=== PATIENT | male | born 1950 | race Caucasian/White ===

== ENCOUNTER 2017-07-12 10:12 | Outpatient (CLI) | payer MEDICARE, BC ==
--- NOTE | 2017-07-12 12:23 | RAD ---
CHEST PA AND LATERAL: History: 67-year-old male with history of dyspnea. Comparison: 07-07-15 FINDINGS: Post op midline sternotomy with endostent in the proximal ascending aorta. Mild hyperinflation. No co nfluent pneumonia, overt edema, or pleural effusion. IMPRESSION: Stable hyperinflation. Post-operative changes. No acute intrathoracic disease. POS: [facility]
== END 2017-07-12 10:13 | disposition home or self-care (01) ==
LOC: RAD 10:12
PROVIDERS: ATTEND Internal Medicine Critical Care Medicine
DX: R06.00 Dyspnea, unspecified (principal); Z98.890 Other specified postprocedural states
CPT/HCPCS: 71046

== ENCOUNTER 2017-08-10 18:31 | Observation (INO) | payer BC, MEDICARE ==
--- NOTE | 2017-08-10 19:34 | RAD ---
CHEST ONE VIEW 08/10/17 HISTORY: Syncope. COMPARISON: Chest radiograph 07/12/17. FINDINGS: Cardiac valve is present. Mediastinal surgical clips are present. No focal air space consolidation, pneumothorax or effusion. Incomplete evaluation of the ACDF hardwar e. IMPRESSION: No acute intrathoracic abnormality. POS: [facility]
[2017-08-10 19:38] LABS: #Basophils 0.1 thou/uL (0.0-0.2); #Eosinphils 0.5 thou/uL (0.0-0.7); #Lymphocytes 2.5 thou/uL (1.20-3.40); %Basophils 0.6 % (0.0-1.0); %Eosinophils 4.7 % (0.0-10.0); %Lymphocytes 24.8 % (21.0-51.0); Hemoglobin 13.4 g/dL (14.0-18.0); Mean Corpuscular HGB CONC 33.9 g/dL (32.0-36.0); Mean Corpuscular Hemoglobin 32.3 pg (27.0-31.0); Mean Corpuscular Volume 95.3 fl (80.0-94.0); Mean Platelet Volume 7.1 fL (7.4-10.4); Platelet Count 270 thou/uL (130-400); RBC Distribution Width 11.7 % (11.5-14.5); Red Blood Cell (RBC) Count 4.14 mill/uL (4.70-6.10)
[2017-08-10 20:01] LABS: ALT (SGPT) 21 U/L (8-55); AST (SGOT) 24 U/L (5-34); Albumin 3.5 g/dL (3.4-4.8); Alkaline Phosphatase 103 U/L (40-150); Anion Gap 15 mmol/L (10-20); BUN (Urea Nitrogen) 15 mg/dL (8.4-25.7); Bilirubin, Total 0.8 mg/dL (0.2-1.2); Calc. Creatinine Clearance 0 mL/min (70-130); Calcium 9.2 mg/dL (7.8-10.44); Carbon Dioxide 28 mmol/L (23-31); Chloride 96 mmol/L (98-107); Estimated GFR-MDRD 88; Globulin 2.5 g/dL (2.4-3.5); Glucose 102 mg/dL (80-115); Sodium 135 mmol/L (136-145)
[2017-08-10 20:04] LABS: CKMB 1.9 ng/mL (0-6.6)
[2017-08-10] MEDS ORDERED: Morphine 4 MG/ML VIAL ONE (20:46)
[2017-08-10] MEDS ORDERED: methylPREDNISolone Sod Succ/PF 125 MG/2 ML VIAL ONE (20:46)
[2017-08-10] MEDS ORDERED: Furosemide 40 MG/4 ML VIAL ONE (20:46)
[2017-08-10] MEDS ORDERED: Ondansetron ODT 4 MG TAB ONE (20:46)
[2017-08-10] MEDS ORDERED: Aspirin 325 MG TAB ONE (20:46)
[2017-08-10] MEDS ORDERED: Nitroglycerin 2% Ointment 1 INCH/1 GM Packet ONE (20:46)
[2017-08-10] MEDS ORDERED: Ondansetron ODT 4 MG TAB SL PRN (22:26)
[2017-08-10] MEDS ORDERED: Ondansetron HCl/PF 4 MG/2 ML Vial IVP PRN ×2 (22:26→23:28)
[2017-08-10 22:36] VITALS: BMI 20.7
[2017-08-10] MEDS ORDERED: Nicotine 21 MG PATCH TD SCH (23:00)
[2017-08-10 23:19] LABS: Troponin I 0.032 ng/mL (< 0.028)
[2017-08-10] MEDS ORDERED: Acetaminophen 500 MG TAB PO PRN (23:28)
[2017-08-10] MEDS ORDERED: hydrALAZINE 20 MG/ML VIAL SLOW IVP PRN (23:28)
[2017-08-10] MEDS ORDERED: cloNIDine 0.1 MG TAB PO PRN (23:28)
[2017-08-10] MEDS ORDERED: Ondansetron ODT 4 MG TAB PO PRN (23:28)
[2017-08-10] MEDS ORDERED: clonazePAM 1 MG TAB PO PRN (23:28)
[2017-08-10] MEDS ORDERED: PROVENTIL INHALER 6.7 G (200 INHALATIONS) INH PRN (23:28)
[2017-08-11 01:25] LABS: Troponin I 0.027 ng/mL (< 0.028)
[2017-08-11 05:17] LABS: Anion Gap 14 mmol/L (10-20); BUN (Urea Nitrogen) 17 mg/dL (8.4-25.7); Calc. Creatinine Clearance 66 mL/min (70-130); Calcium 9.5 mg/dL (7.8-10.44); Carbon Dioxide 29 mmol/L (23-31); Chloride 96 mmol/L (98-107); Estimated GFR-MDRD 80; Glucose 188 mg/dL (80-115); Magnesium 1.6 mg/dL (1.6-2.6); Potassium 3.4 mmol/L (3.5-5.1); Sodium 136 mmol/L (136-145)
[2017-08-11 06:11] LABS: Eosinophils 2 % (0-10); Hemoglobin 13.4 g/dL (14.0-18.0); Lymphocytes 6 % (21-51); MDiff Complete? YES; Macrocytosis SLIGHT = 6-15 cells (100X) (0-5/hpf); Mean Corpuscular Hemoglobin 32.3 pg (27.0-31.0); Mean Corpuscular Volume 95.1 fl (80.0-94.0); Mean Platelet Volume 7.4 fL (7.4-10.4); Monocytes 1 % (0-10); Neutrophil 90 % (42-75); PLT Morphology Comment Appears Adequate; Platelet Count 278 thou/uL (130-400); RBC Distribution Width 11.8 % (11.5-14.5); Red Blood Cell (RBC) Count 4.16 mill/uL (4.70-6.10)
[2017-08-11] MEDS ORDERED: Mometasone/Formoterol 120 PUFF INHALER INH SCH (06:30)
[2017-08-11] MEDS ORDERED: Famotidine 20 MG TAB PO SCH (09:00)
[2017-08-11] MEDS ORDERED: Clopidogrel Bisulfate 75 MG TAB PO SCH (09:00)
[2017-08-11] MEDS ORDERED: Lisinopril 20 MG TAB PO SCH (09:00)
[2017-08-11] MEDS ORDERED: Aspirin 81 mg Enteric Coated Tablet PO SCH (09:00)
[2017-08-11] MEDS ORDERED: Carvedilol 6.25 MG TAB PO SCH (09:00)
--- NOTE | 2017-08-11 09:49 | HP ---
DATE OF ADMISSION: 08/10/2017 PRIMARY CARE PHYSICIAN: Dr. Roberto Cervantes. CHIEF COMPLAINT: General weakness and fall. HISTORY OF PRESENT ILLNESS: This is a 67-year-old male who presents to [facility] after apparently sustaining a fall at his home on the date of admission. Patient stat es he was leaving his home on the front porch when he lost his balance, striking a picnic table near his door. Patient had bruising and scraping of the left forearm area as well as bruising to the left side of his forehead. Patient denies any leeanne loss of consciousness, but states he has been unstea dy, lethargic, and sleeping more after a recent admission and discharge from [facility] after undergoing a cervical spine fusion. Patient states he has had increasing neck pain and difficulty with range of motion of the neck undergoing the procedure in the last 5-7 days. Patient s tates he was admitted for approximately 4-5 days and received IV fluids as well as had limited mobili ty during his hospital course. Patient received multiple medications, he states such as pain medicat ions through IV and oral routes. Patient apparently also developed postoperative atrial fibrillation and placed on amiodarone, discharging home with 200 mg b.i.d. Patient states he has had some unstea dy gait, feeling weak in his legs, using furniture and the miranda for mobilization. Patient states he normally is able to ambulate without the use of assistive device and denies receiving any home healt h services or home physical therapy. Patient does state he has noticed some swelling of his ankle re gion after discharge from the hospital, but denies any home oxygen use, chest pain, jaw, or left arm discomfort. Patient denies any specific unilateral weakness, difficulty with speech or vision. Khloe ent admits to being placed on home pain medication, which he states he intermittently takes for neck pain after his cervical spine fusion. In the emergency room, patient underwent chest imaging showing no acute infiltrate. Screening metabolic survey showed mild elevation to BNP of 387 and troponin I of 0.030. Patient received treatment in the emergency room to include Solu-Medrol 125 mg in addition to Lasix 80 mg, aspirin, transdermal nitroglycerin, morphine sulfate, Zofran, and 2 DuoNeb treatment s. Patient was transferred to the observation unit for evaluation. PAST MEDICAL HISTORY: 1. Tobacco abuse. 2. Chronic obstructive pulmonary disease. 3. Coronary artery disease. 4. Question of postoperative atrial fibrillation treated with amiodarone. 5. Hypertension. 6. Hyperlipidemia. 7. Gastroesophageal reflux. PAST SURGICAL HISTORY: 1. Status post coronary artery bypass grafting x3 vessels. 2. Status post hernia repair. 3. Status post spinal surgery. 4. Status post cervical spine fusion. 5. Status post lumbar spine surgery. 6. Status post cardiac valve replacement. CURRENT MEDICATIONS: 1. Albuterol sulfate 1 puff inhaled q.4 hours p.r.n. 2. Amiodarone 200 mg p.o. b.i.d. 3. Aspirin 81 mg 1 tab p.o. daily. 4. Coreg 6.25 mg p.o. b.i.d. 5. Klonopin 1 mg p.o. daily. 6. Plavix 75 mg 1 tab p.o. daily. 7. Nexium 40 mg p.o. q.a.m. 8. Hydrochlorothiazide 25 mg p.o. daily. 9. DuoNebs 3 mL nebulized q.i.d. p.r.n. 10. Lisinopril 40 mg p.o. daily. 11. Melatonin 3 mg p.o. at bedtime. 12. Dulera two puffs inhaled b.i.d. 13. Crestor 20 mg p.o. daily. ALLERGIES: PENICILLIN causing a rash. FAMILY HISTORY: Mother with coronary artery disease and a valve replacement. Father after comp lications of an accident. SOCIAL HISTORY: Patient smokes greater than 50+ years. Continues to smoke up to a pack of cigarette s daily. Occasional alcohol use. Formally employed with [employer] in [place]. . No illicit dr ug use. REVIEW OF SYSTEMS: The following complete review of systems was otherwise negative, except as stated per HPI: Constitutional: Weight loss or gain, ability to conduct usual activities. Skin: Rash, i tching. Eyes: Double vision, pain. ENT/Mouth: Nose bleeding, neck stiffness, pain, tenderness. C ardiovascular: Palpitations, dyspnea on exertion, orthopnea. Respiratory: Shortness of breath, whe ezing, cough, hemoptysis, fever, or night sweats. Gastrointestinal: Poor appetite, abdominal pain, heartburn, nausea, vomiting, constipation, or diarrhea. Genitourinary: Urgency, frequency, dysuria, nocturia. Musculoskeletal: Pain, swelling. Neurologic/Psychiatric: Anxiety, depression. Allergy /Immunologic: Skin rash, bleeding tendency. PHYSICAL EXAMINATION: VITAL SIGNS: On admission, blood pressure 188/89, pulse 56, respiratory rate 22, temperature 98.5 de grees Fahrenheit, O2 saturation 92% on room air. GENERAL APPEARANCE: This is a 67-year-old male, alert and oriented x3, pleasant, responsiv e, in no acute distress. HEENT: Pupils are equal, round, and reactive to light and accommodation. Extraocular muscles are in tact. No scleral icterus, no conjunctival injection. Nares patent. OP is clear. No oral lesions n oted. Ecchymosis and contusions noted over the left eyebrow and forehead and zygomatic arch. NECK: Supple, diminished range of motion in flexion, extension, and rotation. Mild tenderness to pa lpation in the cervical spine posteriorly. Mild edema noted. Postsurgical changes noted in the ante rior neck with post-surgical scarring noted. No palpable mass. No carotid bruits appreciated. LUNGS: Diminished breath sounds bilaterally. Occasional expiratory wheeze. CARDIOVASCULAR: S1, S2 with distant heart sounds. No murmur, rub, or gallop appreciated. ABDOMEN: Rounded, soft, nontender, nondistended. Bowel sounds are positive in all four quadrants. There is no hepatosplenomegaly, no abdominal bruits, no rebound or guarding appreciated. EXTREMITIES: Multiple areas of ecchymosis, bruising, and contusions of the upper extremities. Left forearm with Coban and wound dressing in place. Abrasions and excoriations on the dorsum of the left hand. Lower extremities with bilateral pitting edema to the upper ankle region. Pulses diminished bilaterally at the dorsalis pedis, posterior tibial, and popliteal arteries. NEUROLOGIC: Cranial nerves II-XII are grossly intact. Patient observed ambulating in the room. No gross focal deficits appreciated. Cranial nerves II-XII are grossly intact. PERTINENT LABORATORY DATA AND X-RAY FINDINGS: Complete metabolic profile within normal limits. Trop onin I ranged between 0.030 to 0.032. BNP 387 previously noted 126 on 02/18/2013. CBC showed a whit e blood cell count of 10, hemoglobin 13.4, hematocrit 39.4, MCV 95, platelet count 270 with normal di fferential. Portable chest x-ray dated 08/10/2017 showed no acute cardiopulmonary process. ACDF lisette shady in place. EKG dated 08/10/2017 by my interpretation shows sinus mechanism with heart rates in the 50s. Attenuated R waves in the precordial leads. Normal axis. No acute ST-T wave changes appre ciated. ASSESSMENT AND PLAN: 1. Generalized weakness. Patient was placed in observation status on the telemetry unit. Suspect m ultifactorial given patient's recent cervical spine fusion in conjunction with pain medication exposu re and limited mobility postoperatively. We will obtain PT evaluation for full functional assessment . General fall risk precautions. 2. Status post mechanical fall. See #1 above. General supportive measures. Suspect iatrogenic com ponent. 3. Elevated troponin I. Suspect demand ischemia, which is chronic. No evidence to suggest acute co ronary syndrome. Supportive measures. Continue aspirin and Plavix. 4. Chronic obstructive pulmonary disease. We will continue home regimen of DuoNebs and Dulera. Oxy gen p.r.n. No current exacerbation. 5. Lower extremity edema. Suspect dependent edema given patient's limited mobility postoperatively. We will continue home medication regimen and monitor clinically. Hold diuretic therapy. 6. Status post anterior cervical discectomy and fusion. Continue supportive management. Pain contr ol as clinically indicated. 7. Prophylaxis. Sequential compression devices while in bed. Pepcid 20 mg p.o. b.i.d. PT for func tional assessment. 8. Code status is FULL. Surrogate medical decision maker is patient's spouse.
[2017-08-11 12:16] VITALS: BP 123/58; TEMP 98.7
[2017-08-11] MEDS ORDERED: Amiodarone 200 MG TAB PO SCH (14:30)
[2017-08-11] MEDS ORDERED: Potassium Chloride 20 MEQ TAB PO SCH (14:45)
--- NOTE | 2017-08-11 16:09 | DIS ---
DATE OF DISCHARGE: 08/11/2017 DISCHARGE DISPOSITION: Home. FOLLOWUP: 1. Follow up with Cardiology, Dr. Tripp, next week. 2. Follow up with Dr. Cervantes after 1 week. 3. Base met with magnesium after 1 week is recommended. Primary care physician is advised to follow . ALLERGIES: The patient is allergic to PENICILLIN. The patient was seen and examined on the day of discharge. Denies any new complaints. No chest pain , shortness of breath or palpitations. DISCHARGE MEDICATIONS: 1. Albuterol inhaler as needed. 2. Amiodarone 200 mg twice a day. 3. Aspirin 81 mg daily. 4. Carvedilol 6.25 mg twice a day. 5. Clonazepam as needed. 6. Plavix 75 mg daily. 7. Nexium 40 mg daily. 8. Lasix as needed. 9. Hydrochlorothiazide 25 mg daily. 10. DuoNeb as needed. 11. Lisinopril 40 mg daily. 12. Melatonin 3 mg at bedtime. 13. Dulera 2 puffs twice a day. 14. MiraLax twice a day. 15. Senokot-S twice a day. 16. Potassium chloride with Lasix. 17. Crestor 20 mg daily. BRIEF HOSPITAL COURSE: The patient is a 67-year-old white male with coronary artery disease, paroxys mal atrial fibrillation on amiodarone, COPD, ongoing tobacco abuse and hypertension, presented to the hospital with generalized weakness and mechanical fall without any syncope. Please refer to the his tory and physical dated 08/10/2017 for further details. The patient was admitted to the hospital with the diagnosis of generalized weakness secondary to chromium plater rosi obstructive pulmonary disease exacerbation. He received one dose of Lasix along with steroids an d was placed on nebulizer treatment. His symptoms have significantly improved. His repeat troponin has been normal. He is requesting to be discharged. A chest x-ray was negative for infiltrate or ed vianey. He has appointment with Dr. Tripp after 3-4 days. 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 FINAL DIAGNOSES: 1. Generalized weakness, multifactorial. 2. Mild chronic obstructive pulmonary disease exacerbation, resolved. 3. Indeterminate troponins, probably secondary to demand ischemia/chronic obstructive pulmonary dise ase exacerbation. 4. Chronic obstructive pulmonary disease. The patient will continue his home regimen with nebulizer treatment and Dulera. 5. Constipation. The patient will be started on MiraLax with Senokot-S. A prescription for Fleet E nema will also be sent to the pharmacy. 6. Paroxysmal atrial fibrillation. 7. Ongoing tobacco abuse, the patient was counseled. 8. Coronary artery disease. 9. Hypertension. 10. Hyperlipidemia. 11. Gastroesophageal reflux disease. Plan of care was discussed with the patient in detail. He stated understanding.
[2017-08-11] MEDS ORDERED: Melatonin 3 MG TAB PO SCH (21:00)
== END 2017-08-11 15:41 | disposition home or self-care (01) ==
LOC: ERS 18:31 → 2SW 20:30
PROVIDERS: ADMIT Internal Medicine; ATTEND Internal Medicine
DX: R53.1 Weakness (principal); R60.0 Localized edema; R79.89 Other specified abnormal findings of blood chemistry; I25.10 Atherosclerotic heart disease of native coronary artery without angina pectoris; I48.0 Paroxysmal atrial fibrillation; K59.00 Constipation, unspecified; E78.5 Hyperlipidemia, unspecified; I10 Essential (primary) hypertension; J44.9 Chronic obstructive pulmonary disease, unspecified; K21.9 Gastro-esophageal reflux disease without esophagitis; F17.210 Nicotine dependence, cigarettes, uncomplicated; Z79.02 Long term (current) use of antithrombotics/antiplatelets; Z79.82 Long term (current) use of aspirin; Z79.899 Other long term (current) drug therapy; Z88.0 Allergy status to penicillin; Z98.890 Other specified postprocedural states
CPT/HCPCS: 36415; 71045; 80048; 80053; 82553; 83735; 83880; 84443; 84484; 85007; 85025; 85027; 93005; 96374; 96375; A4216; G0378; G8978-GP-CI; G8979-GP-CI; G8980-GP-CI; J1940; J2270; J2930; J7620; Q0162

== ENCOUNTER 2018-01-21 14:28 | Observation (INO) | payer BC, MEDICARE ==
[~2018-01-21 14:28] MED LIST: ISOVUE-370 76%-LOCM 1 ML ONE
[2018-01-21 15:02] LABS: #Eosinphils 0.1 thou/uL (0.0-0.7); #Lymphocytes 1.7 thou/uL (1.20-3.40); #Monocytes 0.7 thou/uL (0.11-0.59); #Neutrophils 10.6 thou/uL (1.40-6.50); %Basophils 0.3 % (0.0-1.0); %Eosinophils 0.9 % (0.0-10.0); %Lymphocytes 12.9 % (21.0-51.0); %Monocytes 5.5 % (0.0-10.0); %Neutrophils 80.4 % (42.0-75.0); Hemoglobin 15.9 g/dL (14.0-18.0); Mean Corpuscular HGB CONC 32.5 g/dL (32.0-36.0); Mean Corpuscular Hemoglobin 30.9 pg (27.0-31.0); Mean Corpuscular Volume 94.9 fL (78.0-98.0); Mean Platelet Volume 8.7 fL (7.4-10.4); Platelet Count 148 thou/uL (130-400); RBC Distribution Width 12.1 % (11.5-14.5); Red Blood Cell (RBC) Count 5.16 mill/uL (4.70-6.10); White Blood Cell (WBC) Count 13.2 thou/uL (4.8-10.8)
[2018-01-21] MEDS ORDERED: Ondansetron PF 4 MG/2 ML Vial ONE (15:22)
[2018-01-21] MEDS ORDERED: Pantoprazole 40 MG VIAL ONE (15:22)
[2018-01-21] MEDS ORDERED: Dicyclomine 20 MG TAB ONE (15:22)
--- NOTE | 2018-01-21 15:24 | RAD ---
PORTABLE CHEST: Date: 01/21/18 HISTORY: Dyspnea. COMPARISON: 09/27/17. FINDINGS: Chronic lung changes. Heart size upper normal. Postoperative changes again noted. No evidence of vasc ular congestion, edema, infiltrate, or significant effusion. IMPRESSION: No acute finding or interval change noted. POS: [facility]
[2018-01-21 15:38] LABS: ALT (SGPT) 9 U/L (8-55); AST (SGOT) 13 U/L (5-34); Albumin 3.8 g/dL (3.4-4.8); Alkaline Phosphatase 75 U/L (40-150); Anion Gap 12 mmol/L (10-20); BUN (Urea Nitrogen) 13 mg/dL (8.4-25.7); Calc. Creatinine Clearance 0 mL/min (70-130); Calcium 9.3 mg/dL (7.8-10.44); Carbon Dioxide 29 mmol/L (23-31); Chloride 102 mmol/L (98-107); Estimated GFR-MDRD 66; Globulin 3.1 g/dL (2.4-3.5); Protein, Total 6.9 g/dL (5.8-8.1); Sodium 139 mmol/L (136-145)
[2018-01-21 15:39] LABS: CKMB 1.6 ng/mL (0-6.6); Glucose 175 mg/dL (80-115); Troponin I Less than 0.010 ng/mL (< 0.028)
[2018-01-21 16:24] LABS: Bilirubin Negative (Negative); Blood, Urine Negative (Negative); Clarity CLEAR (Clear); Glucose, Urine (Dipstick) Negative (Negative); Leukocyte Negative (Negative); Nitrite Negative (Negative); Protein, Urine (Dipstick) 300 mg/dL (Neg-Trace); Urobilinogen 0.2 mg/dL (0.2-1.0); pH, Urine 5.5 (5.0-9.0)
[2018-01-21 16:25] LABS: Bacteria/HPF None Seen HPF (None Seen); Hyaline Casts/LPF 7-10 HYALINE CAST LPF (0-3 Hyaline); Pathc Cast-AUWi Flag 0.87 (0-2.49); RBC/HPF 0-3 HPF (0-3); Squamous Epithelial 0-3 HPF (0-3); WBC/HPF 0-3 HPF (0-3)
[2018-01-21 16:28] LABS: Renal Epithelial None Seen HPF (0-3); Transitional Epithelial NONE SEEN HPF (0-3)
--- NOTE | 2018-01-21 16:48 | CT ---
CT ABDOMEN AND PELVIS WITH IV CONTRAST: History: Abdominal pain, diarrhea. Comparison: 11-06-15 FINDINGS: Noncalcified pleural plaques at each lung base are stable. The liver, spleen, kidneys, adrenal glands and pancreas are unremarkable. Degenerative and post-operative changes of the lumbar spine. Urinary bladder is decompressed. Dystrophic calcification in the prostate gland. Prominent arterial calcifica tions throughout the abdomen with fusiform ectasia of the lower abdominal aorta and iliac vessels. Si gnificant stenosis of the renal arteries and superior mesenteric artery are apparent. Lack of oral contrast limits evaluation of the bowel. No evidence of obstruction. Circumferential wal l thickening of the entirety of the stomach is similar in appearance to the previous exam. There is a lso prominent circumferential edematous wall thickening of the colon extending from the cecum to the upper sigmoid colon. Subtle stranding in the adjacent fat. Small amount of free fluid in the dependen t portion of the pelvis. No free air. IMPRESSION: 1. Severe long segment inflammation of the colon, sparing the sigmoid colon. Considerations would inc lude infection, ischemia, and inflammatory bowel disease. Given the severe atherosclerosis, ischemia would be of high concern. 2. Prominent circumferential wall thickening of the stomach. It is similar to the previous study from 2016. Please consider endoscopic correlation. POS: [facility]
[2018-01-21] MEDS ORDERED: Acetaminophen 500 MG TAB ONE (19:38)
[2018-01-21] MEDS ORDERED: metroNIDAZOLE 500 MG/100 ML BAG ONE (20:11)
[2018-01-21 21:11] LABS: Lactic Acid 1.2 mmol/L (0.5-2.2)
[2018-01-21 23:01] VITALS: BMI 18.8
[2018-01-22] MEDS ORDERED: Melatonin 3 MG TAB PO SCH ×2 (00:15→21:00)
[2018-01-22] MEDS ORDERED: Lisinopril 20 MG TAB PO SCH ×2 (00:15→09:00)
[2018-01-22] MEDS ORDERED: clonazePAM 1 MG TAB PO SCH ×2 (00:15→21:00)
[2018-01-22] MEDS ORDERED: Carvedilol 3.125 MG TAB PO SCH ×2 (00:15→09:00)
[2018-01-22] MEDS ORDERED: Nicotine 21 MG PATCH TOP SCH (00:15)
[2018-01-22] MEDS ORDERED: Acetaminophen 325 MG TAB PO PRN (00:30)
[2018-01-22] MEDS ORDERED: PROVENTIL INHALER 6.7 G (200 INHALATIONS) INH PRN (05:37)
[2018-01-22] MEDS ORDERED: metroNIDAZOLE 500 MG in Premix Bag 1 BAG IVPB SCH (06:00)
[2018-01-22 06:29] LABS: ALT (SGPT) Less than 7 U/L (8-55); AST (SGOT) 14 U/L (5-34); Albumin 2.7 g/dL (3.4-4.8); Alkaline Phosphatase 51 U/L (40-150); Anion Gap 7 mmol/L (10-20); BUN (Urea Nitrogen) 12 mg/dL (8.4-25.7); Bilirubin, Total 0.7 mg/dL (0.2-1.2); Calc. Creatinine Clearance 60 mL/min (70-130); Calcium 8.1 mg/dL (7.8-10.44); Carbon Dioxide 29 mmol/L (23-31); Chloride 106 mmol/L (98-107); Estimated GFR-MDRD 80; Globulin 2.2 g/dL (2.4-3.5); Glucose 97 mg/dL (80-115); Potassium 3.7 mmol/L (3.5-5.1); Protein, Total 4.9 g/dL (5.8-8.1); Sodium 138 mmol/L (136-145)
[2018-01-22] MEDS ORDERED: Mometasone/Formoterol 120 PUFF INHALER INH SCH (06:30)
--- NOTE | 2018-01-22 06:41 | HP ---
CHIEF COMPLAINT: Abdominal pain. HISTORY OF PRESENT ILLNESS: This patient is a 67-year-old male with a history of significant periphe ral vascular disease who presented to the Emergency Department with the complaint of abdominal pain. The patient reports that he started experiencing some abdominal discomfort initially about 2 weeks a go. He took some Kaopectate and was doing pretty well yesterday; however, the patient's symptoms inc reased significantly. He had pain across his mid abdomen. He was out on a motorcycle and had to spl it out from his group, pull off the road find a place in the [place] to have a bowel movement. He said it was loose and quite large in quantity. He got back on his motorcycle and had about 30 minutes to finish the ride and indicated he could barely make it because he was cramping and had to have anothe r bowel movement at that time. He denied having any blood or mucus in the stools. States he did not eat much since mostly because he felt like it simply would not go down. He did not have nausea or v omiting, just simply felt like he could not swallow it because it would not go down like it was a moon d he did not like. He has had no bowel movement since the second one yesterday. He is feeling a lit tle bit better now and he only has mild discomfort. He states he felt a little warm earlier, but den ies specifically any fevers or chills. REVIEW OF SYSTEMS: Otherwise, is negative through a 10-system review other than the patient reports he did previously have some foot drop in his left foot, but that resolved after he got peripheral vas cular stenting. PAST MEDICAL HISTORY: Notable for COPD, coronary artery disease, hypertension, hyperlipidemia, gastr oesophageal reflux, question of a prior postoperative atrial fibrillation. The patient has longstand ing anxiety disorder treated with Klonopin. PAST SURGICAL HISTORY: Coronary artery bypass graft x3. Of note, the patient had a Staph infection of the sternal wound. He is status post hernia repair, spinal surgery, C-spine fusion, lumbar spine surgery and a cardiac valve replacement. The patient recently had surgery with Dr. Montero of the C -spine at [facility]. He also has recently had bilateral lower extremity arterial stents placed for peripheral vascular disease. FAMILY HISTORY: Mother had coronary artery disease and valve replacements. Father had complications from an accident. SOCIAL HISTORY: The patient continues to smoke typically more than a pack of cigarettes per day, he has smoked for over 50 years. Occasionally uses alcohol. He is . CODE STATUS: He is FULL CODE and his would be his surrogate decision maker. ALLERGIES: PENICILLIN. MEDICATIONS: Hydrochlorothiazide 25 mg p.o. daily, albuterol ProAir HFA p.r.n., aspirin 81 mg every day, Coreg 3.125 mg p.o. b.i.d., Nexium 40 mg every day, Plavix 75 mg 3 times per week, Lasix 20 mg b.i.d., lisinopril 20 mg every day, DuoNeb p.r.n., Melatonin 3 mg at bedtime, Dulera 2 puffs inhal ed b.i.d. p.r.n., Crestor 20 mg b.i.d., Klonopin 1 mg p.o. at bedtime. PHYSICAL EXAMINATION: VITAL SIGNS: Temperature is 98.2, pulse 59, respirations 14, O2 sat 91% to 96% on room air, BP is 11 4/67. GENERAL APPEARANCE: Age appropriate male. He is awake, alert, oriented, pleasant, cooperative, no d istress. HEENT: PERRL. No OP lesions. NECK: Supple and symmetric. CARDIOVASCULAR: Heart is regular rate and rhythm without murmurs. He does have significant bony defe ct down the midline sternal incision. LUNGS: Lungs are diminished, but clear to auscultation bilaterally. ABDOMEN: Soft, nontender, nondistended, positive bowel sounds. No masses, no organomegaly. SKIN: Warm and dry with no cyanosis, clubbing or edema. LABORATORY DATA: White count 13.2, hemoglobin 15.9, platelets 148, 84% neutrophils, 13% lymphocytes. Chemistries are normal except the glucose of 175. Lactic acid was 2.4 with a repeat of 1.2. Lipas e less than 4. Urinalysis shows some protein, otherwise negative. Chest x-ray; no acute findings, old postoperative changes noted. IMAGING: CT abdomen and pelvis shows severe long segment inflammation of the colon, sparing the sigm oid. Etiologies include infection, ischemia, inflammatory bowel disease given the severity of noted atherosclerosis, ischemia would be of high concern. Also, there is prominent circumferential wall th ickening of the stomach similar to a previous study in 2016. ASSESSMENT AND PLAN: 1. Abdominal pain with CT findings consistent with colitis. There is some concern about the possibi lity of ischemic colitis versus infectious colitis. The patient has a slight leukocytosis which I do not think substantially sways it one way or the other. However, we will go ahead and cover with ant ibiotics. The patient is feeling substantially better right now and states he feels well enough to g o home. We will need to reassess in the morning with repeat labs and see where he stands at that poi nt, may need to continue with IV antibiotics or may be able to switch over to p.o. May need to consi mary jane a consultation with Gastroenterology if the colitis is not significantly improved. 2. Thickened stomach wall on CT scan does not appear to be new, the patient may benefit at some poin t from endoscopy to evaluate that as well. 3. Hypertension. Continue with the Zestril and carvedilol. 4. Hyperlipidemia. Continue with the rosuvastatin. 5. History of tobacco abuse. We will give the patient a nicotine patch. 6. Longstanding history of anxiety. Continue with the Klonopin.
[2018-01-22 07:04] LABS: #Eosinphils 0.2 thou/uL (0.0-0.7); #Lymphocytes 2.2 thou/uL (1.20-3.40); #Monocytes 0.9 thou/uL (0.11-0.59); #Neutrophils 8.3 thou/uL (1.40-6.50); %Basophils 0.2 % (0.0-1.0); %Eosinophils 1.9 % (0.0-10.0); %Lymphocytes 18.9 % (21.0-51.0); %Monocytes 7.6 % (0.0-10.0); %Neutrophils 71.4 % (42.0-75.0); Hemoglobin 12.3 g/dL (14.0-18.0); Mean Corpuscular Hemoglobin 30.5 pg (27.0-31.0); Mean Corpuscular Volume 95.3 fL (78.0-98.0); Mean Platelet Volume 9.2 fL (7.4-10.4); Platelet Count 112 thou/uL (130-400); Red Blood Cell (RBC) Count 4.01 mill/uL (4.70-6.10); White Blood Cell (WBC) Count 11.6 thou/uL (4.8-10.8)
[2018-01-22] MEDS ORDERED: Rosuvastatin 20 MG TAB PO SCH (09:00)
[2018-01-22] MEDS ORDERED: Hydrochlorothiazide 25 MG TAB PO SCH (09:00)
[2018-01-22] MEDS ORDERED: Clopidogrel Bisulfate 75 MG TAB PO SCH (09:00)
[2018-01-22] MEDS ORDERED: Aspirin 81 mg Enteric Coated Tablet PO SCH (09:00)
[2018-01-22 11:51] VITALS: BP 124/70; TEMP 98.2
--- NOTE | 2018-01-22 21:44 | DIS ---
DATE OF ADMISSION: 01/21/2018 DATE OF DISCHARGE: 01/22/2018 PRIMARY CARE PHYSICIAN: Yevgeniy Cervantes D.O. DISCHARGE DIAGNOSIS: Colitis. DISCHARGE MEDICATIONS: In addition to the patient's preadmission home medications as dictated in history and physical note by Dr. Walden on 2017, Mr. Hawkins has been discharged on ciprofloxacin 500 mg 2 times a day for 1 week and metronidazole 500 mg 3 times a day for 1 week. HOSPITAL COURSE: Mr. Hawkins is a pleasant 67-year-old gentleman who was admitted to [facility] on 01/22/2018 for abdominal pain with CT findings consistent with colitis. He improved clinically following admission. He was tolerating diet. He was afebrile. I assessed him prior to discharge, and he had no complaints. Vital signs were stable. He is advised to follow up with his primary care provider for final blood culture and urine culture report as well as to seek Gastroenterology referral if he has ongoing symptoms. Many thanks for allowing me to participate in your patient's care. Please feel free to contact me with any questions or concerns. DISCHARGE DESTINATION: Home. [facility]
== END 2018-01-22 13:00 | disposition home or self-care (01) ==
LOC: ERS 14:28 → SURG A 21:12
PROVIDERS: ADMIT Internal Medicine; ATTEND Internal Medicine
DX: K52.9 Noninfective gastroenteritis and colitis, unspecified (principal); J44.9 Chronic obstructive pulmonary disease, unspecified; I25.10 Atherosclerotic heart disease of native coronary artery without angina pectoris; I10 Essential (primary) hypertension; E78.5 Hyperlipidemia, unspecified; K21.9 Gastro-esophageal reflux disease without esophagitis; F17.210 Nicotine dependence, cigarettes, uncomplicated; Z95.1 Presence of aortocoronary bypass graft; Z88.0 Allergy status to penicillin; Z79.899 Other long term (current) drug therapy
CPT/HCPCS: 36415; 71045; 74177; 80053; 81003; 81015; 82553; 83605; 83690; 84484; 85025; 87040; 87086; 94664; 96361; 96365; 96366; 96367; 96375; C9113; G0378; J0744; J2405

== ENCOUNTER 2018-04-09 16:11 | Emergency (ER) | payer BC, MEDICARE ==
[2018-04-09 16:48] LABS: #Eosinphils 0.1 thou/uL (0.0-0.7); #Lymphocytes 1.5 thou/uL (1.20-3.40); #Monocytes 0.8 thou/uL (0.11-0.59); #Neutrophils 6.3 thou/uL (1.40-6.50); %Basophils 0.3 % (0.0-1.0); %Lymphocytes 17.1 % (21.0-51.0); %Neutrophils 72.5 % (42.0-75.0); Hemoglobin 15.4 g/dL (14.0-18.0); Mean Corpuscular HGB CONC 33.3 g/dL (32.0-36.0); Mean Corpuscular Hemoglobin 30.8 pg (27.0-31.0); Mean Corpuscular Volume 92.5 fL (78.0-98.0); Platelet Count 132 thou/uL (130-400); RBC Distribution Width 12.9 % (11.5-14.5); Red Blood Cell (RBC) Count 5.02 mill/uL (4.70-6.10); White Blood Cell (WBC) Count 8.7 thou/uL (4.8-10.8)
--- NOTE | 2018-04-09 16:53 | RAD ---
CHEST 1 VIEW: Date: 04/09/18 HISTORY: Dyspnea. COMPARISON: 01/21/18. FINDINGS: Cardiac silhouette is magnified by projection. Pulmonary vasculature is unremarkable. Mediastinum is midline with postoperative changes and aortic calcification. Lungs remain hyperinflated. No confluent air space consolidation or evidence of pneumothorax. Nonaggressive chondroid lesion at the right pro ximal humeral shaft is evident. IMPRESSION: Pulmonary hyperinflation and other chronic-type findings are stable. No active cardiopulmonary abnorm alities are demonstrated. POS: [facility]
[2018-04-09 17:00] LABS: PTT 26.6 SEC (22.9-36.1); Prothrombin Time 13.5 SEC (12.0-14.7)
[2018-04-09 17:11] LABS: ALT (SGPT) 14 U/L (8-55); AST (SGOT) 18 U/L (5-34); Albumin 3.7 g/dL (3.4-4.8); Alkaline Phosphatase 90 U/L (40-150); Anion Gap 18 mmol/L (10-20); BUN (Urea Nitrogen) 16 mg/dL (8.4-25.7); Bilirubin, Total 1.1 mg/dL (0.2-1.2); CK (CPK) 97 U/L (30-200); Calc. Creatinine Clearance 0 mL/min (70-130); Calcium 9.3 mg/dL (7.8-10.44); Carbon Dioxide 23 mmol/L (23-31); Chloride 101 mmol/L (98-107); Estimated GFR-MDRD Greater than 90; Globulin 2.8 g/dL (2.4-3.5); Glucose 118 mg/dL (80-115); Potassium 3.6 mmol/L (3.5-5.1); Protein, Total 6.5 g/dL (5.8-8.1); Sodium 138 mmol/L (136-145)
[2018-04-09 17:29] LABS: CKMB 2.5 ng/mL (0-6.6)
--- NOTE | 2018-04-09 20:22 | NM ---
NUCLEAR MEDICINE VENTILATION PERFUSION SCAN: (V/Q SCAN) 04/09/2018 HISTORY: A 67-year-old male with dyspnea. TECHNIQUE: Xenon-133 gas dose: 12.1 millicuries. [id number] dose: 6.1 millicuries. The patient inhaled Xenon-133 gas, and dynamic ventilation scintigraphy was performed. [id number] was injected IV, and multiple perfusion scintigraphic views were obtained. FINDINGS: There are no moderate-sized or large perfusion defects. There are no significant ventilation/perfusi on mismatches. There is retention of the xenon gas in both lungs, representing air-trapping, due to COPD. IMPRESSION: 1. Low probability for pulmonary thromboembolism. 2. Emphysema. jn [] POS: [facility]
[2018-04-09 21:07] LABS: Troponin I Less than 0.010 ng/mL (< 0.028)
[2018-04-09 21:52] LABS: Actual Bicarbonate (HCO3a) 26.1 mEq/L (22-28); Analyzer IN Cardio ER; Base Excess (BEa) 2.7 mEq/L (-2.0 to +3.0); CO2 Tension 36.7 mmHg (35.0-45.0); Calcium, Ionized 1.15 mmol/L (1.12-1.30); Carboxyhemoglobin (COHb) 1.4 gm% (0.0-3.0); Hemoglobin (Hb) 16.5 g/dL (14.0-18.0); O2 Tension (PaO2) 81.4 mmHg (> 80.0); Potassium - ABG Lab 3.77 mmol/L (3.70-5.30); pH, Arterial 7.47 (7.35-7.45)
[2018-04-09 21:55] LABS: ALV-art Gradient 22.455 (0-20); Puncture Site LBA
== END 2018-04-09 22:18 | disposition home or self-care (01) ==
LOC: ERS 16:11
DX: J44.1 Chronic obstructive pulmonary disease with (acute) exacerbation (principal); I10 Essential (primary) hypertension; F17.210 Nicotine dependence, cigarettes, uncomplicated
CPT/HCPCS: 36415; 71045; 78582; 80053; 82550; 82553; 82805; 83880; 84484; 85025; 85379; 85610; 85730; 93005; 94640; 94760; A9540; A9558; J7620

== ENCOUNTER 2018-05-04 11:48 | Inpatient (IN) | payer BC, MEDICARE ==
[2018-05-04 12:20] LABS: #Monocytes 0.8 thou/uL (0.11-0.59); #Neutrophils 14.1 thou/uL (1.40-6.50); %Basophils 0.2 % (0.0-1.0); %Eosinophils 0.2 % (0.0-10.0); %Monocytes 4.8 % (0.0-10.0); %Neutrophils 88.8 % (42.0-75.0); Hemoglobin 16.5 g/dL (14.0-18.0); Mean Corpuscular HGB CONC 31.5 g/dL (32.0-36.0); Mean Corpuscular Hemoglobin 30.7 pg (27.0-31.0); Mean Corpuscular Volume 97.5 fL (78.0-98.0); Mean Platelet Volume 10.2 fL (7.4-10.4); Platelet Count 100 thou/uL (130-400); RBC Distribution Width 13.6 % (11.5-14.5); Red Blood Cell (RBC) Count 5.38 mill/uL (4.70-6.10); White Blood Cell (WBC) Count 15.9 thou/uL (4.8-10.8)
[2018-05-04] MEDS ORDERED: Diltiazem 125 MG/25 ML ONE (12:20)
--- NOTE | 2018-05-04 12:26 | RAD ---
CHEST ONE VIEW: HISTORY: Atrial fibrillation. Chest pain. COMPARISON: 04/09/2018 FINDINGS: Heart size is within normal limits. Surgical clips are seen in the mediastinum region. Chronic lung changes are present. No signs of failure or focal infiltrates. IMPRESSION: Chronic lung change. POS: [facility]
[2018-05-04 12:37] LABS: ALT (SGPT) 33 U/L (8-55); AST (SGOT) 26 U/L (5-34); Albumin 3.8 g/dL (3.4-4.8); Alkaline Phosphatase 128 U/L (40-150); Anion Gap 13 mmol/L (10-20); BUN (Urea Nitrogen) 23 mg/dL (8.4-25.7); Bilirubin, Total 1.1 mg/dL (0.2-1.2); Calc. Creatinine Clearance 0 mL/min (70-130); Calcium 9.4 mg/dL (7.8-10.44); Carbon Dioxide 29 mmol/L (23-31); Chloride 101 mmol/L (98-107); Estimated GFR-MDRD 72; Globulin 2.9 g/dL (2.4-3.5); Glucose 205 mg/dL (80-115); Potassium 4.5 mmol/L (3.5-5.1); Protein, Total 6.7 g/dL (5.8-8.1); Sodium 138 mmol/L (136-145)
[2018-05-04 12:42] LABS: Platelet Morphology Comment Appears Decreased; RBC Morphology Normal
[2018-05-04 13:02] LABS: CKMB 3.7 ng/mL (0-6.6)
[2018-05-04] MEDS ORDERED: Metoprolol Tartrate 5 MG/5 ML VIAL ONE ×2 (13:02→13:34)
[2018-05-04] MEDS ORDERED: Propofol 500 MG/50 ML VIAL ONE (14:19)
[2018-05-04] MEDS ORDERED: Guaifenesin DM 100-10/5 ML UDCUP PO PRN (15:46)
[2018-05-04] MEDS ORDERED: Senokot S 8.6-50 MG TAB PO PRN (15:46)
[2018-05-04] MEDS ORDERED: Furosemide 20 MG TAB PO PRN (15:46)
[2018-05-04] MEDS ORDERED: PROVENTIL INHALER 6.7 G (200 INHALATIONS) INH PRN (15:46)
[2018-05-04] MEDS ORDERED: Acetaminophen 325 MG TAB PO PRN (15:46)
[2018-05-04] MEDS ORDERED: Enoxaparin Sodium 60 MG/0.6 ML SYRINGE ONE (16:07)
[2018-05-04 16:20] LABS: Troponin I 0.337 ng/mL (< 0.028)
--- NOTE | 2018-05-04 16:33 | HP ---
REASON FOR ADMISSION: Atrial flutter, demand ischemia, mild CHF exacerbation. HISTORY OF PRESENTING ILLNESS: The patient had gone for routine followup to see Dr. Tripp. He was found to be in atrial flutter with rates going up to 150s. He was transferred to the emergency room here. The patient was given multiple medications here including Lopressor 5 mg IV push x2, Cardizem 20 mg IV push, then 5 mg an hour which was escalated to 10 mg an hour. None of the above seem to control his rate. The patient continued to be in flutter at 152 beats per minute. He was finally cardioverted with propofol sedation. The patient is currently in sinus rhythm. Has no complaints of chest pain or palpitation. The patient has cough due to smoking habit and has also seen Dr. Tatum last and was given prednisone to be continued for a long taper per patient. He has also had a stent placed to his right lower extremity three weeks back by Dr. Hanley. PAST MEDICAL AND SURGICAL HISTORY: CABG done in 1997 for three vessels, TAVR done four years back, COPD with ongoing smoking, dyslipidemia, hypertension, C-spine surgery. He has had GERD. Prior history of postop atrial fibrillation. Longstanding history of anxiety disorder, on Klonopin. History of sternal dehiscence with postop CABG with staph infection, hernia repair, lumbar spine surgery, peripheral vascular disease with prior stent to both lower extremities , one done to right lower extremity three weeks back by Dr. Hanley. CURRENT MEDICATION: The patient takes 1. Lisinopril 20 mg twice daily. 2. Lasix 20 mg on Monday, Monday, Monday. 3. Melatonin 3 mg p.o. at bedtime. 4. Nexium 40 mg p.o. daily. 5. DuoNeb q.4 hourly. 6. Crestor 20 mg p.o. daily. 7. Dulera inhaler two puffs twice daily. 8. Aspirin 81 mg p.o. daily. 9. Clonazepam 1 mg p.o. at bedtime. 10. Plavix 75 mg p.o. daily. 11. Coreg 3.125 mg p.o. twice daily. 12. Hydrochlorothiazide 12.5 mg p.o. daily. ALLERGIES: ALLERGIC TO PENICILLIN. PERSONAL HISTORY: Smokes one pack a day. Does not abuse alcohol or drugs. Lives with his . Ambulates by himself. FAMILY HISTORY: Mother of [place] and she has had a heart valve replacement. She at the age of 62 years. Father in his 40s from motor vehicle accident. CODE STATUS: Full. Power of director of publications is his . REVIEW OF SYSTEMS: CONSTITUTIONAL: Negative for weight loss or gain, ability to conduct usual activities. SKIN: Negative for rash, itching. EYES: Negative for double vision, pain. ENT/MOUTH: Negative for nose bleeding, neck stiffness, pain, tenderness. CARDIOVASCULAR: Negative for palpitations, dyspnea on exertion, orthopnea. RESPIRATORY: Negative for shortness of breath, wheezing, cough, hemoptysis, fever or night sweats. GASTROINTESTINAL: Negative for poor appetite, abdominal pain, heartburn, nausea , vomiting, constipation, or diarrhea. GENITOURINARY: Negative for urgency, frequency, dysuria, nocturia. MUSCULOSKELETAL: Negative for pain, swelling. NEUROLOGIC/PSYCHIATRIC: Negative for anxiety, depression. ALLERGY/IMMUNOLOGIC: Negative for skin rash, bleeding tendency. PHYSICAL EXAMINATION: GENERAL: The patient is a 68-year-old male, who is currently not in any acute distress. VITAL SIGNS: Blood pressure 156/120 on arrival, currently 124/76. Pulse 154 on arrival, currently 50 per minute. Respiratory rate 16 per minute, temperature 98 degrees Fahrenheit, saturating 100% on 2 L nasal cannula. NECK: Supple. No elevated JVD. HEENT: Eyes; extraocular muscles intact. Pupils reacting to light. Oral cavity, mucous membranes are dry. No exudates or congestion. CARDIOVASCULAR SYSTEM: S1 and S2 heard. Regular rhythm. RESPIRATORY SYSTEM: Air entry 1+ bilateral. Scattered rhonchi plus bilateral. There is sternal dehiscence seen with healed CABG scar. ABDOMEN: Soft. Bowel sounds heard. No tenderness, rigidity, or guarding. EXTREMITIES: Mild pedal edema in both lower extremities, worse on the right. Peripheral pulses are 1+ bilateral. No ischemic ulcerations or gangrene. CENTRAL NERVOUS SYSTEM: No gross focal deficits noted. The patient is alert, awake, and oriented well. PSYCHIATRIC SYSTEM: Patient's mood is euthymic. No hallucinations or delusions. LABORATORY DATA: EKG done on arrival shows atrial flutter at 152 beats per minute, this was at 11:53 a.m. A repeat EKG done at 2:32 p.m. shows sinus rhythm at 64 beats per minute. He has anterolateral T-wave inversions with poor R-wave progression as well. White count of 15, H and H 16 and 52, platelet count is 100. MCV is 97 with 88% neutrophils. Electrolytes stable. BUN 23, creatinine 1.0, glucose 205. Liver enzymes are within normal limits. Troponin I 0.40. Albumin is 3.8. BNP 550. Chest x-ray done shows chronic lung changes. CLINICAL IMPRESSION AND PLAN: The patient will be admitted to telemetry for atrial flutter, demand ischemia, mild congestive heart failure exacerbation secondary to flutter. The patient has multiple medical issues including recent chronic obstructive pulmonary disease flare up for which he is on steroid taper and he is also a current smoker at present. Requiring nebulization which might worsen his flutter. He has had direct cardioversion done in the ER with the patient switching back into sinus rhythm. He will be closely monitored on telemetry. Likely, the patient will need ablation on Monday due to his COPD and requiring DuoNeb with possible reappearance of flutter and clinical worsening. We will place him on Lovenox 1 mg/kg at 60 mg q.12 hourly and we will continue aspirin, Plavix due to his recent stent placed to the right lower extremity. He will be on Coreg, Lasix 20 mg twice daily p.o., lisinopril 40 mg daily, Crestor 20 mg daily and continue the prednisone at 5 mg daily. Echo with 2D Doppler for LV function and rule out thrombus will be obtained. Dr. Henriquez will be consulted likely on Monday for ablation. I have discussed his current plan with the patient and and Dr. Tripp as well. Job ID: [id number] [facility]
[2018-05-04 19:02] LABS: Troponin I 0.349 ng/mL (< 0.028)
--- NOTE | 2018-05-04 19:21 | CON ---
DATE OF CONSULTATION: 05/04/2018 HISTORY OF PRESENT ILLNESS: I am seeing Mr. 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 His problems are: 1. New presentation with atrial flutter with rapid ventricular rates. a. Status post cardioversion emergently in the ER. b. Prior history of atrial fibrillation with RVR after his bypass surgery in 1997, but this spontaneously resolved. 2. Coronary artery disease with prior bypass surgery in 1997 and also subsequent valve surgery about 3 years ago. 3. History of COPD and prior history of smoking. 4. History of peripheral vascular disease, status post stenting in the past. 5. Risk factors including hypertension and hyperlipidemia. 6. History of GERD. 7. History of anxiety, treated with Klonopin. ALLERGIES: PENICILLINS. MEDICATIONS: Currently include: 1. Diltiazem IV. 2. Metoprolol IV. 3. Propofol for sedation. 4. Nicoderm patch. 5. Enoxaparin. 6. Furosemide. SUBJECTIVE: Mr. Hwakins was visiting Dr. Tripp for annual visit. Although, he was feeling fairly dyspneic, it is not that unusual for him. He has chronic dyspnea attributed to his COPD. He was found to be in atrial flutter with rapid ventricular rate. He was sent to the ER, where he was eventually cardioverted. He is now feeling slightly better since his heart rates are normalized. No palpitations currently. Denies PND or orthopnea. No stroke-like symptoms. No neurological deficits. Rest of 12-point system otherwise unremarkable. PAST MEDICAL HISTORY: As above. SOCIAL HISTORY: He is and smoked for over 50 years. Rare use of alcohol and drug use. FAMILY HISTORY: Not contributory, but the mother had coronary artery disease and valve replacement. Father had complication from accidents. OBJECTIVE DATA: VITAL SIGNS: Blood pressure is initially 129/90, heart rate 148, respirations 15. The patient is afebrile. Oxygen saturation 99% on 2 L. GENERAL: Alert and oriented man, in no apparent distress. NECK: Supple. Jugular veins not distended. CHEST: Coarse without crackles. HEART: Sounds are regular to rate and rhythm. No murmur or gallop. ABDOMEN: Benign. Bowel sounds positive. EXTREMITIES: Lower extremities without edema, clubbing, or cyanosis. Pulses are adequate. NEUROLOGIC: The patient is nonfocal. MUSCULOSKELETAL: Without joint swelling or deformity. SKIN: Without rash. DATABASE: EKG is reviewed. Initial EKG reveals an atrial flutter, which is typical isthmus dependent in morphology. Ventricular rates 152 beats per minute, 2:1 flutter conduction is seen to the ventricles. Subsequent EKG after cardioversion reveals sinus rhythm with occasional junctional beating competing with basic rate. LABORATORY DATA: White cell count is 5.38, hemoglobin is 16.5, platelet count is 100., potassium 4.5, BUN is 23, Troponins are 0.4, second troponin is mildly decreased at 0.337. ASSESSMENT AND PLAN: Mr. Hawkins is a pleasant 68-year-old man with history of peripheral vascular disease/coronary artery disease with some valve problems noted in the past. He is presenting with atrial flutter with adequate rapid rates. He was emergently cardioverted in the ER due to rapid rates and elevated troponin. I was consulted Dr. Tripp for further management. We had discussed the mechanism of atrial fibrillation and flutter. He understands the differences in both. For now, atrial flutter was in predominant rhythm. We discussed the benefit from CTI ablation therapy.. We discussed the potential need for later PVAI ablation if atriual fibrillaiton is also seen. He is willing to proceed. We will schedule him for first available Monday. In the meantime, continue anticoagulation with Lovenox. We will obtain 2D ECHO. Job ID: [id number] [facility]
[2018-05-04] MEDS: Mometasone/Formoterol 120 PUFF INHALER INH SCH (20:04)
[2018-05-04] MEDS: Nicotine 21 MG PATCH TOP SCH (20:29)
[2018-05-04] MEDS: Carvedilol 3.125 MG TAB PO SCH (20:32)
[2018-05-04] MEDS: Famotidine 20 MG TAB PO SCH (20:32)
[2018-05-04] MEDS: Melatonin 3 MG TAB PO SCH (20:33)
[2018-05-04] MEDS: Furosemide 20 MG TAB PO SCH (20:33)
[2018-05-04] MEDS ORDERED: clonazePAM 1 MG TAB PO SCH (21:00)
[2018-05-04] MEDS ORDERED: clonazePAM 0.5 MG TAB PO SCH (21:15)
--- NOTE | 2018-05-04 22:29 | OP ---
PROCEDURE: Cardioversion. INDICATION: Atrial flutter. Unresponsive to medication associated with increased troponin levels. The patient is a 68-year-old gentleman with history of coronary artery disease, previous bypass surge ry, history of transcutaneous aortic valve replacement, peripheral vascular disease, continued smokin g. Presented to the office today with heart rate of 150 and feeling weak and fatigued. Patient is bro ught here to the Emergency Room. He was given significant doses of intravenous Diltiazem, intravenous Metoprolol but the heart rate really did not change from the 150. In view of the increased troponin levels indicating some myocardial injury occurring with this tachycardia with a troponin level of 0.4 06, urgent cardioversion was advised. The patient was told the risks including stroke and also slow heart rates. The patient was given greer tion and then given 50 joules direct current synchronized energy and converted to sinus bradycardia. Some junctional rhythm and then a brief episode of atrial fibrillation and then into sinus bradycardi a with PACs with rates in the 50s. Blood pressures were relatively low receiving saline. ASSESSMENT: 1. Urgent cardioversion done due to atrial flutter with rapid rate refractory to medications. It is thought that Amiodarone would be unlikely to control this flutter either and would take quite a l citlaly time to even decrease the rate. 2. Mild sinus bradycardia being observed probably related to underlying sick sinus syndrome. Steph betancourt has Diltiazem and Metoprolol in the system.
[2018-05-05 07:02] LABS: Anion Gap 8 mmol/L (10-20); BUN (Urea Nitrogen) 22 mg/dL (8.4-25.7); Calc. Creatinine Clearance 69 mL/min (70-130); Calcium 8.5 mg/dL (7.8-10.44); Carbon Dioxide 27 mmol/L (23-31); Chloride 108 mmol/L (98-107); Estimated GFR-MDRD 86; Glucose 94 mg/dL (80-115); Sodium 139 mmol/L (136-145)
[2018-05-05] MEDS: Mometasone/Formoterol 120 PUFF INHALER INH SCH ×2 (07:49→20:07)
[2018-05-05] MEDS: Aspirin 81 mg Enteric Coated Tablet PO SCH (08:30)
[2018-05-05] MEDS: Famotidine 20 MG TAB PO SCH ×2 (08:30→22:14)
[2018-05-05] MEDS: Carvedilol 3.125 MG TAB PO SCH ×2 (08:30→22:14)
[2018-05-05] MEDS: predniSONE 5 MG TAB PO SCH (08:30)
[2018-05-05] MEDS: Lisinopril 20 MG TAB PO SCH (08:30)
[2018-05-05] MEDS: Furosemide 20 MG TAB PO SCH ×2 (08:31→22:13)
[2018-05-05] MEDS: Enoxaparin Sodium 60 MG/0.6 ML SYRINGE SC SCH ×2 (08:31→22:14)
[2018-05-05] MEDS: Rosuvastatin 20 MG TAB PO SCH (08:44)
[2018-05-05 09:23] LABS: #Basophils 0.1 thou/uL (0.0-0.2); #Eosinphils 0.2 thou/uL (0.0-0.7); #Lymphocytes 2.8 thou/uL (1.20-3.40); #Monocytes 0.9 thou/uL (0.11-0.59); #Neutrophils 10.5 thou/uL (1.40-6.50); %Basophils 0.6 % (0.0-1.0); %Eosinophils 1.2 % (0.0-10.0); %Lymphocytes 19.6 % (21.0-51.0); %Neutrophils 72.6 % (42.0-75.0); Hemoglobin 14.8 g/dL (14.0-18.0); Mean Corpuscular HGB CONC 31.5 g/dL (32.0-36.0); Mean Corpuscular Hemoglobin 30.9 pg (27.0-31.0); Mean Corpuscular Volume 98.3 fL (78.0-98.0); Mean Platelet Volume 10.6 fL (7.4-10.4); Platelet Count 91 thou/uL (130-400); RBC Distribution Width 13.5 % (11.5-14.5); Red Blood Cell (RBC) Count 4.78 mill/uL (4.70-6.10); White Blood Cell (WBC) Count 14.5 thou/uL (4.8-10.8)
--- NOTE | 2018-05-05 12:20 | PDOC.PN ---
- Subjective Encounter Start Date: 05/05/18 Encounter Start Time: 09:45 Subjective: no sob or palp -: feels better - Objective Resuscitation Status - Order Detail: 05/04/18 15:40 Resuscitation Status Routine Resuscitation Status: FULL: Full Resuscitation Discussed with: POA: DANNI Reviewed: Yes Vital Signs & Weight: Vital Signs (12 hours) Temp Pulse Resp BP Pulse Ox 05/05/18 08:00 98.8 F 66 17 159/79 H 98 05/05/18 07:51 97 05/05/18 07:49 71 16 05/05/18 04:00 97.6 F 60 18 132/76 94 L Weight Weight 135 lb 3 oz I&O: 05/04/18 05/05/18 05/06/18 06:59 06:59 06:59 Intake Total 240 Output Total 600 Balance -360 Result Diagrams: 05/05/18 08:36 05/05/18 06:19 Phys Exam - Physical Examination HEENT: PERRLA, moist MMs Neck: no JVD, supple Respiratory: no wheezing, no rales Cardiovascular: RRR, no significant murmur Gastrointestinal: soft, non-tender, positive bowel sounds Musculoskeletal: no edema, pulses present Neurological: non-focal, moves all 4 limbs Psychiatric: normal affect, A&O x 3 Dx/Plan (1) Atrial flutter Code(s): I48.92 - UNSPECIFIED ATRIAL FLUTTER Status: Acute Comment: in sinus s/p cardioversion (2) COPD (chronic obstructive pulmonary disease) Status: Chronic Qualifiers: COPD type: chronic bronchitis (3) CAD (coronary artery disease) Code(s): I25.10 - ATHSCL HEART DISEASE OF [place] CORONARY ARTERY W/O ANG PCTRS Status: Chronic Qualifiers: Coronary Disease-Associated Artery/Lesion type: bypass graft [place] vs. transplanted heart: [place] heart Associated angina: without angina Qualified Code(s): I25.810 - Atherosclerosis of coronary artery bypass graft(s) without angina pectoris (4) HTN (hypertension) Code(s): I10 - ESSENTIAL (PRIMARY) HYPERTENSION Status: Chronic Qualifiers: Hypertension type: essential hypertension Qualified Code(s): I10 - Essential (primary) hypertension (5) Dyslipidemia Code(s): E78.5 - HYPERLIPIDEMIA, UNSPECIFIED Status: Chronic (6) Demand ischemia of myocardium Code(s): I24.8 - OTHER FORMS OF ACUTE ISCHEMIC HEART DISEASE Status: Acute Comment: sec to flutter (7) CHF (congestive heart failure) Code(s): I50.9 - HEART FAILURE, UNSPECIFIED Status: Suspected Qualifiers: Heart failure type: diastolic Heart failure chronicity: acute Qualified Code(s): I50.31 - Acute diastolic (congestive) heart failure Comment: likely sec to flutter with mild elevation in bnp - Plan await echo results -: is in sinus rhythm post cardioversion in er -: for ablation on monday -: continue lovenox 60mg q12h, asp, plavix alt days, crestor, coreg, lisinopri -: small dose of lasix till am * . elevated wbc sec to prednisone. Review of Systems - Medications/Allergies Allergies/Adverse Reactions: Allergies Allergy/AdvReac Type Severity Reaction Status Date / Time Penicillins Allergy Verified 05/04/18 20:38 Medications: Current Medications Acetaminophen (Tylenol) 650 mg PO Q4H PRN PRN Reason: Headache/Fever/Mild Pain (1-3) Albuterol Sulfate (Proventil Hfa) 1 puff INH Q4H PRN PRN Reason: SOB &/or Wheezing Albuterol/Ipratropium (Duoneb) 3 ml NEB QID PRN PRN Reason: SOB &/or Wheezing Aspirin (Ecotrin) 81 mg PO DAILY [facility] Last Admin: 05/05/18 08:30 Dose: 81 mg Carvedilol (Coreg) 3.125 mg PO BID [facility] Last Admin: 05/05/18 08:30 Dose: 3.125 mg Clonazepam (Klonopin) 1.5 mg PO [facility] Clopidogrel Bisulfate (Plavix) 75 mg PO [facility] Enoxaparin Sodium (Lovenox) 60 mg SC 0900,2100 [facility] Last Admin: 05/05/18 08:31 Dose: 60 mg Famotidine (Pepcid) 20 mg PO BID [facility] Last Admin: 05/05/18 08:30 Dose: 20 mg Furosemide (Lasix) 20 mg PO BID [facility] Last Admin: 05/05/18 08:31 Dose: 20 mg Guaifenesin/Dextromethorphan (Robitussin Dm) 15 ml PO Q4H PRN PRN Reason: Cough Lisinopril (Zestril) 40 mg PO DAILY [facility] Last Admin: 05/05/18 08:30 Dose: 40 mg Melatonin (Melatonin) 3 mg PO HS [facility] Last Admin: 05/04/18 20:33 Dose: 3 mg Mometasone Furoate/Formoterol Fumar (Dulera 200 Mcg/5 Mcg Inhaler) 2 puff INH BID-RT [facility] Last Admin: 05/05/18 07:49 Dose: 2 puff Nicotine (Nicoderm Patch) 21 mg TOP NOW [facility] Stop: 05/05/18 14:31 Last Admin: 05/04/18 20:29 Dose: Not Given Nicotine (Nicoderm Patch) 21 mg TD Q24HR [facility] Pantoprazole Sodium (Protonix) 40 mg PO QAM-WM [facility] Last Admin: 05/05/18 08:30 Dose: 40 mg Prednisone (Prednisone) 5 mg PO QAM-WM [facility] Last Admin: 05/05/18 08:30 Dose: 5 mg Rosuvastatin Calcium (Crestor) 20 mg PO DAILY [facility] Last Admin: 05/05/18 08:44 Dose: 20 mg Senna/Docusate Sodium (Senokot S) 2 tab PO BID PRN PRN Reason: Constipation
[2018-05-05] MEDS: Nicotine 21 MG PATCH TD SCH (14:59)
[2018-05-05] MEDS: Nicotine 21 MG PATCH TOP SCH (15:00)
[2018-05-05] MEDS: clonazePAM 1 MG TAB PO SCH (22:13)
[2018-05-05] MEDS: Melatonin 3 MG TAB PO SCH (22:13)
[2018-05-06] MEDS: Carvedilol 3.125 MG TAB PO SCH ×2 (07:54→22:01)
[2018-05-06] MEDS: Aspirin 81 mg Enteric Coated Tablet PO SCH (07:54)
[2018-05-06] MEDS: Furosemide 20 MG TAB PO SCH ×2 (07:55→22:02)
[2018-05-06] MEDS: Lisinopril 20 MG TAB PO SCH (07:55)
[2018-05-06] MEDS: Famotidine 20 MG TAB PO SCH ×2 (07:55→22:02)
[2018-05-06] MEDS: Enoxaparin Sodium 60 MG/0.6 ML SYRINGE SC SCH ×2 (07:56→22:01)
[2018-05-06] MEDS: predniSONE 5 MG TAB PO SCH (07:56)
[2018-05-06] MEDS: Rosuvastatin 20 MG TAB PO SCH (07:59)
[2018-05-06] MEDS: Mometasone/Formoterol 120 PUFF INHALER INH SCH ×2 (08:23→19:17)
--- NOTE | 2018-05-06 11:35 | PDOC.PN ---
- Subjective Encounter Start Date: 05/06/18 Encounter Start Time: 09:30 Subjective: no chest pain or sob or palp -: feels better - Objective Resuscitation Status - Order Detail: 05/04/18 15:40 Resuscitation Status Routine Resuscitation Status: FULL: Full Resuscitation Discussed with: POA: DANNI Reviewed: Yes Vital Signs & Weight: Vital Signs (12 hours) Temp Pulse Resp BP BP Pulse Ox 05/06/18 08:23 74 12 05/06/18 08:15 92 L 05/06/18 07:55 168/81 H 05/06/18 07:51 99.1 F 74 16 168/81 H 92 L 05/06/18 04:00 99.5 F 77 18 158/104 H 93 L 05/05/18 23:41 98.0 F 79 18 155/89 H 98 Weight Weight 131 lb 3.2 oz I&O: 05/05/18 05/06/18 05/07/18 06:59 06:59 06:59 Intake Total 240 1000 Output Total 600 877 Balance -360 123 Result Diagrams: 05/05/18 08:36 05/05/18 06:19 Phys Exam - Physical Examination HEENT: PERRLA, moist MMs Neck: no JVD, supple Respiratory: no wheezing, no rales Cardiovascular: RRR, no significant murmur Gastrointestinal: soft, non-tender, positive bowel sounds Musculoskeletal: no edema, pulses present Neurological: non-focal, moves all 4 limbs Psychiatric: normal affect, A&O x 3 Dx/Plan (1) Atrial flutter Code(s): I48.92 - UNSPECIFIED ATRIAL FLUTTER Status: Acute Comment: in sinus s/p cardioversion (2) COPD (chronic obstructive pulmonary disease) Status: Chronic Qualifiers: COPD type: chronic bronchitis (3) CAD (coronary artery disease) Code(s): I25.10 - ATHSCL HEART DISEASE OF [place] CORONARY ARTERY W/O ANG PCTRS Status: Chronic Qualifiers: Coronary Disease-Associated Artery/Lesion type: bypass graft [place] vs. transplanted heart: [place] heart Associated angina: without angina Qualified Code(s): I25.810 - Atherosclerosis of coronary artery bypass graft(s) without angina pectoris (4) HTN (hypertension) Code(s): I10 - ESSENTIAL (PRIMARY) HYPERTENSION Status: Chronic Qualifiers: Hypertension type: essential hypertension Qualified Code(s): I10 - Essential (primary) hypertension (5) Dyslipidemia Code(s): E78.5 - HYPERLIPIDEMIA, UNSPECIFIED Status: Chronic (6) Demand ischemia of myocardium Code(s): I24.8 - OTHER FORMS OF ACUTE ISCHEMIC HEART DISEASE Status: Acute Comment: sec to flutter (7) CHF (congestive heart failure) Code(s): I50.9 - HEART FAILURE, UNSPECIFIED Status: Suspected Qualifiers: Heart failure type: diastolic Heart failure chronicity: acute Qualified Code(s): I50.31 - Acute diastolic (congestive) heart failure Comment: likely sec to flutter with mild elevation in bnp - Plan for ablation in am for flutter -: is on coreg, lovenox, lisinopril, lasix -: continue asp, plavix alt days, crestor -: nebs, prednisone for copd -: to amb as tolerated * . Review of Systems - Medications/Allergies Allergies/Adverse Reactions: Allergies Allergy/AdvReac Type Severity Reaction Status Date / Time Penicillins Allergy Verified 05/04/18 20:38 Medications: Current Medications Acetaminophen (Tylenol) 650 mg PO Q4H PRN PRN Reason: Headache/Fever/Mild Pain (1-3) Last Admin: 05/06/18 06:13 Dose: 650 mg Albuterol Sulfate (Proventil Hfa) 1 puff INH Q4H PRN PRN Reason: SOB &/or Wheezing Albuterol/Ipratropium (Duoneb) 3 ml NEB QID PRN PRN Reason: SOB &/or Wheezing Aspirin (Ecotrin) 81 mg PO DAILY [facility] Last Admin: 05/06/18 07:54 Dose: 81 mg Carvedilol (Coreg) 3.125 mg PO BID [facility] Last Admin: 05/06/18 07:54 Dose: 3.125 mg Clonazepam (Klonopin) 1.5 mg PO HS [facility] Last Admin: 05/05/18 22:13 Dose: 1.5 mg Clopidogrel Bisulfate (Plavix) 75 mg PO [facility] Enoxaparin Sodium (Lovenox) 60 mg SC 0900,2100 [facility] Last Admin: 05/06/18 07:56 Dose: 60 mg Famotidine (Pepcid) 20 mg PO BID [facility] Last Admin: 05/06/18 07:55 Dose: 20 mg Furosemide (Lasix) 20 mg PO BID [facility] Last Admin: 05/06/18 07:55 Dose: Not Given Guaifenesin/Dextromethorphan (Robitussin Dm) 15 ml PO Q4H PRN PRN Reason: Cough Lisinopril (Zestril) 40 mg PO DAILY [facility] Last Admin: 05/06/18 07:55 Dose: 40 mg Melatonin (Melatonin) 3 mg PO HS [facility] Last Admin: 05/05/18 22:13 Dose: 3 mg Mometasone Furoate/Formoterol Fumar (Dulera 200 Mcg/5 Mcg Inhaler) 2 puff INH BID-RT [facility] Last Admin: 05/06/18 08:23 Dose: 2 puff Nicotine (Nicoderm Patch) 21 mg TD Q24HR [facility] Last Admin: 05/05/18 14:59 Dose: 21 mg Pantoprazole Sodium (Protonix) 40 mg PO QAM-WM [facility] Last Admin: 05/06/18 07:53 Dose: 40 mg Prednisone (Prednisone) 5 mg PO QAM-WM [facility] Last Admin: 05/06/18 07:56 Dose: 5 mg Rosuvastatin Calcium (Crestor) 20 mg PO DAILY [facility] Last Admin: 05/06/18 07:59 Dose: 20 mg Senna/Docusate Sodium (Senokot S) 2 tab PO BID PRN PRN Reason: Constipation
[2018-05-06] MEDS: Nicotine 21 MG PATCH TD SCH (13:08)
[2018-05-06] MEDS: Melatonin 3 MG TAB PO SCH (22:01)
[2018-05-06] MEDS: clonazePAM 1 MG TAB PO SCH (22:02)
[2018-05-07] MEDS: Lisinopril 20 MG TAB PO SCH (05:43)
[2018-05-07] MEDS: Rosuvastatin 20 MG TAB PO SCH (05:43)
[2018-05-07] MEDS: predniSONE 5 MG TAB PO SCH (05:43)
[2018-05-07] MEDS: Furosemide 20 MG TAB PO SCH ×2 (05:44→21:56)
[2018-05-07] MEDS: Famotidine 20 MG TAB PO SCH ×2 (05:44→21:39)
[2018-05-07] MEDS: Carvedilol 3.125 MG TAB PO SCH ×2 (05:44→21:39)
[2018-05-07] MEDS: Aspirin 81 mg Enteric Coated Tablet PO SCH (05:44)
[2018-05-07] MEDS: Enoxaparin Sodium 60 MG/0.6 ML SYRINGE SC SCH ×2 (05:45→21:40)
[2018-05-07] MEDS: Clopidogrel Bisulfate 75 MG TAB PO SCH (05:51)
[2018-05-07] MEDS: Mometasone/Formoterol 120 PUFF INHALER INH SCH ×2 (07:27→19:02)
[2018-05-07 09:34] LABS: Calc. Creatinine Clearance 73 mL/min (70-130); Estimated GFR-MDRD Greater than 90
[2018-05-07 09:36] LABS: Hemoglobin 13.7 g/dL (14.0-18.0); Platelet Count 114 thou/uL (130-400)
--- NOTE | 2018-05-07 11:02 | PDOC.PN ---
- Subjective Encounter Start Date: 05/07/18 Encounter Start Time: 08:00 Subjective: no chest pain or palp -: feels better now -: took extra inhaler this am for sob - Objective Resuscitation Status - Order Detail: 05/04/18 15:40 Resuscitation Status Routine Resuscitation Status: FULL: Full Resuscitation Discussed with: POA: Vital Signs & Weight: Vital Signs (12 hours) Temp Pulse Resp BP BP Pulse Ox 05/07/18 10:18 73 16 98 05/07/18 08:22 97.8 F 65 15 161/77 H 92 L 05/07/18 05:43 155/77 H 05/07/18 04:00 98.8 F 63 18 155/77 H 93 L 05/07/18 00:00 64 20 160/79 H 93 L Weight Weight 133 lb 4.8 oz I&O: 05/06/18 05/07/18 05/08/18 06:59 06:59 06:59 Intake Total 1000 900 Output Total 877 400 Balance 123 500 Result Diagrams: 05/07/18 09:05 05/07/18 09:05 Phys Exam - Physical Examination HEENT: PERRLA, moist MMs Neck: no JVD, supple Respiratory: no wheezing, no rales Cardiovascular: RRR, no significant murmur Gastrointestinal: soft, non-tender, positive bowel sounds Musculoskeletal: no edema, pulses present Neurological: non-focal, moves all 4 limbs Psychiatric: normal affect, A&O x 3 Dx/Plan (1) Atrial flutter Code(s): I48.92 - UNSPECIFIED ATRIAL FLUTTER Status: Acute Comment: in sinus s/p cardioversion (2) COPD (chronic obstructive pulmonary disease) Status: Chronic Qualifiers: COPD type: chronic bronchitis (3) CAD (coronary artery disease) Code(s): I25.10 - ATHSCL HEART DISEASE OF [place] CORONARY ARTERY W/O ANG PCTRS Status: Chronic Qualifiers: Coronary Disease-Associated Artery/Lesion type: bypass graft [place] vs. transplanted heart: [place] heart Associated angina: without angina Qualified Code(s): I25.810 - Atherosclerosis of coronary artery bypass graft(s) without angina pectoris (4) HTN (hypertension) Code(s): I10 - ESSENTIAL (PRIMARY) HYPERTENSION Status: Chronic Qualifiers: Hypertension type: essential hypertension Qualified Code(s): I10 - Essential (primary) hypertension (5) Dyslipidemia Code(s): E78.5 - HYPERLIPIDEMIA, UNSPECIFIED Status: Chronic (6) Demand ischemia of myocardium Code(s): I24.8 - OTHER FORMS OF ACUTE ISCHEMIC HEART DISEASE Status: Acute Comment: sec to flutter (7) CHF (congestive heart failure) Code(s): I50.9 - HEART FAILURE, UNSPECIFIED Status: Suspected Qualifiers: Heart failure type: diastolic Heart failure chronicity: acute Qualified Code(s): I50.31 - Acute diastolic (congestive) heart failure Comment: likely sec to flutter with mild elevation in bnp - Plan for ablation today -: hemostable -: on coreg 3.125mg bid, lisinopril, lasix, prednisone, plavix, asp -: lovenox held for procedure today, ?noac later -: continue crestor, nebs prn. DC plan per EP advice * . Review of Systems - Medications/Allergies Allergies/Adverse Reactions: Allergies Allergy/AdvReac Type Severity Reaction Status Date / Time Penicillins Allergy Verified 05/04/18 20:38 Medications: Current Medications Acetaminophen (Tylenol) 650 mg PO Q4H PRN PRN Reason: Headache/Fever/Mild Pain (1-3) Last Admin: 05/06/18 06:13 Dose: 650 mg Albuterol Sulfate (Proventil Hfa) 1 puff INH Q4H PRN PRN Reason: SOB &/or Wheezing Albuterol/Ipratropium (Duoneb) 3 ml NEB QID PRN PRN Reason: SOB &/or Wheezing Last Admin: 05/07/18 10:18 Dose: 3 ml Aspirin (Ecotrin) 81 mg PO DAILY [facility] Last Admin: 05/07/18 05:44 Dose: 81 mg Carvedilol (Coreg) 3.125 mg PO BID [facility] Last Admin: 05/07/18 05:44 Dose: 3.125 mg Clonazepam (Klonopin) 1.5 mg PO HS [facility] Last Admin: 05/06/18 22:02 Dose: Not Given Clopidogrel Bisulfate (Plavix) 75 mg PO MWF [facility] Last Admin: 05/07/18 05:51 Dose: 75 mg Enoxaparin Sodium (Lovenox) 60 mg SC 0900,2100 [facility] Last Admin: 05/07/18 05:45 Dose: Not Given Famotidine (Pepcid) 20 mg PO BID [facility] Last Admin: 05/07/18 05:44 Dose: Not Given Furosemide (Lasix) 20 mg PO BID [facility] Last Admin: 05/07/18 05:44 Dose: Not Given Guaifenesin/Dextromethorphan (Robitussin Dm) 15 ml PO Q4H PRN PRN Reason: Cough Lisinopril (Zestril) 40 mg PO DAILY [facility] Last Admin: 05/07/18 05:43 Dose: 40 mg Melatonin (Melatonin) 3 mg PO HS [facility] Last Admin: 05/06/18 22:01 Dose: 3 mg Mometasone Furoate/Formoterol Fumar (Dulera 200 Mcg/5 Mcg Inhaler) 2 puff INH BID-RT [facility] Last Admin: 05/07/18 07:27 Dose: Not Given Nicotine (Nicoderm Patch) 21 mg TD Q24HR [facility] Last Admin: 05/06/18 13:08 Dose: 21 mg Pantoprazole Sodium (Protonix) 40 mg PO QAM-[facility] Last Admin: 05/07/18 05:44 Dose: 40 mg Prednisone (Prednisone) 5 mg PO QAM-WM [facility] Last Admin: 05/07/18 05:43 Dose: 5 mg Rosuvastatin Calcium (Crestor) 20 mg PO DAILY [facility] Last Admin: 05/07/18 05:43 Dose: 20 mg Senna/Docusate Sodium (Senokot S) 2 tab PO BID PRN PRN Reason: Constipation
[2018-05-07] MEDS ORDERED: PROPOFOL 40 ML ONE (12:27)
[2018-05-07] MEDS ORDERED: Midazolam HCl 2 mg/2 ml Vial ONE (12:27)
[2018-05-07] MEDS ORDERED: Fentanyl 100 MCG/2 ML VIAL ONE (12:27)
[2018-05-07] MEDS ORDERED: Heparin 10,000 UNITS/1 ML VIAL ONE (12:31)
[2018-05-07] MEDS ORDERED: Isoproterenol 0.2 MG/1 ML AMP ONE (13:00)
[2018-05-07] MEDS ORDERED: PROPOFOL 20 ML ONE (13:36)
[2018-05-07] MEDS ORDERED: Phenylephrine HCL 10 MG/ML VIAL ONE (14:21)
[2018-05-07] MEDS ORDERED: PHENYLEPHRINE-NS 100 MCG/ML 10 ML SYRINGE ONE ×2 (14:22→16:41)
[2018-05-07] MEDS: Nicotine 21 MG PATCH TD SCH (15:51)
[2018-05-07] MEDS ORDERED: PROPOFOL 200 MG/20 ML VIAL ONE (16:41)
--- NOTE | 2018-05-07 17:10 | RAD ---
AP VIEW CHEST: 05/07/2018 HISTORY: Chest pain. Patient scheduled for pacemaker insertion. COMPARISON: 05/04/2018 FINDINGS: AP view chest demonstrates EKG leads over the chest. A surgical clip is seen in the mediastinum. Th ere is a transaortic valve replacement stent visualized on the radiograph. There is some blunting of the right costophrenic angle, compatible with a small right-sided pleural e ffusion or some pleural scar. Pulmonary vascular congestion is seen. No other acute abnormalities noted. IMPRESSION: Pulmonary vascular congestion. POS: [facility]
--- NOTE | 2018-05-07 17:43 | OP ---
DATE OF PROCEDURE: 05/07/2018 PROCEDURE PERFORMED: Electrophysiology study and radiofrequency ablation report. REFERRING PHYSICIAN: Dr. Tripp REASON FOR PROCEDURE: Mr. Hawkins is a 68-year-old man with prior history of coronary artery disease, smoking, and COPD, who presented with typical appearing atrial flutter requiring cardioversion due to chest pains. He is here for EP study and possible ablation procedure. DESCRIPTION OF PROCEDURE: The patient received propofol by Anesthesia specialist. Right femoral venous area was prepped, draped, and anesthetized using subcutaneous lidocaine. The right femoral vein was cannulated under ultrasound guidance, and two 8-[place] short sheaths were introduced. Through this, a ThermoCool SFST catheter was advanced to the right atrium and 3D map of the right atrium was obtained including His bundle and CS was delineated. Following that, a decapolar catheter was advanced to the right ventricle, His bundle, eventually to CS position. Pacing, mapping, and recording were performed at each location. RESULTS: The baseline rhythm is sinus rhythm with cycle length of 978 milliseconds. The MN 156 milliseconds, the duration is 180 milliseconds, QT 423 milliseconds. The HV was 57 milliseconds. The sinus node recovery time was 1173. Corrected sinus node recovery time was 200 milliseconds. The AV Wenckebach cycle length was 280 milliseconds. Retrograde Wenckebach cycle length was 470 milliseconds. With burst atrial pacing, we were able to induce ventricular tachycardia with VA dissociation with cycle length about 360 milliseconds. This rhythm was sustained but easily pace terminated by overdrive V pacing. We were able to induce sustained atypical atrial flutter and atrial fibrillation, which required cardioversion,. At this point due to the typical, CTI dependent appearance of the presenting atrial flutter, cavotricuspid isthmus ablation was performed. We were able to prolong the transisthmus time to 150 milliseconds. Transisthmus block was demonstrated by longest transisthmus time adjacent to the ablation line. Ventricular extrastimulus testing was performed. utilizing 600 and 400 millisecond drivetrains with up to 3 ventricular extrastimuli which was decremented to the refractory period. With this, we were able to induce long up to 8 second sustained rapid, polymorphic ventricular tachycardia with cycle length down to 200 milliseconds. On the other hand with burst ventricular pacing, we are also able to induce the previously seen RB/IA VT with cycle length about 350 milliseconds. This VT again was sustained but was easily pace determinable. Isuprel was administered, and the atrial burst and ventricular extrastimuli protocol was repeated. CONCLUSION: 1. Typical atrial flutter on presentation with successful cavotricuspid isthmus ablation. 2. Inducible atrial fibrillation and atypical atrial flutter also seen. 3. Inducible ventricular tachycardia both from atrium and ventricle with right bundle inferior axis morphology with transition V1, V2 is seen. 4. Nonsustained polymorphic VT was induced with ventricular extrastimuli protocol. PLAN: 1. Kosta benefit from (ICD hence inducible and pace termianable sustained VT. If frequent clinical recurrence despite, consider VT abalation. Job ID: [id number] [facility]
[2018-05-07] MEDS: Melatonin 3 MG TAB PO SCH (21:39)
[2018-05-07] MEDS: clonazePAM 1 MG TAB PO SCH (21:56)
[2018-05-08] MEDS ORDERED: Clindamycin/D5W 900 MG in Premix Bag 1 BAG IVPB SCH (05:15)
[2018-05-08 05:46] LABS: #Eosinphils 0.1 thou/uL (0.0-0.7); #Monocytes 0.8 thou/uL (0.11-0.59); #Neutrophils 6.6 thou/uL (1.40-6.50); %Basophils 0.4 % (0.0-1.0); %Eosinophils 1.5 % (0.0-10.0); %Lymphocytes 20.6 % (21.0-51.0); %Monocytes 8.1 % (0.0-10.0); %Neutrophils 69.4 % (42.0-75.0); Hemoglobin 13.8 g/dL (14.0-18.0); Mean Corpuscular HGB CONC 32.3 g/dL (32.0-36.0); Mean Platelet Volume 9.4 fL (7.4-10.4); Platelet Count 134 thou/uL (130-400); RBC Distribution Width 13.2 % (11.5-14.5); Red Blood Cell (RBC) Count 4.43 mill/uL (4.70-6.10); White Blood Cell (WBC) Count 9.5 thou/uL (4.8-10.8)
[2018-05-08] MEDS: Carvedilol 3.125 MG TAB PO SCH ×2 (05:46→20:31)
[2018-05-08 06:11] LABS: Anion Gap 11 mmol/L (10-20); BUN (Urea Nitrogen) 14 mg/dL (8.4-25.7); Calc. Creatinine Clearance 75 mL/min (70-130); Calcium 8.5 mg/dL (7.8-10.44); Carbon Dioxide 23 mmol/L (23-31); Chloride 106 mmol/L (98-107); Estimated GFR-MDRD Greater than 90; Glucose 99 mg/dL (80-115); Potassium 3.7 mmol/L (3.5-5.1); Sodium 136 mmol/L (136-145)
[2018-05-08] MEDS: Mometasone/Formoterol 120 PUFF INHALER INH SCH ×2 (07:29→20:21)
[2018-05-08] MEDS: Famotidine 20 MG TAB PO SCH ×2 (08:24→20:31)
[2018-05-08] MEDS: Aspirin 81 mg Enteric Coated Tablet PO SCH (08:24)
[2018-05-08] MEDS: predniSONE 5 MG TAB PO SCH (08:24)
[2018-05-08] MEDS: Rosuvastatin 20 MG TAB PO SCH (08:25)
[2018-05-08] MEDS: Furosemide 20 MG TAB PO SCH ×2 (08:25→20:30)
[2018-05-08] MEDS: Lisinopril 20 MG TAB PO SCH (08:25)
[2018-05-08] MEDS ORDERED: Iopamidol 370 76% 50 ML VIAL FS ONE (09:19)
[2018-05-08] MEDS ORDERED: PHENYLEPHRINE-NS 100 MCG/ML 10 ML SYRINGE ONE (10:41)
[2018-05-08] MEDS ORDERED: PROPOFOL 200 MG/20 ML VIAL ONE (10:41)
--- NOTE | 2018-05-08 10:52 | PRG ---
DATE OF SERVICE: 05/08/2018 SUBJECTIVE: Mr. Hawkins underwent successful atrial flutter ablation yesterday, was also found to be easily inducible for ventricular arrhythmias. As a result, it was decided to place a defibrillator which is being planned for today. OBJECTIVE: VITAL SIGNS: Blood pressure is 176/84, pulse 63, but I believe he is n.p.o. including his medicines. LUNGS: Clear. CARDIAC: Normal S1 over S2. ASSESSMENT: 1. Status post ablation of atrial flutter. 2. Easily-induced ventricular arrhythmias. PLAN: Plan is for defibrillator implantation today per Dr. Henriquez. We will need to take anticoagulation in the postoperative state. The patient does have atrial arrhythmias, will need long-term anticoagulation. Job ID: [id number]
--- NOTE | 2018-05-08 12:42 | PDOC.PN ---
- Subjective Encounter Start Date: 05/08/18 Encounter Start Time: 11:00 Subjective: no sob or palp -: feels better, is npo for defibrillator placement this afternoon - Objective Resuscitation Status - Order Detail: 05/04/18 15:40 Resuscitation Status Routine Resuscitation Status: FULL: Full Resuscitation Discussed with: POA: DANNI Reviewed: Yes Vital Signs & Weight: Vital Signs (12 hours) Temp Pulse Resp BP Pulse Ox 05/08/18 11:21 98.4 F 64 20 176/86 H 94 L 05/08/18 08:22 97.9 F 63 16 176/84 H 93 L 05/08/18 04:00 98.7 F 62 18 166/79 H 93 L Weight Weight 133 lb 4.8 oz I&O: 05/07/18 05/08/18 05/09/18 06:59 06:59 06:59 Intake Total 900 250 Output Total 400 450 Balance 500 -200 Result Diagrams: 05/08/18 05:31 05/08/18 05:31 Phys Exam - Physical Examination HEENT: PERRLA, sclera anicteric Neck: no JVD, supple Respiratory: no wheezing rhonchi+ Cardiovascular: RRR, no significant murmur Gastrointestinal: soft, non-tender, positive bowel sounds Musculoskeletal: no edema, pulses present Neurological: non-focal, moves all 4 limbs Psychiatric: normal affect, A&O x 3 Dx/Plan (1) Atrial flutter Code(s): I48.92 - UNSPECIFIED ATRIAL FLUTTER Status: Acute Comment: in sinus s/p cavotricuspid ablation and prior cardioversion (2) COPD (chronic obstructive pulmonary disease) Status: Chronic Qualifiers: COPD type: chronic bronchitis (3) CAD (coronary artery disease) Code(s): I25.10 - ATHSCL HEART DISEASE OF [place] CORONARY ARTERY W/O ANG PCTRS Status: Chronic Qualifiers: Coronary Disease-Associated Artery/Lesion type: bypass graft [place] vs. transplanted heart: [place] heart Associated angina: without angina Qualified Code(s): I25.810 - Atherosclerosis of coronary artery bypass graft(s) without angina pectoris (4) HTN (hypertension) Code(s): I10 - ESSENTIAL (PRIMARY) HYPERTENSION Status: Chronic Qualifiers: Hypertension type: essential hypertension Qualified Code(s): I10 - Essential (primary) hypertension (5) Dyslipidemia Code(s): E78.5 - HYPERLIPIDEMIA, UNSPECIFIED Status: Chronic (6) Demand ischemia of myocardium Code(s): I24.8 - OTHER FORMS OF ACUTE ISCHEMIC HEART DISEASE Status: Acute Comment: sec to flutter (7) CHF (congestive heart failure) Code(s): I50.9 - HEART FAILURE, UNSPECIFIED Status: Suspected Qualifiers: Heart failure type: diastolic Heart failure chronicity: acute Qualified Code(s): I50.31 - Acute diastolic (congestive) heart failure Comment: likely sec to flutter with mild elevation in bnp - Plan will be getting aicd for inducible v.arrhythmias during ablative procedure -: on asp, coreg, lasix, lisinopril, prednisone and crestor -: dc plan per cardio/ep advice -: nebs prn, gentle iv hydration until he is npo * . Review of Systems - Medications/Allergies Allergies/Adverse Reactions: Allergies Allergy/AdvReac Type Severity Reaction Status Date / Time Penicillins Allergy Verified 05/04/18 20:38 Medications: Current Medications Acetaminophen (Tylenol) 650 mg PO Q4H PRN PRN Reason: Headache/Fever/Mild Pain (1-3) Last Admin: 05/06/18 06:13 Dose: 650 mg Albuterol Sulfate (Proventil Hfa) 1 puff INH Q4H PRN PRN Reason: SOB &/or Wheezing Albuterol/Ipratropium (Duoneb) 3 ml NEB QID PRN PRN Reason: SOB &/or Wheezing Last Admin: 05/07/18 19:00 Dose: 3 ml Aspirin (Ecotrin) 81 mg PO DAILY [facility] Last Admin: 05/08/18 08:24 Dose: 81 mg Carvedilol (Coreg) 3.125 mg PO BID [facility] Last Admin: 05/08/18 05:46 Dose: 3.125 mg Clonazepam (Klonopin) 1.5 mg PO HS [facility] Last Admin: 05/07/18 21:56 Dose: Not Given Clopidogrel Bisulfate (Plavix) 75 mg PO MWF [facility] Last Admin: 05/07/18 05:51 Dose: 75 mg Famotidine (Pepcid) 20 mg PO BID [facility] Last Admin: 05/08/18 08:24 Dose: 20 mg Furosemide (Lasix) 20 mg PO BID [facility] Last Admin: 05/08/18 08:25 Dose: Not Given Guaifenesin/Dextromethorphan (Robitussin Dm) 15 ml PO Q4H PRN PRN Reason: Cough Clindamycin Phosphate/Dextrose (900 mg/ Device) 50 mls @ 100 mls/hr IVPB ONCALL -OR [facility] Stop: 05/08/18 19:00 Levofloxacin 500 mg/ Device 100 mls @ 100 mls/hr IVPB ONCALL-OR [facility] Stop: 05/08/18 19:00 Lisinopril (Zestril) 40 mg PO DAILY [facility] Last Admin: 05/08/18 08:25 Dose: 40 mg Melatonin (Melatonin) 3 mg PO HS [facility] Last Admin: 05/07/18 21:39 Dose: 3 mg Mometasone Furoate/Formoterol Fumar (Dulera 200 Mcg/5 Mcg Inhaler) 2 puff INH BID-RT [facility] Last Admin: 05/08/18 07:29 Dose: Not Given Nicotine (Nicoderm Patch) 21 mg TD Q24HR [facility] Last Admin: 05/07/18 15:51 Dose: 21 mg Pantoprazole Sodium (Protonix) 40 mg PO QAM-WM [facility] Last Admin: 05/08/18 08:24 Dose: 40 mg Prednisone (Prednisone) 5 mg PO QAM-WM [facility] Last Admin: 05/08/18 08:24 Dose: 5 mg Rosuvastatin Calcium (Crestor) 20 mg PO DAILY [facility] Last Admin: 05/08/18 08:25 Dose: 20 mg Senna/Docusate Sodium (Senokot S) 2 tab PO BID PRN PRN Reason: Constipation
[2018-05-08] MEDS: Dextrose 5 %-0.45 % NaCl 1,000 ML IV SCH (13:53)
[2018-05-08] MEDS: Nicotine 21 MG PATCH TD SCH (13:54)
[2018-05-08] MEDS ORDERED: Gentamicin 80 MG/2 ML VIAL ONE (16:34)
[2018-05-08] MEDS ORDERED: Clindamycin/D5W 900 mg/50 ml Premix Bag ONE (16:34)
[2018-05-08] MEDS ORDERED: Clindamycin/D5W 600 mg/50 ml Premix Bag ONE (16:34)
[2018-05-08] MEDS ORDERED: Levofloxacin 500 mg/D5W 100 ml Premix Bag ONE (16:35)
[2018-05-08] MEDS ORDERED: Fentanyl 100 MCG/2 ML VIAL ONE (17:21)
[2018-05-08] MEDS ORDERED: Propofol 1,000 MG/100 ML VIAL IV ONE (17:21)
[2018-05-08] MEDS ORDERED: Lidocaine 2% Jelly 5 ML TUBE ONE (18:25)
[2018-05-08] MEDS ORDERED: Phenylephrine HCL 10 MG/ML VIAL ONE (18:34)
[2018-05-08] MEDS: clonazePAM 1 MG TAB PO SCH (20:32)
[2018-05-08] MEDS: Melatonin 3 MG TAB PO SCH (20:32)
[2018-05-08] MEDS ORDERED: Ibuprofen 200 MG TAB PO SCH (22:30)
[2018-05-09] MEDS ORDERED: HYDROcodone/Acetaminophen 5/325 mg Tablet PO PRN (01:54)
[2018-05-09] MEDS: Mometasone/Formoterol 120 PUFF INHALER INH SCH (07:21)
[2018-05-09] MEDS ORDERED: Acetaminophen/Codeine 30-300mg Tablet PO PRN ×2 (08:03→08:05)
--- NOTE | 2018-05-09 08:24 | RAD ---
SINGLE VIEW CHEST: HISTORY: Status post cardiac device placement. COMPARISON: 05/07/2018 FINDINGS: A single view of the chest shows a normal-sized cardiomediastinal silhouette. The patient is status post CABG. There is a left subclavian pacemaker with its leads in the right atrium and ventricle. N o pneumothorax is seen. There is no evidence of pleural effusion. Opacity is seen in the right lung base, which may be related to an infiltrate or atelectasis. IMPRESSION: 1. Status post pacemaker placement without evidence of complications. 2. Right basilar atelectasis versus infiltrate. POS: [facility]
[2018-05-09] MEDS ORDERED: Clindamycin 150 MG CAP PO SCH (09:00)
[2018-05-09] MEDS: Lisinopril 20 MG TAB PO SCH (09:18)
[2018-05-09] MEDS: Rosuvastatin 20 MG TAB PO SCH (09:19)
[2018-05-09] MEDS: Famotidine 20 MG TAB PO SCH (09:19)
[2018-05-09] MEDS: Clopidogrel Bisulfate 75 MG TAB PO SCH (09:20)
[2018-05-09] MEDS: Aspirin 81 mg Enteric Coated Tablet PO SCH (09:20)
[2018-05-09] MEDS: predniSONE 5 MG TAB PO SCH (09:21)
[2018-05-09] MEDS: Carvedilol 3.125 MG TAB PO SCH (09:21)
[2018-05-09] MEDS: Furosemide 20 MG TAB PO SCH (09:25)
[2018-05-09] MEDS ORDERED: Carvedilol 3.125 MG TAB PO SCH ×2 (09:35→11:00)
--- NOTE | 2018-05-09 09:56 | PRG ---
DATE OF SERVICE: 05/09/2018 SUBJECTIVE: Mr. Hawkins looks very good today. No chest pain or pressure. Feels well. OBJECTIVE: VITAL SIGNS: Blood pressure 188/86, pulse 66 and regular. LUNGS: Clear. CARDIAC: Normal S1, normal S2. ABDOMEN: Soft and nontender. EXTREMITIES: No edema. ASSESSMENT: 1. Status post atrial flutter ablation. 2. Paroxysmal atrial fibrillation, seen in the dental laboratory technician. 3. Ventricular tachycardia. 4. Status post defibrillator implantation. PLAN: 1. We will go back on anticoagulation. We will start Eliquis tomorrow. 2. Stop Plavix. 3. We will increase carvedilol to 6.25 mg twice a day. 4. If there is no evidence of atrial fibrillation in the future, could consider going back to aspirin and Plavix. The atrial fibrillation was only seen incidentally in the dental laboratory technician, but since he had unknown duration of atrial flutter prior to cardioversion, we will go back on anticoagulation for at least a month. Job ID: [id number]
[2018-05-09] MEDS: Dextrose 5 %-0.45 % NaCl 1,000 ML IV SCH (10:00)
[2018-05-09 10:25] LABS: Hemoglobin 14.8 g/dL (14.0-18.0); Platelet Count 174 thou/uL (130-400)
[2018-05-09] MEDS ORDERED: Carvedilol 6.25 MG TAB PO SCH ×2 (10:30→21:00)
[2018-05-09 11:37] VITALS: BP 147/72; TEMP 98.3
--- NOTE | 2018-05-09 11:50 | PDOC.PN ---
- Subjective Encounter Start Date: 05/09/18 Encounter Start Time: 08:00 Subjective: no sob or palp -: feels good - Objective Resuscitation Status - Order Detail: 05/04/18 15:40 Resuscitation Status Routine Resuscitation Status: FULL: Full Resuscitation Discussed with: POA: DANNI Reviewed: Yes Vital Signs & Weight: Vital Signs (12 hours) Temp Pulse Resp BP BP Pulse Ox 05/09/18 11:36 98.3 F 60 20 147/72 H 96 05/09/18 09:18 188/86 H 05/09/18 07:48 98.5 F 66 18 176/96 H 95 05/09/18 04:00 98.2 F 64 16 121/68 94 L 05/09/18 00:05 60 123/61 Weight Weight 134 lb 14.4 oz I&O: 05/08/18 05/09/18 05/10/18 06:59 06:59 06:59 Intake Total 250 230 Output Total 450 425 Balance -200 -195 Result Diagrams: 05/09/18 09:55 05/09/18 09:55 Phys Exam - Physical Examination HEENT: PERRLA, moist MMs Neck: no JVD, supple Respiratory: no wheezing, no rales Cardiovascular: RRR, no significant murmur Gastrointestinal: soft, non-tender, positive bowel sounds Musculoskeletal: no edema, pulses present Neurological: non-focal, moves all 4 limbs Psychiatric: normal affect, A&O x 3 Dx/Plan (1) Atrial flutter Code(s): I48.92 - UNSPECIFIED ATRIAL FLUTTER Status: Acute Comment: in sinus s/p cavotricuspid ablation and prior cardioversion (2) COPD (chronic obstructive pulmonary disease) Status: Chronic Qualifiers: COPD type: chronic bronchitis (3) CAD (coronary artery disease) Code(s): I25.10 - ATHSCL HEART DISEASE OF [place] CORONARY ARTERY W/O ANG PCTRS Status: Chronic Qualifiers: Coronary Disease-Associated Artery/Lesion type: bypass graft [place] vs. transplanted heart: [place] heart Associated angina: without angina Qualified Code(s): I25.810 - Atherosclerosis of coronary artery bypass graft(s) without angina pectoris (4) HTN (hypertension) Code(s): I10 - ESSENTIAL (PRIMARY) HYPERTENSION Status: Chronic Qualifiers: Hypertension type: essential hypertension Qualified Code(s): I10 - Essential (primary) hypertension (5) Dyslipidemia Code(s): E78.5 - HYPERLIPIDEMIA, UNSPECIFIED Status: Chronic (6) Demand ischemia of myocardium Code(s): I24.8 - OTHER FORMS OF ACUTE ISCHEMIC HEART DISEASE Status: Acute Comment: sec to flutter (7) CHF (congestive heart failure) Code(s): I50.9 - HEART FAILURE, UNSPECIFIED Status: Suspected Qualifiers: Heart failure type: diastolic Heart failure chronicity: acute Qualified Code(s): I50.31 - Acute diastolic (congestive) heart failure Comment: likely sec to flutter with mild elevation in bnp - Plan had aicd placed for inducible v.arrhythmias yesterday -: to continue clinda x 7 days -: eliquis x 30 days -: d/w and , july [facility] * . Review of Systems - Medications/Allergies Allergies/Adverse Reactions: Allergies Allergy/AdvReac Type Severity Reaction Status Date / Time Penicillins Allergy Verified 05/04/18 20:38 Medications: Current Medications Acetaminophen (Tylenol) 650 mg PO Q4H PRN PRN Reason: Headache/Fever/Mild Pain (1-3) Last Admin: 05/06/18 06:13 Dose: 650 mg Acetaminophen/Codeine Phosphate (Tylenol #3) 1 tab PO Q4H PRN PRN Reason: Mild Pain (1-3) Acetaminophen/Codeine Phosphate (Tylenol #3) 2 tab PO Q4H PRN PRN Reason: Moderate Pain (4-6) Hydrocodone Bitart/Acetaminophen ([place] 5/325) 1 tab PO Q6H PRN PRN Reason: Pain 4-6 Last Admin: 05/09/18 02:36 Dose: 1 tab Albuterol Sulfate (Proventil Hfa) 1 puff INH Q4H PRN PRN Reason: SOB &/or Wheezing Albuterol/Ipratropium (Duoneb) 3 ml NEB QID PRN PRN Reason: SOB &/or Wheezing Last Admin: 05/07/18 19:00 Dose: 3 ml Aspirin (Ecotrin) 81 mg PO DAILY [facility] Last Admin: 05/09/18 09:20 Dose: 81 mg Carvedilol (Coreg) 6.25 mg PO BID [facility] Carvedilol (Coreg) 3.125 mg PO NOW [facility] Stop: 05/09/18 13:00 Last Admin: 05/09/18 11:38 Dose: 3.125 mg Clindamycin HCl (Cleocin) 300 mg PO TID [facility] Stop: 05/16/18 09:01 Last Admin: 05/09/18 09:17 Dose: 300 mg Clonazepam (Klonopin) 1.5 mg PO HS [facility] Last Admin: 05/08/18 20:32 Dose: Not Given Famotidine (Pepcid) 20 mg PO BID [facility] Last Admin: 05/09/18 09:19 Dose: 20 mg Furosemide (Lasix) 20 mg PO BID [facility] Last Admin: 05/09/18 09:25 Dose: Not Given Guaifenesin/Dextromethorphan (Robitussin Dm) 15 ml PO Q4H PRN PRN Reason: Cough Dextrose/Sodium Chloride (D5 1/2 Ns) 1,000 mls @ 50 mls/hr IV .Q20H [facility] Last Admin: 05/09/18 10:00 Dose: Not Given Lisinopril (Zestril) 40 mg PO DAILY [facility] Last Admin: 05/09/18 09:18 Dose: 40 mg Melatonin (Melatonin) 3 mg PO HS [facility] Last Admin: 05/08/18 20:32 Dose: 3 mg Mometasone Furoate/Formoterol Fumar (Dulera 200 Mcg/5 Mcg Inhaler) 2 puff INH BID-RT [facility] Last Admin: 05/09/18 07:21 Dose: Not Given Nicotine (Nicoderm Patch) 21 mg TD Q24HR [facility] Last Admin: 05/08/18 13:54 Dose: 21 mg Pantoprazole Sodium (Protonix) 40 mg PO QAM-WM [facility] Last Admin: 05/09/18 10:00 Dose: Not Given Prednisone (Prednisone) 5 mg PO QAM-WM [facility] Last Admin: 05/09/18 09:21 Dose: 5 mg Rosuvastatin Calcium (Crestor) 20 mg PO DAILY [facility] Last Admin: 05/09/18 09:19 Dose: 20 mg Senna/Docusate Sodium (Senokot S) 2 tab PO BID PRN PRN Reason: Constipation Sodium Chloride (Flush - Normal Saline) 10 ml IVF Q12HR [facility] Last Admin: 05/09/18 09:21 Dose: Not Given Sodium Chloride (Flush - Normal Saline) 10 ml IVF PRN PRN PRN Reason: Saline Flush
--- NOTE | 2018-05-09 12:50 | PDOC.CTH ---
Cardiology Progress Note - Subjective EP PROGRESS NOTE: 05/09/18 Seen as follow up for atrial arrhythmias and ventricular tachycardia. Had CTI flutter ablation on 05/07 and dual ICD implant for VT on 05/08. Feels well today. Eager to go home. No cardiac concerns or complaints. - Objective Vital Signs Temp Pulse Resp BP BP Pulse Ox 05/09/18 11:36 98.3 F 60 20 147/72 H 96 05/09/18 09:18 188/86 H 05/09/18 07:48 98.5 F 66 18 176/96 H 95 05/09/18 04:00 98.2 F 64 16 121/68 94 L Weight 134 lb 14.4 oz 05/08/18 05/09/18 05/10/18 06:59 06:59 06:59 Intake Total 250 230 Output Total 450 425 Balance -200 -195 - Physical Examination General/Neuro: alert & oriented x3, NAD Neck: carotid US brisk, no JVD present Lungs: CTA, unlabored respirations Heart: PMI normal, RRR Abdomen: NT/ND, soft - Telemetry Telemetry Rhythm: SR - Labs Result Diagrams: 05/09/18 09:55 05/09/18 09:55 Troponin/CKMB CK-MB (CK-2) 3.7 ng/mL (0-6.6) 05/04/18 12:00 Troponin I 0.349 ng/mL (< 0.028) H* 05/04/18 18:26 - Assessment/Plan 1. Typical atrial flutter s/p CTI ablation 05/07 without recurrence 2. Ventricular tachycardia with clear V-A dissociation, easily provoked with atrial and ventricular burst pacing during EP study on 05/07 3. Dual chamber ICD implanted 05/08/18 medtronic - VT detect at 140bpm 4. Inducible for A fib and atypical flutter during EPS - recommend anticoagulation with Eliquis but stopping either ASA or plavix. 2 week wound check at [facility]. Routine appt in 3 months. OK for DC. Agree with initiating coreg. Titrate up as tolerated.
--- NOTE | 2018-05-09 15:59 | DIS ---
DATE OF ADMISSION: 05/04/2018 DATE OF DISCHARGE: 05/09/2018 DISCHARGE DISPOSITION: To home. PRIMARY DISCHARGE DIAGNOSES: The patient is status post automatic implantable cardioverter-defibrillator for inducible ventricular arrhythmia; atrial flutter, status post cavotricuspid ablation and initial cardioversion in the ER. SECONDARY DISCHARGE DIAGNOSES: Chronic obstructive pulmonary disease; coronary artery disease; hypertension; dyslipidemia; demand ischemia secondary to above; mild congestive heart failure exacerbation, which got resolved likely due to atrial flutter on arrival. PROCEDURES DONE DURING HOSPITALIZATION: The patient had cardioversion done on arrival due to atrial flutter, which was unresponsive to medication and increasing troponin levels. He was given 50 joules direct current synchronized energy and the patient converted to sinus bradycardia. Echo with 2D Doppler showed EF of 50% to 55%, bioprosthetic aortic valve with moderate aortic stenosis. The patient had a cavotricuspid ablation done on 05/07/2018 for typical atrial flutter. He was also found to have had inducible ventricular tachycardia both from atrium and ventricle with right bundle inferior axis morphology. He also had nonsustained polymorphic VT, which was induced with ventricular extrastimuli protocol. The patient had placement of AICD on 05/08/[address] Anupam Henriquez. H and H of 14 and 47, platelet count 177. Troponin I indeterminate, peaking up to 0.4, CK-MB 3.7, BNP 550. BUN and creatinine were 14 and 0.7. DISCHARGE MEDICATIONS: 1. Albuterol inhaler q.6 hours p.r.n. 2. Aspirin 81 mg p.o. daily. 3. Klonopin 1.5 mg p.o. at bedtime. 4. Nexium 40 mg p.o. daily. 5. DuoNeb q.i.d. p.r.n. 6. Lisinopril 20 mg twice daily. 7. Melatonin 3 mg p.o. at bedtime. 8. Dulera inhaler two puffs twice daily. 9. Crestor 20 mg daily. 10. Eliquis 5 mg twice daily for a total duration of 30 days. 11. Coreg 6.25 mg twice daily. 12. Clindamycin 300 mg p.o. three times daily for 7 days post AICD placement. 13. Lasix 20 mg twice daily. 14. Motrin 400 mg p.o. three times daily p.r.n. for pain. ALLERGIES: ALLERGIC TO PENICILLIN. INPATIENT CONSULT: Dr. Tripp for Cardiology, Dr. Anupam Henriquez for Electrophysiology. DISCHARGE PLAN: The patient will follow up with the primary care physician in [address] Tripp and Dr. Anupam Henriquez as advised BRIEF COURSE DURING HOSPITALIZATION: The patient initially got admitted on the 8th after he had gone for routine followup to see Dr. Tripp. He was found to have had atrial flutter with rates going up to 150s. He was given multiple medications including Lopressor x2 IV, Cardizem 20 mg IV push, then 5 mg an hour with further escalation to 10 mg an hour, none of which controlled his atrial flutter, finally had to be cardioverted in the ER. The patient had bradycardia post cardioversion and was hospitalized. He has had EP consultation with Dr. Anupam Henriquez. He was taken for ablation and cavotricuspid isthmus ablation for typical atrial flutter. During the procedure, the patient was found to have had inducible ventricular tachycardia. In view of this, the patient had AICD placed as well. Post these procedures, the patient has remained in sinus rhythm. He is hemodynamically stable. He is ambulating and eating well prior to discharge. Please see a [id number] documentation for the day of discharge on [employer]. He needs to continue Eliquis for a total duration of 30 days if he remains in sinus rhythm. Job ID: [id number] MTDD
== END 2018-05-09 13:07 | disposition home or self-care (01) | DRG 226 ==
LOC: ERS 11:48 → 2NO 14:50
PROVIDERS: ADMIT Internal Medicine; ATTEND Internal Medicine
PROC: 5A2204Z Restoration of Cardiac Rhythm, Single (ICD-10-PCS; 2018-05-04)
PROC: 02583ZZ Destruction of Conduction Mechanism, Percutaneous Approach (ICD-10-PCS; principal; 2018-05-08)
PROC: 0JH608Z Insertion of Defibrillator Generator into Chest Subcutaneous Tissue and Fascia, Open Approach (ICD-10-PCS; 2018-05-08)
PROC: 02HK3KZ Insertion of Defibrillator Lead into Right Ventricle, Percutaneous Approach (ICD-10-PCS; 2018-05-08)
PROC: 02H63KZ Insertion of Defibrillator Lead into Right Atrium, Percutaneous Approach (ICD-10-PCS; 2018-05-08)
PROC: 02K83ZZ Map Conduction Mechanism, Percutaneous Approach (ICD-10-PCS; 2018-05-08)
PROC: 4A023FZ Measurement of Cardiac Rhythm, Percutaneous Approach (ICD-10-PCS; 2018-05-08)
PROC: 4A0234Z Measurement of Cardiac Electrical Activity, Percutaneous Approach (ICD-10-PCS; 2018-05-08)
DX: I49.5 Sick sinus syndrome (principal); I50.33 Acute on chronic diastolic (congestive) heart failure; I48.3 Typical atrial flutter; I24.8 Other forms of acute ischemic heart disease; I47.2 Ventricular tachycardia; I48.0 Paroxysmal atrial fibrillation; I25.10 Atherosclerotic heart disease of native coronary artery without angina pectoris; J44.9 Chronic obstructive pulmonary disease, unspecified; I11.0 Hypertensive heart disease with heart failure; K21.9 Gastro-esophageal reflux disease without esophagitis; I73.9 Peripheral vascular disease, unspecified; F17.210 Nicotine dependence, cigarettes, uncomplicated; Z95.1 Presence of aortocoronary bypass graft; Z95.3 Presence of xenogenic heart valve; Z82.49 Family history of ischemic heart disease and other diseases of the circulatory system; Z79.02 Long term (current) use of antithrombotics/antiplatelets; Z79.82 Long term (current) use of aspirin; Z88.0 Allergy status to penicillin
CPT/HCPCS: 33249; 36005; 36415; 71045; 75820; 76942; 80048; 80053; 82553; 82565; 83735; 83880; 84484; 85014; 85018; 85025; 85049; 92960; 93005; 93306; 93613; 93621; 93623; 93641; 93653; 94664; 96365; 96366; 96372; 96375; 96376; C1721; C1730; C1769; C1777; C1898; J1580; J1644; J1650; J1956; J2250; J2370; J2704; J3010; J3490; J7512; J7620; Q9967

== ENCOUNTER 2018-08-28 08:40 | Outpatient (CLI) | payer BC, MEDICARE ==
[2018-08-28 11:20] LABS: #Basophils 0.1 thou/uL (0.0-0.2); #Eosinphils 0.3 thou/uL (0.0-0.7); #Lymphocytes 1.6 thou/uL (1.20-3.40); #Monocytes 0.5 thou/uL (0.11-0.59); #Neutrophils 3.6 thou/uL (1.40-6.50); %Basophils 1.5 % (0.0-1.0); %Eosinophils 5.3 % (0.0-10.0); %Lymphocytes 26.5 % (21.0-51.0); %Monocytes 8.5 % (0.0-10.0); %Neutrophils 58.2 % (42.0-75.0); Hemoglobin 15.5 g/dL (14.0-18.0); Mean Corpuscular HGB CONC 35.1 g/dL (32.0-36.0); Mean Corpuscular Hemoglobin 32.1 pg (27.0-31.0); Mean Corpuscular Volume 91.4 fL (78.0-98.0); Mean Platelet Volume 8.1 fL (7.4-10.4); Platelet Count 159 thou/uL (130-400); RBC Distribution Width 12.4 % (11.5-14.5); Red Blood Cell (RBC) Count 4.82 mill/uL (4.70-6.10); White Blood Cell (WBC) Count 6.1 thou/uL (4.8-10.8)
[2018-08-28 11:22] LABS: ALT (SGPT) 21 U/L (8-55); AST (SGOT) 21 U/L (5-34); Albumin 4.2 g/dL (3.4-4.8); Alkaline Phosphatase 40 U/L (40-150); Anion Gap 10 mmol/L (10-20); BUN (Urea Nitrogen) 22 mg/dL (8.4-25.7); Bilirubin, Total 2.2 mg/dL (0.2-1.2); Calc. Creatinine Clearance 0 mL/min (70-130); Calcium 9.8 mg/dL (7.8-10.44); Carbon Dioxide 31 mmol/L (23-31); Cardiac Risk 2.7 (Less than 4.5); Chloride 102 mmol/L (98-107); Cholesterol 127 mg/dl (< 200 Desired); Estimated GFR-MDRD 73; Globulin 2.5 g/dL (2.4-3.5); Glucose 91 mg/dL (80-115); HDL Cholesterol 47 mg/dL (>60 Neg Risk); LDL Cholesterol, Calculated 63 mg/dL; Protein, Total 6.7 g/dL (5.8-8.1); Sodium 139 mmol/L (136-145); Triglycerides 83 mg/dL (Less than 150)
[2018-08-28 11:30] LABS: INR-International Normal Ratio 1.1; Prothrombin Time 13.8 SEC (12.0-14.7)
== END 2018-08-28 08:41 | disposition home or self-care (01) ==
LOC: LABBT 08:40
PROVIDERS: ATTEND Internal Medicine Cardiovascular Disease
DX: Z01.812 Encounter for preprocedural laboratory examination (principal); I73.9 Peripheral vascular disease, unspecified
CPT/HCPCS: 80053; 80061; 85025; 85610; 85730

== ENCOUNTER 2018-08-30 08:08 | Day surgery (SDC) | payer BC, MEDICARE ==
[2018-08-28 08:58] VITALS: BMI 20.5
[2018-08-30] MEDS ORDERED: Lidocaine 1% (PF) 30 ML VIAL ONE (09:36)
[2018-08-30] MEDS ORDERED: Fentanyl 100 MCG/2 ML VIAL ONE (09:45)
[2018-08-30] MEDS ORDERED: Midazolam HCl 2 mg/2 ml Vial ONE (09:45)
[2018-08-30] MEDS ORDERED: Heparin 10,000 UNITS/1 ML VIAL ONE (10:35)
[2018-08-30] MEDS ORDERED: Clopidogrel Bisulfate 300 MG TAB ONE (10:35)
--- NOTE | 2018-08-30 19:48 | CCL ---
DATE OF SERVICE: 08/30/18 PREPROCEDURE DIAGNOSIS: -------- claudication. POSTPROCEDURE DIAGNOSIS: --------- claudication. PROCEDURES PERFORMED: 1. Selective abdominal angiography with runoff. 2. Selective left common femoral angiography with runoff. 3. Selective right common femoral angiography with runoff. 4. Percutaneous transluminal angioplasty with Lutonix 4.0 x 150 drug eluding balloon to the left popliteal artery and left SFA. 5. Percutaneous transluminal angiography with a 4.0 x 40 mm Lutonix drug eluding balloon to the left SFA. 6. Percutaneous transluminal angioplasty with a 4.0 x 150 mm Lutonix drug eluding balloon to the left proximal SFA. ESTIMATED BLOOD LOSS: 50 mL. SURGICAL COMPLICATIONS: None. SAMPLES OBTAINED: None. PROCEDURAL FINDINGS: 1. Abdominal aorta is widely patent. No aneurysmal dilatation. No dissections. This splits into bilateral iliacs which are widely patent. Diffuse disease. Not flow limiting. No gradients on pullbac k. 2. On the left leg, the left common femoral artery bifurcates into the profunda which has severe disease and into superficial femoral artery. 3. Left SFA has a severe diffuse disease proximally, mid and distal. Becomes popliteal which has severe disease just above the knee. It becomes into the tibialis artery which is occluded proximally and the tibioperoneal trunk is widely patent giving very good two vessel runoff on the peroneal and the posterior tibial. 4. Right iliac system is widely patent with no gradients or pullback. 5. The right common femoral artery is patent and gives rise to an profunda and SFA. SFA has kale re diffuse disease proximally. It has a stent distally which is widely patent. It becomes popliteal. The stent gets to the popliteal as well and is widely patent. It has good two vessel runoff distally. Moderate sedation: Under adequate supervision, versed and Fentanyl were administered intravenously for moderate sedation . Pulse ox, heart rate and blood pressure were continuously monitored by an independent architectural administrative assistant pre sent. The physician spent a total of 60 minutes of [id number] attendance time during the sedation with the patient. SUMMARY: The patient is a pleasant 68-year-old white gentleman who comes to the catheterization lab for evalua tion of ----- claudication. He was prepped and draped in the usual sterile fashion. Consents were si gned and verified. Timeout was performed. Access was obtained with a 6 Maldivian sheath in the right fem oral artery successfully. We then advanced a --------- flow catheter into the abdominal aorta was se lectively engaged and selective angiography was done. We then with a stiff angled glide wire engaged the left common femoral artery where selective angiography was done. We started to intervene in the l eft SFA and left popliteal arteries, so we exchanged for a 6 Maldivian long destination sheath. Heparin was given. We advanced a stiff angled glide wire passed all the lesions and then we advanced a 4.0 x 150 mm Lutonix drug coated balloon and we ballooned the popliteal and distal SFA. There was a second 4.0 x 40 mm balloon used proximal to this and then a third 4.0 x 150 drug eluding balloon Lutonix us ed for the proximal SFA. There was just diffuse disease everywhere. Post angiography showed adequate flow with very good results. No evidence for any severe complications. Manual pressure will be held once ACTs are under 170. RECOMMENDATIONS: 1. Continue antiplatelet therapy with Plavix and aspirin. 2. Continue risk factor modification. 3. Smoking cessation counselling was performed. 4. Follow-up in the office in one month.
[2018-08-30] MEDS ORDERED: Iopamidol 370 76% 50 ML VIAL FS ONE (20:12)
[2018-08-30] MEDS ORDERED: Iopamidol 370 76% 100 ML VIAL ONE (20:12)
--- NOTE | 2018-08-30 20:14 | EKG ---
Test Reason : S/P ANGIOGRAM Blood Pressure : / mmHG Vent. Rate : 086 BPM Atrial Rate : 086 BPM P-R Int : 170 ms QRS Dur : 136 ms QT Int : 390 ms P-R-T Axes : 071 123 063 degrees QTc Int : 466 ms Atrial-paced rhythm with frequent , and consecutive sinus complexes and Premature atrial complexes Right bundle branch block Abnormal ECG When compared with ECG of 08-MAY-2018 11:39, (Unconfirmed) Electronic atrial pacemaker has replaced Sinus rhythm Right bundle branch block is now Present Confirmed by ZOYA FINLEY, DR. Hernandez ([id number]) on 08/30/2018 8:14:35 PM Referred By: MARÍA Confirmed By:DR. Mary KENNY MD
== END 2018-08-30 17:45 | disposition home or self-care (01) ==
LOC: CCL 08:08
PROVIDERS: ATTEND Internal Medicine Cardiovascular Disease
PROC: 027236Z Dilation of Coronary Artery, Three Arteries with Three Drug-eluting Intraluminal Devices, Percutaneous Approach (ICD-10-PCS; principal; 2018-08-30)
PROC: B50 Imaging, Veins, Plain Radiography (ICD-10-PCS; principal; 2018-08-30)
PROC: B4101ZZ Fluoroscopy of Abdominal Aorta using Low Osmolar Contrast (ICD-10-PCS; principal; 2018-08-30)
DX: I73.9 Peripheral vascular disease, unspecified (principal); I45.10 Unspecified right bundle-branch block; Z88.0 Allergy status to penicillin; Z91.048 Other nonmedicinal substance allergy status; Z79.01 Long term (current) use of anticoagulants; Z79.82 Long term (current) use of aspirin; Z79.899 Other long term (current) drug therapy
CPT/HCPCS: 37224; 75710; 85347; 93005; 93010; 99152; C1769; C1887; C2623; J1644; J2001; J2250; J3010; Q9967

== ENCOUNTER 2018-11-02 09:13 | Outpatient (CLI) | payer BC, MEDICARE ==
[2018-11-02 13:25] LABS: Hemoglobin 16.1 g/dL (14.0-18.0); Mean Corpuscular HGB CONC 33.9 g/dL (32.0-36.0); Mean Corpuscular Hemoglobin 33.9 pg (27.0-31.0); Mean Corpuscular Volume 99.9 fL (78.0-98.0); Mean Platelet Volume 9.4 fL (7.4-10.4); Platelet Count 121 thou/uL (130-400); RBC Distribution Width 13.8 % (11.5-14.5); Red Blood Cell (RBC) Count 4.74 mill/uL (4.70-6.10); White Blood Cell (WBC) Count 12.2 thou/uL (4.8-10.8)
[2018-11-02 13:34] LABS: INR-International Normal Ratio 1.2; PTT 26.6 SEC (22.9-36.1); Prothrombin Time 15.2 SEC (12.0-14.7)
[2018-11-02 13:46] LABS: Anion Gap 14 mmol/L (10-20); BUN (Urea Nitrogen) 17 mg/dL (8.4-25.7); Calc. Creatinine Clearance 0 mL/min (70-130); Calcium 9.3 mg/dL (7.8-10.44); Carbon Dioxide 27 mmol/L (23-31); Chloride 100 mmol/L (98-107); Estimated GFR-MDRD 72; Glucose 230 mg/dL (80-115); Potassium 4.8 mmol/L (3.5-5.1); Sodium 136 mmol/L (136-145)
--- NOTE | 2018-11-02 16:32 | EKG ---
Test Reason : Blood Pressure : / mmHG Vent. Rate : 080 BPM Atrial Rate : 080 BPM P-R Int : 158 ms QRS Dur : 102 ms QT Int : 384 ms P-R-T Axes : 077 091 034 degrees QTc Int : 442 ms Electronic atrial pacemaker Rightward axis Nonspecific ST abnormality Abnormal ECG When compared with ECG of 30-AUG-2018 12:20, Premature atrial complexes are no longer Present Right bundle branch block is no longer Present Confirmed by ZOYA FINLEY, SSon ([id number]) on 11/02/2018 4:32:17 PM Referred By: [facility] Confirmed By:DR. Mary KENNY MD
== END 2018-11-02 09:14 | disposition home or self-care (01) ==
LOC: LABBT 09:13
PROVIDERS: ATTEND Internal Medicine Cardiovascular Disease
DX: Z01.818 Encounter for other preprocedural examination (principal); I48.91 Unspecified atrial fibrillation
CPT/HCPCS: 80048; 85027; 85610; 85730; 93005; 93010

== ENCOUNTER 2018-11-05 06:00 | Observation (INO) | payer BC, MEDICARE ==
[2018-11-02 11:59] VITALS: BMI 20.9
[2018-11-05] MEDS ORDERED: Heparin 10,000 UNITS/1 ML VIAL ONE (06:44)
[2018-11-05] MEDS ORDERED: Fentanyl 100 MCG/2 ML VIAL ONE (07:17)
[2018-11-05] MEDS ORDERED: Lidocaine 1% (PF) 30 ML VIAL ONE (08:18)
[2018-11-05] MEDS ORDERED: Isoproterenol 0.2 MG/1 ML AMP ONE (08:35)
[2018-11-05] MEDS ORDERED: Heparin 25,000 units/D5W 500 ML ONE (08:41)
[2018-11-05] MEDS ORDERED: Ondansetron PF 4 MG/2 ML Vial ONE (09:00)
[2018-11-05] MEDS ORDERED: PHENYLEPHRINE-NS 100 MCG/ML 10 ML SYRINGE ONE (09:00)
[2018-11-05] MEDS ORDERED: Lidocaine 1% PF 5 ML VIAL ONE (09:00)
[2018-11-05] MEDS ORDERED: Hydrocortisone Sod Succ/PF 100 mg/2 ml Vial ONE (09:00)
[2018-11-05] MEDS ORDERED: Rocuronium Bromide 10 MG/ML (10ML VIAL) ONE (09:00)
[2018-11-05] MEDS ORDERED: ePHEDrine 50 MG/ML VIAL ONE (09:00)
[2018-11-05] MEDS ORDERED: PROPOFOL 200 MG/20 ML VIAL ONE (09:00)
[2018-11-05] MEDS ORDERED: Dexamethasone 20 MG/5 ML VIAL ONE (09:00)
[2018-11-05] MEDS ORDERED: Labetalol HCl 100 MG/20 ML VIAL ONE (09:00)
[2018-11-05] MEDS ORDERED: Glycopyrrolate 0.2 MG/ML 5 ML SYRINGE ONE (09:00)
[2018-11-05] MEDS ORDERED: Protamine Sulfate 50 MG/5 ML VIAL ONE ×2 (11:39→11:41)
[2018-11-05] MEDS ORDERED: hydrALAZINE 20 MG/ML VIAL ONE (12:00)
--- NOTE | 2018-11-05 12:49 | OP ---
DATE OF PROCEDURE: 11/05/2018 PROCEDURES PERFORMED: Electrophysiology study and radiofrequency ablation. REASON FOR PROCEDURE: Mr. Hawkins is a 68-year-old man with prior history of frequent PACs and atrial fibrillation, who has a history of aortic stenosis post TAVR procedure, ventricular tachycardia, and dual-chamber ICD in place. He has been on anticoagulation with Eliquis and Plavix. He is here for EP study and radiofrequency ablation for pulmonary venous isolation. DESCRIPTION OF PROCEDURE: The patient received propofol by Anesthesia specialist. After adequate level of sedation achieved, the left and right femoral veins was prepped, draped, and anesthetized with subcutaneous lidocaine. On the left side , an 11-Ugandan sheath was introduced. An 11-Ugandan sheath was used to advance the intracardiac echocardiogram probe into the right atrium to monitor the pericardial space and the transseptal procedure. Also on the right, an 8-Ugandan sheath was exchanged to a Preface long sheath, which was used to advance a duodeca catheter into the right atrium and CS positions. From the right, two 8-Ugandan short sheath was introduced initially through which a ThermoCool SFST catheter was advanced to the right atrium, CS, His bundle, and right ventricle positions. 3D map was obtained as well as pacing, mapping, and recording were performed in each location. During the case, pacing from the LVE was performed and also from his CS pacing with left atrium as well. Following that, the right-sided short sheath was exchanged to 2 SL1 long sheaths , which was used to perform a transseptal procedure under ultrasound and fluoroscopic guidance. After IV heparin bolus was administered. Heparin was also given in continuous infusion and ACT was monitored to keep ACT over 350 throughout the case. Through the SL1 sheath, a 20-pole Lasso catheter and a ThermoCool SFST catheter was advanced to the left atrium. 3D map of the left atrium was performed noting a left common pulmonary vein. Following that, pulmonary venous isolation of the left common to right-sided pulmonary veins were performed. Also, roof line and inferior line were used to isolate the posterior wall. Throughout the case, esophageal probe was used to measure the esophageal temperatures to avoid excessive heating. Isuprel was administered and the structure remained isolated. LV pacing ruled out accessory pathway. Proximal CS pacing was performed demonstrating over 150 milliseconds trans-isthmus time with longest trans- isthmus time adjacent to the prior ablatin line, suggestive of resisting trans-isthmus block. PACs were observed in the right atrium and the lateral right atrial SVC junction , the earliest activation was found. The radiofrequency ablation was performed in this area after high-voltage pacing was ruling out diaphragmatic capture. Baseline EP study was also performed revealing VA Wenckebach cycle length 460 and AV Wenckebach cycle length 300 milliseconds. AV ERP was 600/240 milliseconds. No dual AV esthela physiology was seen and concentric retrograde VA conduction was noted. The total number of ablation was 18 minutes at 40 dennison, a total of 26 ablation lesions were placed in the left and right atrium. The baseline cycle lengths were in sinus rhythm 937 milliseconds, OK 225, QRS 112, QT 525, AH 73, and HV 35 milliseconds. The long sheath was exchanged for short sheaths and Vascade closure performed in the venous access site. Protamine was administered at the end of the case to reverse the residual heparin effect. Adequate dual-chamber ICD function pre and post procedure is noted. CONCLUSION: 1. Successful pulmonary venous isolation and posterior wall ablation procedure. 2. No inducible atrial fibrillation or flutter in the end of the case. 3. Prior CTI ablation line appears to be still sufficiently blocking the cavotricuspid isthmus conduction. 4. Right atrial PACs also ablated and PLAN: Resume anticoagulation. Monitor for recurrent atrial arrhythmias. Job ID: [id number] [facility]
[2018-11-05] MEDS ORDERED: Acetaminophen/Codeine 30-300mg Tablet PO PRN ×2 (13:56)
[2018-11-05] MEDS ORDERED: Ketorolac Tromethamine 30 MG/ML VIAL IVP PRN (13:56)
[2018-11-05] MEDS ORDERED: PROVENTIL INHALER 6.7 G (200 INHALATIONS) INH PRN (14:00)
[2018-11-05] MEDS ORDERED: Furosemide 40 MG TAB PO PRN (14:10)
[2018-11-05] MEDS ORDERED: Potassium Chloride 20 MEQ TAB PO PRN (14:10)
[2018-11-05] MEDS: Sucralfate 1 GM TAB PO SCH ×2 (16:23→23:53)
[2018-11-05] MEDS ORDERED: Nicotine 21 MG PATCH TD SCH (17:00)
--- NOTE | 2018-11-05 19:22 | HP ---
CHIEF COMPLAINT: Elective presentation for EP study and radiofrequency ablation with Dr. Henriquez. HISTORY OF PRESENT ILLNESS: The patient is a 68-year-old male with past medical history significant for multiple atrial arrhythmias including frequent PACs; AFib along with atrial flutter; coronary artery disease, status post CABG three vessel in 1997; aortic stenosis, status post TAVR; ventricular tachycardia, status post ICD implant, who presented for elective EP study and ablation with Dr. Henriquez today. The patient underwent successful pulmonary vein isolation and posterior wall ablation along with right atrial ablation of PACs. The patient did tolerate the procedure well. He has remained in atrial paced rhythm since his arrival to the floor. When he got to the floor, the patient stated that he did have some lower abdominal discomfort, has had not been able to urinate, bladder scan did show 900 mL of urine. The patient underwent in-and-out catheterization, and he feels much improved. He has no chest pain or shortness of breath at this time. No nausea or vomiting. No further discomfort. He denies pain or swelling from either femoral access site. REVIEW OF SYSTEMS: A 12-point review of systems performed. The patient states that he has had occasional palpitations over the past several months. He denies any chest pain or shortness of breath as mentioned. No other positive review of systems. PAST MEDICAL/SURGICAL HISTORY: Coronary artery disease, status post three-vessel CABG in 1997; severe aortic stenosis, status post TAVR approximately 4 years ago; VT, status post dual chamber ICD; multiple atrial arrhythmias as outlined above; COPD with ongoing tobacco abuse; GERD; longstanding history of anxiety disorder; hernia repair; lumbar spine surgery in the past; peripheral vascular disease, status post [employer] of the left SFA earlier this year. SOCIAL HISTORY: The patient smokes a pack to a [id number] per day of cigarettes. He denies any alcohol use. He lives with his . He is able to ambulate by himself. FAMILY HISTORY: Noncontributory. ALLERGIES: ADHESIVE, PENICILLIN. HOME MEDICATIONS: 1. Albuterol sulfate rescue inhaler 2 puffs q.4 hours p.r.n. 2. Eliquis 5 mg one tablet p.o. b.i.d. 3. Carvedilol 25 mg tablet one tablet p.o. b.i.d. 4. Clonazepam 1.5 mg p.o. q.h.s. 5. Plavix 75 mg daily. 6. Lexapro 10 mg p.o. daily. 7. Esomeprazole 20 mg capsule, 40 mg p.o. daily. 8. Lasix 20 mg p.o. b.i.d. p.r.n. swelling. 9. Ibuprofen 400 mg p.o. t.i.d. p.r.n. 10. Ipratropium and albuterol sulfate nebulizer q.i.d. p.r.n. 11. Lisinopril 20 mg p.o. b.i.d. 12. Melatonin 3 mg p.o. q.h.s. 13. Dulera inhaler 2 puffs inhaled b.i.d. 14. Potassium supplement 99 mg tablet one tablet p.o. p.r.n. with Lasix. 15. Crestor 20 mg tablet one tablet daily. PHYSICAL EXAMINATION: VITAL SIGNS: Blood pressure 155/70, pulse 85, O2 saturations 94% on room air, temperature 98.5. GENERAL: The patient is a thin elderly male, resting comfortably in bed, in no acute distress. HEENT: Head is atraumatic and normocephalic. Mucous membranes are moist. NECK: Trachea is midline. No JVD. CV: S1 and S2. Regular rate and rhythm. No ectopic beats noted. LUNGS: Regular respiratory rate and pattern. Overall decreased vesicular breath sounds, although I can appreciate no rhonchi, wheezes, or crackles. ABDOMEN: Positive bowel sounds. Nontender. EXTREMITIES: Trace edema bilaterally. Both femoral access sites are soft and nontender. SKIN: Warm and dry. Multiple abrasions and ecchymosis noted on the upper extremities. NEUROLOGIC: Cranial nerves 2 through 12 are grossly intact. The patient is nonfocal. LABORATORY DATA: From November 02, 2018, white blood cell count 12.2, RBC 4.74, hemoglobin 16.1, hematocrit 47.4, platelets 121. Sodium 136, potassium 4.8, chloride 100, anion gap 14, BUN 17, creatinine 1.02, GFR 72, glucose was 230. ASSESSMENT: 1. Status post pulmonary vein isolation and posterior wall ablation along with right atrial premature atrial contraction ablation today with Dr. Henriquez. 2. Postoperative urinary retention, likely secondary to anesthesia. 3. History of multiple atrial arrhythmias including atrial fibrillation/atrial flutter/premature atrial contractions. 4. Automatic implantable cardioverter-defibrillator in situ. 5. Coronary artery disease, status post three-vessel coronary artery bypass graft. 6. Peripheral vascular disease, status post percutaneous transluminal angioplasty of the left superficial femoral artery. 7. Chronic obstructive pulmonary disease with ongoing tobacco abuse. 8. Anxiety disorder. 9. Aortic stenosis, status post transcatheter aortic valve replacement for approximately 4 years ago. PLAN: At this time, admit the patient for observation overnight. We will carefully monitor for any postoperative arrhythmias. We will continue to bladder scan the patient and monitor for urinary retention, he may need Barahona catheter placed if he continues to have issues. Per Dr. Henriquez, we will continue anticoagulation with Eliquis 5 mg p.o. b.i.d., and we will continue his Plavix as well. We will continue his home medications. Further recommendations based on hospital course and Dr. Henriquez's recommendations. Job ID: [id number]
[2018-11-05] MEDS: Mometasone/Formoterol 120 PUFF INHALER INH SCH (19:45)
[2018-11-05] MEDS ORDERED: Aspirin Chewable 81 MG TAB PO SCH (21:00)
[2018-11-05] MEDS ORDERED: clonazePAM 1 MG TAB PO SCH (21:00)
[2018-11-05] MEDS ORDERED: Melatonin 3 MG TAB PO SCH (21:00)
[2018-11-05] MEDS: Lisinopril 20 MG TAB PO SCH (21:42)
[2018-11-05] MEDS: Carvedilol 25 MG TAB PO SCH (21:42)
[2018-11-05] MEDS: Apixaban 5 MG TAB PO SCH (21:42)
[2018-11-06] MEDS: Sucralfate 1 GM TAB PO SCH (06:14)
[2018-11-06] MEDS: Mometasone/Formoterol 120 PUFF INHALER INH SCH (07:35)
[2018-11-06 08:16] VITALS: TEMP 98.7
[2018-11-06] MEDS: Carvedilol 25 MG TAB PO SCH (08:26)
[2018-11-06] MEDS: Lisinopril 20 MG TAB PO SCH (08:26)
[2018-11-06] MEDS: Apixaban 5 MG TAB PO SCH (08:27)
[2018-11-06] MEDS ORDERED: Rosuvastatin 20 MG TAB PO SCH (09:00)
[2018-11-06] MEDS ORDERED: Clopidogrel Bisulfate 75 MG TAB PO SCH (09:00)
[2018-11-06] MEDS ORDERED: Nicotine 21 MG PATCH TD SCH (09:00)
[2018-11-06] MEDS ORDERED: Aspirin 81 mg Enteric Coated Tablet PO SCH (09:00)
[2018-11-06] MEDS ORDERED: Escitalopram Oxalate 10 mg Tablet PO SCH (09:00)
[2018-11-06 09:26] LABS: #Basophils 0.1 thou/uL (0.0-0.2); #Eosinphils 0.1 thou/uL (0.0-0.7); #Lymphocytes 2.3 thou/uL (1.20-3.40); #Monocytes 0.8 thou/uL (0.11-0.59); #Neutrophils 12.2 thou/uL (1.40-6.50); %Basophils 0.4 % (0.0-1.0); %Eosinophils 0.7 % (0.0-10.0); %Lymphocytes 15.2 % (21.0-51.0); %Monocytes 5.1 % (0.0-10.0); %Neutrophils 78.6 % (42.0-75.0); Hemoglobin 14.1 g/dL (14.0-18.0); Mean Corpuscular HGB CONC 33.6 g/dL (32.0-36.0); Mean Corpuscular Hemoglobin 32.8 pg (27.0-31.0); Mean Corpuscular Volume 97.5 fL (78.0-98.0); Mean Platelet Volume 9.2 fL (7.4-10.4); Platelet Count 97 thou/uL (130-400); RBC Distribution Width 13.7 % (11.5-14.5); White Blood Cell (WBC) Count 15.5 thou/uL (4.8-10.8)
[2018-11-06 09:40] LABS: ALT (SGPT) 23 U/L (8-55); AST (SGOT) 32 U/L (5-34); Albumin 3.1 g/dL (3.4-4.8); Alkaline Phosphatase 58 U/L (40-150); Anion Gap 12 mmol/L (10-20); BUN (Urea Nitrogen) 16 mg/dL (8.4-25.7); Bilirubin, Total 0.9 mg/dL (0.2-1.2); Calc. Creatinine Clearance 62 mL/min (70-130); Calcium 8.8 mg/dL (7.8-10.44); Carbon Dioxide 26 mmol/L (23-31); Chloride 98 mmol/L (98-107); Estimated GFR-MDRD 76; Glucose 213 mg/dL (80-115); Potassium 3.5 mmol/L (3.5-5.1); Protein, Total 5.1 g/dL (5.8-8.1); Sodium 132 mmol/L (136-145)
[2018-11-06 10:17] VITALS: BP 149/76
--- NOTE | 2018-11-06 16:51 | PRG ---
DATE OF SERVICE: 11/06/2018 SUBJECTIVE: Mr. Hawkins seems to be doing well one day after his pulmonary venous isolation procedure. OBJECTIVE: VITAL SIGNS: Blood pressure is most recently 149/76, heart rate 82, respirations 16, temperature 98.7 degrees Fahrenheit. GENERAL: Alert and oriented man, in no apparent distress. NECK: Supple. Jugular veins not distended. CHEST: Coarse without crackles. HEART: Sounds are regular to rate and rhythm. No murmur or gallop. ABDOMEN: Benign. Bowel sounds positive. EXTREMITIES: Lower extremities without edema, clubbing, or cyanosis. The groin catheter insertion sites are healing adequately. DIAGNOSTIC STUDIES: Telemetry reviewed, revealing sinus rhythm, rare PACs. No atrial fibrillation. ASSESSMENT AND PLAN: Mr. Hawkins is a 68-year-old man with history of paroxysmal atrial arrhythmias, frequent premature atrial contractions, asymptomatic, who underwent a pulmonary venous isolation procedure yesterday, doing well one day post implant. He will resume his anticoagulation, and his groin sites are without reaction. He will be discharged home as per Hospitalist Service with Protonix and Carafate as well as p.r.n. Lasix. Routine followup in about 6 weeks requested. Job ID: [id number]
--- NOTE | 2018-11-06 22:57 | EKG ---
Test Reason : POST ABLATION Blood Pressure : / mmHG Vent. Rate : 085 BPM Atrial Rate : 071 BPM P-R Int : 132 ms QRS Dur : 098 ms QT Int : 394 ms P-R-T Axes : 059 081 -37 degrees QTc Int : 468 ms Electronic atrial pacemaker Prolonged QT Abnormal ECG When compared with ECG of 02-NOV-2018 12:28, Nonspecific T wave abnormality, worse in Inferior leads T wave inversion now evident in Anterior leads Confirmed by Shawna SAAB ([id number]) on 11/06/2018 10:56:59 PM Referred By: [facility] Confirmed By:Shawna SAAB
--- NOTE | 2018-11-06 22:59 | EKG ---
Test Reason : Blood Pressure : / mmHG Vent. Rate : 083 BPM Atrial Rate : 083 BPM P-R Int : 136 ms QRS Dur : 108 ms QT Int : 392 ms P-R-T Axes : 085 092 066 degrees QTc Int : 460 ms Electronic atrial pacemaker Rightward axis Borderline ECG When compared with ECG of 05-NOV-2018 13:45, (Unconfirmed) Nonspecific T wave abnormality no longer evident in Inferior leads T wave inversion no longer evident in Anterior leads Confirmed by Shawna SAAB ([id number]) on 11/06/2018 10:58:42 PM Referred By: REGINALDO Confirmed By:Shawna SAAB
== END 2018-11-06 11:48 | disposition home or self-care (01) ==
LOC: CCL 06:00 → 2SW 12:59
PROVIDERS: ADMIT Internal Medicine Cardiovascular Disease; ATTEND Internal Medicine Cardiovascular Disease
PROC: 4A023FZ Measurement of Cardiac Rhythm, Percutaneous Approach (ICD-10-PCS; principal; 2018-11-06)
PROC: 4A0234Z Measurement of Cardiac Electrical Activity, Percutaneous Approach (ICD-10-PCS; 2018-11-06)
PROC: 02583ZZ Destruction of Conduction Mechanism, Percutaneous Approach (ICD-10-PCS; 2018-11-06)
DX: I49.1 Atrial premature depolarization (principal); I48.91 Unspecified atrial fibrillation; I47.2 Ventricular tachycardia; I25.10 Atherosclerotic heart disease of native coronary artery without angina pectoris; J44.9 Chronic obstructive pulmonary disease, unspecified; F17.210 Nicotine dependence, cigarettes, uncomplicated; K21.9 Gastro-esophageal reflux disease without esophagitis; F41.9 Anxiety disorder, unspecified; R33.8 Other retention of urine; I73.9 Peripheral vascular disease, unspecified; Z98.890 Other specified postprocedural states; Z95.810 Presence of automatic (implantable) cardiac defibrillator; Z95.1 Presence of aortocoronary bypass graft; Z95.2 Presence of prosthetic heart valve; Z79.01 Long term (current) use of anticoagulants; Z79.02 Long term (current) use of antithrombotics/antiplatelets; Z79.899 Other long term (current) drug therapy; Z88.0 Allergy status to penicillin; Z79.82 Long term (current) use of aspirin; Z91.048 Other nonmedicinal substance allergy status
CPT/HCPCS: 36415; 76942; 80053; 85025; 85347; 93005; 93010; 93613; 93622; 93623; 93655; 93656; 93662; 96374; C1731; C1732; C1759; C1769; G0378; J0360; J1100; J1644; J1720; J1885; J2001; J2405; J2704; J2720; J3010; J3490

== ENCOUNTER 2018-12-20 09:31 | Emergency (ER) | payer BC, MEDICARE ==
[2018-12-20 10:25] LABS: Bacteria/HPF None Seen HPF (None Seen); Bilirubin Negative (Negative); Blood, Urine 1+ (Negative); Clarity Clear (Clear); Glucose, Urine (Dipstick) Normal (Negative); Leukocyte Negative Leu/uL (Negative); Nitrite Negative (Negative); Protein, Urine (Dipstick) Negative (Neg-Trace); Squamous Epithelial 0-3 HPF (0-3); Urobilinogen Normal mg/dL (Less than 2); WBC/HPF 0-3 HPF (0-3)
--- NOTE | 2018-12-20 11:36 | CT ---
EXAM: CT chest, abdomen, and pelvis without contrast: HISTORY: Cough and hematuria. COMPARISON: 08/14/2013. FINDINGS: CT THORAX: Lungs: There is a new oval-shaped pulmonary nodule seen in the left upper lobe measuring 11 mm x 6 mm . A tiny 4 mm pulmonary nodule is seen in the anterolateral aspect of the right upper lobe. There is adjacent mild pleural linear densities. Pleura: There are scattered nodular pleural-based plaques seen bilaterally much greater at each lung base. The nodular pleural-based plaques were also seen on the prior exam. No pleural effusion is present Lymph nodes: Lack of intravenous contrast limits evaluation of the mediastinum and hilar structures, but no definite enlarged lymph node is present. Mediastinum: Left subclavian AICD device is noted in place. Postsurgical changes related to aortic va lve replacement are noted. Prominent vascular calcifications in the coronary arteries are present. Postsurgical changes related to prior CABG are seen. Chest wall: No abnormalities CT ABDOMEN AND PELVIS: Liver: Grossly normal nonenhanced CT appearance. Gallbladder: Within normal limits. \ Pancreas: Grossly normal nonenhanced CT appearance. Spleen:Grossly normal nonenhanced CT appearance Adrenal glands: Grossly normal nonenhanced CT appearance. Kidneys: Single nonobstructing 2 mm calculi in the inferior pole of each kidney. There is no hydronep hrosis present. Urinary Bladder: Incompletely distended but otherwise grossly normal nonenhanced CT appearance. Reproductive organs: Within normal limits for patient's age. Vessels: Dense vascular calcifications are seen in the abdominal aorta and involving the iliac arteri es. There is focal borderline aneurysmal dilatation involving the infrarenal abdominal aorta with greatest measurement of 3 cm. The right common iliac artery is also ectatic measuring 1.[address] Dense vascular calcifications are seen in the iliac arteries bilaterally. Bowel: Normal in caliber. Adenopathy:No lymphadenopathy within the abdomen or pelvis. Peritoneum: No free fluid or fluid collection is seen. No free intraperitoneal gas is identified. Abdominal wall: No abnormalities seen. Osseous structures: Multilevel degenerative changes are seen in the thoracic and lumbar spine. Postsu rgical changes related to posterior fusion at the L4-5 level are present. There is grade 1 anterolisthesis of L3 on L4 with prominent facet degenerative changes at this level. IMPRESSION: 1. New pulmonary nodule left upper lobe with greatest dimension of 11 mm. Follow-up CT thorax in 6 mo [address] PET CT scan examination is recommended. 2. Stable pleural-based nodular densities, greatest at each lung base. 3. Nonobstructing inferior pole bilateral renal calculi. There is no hydronephrosis, and no definite ureteral calculus is seen. 4. Prominent vascular calcifications. 5. Degenerative and postsurgical changes lumbar spine with grade 1 anterolisthesis of L3 on L4.
== END 2018-12-20 12:24 | disposition home or self-care (01) ==
LOC: ERS 09:31
DX: I71.4 Abdominal aortic aneurysm, without rupture (principal); R31.9 Hematuria, unspecified; I10 Essential (primary) hypertension; J44.9 Chronic obstructive pulmonary disease, unspecified; E78.00 Pure hypercholesterolemia, unspecified; F32.9 Major depressive disorder, single episode, unspecified; F17.210 Nicotine dependence, cigarettes, uncomplicated; Z79.899 Other long term (current) drug therapy; Z79.82 Long term (current) use of aspirin; Z79.51 Long term (current) use of inhaled steroids
CPT/HCPCS: 71250; 74177; 81003; 81015

== ENCOUNTER 2019-01-25 13:13 | Outpatient (CLI) | payer BC, MEDICARE ==
--- NOTE | 2019-01-25 15:25 | CT ---
CT OF THE ABDOMEN AND PELVIS WITH AND WITHOUT IV CONTRAST INDICATION: Hematuria TECHNIQUE: Noncontrast CT of the abdomen and pelvis was performed. Postcontrast images were obtained in the nephrographic phase and delayed phase. Axial and coronal reformatted images were constructed from the raw data. COMPARISON: CT of the chest, abdomen and pelvis dated December 20, [address] abdomen pelvis dated January 21, 2018 FINDINGS: ABDOMEN: Lung bases: Pleural based nodularity involving both lung bases is stable to the comparison exams. Liver: No focal lesion. Gallbladder: Normal appearing. Pancreas: Normal. Adrenal glands: Normal. Spleen: Normal. Kidneys and ureters: There are small bilateral renal cysts. There is a stable 3 mm calculus involving the inferior pole of the left kidney. There is a stable small 1 to 2 mm stone involving the inferior pole of the left kidney. Vasculature: There are severe vascular calcifications seen involving the visualized vasculature. Ther e is ectasia of the infrarenal abdominal aorta measuring up to 2.5 cm. 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 Free fluid in abdomen:No free fluid is evident. PELVIS: Small and large bowel: There is a moderate amount of retained stool within the colon. Small bowel is of normal caliber. Appendix:Not definitely seen Bladder: There is irregular wall thickening involving the left posterior lateral aspect of the bladde r, near the left aspect of the trigone on image 114 of series 3 measuring 5.4 x 1.6 images of the greatest axial and coronal dimensions. Rectal and perirectal soft tissues:Normal. Reproductive structures: Prostate enlargement Free fluid in pelvis: No free fluid is evident. Lymphadenopathy pelvis: No lymphadenopathy is evident. Osseous structures: There is postsurgical change of spinal fusion at L4-5. There is levoscoliosis of the lumbar spine. There is scattered degenerative and osteoarthritic changes. Soft tissues:Normal. IMPRESSION: 1. Irregular urothelial lesion seen along the left posterior lateral aspect of the bladder suspicious for malignancy. 2. Bilateral nephrolithiasis and renal cysts. 3. Persistent pleural-based nodularity involving the lung bases. 4. 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
== END 2019-01-25 13:14 | disposition home or self-care (01) ==
LOC: BICCT 13:13
PROVIDERS: ATTEND Urology
DX: R31.0 Gross hematuria (principal); N32.9 Bladder disorder, unspecified; N20.0 Calculus of kidney; N28.1 Cyst of kidney, acquired; R91.8 Other nonspecific abnormal finding of lung field; I77.811 Abdominal aortic ectasia
CPT/HCPCS: 74178; 82565; Q9966

== ENCOUNTER 2019-02-13 11:06 | Inpatient (IN) | payer BC, MEDICARE ==
[2019-02-13] MEDS ORDERED: Magnesium 2 GM/50 ML BAG (IN WATER) ONE (11:38)
[2019-02-13] MEDS ORDERED: Iopamidol-370 76% 500 ML 1 ML ONE (11:40)
[2019-02-13 12:11] LABS: #Eosinphils 0.1 thou/uL (0.0-0.7); #Lymphocytes 1.5 thou/uL (1.20-3.40); #Monocytes 0.7 thou/uL (0.11-0.59); #Neutrophils 10.5 thou/uL (1.40-6.50); %Eosinophils 0.5 % (0.0-10.0); %Lymphocytes 11.9 % (21.0-51.0); %Monocytes 5.2 % (0.0-10.0); %Neutrophils 82.4 % (42.0-75.0); Hemoglobin 13.7 g/dL (14.0-18.0); Mean Corpuscular HGB CONC 32.4 g/dL (32.0-36.0); Mean Corpuscular Volume 95.6 fL (78.0-98.0); Mean Platelet Volume 8.5 fL (7.4-10.4); Platelet Count 214 thou/uL (130-400); Red Blood Cell (RBC) Count 4.43 mill/uL (4.70-6.10); White Blood Cell (WBC) Count 12.7 thou/uL (4.8-10.8)
[2019-02-13 12:28] LABS: Lactic Acid 1.3 mmol/L (0.5-2.2)
[2019-02-13 12:32] LABS: ALT (SGPT) 33 U/L (8-55); AST (SGOT) 20 U/L (5-34); Alkaline Phosphatase 73 U/L (40-110); Anion Gap 11 mmol/L (10-20); BUN (Urea Nitrogen) 14 mg/dL (8.4-25.7); Bilirubin, Total 0.6 mg/dL (0.2-1.2); Calc. Creatinine Clearance 0 mL/min (70-130); Calcium 8.8 mg/dL (7.8-10.44); Carbon Dioxide 30 mmol/L (23-31); Chloride 97 mmol/L (98-107); Estimated GFR-MDRD 89; Globulin 2.6 g/dL (2.4-3.5); Glucose 194 mg/dL (80-115); Potassium 4.3 mmol/L (3.5-5.1); Protein, Total 5.6 g/dL (5.8-8.1); Sodium 134 mmol/L (136-145)
--- NOTE | 2019-02-13 12:46 | RAD ---
Exam: Chest one view HISTORY:Shortness of breath. Comparison: 05/09/2018 FINDINGS: Cardiac silhouette: Normal Aorta: Atherosclerosis of the aortic knob Pulmonary vessels: Slightly prominent Costophrenic angles: Clear LUNGS: Hyperinflation. Chronic changes. Superimposed infiltrate or edema cannot be excluded. Pacing device: Stable left-sided transvenous defibrillator. Pneumothorax: None Osseous abnormalities: None IMPRESSION: 1. Hyperinflation. Chronic changes. Superimposed edema or infiltrate cannot be excluded. 2. Continued surveillance is recommended
--- NOTE | 2019-02-13 13:42 | RAD ---
RIGHT WRIST THREE VIEWS: HISTORY: Fall. Right wrist pain. FINDINGS: There are degenerative changes in the first carpometacarpal joint. No acute fracture or dislocation i s seen. If symptoms do not improve a follow-up exam should be obtained in 7-10 days. POS: OFF
--- NOTE | 2019-02-13 13:42 | RAD ---
LEFT WRIST THREE VIEWS: HISTORY: Fall. Left wrist pain. FINDINGS: There are degenerative changes, most prominent in the first carpometacarpal joint. No acute fracture or dislocation is seen. If symptoms do not improve a follow-up exam should be obtained in 7-10 days. POS: OFF
[2019-02-13] MEDS ORDERED: Furosemide 20 MG/2 ML VIAL ONE (13:56)
[2019-02-13] MEDS ORDERED: Acetaminophen 650 MG Suppository PR PRN (14:30)
[2019-02-13 14:45] LABS: Actual Bicarbonate (HCO3a) 29.2 mEq/L (22-28); Analyzer IN Cardio ER; Base Excess (BEa) 3.6 mEq/L (-2.0 to +3.0); CO2 Tension 47.6 mmHg (35.0-45.0); Calcium, Ionized 1.22 mmol/L (1.12-1.30); Carboxyhemoglobin (COHb) 2.5 gm% (0.0-3.0); Hemoglobin (Hb) 14.1 g/dL (14.0-18.0); Potassium - ABG Lab 4.11 mmol/L (3.70-5.30); pH, Arterial 7.41 (7.35-7.45)
[2019-02-13 14:46] LABS: Puncture Site RBA
[2019-02-13] MEDS ORDERED: Nicotine 14 MG PATCH ONE (15:27)
[2019-02-13 16:00] LABS: Troponin I Less than 0.010 ng/mL (< 0.028)
[2019-02-13 16:27] VITALS: BMI 20.7
--- NOTE | 2019-02-13 16:54 | HP ---
TIME OF ASSESSMENT: 1300 hours. PRIMARY CARE PHYSICIAN: Reyes Benítez MD CHIEF COMPLAINT: Left-sided rib pain and shortness of breath. HISTORY OF PRESENT ILLNESS: Mr. Hawkins is a pleasant 68-year-old gentleman, who presented to the emergency department due to discomfort involving the left posterior rib cage following a recent fall. The patient states on Monday he was in his garage and misstepped causing him to fall forward. He fell with his left fist covering the left eye and right fist covering the left lower rib cage. He states he fell and broke his phone. Denies any loss of consciousness, but did have a small amount of left periorbital bruising. He also developed significant bruising and swelling in both hands with a tear in the skin over the right hand. He has had the wounds cleaned and dressed by the ED physician requesting that I do not take down his dressings. The patient states that it is not actively bleeding and states he bruises very easily. He is on Plavix and previously was on Eliquis, but was taken off after undergoing cardiac ablation for atrial fibrillation. The patient denies having any headaches, blurred vision or speech changes. He states his main issue has been pain with deep inspiration. He states he has had worsening in his shortness of breath for the last 2 weeks and therefore has been quite sedentary. He has also developed lower extremity swelling, which was evident on exam in the emergency department prompting treatment with Lasix 20 mg. The patient had labs done, which were notable for a BNP of 618.7. He was also given antibiotics due to leukocytosis with a white count of 12.7, though the lactic acid was normal at 1.3. He had a chest x-ray done, which showed hyperinflation with chronic changes, superimposed edema or infiltrate cannot be excluded. The patient had x-rays done of both wrists and they were normal. According to the ED nurse practitioner, he was initially visibly short of breath and therefore placed on BiPAP, but did not tolerate this. He received DuoNebs en route via EMS and was given magnesium sulfate on arrival to the emergency department and received additional DuoNebs. He was placed on CPAP. After receiving Lasix, his symptoms improved. He now has normal sats on room air. The patient's breathing is no longer labored. The patient states he is feeling significantly better. He denies having any recent fevers or chills. There is no cough or hemoptysis. Denies palpitations. Denies any chest pain. Reports feeling generally weak. His appetite has been on the lower side. Denies any abdominal pain or cramping. No urinary symptoms. No changes with his stools. All other review of systems apart from those mentioned above are negative. PAST MEDICAL HISTORY: 1. COPD. 2. Hypertension. 3. Hyperlipidemia. 4. Coronary artery disease. 5. Depression. 6. Peripheral vascular disease. PAST SURGICAL HISTORY: 1. CABG x5. 2. Hernia repair. 3. Cervical, thoracic and lumbar spine surgery. 4. History of valve replacement. 5. Stents placed in the right leg in March 2018. SOCIAL HISTORY: The patient denies any alcohol consumption. He reports smoking one pack per day. Denies any illicit drug use. ALLERGIES: 1. ADHESIVES. 2. PENICILLINS. CURRENT MEDICATIONS: 1. Lisinopril. 2. Carvedilol. 3. Crestor. 4. Aspirin. 5. Ranexa. 6. Melatonin. 7. Clonazepam. 8. Furosemide. 9. Dulera. 10. Albuterol. 11. Lexapro. PHYSICAL EXAMINATION: GENERAL: The patient appears well developed, well nourished, is in no acute distress. VITAL SIGNS: . HEENT: The patient with areas of ecchymosis involving the left periorbital region. There is no swelling or bone deformity. There are small punctate areas of bruising, which he associates with a fall after making contact with his left fist. He has dry blood in the left and an air history of the nasal nare. No tenderness with palpation to the facial bones. Oropharynx is clear. NECK: Supple. Full range of motion. No cervical spine tenderness. LUNGS: Clear to auscultation bilaterally with reduced breath sounds at the bilateral bases. Poor inspiratory effort as the patient states it does cause discomfort in the left posterior rib region, which is tender to palpation, but no subcutaneous emphysema present. No bone deformity noted or flail chest. CARDIAC: Regular rate and rhythm. ABDOMEN: Soft, nontender, and nondistended. Normoactive bowel sounds present. No guarding or rigidity. EXTREMITIES: Notable for +3 pitting edema bilaterally and pale color, cool to touch. The patient has normal sensation. Faint pedal pulses present. states the color is normal from his known peripheral vascular disease. NEUROLOGIC: Alert and oriented x3. No neuro deficits. LABORATORY DATA: White blood count 12.7, HGB 13.7, hematocrit 42.4, platelets 214, neutrophils 82.4%. Sodium 134, potassium 4.3, chloride 97, carbon dioxide 30, anion gap 11, BUN 14, creatinine 0.85, GFR 89, glucose 194, lactic acid 1.3, calcium 8.8, total bilirubin 0.6, AST 20, ALT 33, alkaline phosphatase 73. Troponin negative. BNP 618.7, total protein 5.6, albumin 3. ABG notable for a bicarb of 29.2, pH 7.41, pCO2 of 47.6, pO2 of 72, and base excess 3.6. IMAGING DATA: As mentioned above in HPI. IMPRESSION AND PLAN: Mr. Hawkins is a 68-year-old gentleman, who has been experiencing increasing shortness of breath and generalized weakness for the last two weeks, who had a fall last Monday, presenting with left posterior rib pain, worse with deep inspiration, noted to have lower extremity edema and shortness of breath. He has been referred for management of the followin. Congestive heart failure exacerbation. The patient has an elevated BNP of 618.7. His last echo was done on May 05, 2018 showing an ejection fraction of 50% to 55% with moderately enlarged right ventricle, mild mitral regurgitation, bioprosthetic valve in the aortic position with moderate aortic stenosis, and mild tricuspid regurgitation. His albumin was low at 3 and could be the reason for third spacing. He does have significant edema of the lower extremities. On exam, no crackles, however, inspiratory effort is poor due to the discomfort. The patient is not a great historian. Most of the information is obtained from his , prompting him to share how he has been feeling. Following discussion with Dr. Lott, we will go ahead and obtain a CT angiogram of the chest. His alteration specialist is Dr. Tripp. He has had significant improvement with 10 mg of Lasix given. We will monitor blood pressure and continue Lasix 20 mg IV b.i.d. We will place consult to Cardiology. 2. Generalized weakness. Unclear if the patient has been generally weak and sedentary with poor appetite that then has caused general deconditioning and progressive shortness of breath for the last couple of weeks preceding the events on Monday or if the progressive shortness of breath has kept him from mobilizing and therefore he has developed subsequent generalized weakness. We will await results of repeat echocardiogram. We have consulted Physical Therapy/Occupational Therapy and we will consult the dietitian as well. Consult placed to rehab screening given the patient's generally poor performance status. Normally, he is fully independent and mobilizes independently without any difficulty. 3. Coronary artery disease. We will resume home medications once verified. 4. Hypertension. We will monitor blood pressure. If elevated, we will resume home medications once medications have been verified. 5. Hyperlipidemia. Resume home medications once verified. 6. Gastroesophageal reflux disease. We will resume Protonix. 7. Code status: Full. Consult has been placed to Palliative Care for discussion of goals of car. The patient's case was discussed with Dr. Lott, who agrees with plan of care as described above. Job ID: [id number]
--- NOTE | 2019-02-13 17:56 | CT ---
EXAM: CT angiogram of the chest including 3-D rendering: HISTORY: Chest pain shortness of breath COMPARISON: None FINDINGS: There is adequate opacification of the pulmonary arteries. No evidence for aortic aneurysm or dissection. No convincing CT evidence for acute pulmonary embolism. Small left apical nodule appears stable. There are bilateral lower lobe posterior parenchymal changes with some nodularity in the right base and with small pleural effusions concerning for minimal pneumonia/pneumonitis with some possible associated subsegmental atelectasis. There is heterogeneous bony demineralization. No evidence for mediastinal mass or adenopathy. No evidence for pleural or pericardial effusion. The visualized upper abdomen is unremarkable. IMPRESSION: No convincing CT evidence for acute pulmonary embolism. Stable left upper lobe nodule. New nodular parenchymal change in the right base as well as patchy eugenio ateral lower lobe parenchymal changes worse in the right base with small pleural effusions, also slightly worse in the right base concerning for pneumonia or pneumonitis with some associated subsegm ental atelectasis. Follow-up CT evaluation in regards to the pulmonary nodules
[2019-02-13] MEDS: Acetaminophen 325 MG TAB PO PRN (18:27)
[2019-02-13 18:34] LABS: Troponin I 0.018 ng/mL (< 0.028)
[2019-02-13 20:15] LABS: Bilirubin Negative (Negative); Blood, Urine Negative (Negative); Clarity Clear (Clear); Glucose, Urine (Dipstick) Normal (Negative); Leukocyte Negative Leu/uL (Negative); Nitrite Negative (Negative); Protein, Urine (Dipstick) 10 mg/dL (Neg-Trace); Urobilinogen Normal mg/dL (Less than 2)
[2019-02-13] MEDS ORDERED: PROVENTIL INHALER 6.7 G (200 INHALATIONS) INH PRN (20:38)
[2019-02-13] MEDS ORDERED: Famotidine/PF 20 mg/2ml Vial SLOW IVP SCH (21:00)
[2019-02-13] MEDS ORDERED: clonazePAM 1 MG TAB PO SCH (21:00)
[2019-02-13] MEDS: Carvedilol 25 MG TAB PO SCH (21:29)
[2019-02-13] MEDS: Melatonin 3 MG TAB PO SCH (21:29)
[2019-02-13] MEDS: Rosuvastatin 20 MG TAB PO SCH (21:29)
[2019-02-13] MEDS: Lisinopril 20 MG TAB PO SCH (21:29)
[2019-02-13] MEDS: hydrALAZINE 20 MG/ML VIAL SLOW IVP PRN (23:17)
[2019-02-14 05:29] LABS: Anion Gap 10 mmol/L (10-20); BUN (Urea Nitrogen) 14 mg/dL (8.4-25.7); Calc. Creatinine Clearance 73 mL/min (70-130); Calcium 8.6 mg/dL (7.8-10.44); Carbon Dioxide 30 mmol/L (23-31); Chloride 96 mmol/L (98-107); Estimated GFR-MDRD Greater than 90; Glucose 264 mg/dL (80-115); Magnesium 1.9 mg/dL (1.6-2.6); Potassium 3.6 mmol/L (3.5-5.1); Sodium 132 mmol/L (136-145)
[2019-02-14 05:49] LABS: Band 6 % (5-11); Lymphocytes 4 % (21-51); MDiff Complete? YES; Mean Corpuscular HGB CONC 33.1 g/dL (32.0-36.0); Mean Corpuscular Hemoglobin 30.8 pg (27.0-31.0); Mean Corpuscular Volume 93.2 fL (78.0-98.0); Mean Platelet Volume 8.8 fL (7.4-10.4); Monocytes 4 % (0-10); Neutrophil 86 % (42-75); Platelet Count 207 thou/uL (130-400); Platelet Morphology Comment Appears Adequate; RBC Distribution Width 13.1 % (11.5-14.5); Red Blood Cell (RBC) Count 4.22 mill/uL (4.70-6.10); White Blood Cell (WBC) Count 20.9 thou/uL (4.8-10.8)
[2019-02-14] MEDS ORDERED: Furosemide 40 MG/4 ML VIAL SLOW IVP SCH (06:00)
[2019-02-14] MEDS: Furosemide 40 MG/4 ML VIAL SLOW IVP SCH ×2 (06:29→15:28)
[2019-02-14] MEDS: Mometasone/Formoterol 120 PUFF INHALER INH SCH ×2 (06:38→19:30)
[2019-02-14] MEDS ORDERED: Cefepime 1 GM in Sodium Chloride 0.9% 100 ML IVPB SCH (07:00)
[2019-02-14] MEDS: Doxycycline 100 MG CAP PO SCH ×2 (09:14→20:26)
[2019-02-14] MEDS: predniSONE 20 MG TAB PO SCH (09:15)
[2019-02-14] MEDS: Famotidine 20 MG TAB PO SCH ×2 (09:15→20:26)
[2019-02-14] MEDS: Carvedilol 25 MG TAB PO SCH ×2 (09:15→20:26)
[2019-02-14] MEDS: Lisinopril 20 MG TAB PO SCH ×2 (09:15→20:25)
[2019-02-14] MEDS: Aspirin 81 mg Enteric Coated Tablet PO SCH (09:15)
[2019-02-14] MEDS: Clopidogrel Bisulfate 75 MG TAB PO SCH (09:15)
[2019-02-14] MEDS: Escitalopram Oxalate 10 mg Tablet PO SCH (09:15)
[2019-02-14] MEDS: Nicotine 14 MG PATCH TD PRN (09:24)
--- NOTE | 2019-02-14 10:22 | CON ---
DATE OF CONSULTATION: HISTORY OF PRESENT ILLNESS: Sahil Hawkins is a 68-year-old gentleman, who sees Dr. Tatum in our office, presented to the ER, increased shortness of breath, fall, pain on the left side. He has a diagnosis of previous known coronary artery disease, cardiac arrhythmias, and SVT. history of smoking. On a good day, can barely walk 100 feet without getting markedly short of breath. This morning, he is awake, responsive. Denies any coughing or wheezing. PAST MEDICAL HISTORY: Coronary artery disease, peripheral vascular disease, COPD, and hypertension. PREVIOUS SURGERIES: Previous bypass, recent ablation, hernia repair, some kind of peripheral vascular stent placed in, lumbar surgery done. SOCIAL HISTORY: Still smoking. HOME MEDICATIONS: Include: 1. Prednisone. 2. Klonopin 1.5 at nighttime. 3. Crestor 20. 4. Potassium. 5. Dulera. 6. Lisinopril 20. 7. Neb treatments. 8. Lasix 20/40. 9. Nexium 40. 10. Lexapro 10. 11. Plavix. 12. Coreg. 13. Aspirin. 14. Albuterol inhaler. ALLERGIES: PENICILLIN. REVIEW OF SYSTEMS: Otherwise, unremarkable. PHYSICAL EXAMINATION: VITAL SIGNS: Saturations 96% room air, respirations 18, temperature 98, and blood pressure 162/82. CHEST: Decreased breath sounds. No wheezing. CARDIAC: Normal S1, S2. No gallops. ABDOMEN: No masses. LABORATORY DATA: Lytes are normal. Glucose 264, sodium 132. White count 20,000. Chest x-ray did not show any acute infiltrates. CT of chest was ordered, which showed no fractured ribs. There appears to be a very small pleural effusion in the right side. No PE. Right upper lung nodule was stable. IMPRESSION: 1. Chronic obstructive pulmonary disease exacerbation. 2. Fall with left-sided chest wall pain. 3. Coronary artery disease, supraventricular tachycardia. 4. Ongoing tobacco abuse. 5. Hypertension. PLAN: I agree with present treatment, nebs, steroids, empiric antibiotics. Early ambulation. We will notify Dr. Tatum. Consultation note, 70 minutes, 50% direct patient care. Job ID: [id number]
[2019-02-14] MEDS ORDERED: HYDROcodone/Acetaminophen 5/325 mg Tablet PO PRN (13:10)
[2019-02-14] MEDS: Acetaminophen 325 MG TAB PO PRN (13:33)
[2019-02-14] MEDS ORDERED: Diabetic Tussin 200 MG/10 ML UDCUP PO PRN (15:31)
[2019-02-14] MEDS: Lidocaine 5% Patch TD SCH (16:03)
--- NOTE | 2019-02-14 17:33 | CON ---
DATE OF CONSULTATION: 02/14/2019 REASON FOR CONSULTATION: Possible heart failure. PRIMARY FORK TRUCK DRIVER: Sebas Tripp MD HISTORY OF PRESENT ILLNESS: Mr. Hawkins is a very pleasant 68-year-old white gentleman, who comes to the hospital after a fall. He had a fall and landed on his left rib cage and is having a lot of pain on his left side. He also has been noticing the shortness of breath for the last few days beforehand. He has been coughing up yellow sputum more than normal. He was admitted and evaluated. His BNP was in the 600 range. He was given one dose of Lasix and a breathing treatment, and was admitted for further evaluation and care. Currently, he denies any worsening shortness of breath. His shortness of breath is where it has been. PAST MEDICAL HISTORY: 1. COPD. 2. Hypertension. 3. Hyperlipidemia. 4. CAD. 5. Depression. 6. Peripheral vascular disease. PAST SURGICAL HISTORY: 1. CABG x5. 2. Hernia repair. 3. Cervical, thoracic, and lumbar spine surgery. 4. History of aortic valve replacement during his CABG. 5. Bilateral leg interventions, multiple times. SOCIAL HISTORY: Continues to smoke a pack a day. No drug use. No alcohol use. OUTPATIENT MEDICATIONS: 1. Potassium chloride. 2. DuoNeb. 3. Lasix 40 mg as needed. 4. Dulera. 5. Ibuprofen. 6. Albuterol. 7. Prednisone. 8. Plavix 75 mg a day. 9. Lexapro. 10. Melatonin. 11. Nexium. 12. Aspirin 81 a day. 13. Clonazepam. 14. mg at bedtime. 15. Carvedilol 25 mg b.i.d. 16. Lisinopril 20 mg b.i.d. ALLERGIES: ADHESIVES AND PENICILLIN. REVIEW OF SYSTEMS: A 12-point review of systems was done and was all negative unless stated in the history of present illness. PHYSICAL EXAMINATION: VITAL SIGNS: Temperature 98.1, pulse 72, respiratory rate 22, saturation 97% on room air, and blood pressure 168/79. GENERAL: Awake, alert, and oriented x3, in pain from his ribs, especially when he coughs. HEENT: Normocephalic, atraumatic. NECK: Supple. LUNGS: Reduced breath sounds. CARDIOVASCULAR: S1 and S2. No S3 or S4. There is a grade 2/6 systolic murmur at the right upper sternal border. ABDOMEN: Soft. Positive bowel sounds. EXTREMITIES: No edema. SKIN: Warm and dry. LABORATORY DATA: Laboratory work was reviewed. CBC; white count of 20,000, hemoglobin 13, hematocrit 39, and platelet count 207. ABG was reviewed. Chemistries were reviewed. Troponin was undetectable. BNP in the 600 range[address]A was un[address]able. CT of the chest was reviewed. He had no evidence of pulmonary edema. He has some what appears to be atelectases at the inferior bases bilaterally. No evidence of pulmonary embolism. ASSESSMENT AND PLAN: 1. Chronic obstructive pulmonary disease with acute exacerbation. 2. History of coronary artery disease, status post coronary artery bypass grafting and aortic valve replacement. 3. Diastolic heart failure. 4. Chest pain related to a fall and bruised ribs. PLAN: 1. We will do an echocardiogram to make sure that the valve still looks good. He has had normal LV function in the past. 2. Mostly COPD and whatever level of diastolic heart failure he had are already resolved with the one dose of Lasix he had in the ER. 3. We would continue current regimen for now with pulmonary toilet. Thank you for letting us participate in the care of your patient. We will follow. Job ID: [id number]
[2019-02-14] MEDS: Cefepime 1 GM in Sodium Chloride 0.9% 100 ML IVPB SCH (20:22)
[2019-02-14] MEDS: Rosuvastatin 20 MG TAB PO SCH (20:26)
[2019-02-14] MEDS: Melatonin 3 MG TAB PO SCH (20:26)
[2019-02-14] MEDS: guaiFENesin ER 600 MG TAB PO SCH (20:26)
[2019-02-14] MEDS: CLONAZEPAM PO SCH (20:27)
[2019-02-14] MEDS ORDERED: CLONAZEPAM PO SCH ×2 (21:00)
[2019-02-14] MEDS ORDERED: clonazePAM 1 MG TAB PO SCH (21:00)
[2019-02-15] MEDS: hydrALAZINE 20 MG/ML VIAL SLOW IVP PRN (04:25)
[2019-02-15] MEDS: Lidocaine Patch Removal 1 EACH TOP SCH (04:42)
[2019-02-15] MEDS ORDERED: cloNIDine 0.1 MG TAB PO PRN (06:37)
--- NOTE | 2019-02-15 06:37 | PDOC.HOSPP ---
- Subjective Encounter Date: 02/14/19 Encounter Time: 12:30 Subjective: Patient seen and examined for Gen weakness/fall/CP. Left sided pleurtic pain. SOB improving. No other complaints. No overnight events - Objective Vital Signs & Weight: Vital Signs (12 hours) Temp Pulse Resp BP BP BP Pulse Ox 02/15/19 05:03 76 142/76 H 94 L 02/15/19 04:43 98.3 F 76 16 94 L 02/15/19 04:25 76 219/105 H 02/14/19 23:29 78 18 158/80 H 95 02/14/19 20:26 100 02/14/19 20:25 184/89 H 02/14/19 20:18 97.8 F 75 16 184/89 H 100 02/14/19 19:30 18 94 L 02/14/19 19:26 97 Weight Admit Weight 136 lb 3.2 oz Weight 134 lb 3.2 oz I&O: 02/13/19 02/14/19 02/15/19 06:59 06:59 06:59 Intake Total 240 240 Output Total 400 875 Balance -160 -635 Result Diagrams: 02/14/19 04:52 02/14/19 04:52 Radiology Reviewed by me: Yes (CTA - reviewed) EKG Reviewed by me: Yes (Tele SR) Hospitalist ROS - Review of Systems Respiratory: reports: cough, dry Cardiovascular: reports: chest pain. denies: palpitations, orthopnea, paroxysmal noc. dyspnea, edema, light headedness, other Gastrointestinal: denies: nausea, vomiting, abdominal pain, diarrhea, constipation, melena, hematochezia, other - Medication Medications: Active Medications Generic Name Dose Route Start Last Admin Trade Name Freq PRN Reason Stop Dose Admin Acetaminophen 650 mg 02/13/19 14:30 02/14/19 13:33 Tylenol PO 650 mg Q4H PRN Administration Headache/Fever/Mild Pain (1-3) Albuterol Sulfate 2 puff 02/13/19 20:38 02/13/19 22:10 Proventil Hfa INH 2 puff Q4HR PRN Administration SOB &/or Wheezing Albuterol/Ipratropium 3 ml 02/13/19 19:00 02/14/19 23:47 Duoneb NEB Not Given Y1ME-MW HILARIO Aspirin 81 mg 02/14/19 09:00 02/14/19 09:15 Ecotrin PO 81 mg DAILY HILARIO Administration Carvedilol 25 mg 02/13/19 21:00 02/14/19 20:26 Coreg PO 25 mg BID HILRAIO Administration Clopidogrel Bisulfate 75 mg 02/14/19 09:00 02/14/19 09:15 Plavix PO 75 mg DAILY HILARIO Administration Doxycycline Hyclate 100 mg 02/14/19 09:00 02/14/19 20:26 Vibramycin PO 100 mg BID HILARIO Administration Escitalopram Oxalate 10 mg 02/14/19 09:00 02/14/19 09:15 Lexapro PO 10 mg DAILY HILARIO Administration Famotidine 20 mg 02/14/19 09:00 02/14/19 20:26 Pepcid PO 20 mg BID HILARIO Administration Guaifenesin 600 mg 02/14/19 21:00 02/14/19 20:26 Mucinex PO 600 mg Q12HR HILARIO Administration Hydralazine HCl 10 mg 02/13/19 16:56 02/15/19 04:25 Apresoline SLOW IVP 10 mg Q4H PRN Administration SBP Greater Than 180 Cefepime HCl 1 gm/ Sodium 100 mls @ 200 mls/hr 02/14/19 21:00 02/14/19 20:22 Chloride IVPB 100 mls Q12HR HILARIO Administration Lidocaine 1 patch 02/14/19 16:00 02/14/19 16:03 Lidoderm 5% Patch TD 1 patch 1600 HILARIO Administration Lisinopril 20 mg 02/13/19 21:00 02/14/19 20:25 Zestril PO 20 mg BID HILARIO Administration Melatonin 3 mg 02/13/19 21:00 02/14/19 20:26 Melatonin PO 3 mg HS HILARIO Administration Miscellaneous Medication 1 each 02/15/19 04:00 02/15/19 04:42 Lidocaine Patch Removal TOP 1 each 0400 HILARIO Administration Mometasone Furoate/Formoterol Fumar 2 puff 02/14/19 06:30 02/14/19 19:30 Dulera 200 Mcg/5 Mcg Inhaler INH 2 puff BID-RT HILARIO Administration Nicotine 14 mg 02/14/19 07:35 02/14/19 09:24 Nicoderm Patch TD 14 mg Q24HR PRN Administration Smoking craving Pantoprazole Sodium 40 mg 02/14/19 09:00 02/14/19 09:14 Protonix PO 40 mg DAILY HILARIO Administration Clonazepam Patient's 0 each 02/14/19 21:00 02/14/19 20:27 Home Medication PO 1 each HS HILARIO Administration Prednisone 20 mg 02/14/19 09:00 02/14/19 09:15 Prednisone PO 20 mg DAILY HILARIO Administration Rosuvastatin Calcium 20 mg 02/13/19 21:00 02/14/19 20:26 Crestor PO 20 mg HS HILARIO Administration Sodium Chloride 10 ml 02/14/19 09:00 02/14/19 20:34 Flush - Normal Saline IVF 10 ml Q12HR HILARIO Administration - Exam General Appearance: ill appearing Heart: RRR, no gallops, no rubs, normal peripheral pulses Respiratory: no wheezes, no rales, normal chest expansion, rhonchi Respiratory - other findings: reproducible tend over the left rib cage Gastrointestinal: soft, non-tender, non-distended, normal bowel sounds Extremities: no cyanosis, no clubbing, 1+ LE edema Neurological: no new deficit Psychiatric: normal affect, A&O x 3 Hosp A/P - Plan DVT proph w/SCDs Gen weakness causing fall Acute hypoxic resp failure Acute on chronic diastolic HF COPD Exacerbation CAD CP - Pleuritic CAD HTN HLD Hyponatremia PLAN: Reduce Lasix to 40 mg IV daily Cont Nebs Cont Cefepime/Doxy Add Mucinex/Lidoderm patch AM labs Cont ASA/Plavix Cont other meds Pt declined [facility]
[2019-02-15] MEDS: Mometasone/Formoterol 120 PUFF INHALER INH SCH ×2 (07:25→18:31)
[2019-02-15] MEDS: Cefepime 1 GM in Sodium Chloride 0.9% 100 ML IVPB SCH ×2 (07:27→21:13)
[2019-02-15] MEDS: Nicotine 14 MG PATCH TD PRN (07:27)
[2019-02-15 07:41] LABS: ALT (SGPT) 38 U/L (8-55); AST (SGOT) 33 U/L (5-34); Albumin 2.7 g/dL (3.4-4.8); Alkaline Phosphatase 83 U/L (40-110); Anion Gap 10 mmol/L (10-20); BUN (Urea Nitrogen) 19 mg/dL (8.4-25.7); Bilirubin, Total 0.5 mg/dL (0.2-1.2); Calc. Creatinine Clearance 73 mL/min (70-130); Calcium 8.5 mg/dL (7.8-10.44); Carbon Dioxide 30 mmol/L (23-31); Chloride 98 mmol/L (98-107); Estimated GFR-MDRD Greater than 90; Glucose 199 mg/dL (80-115); Magnesium 1.8 mg/dL (1.6-2.6); Potassium 3.3 mmol/L (3.5-5.1); Protein, Total 5.7 g/dL (5.8-8.1); Sodium 135 mmol/L (136-145)
[2019-02-15] MEDS ORDERED: Potassium Chloride 20 MEQ TAB PO SCH ×3 (08:15→17:00)
[2019-02-15 08:22] LABS: Band 3 % (5-11); Lymphocytes 8 % (21-51); MDiff Complete? YES; Mean Corpuscular Hemoglobin 30.9 pg (27.0-31.0); Mean Corpuscular Volume 93.7 fL (78.0-98.0); Mean Platelet Volume 8.4 fL (7.4-10.4); Monocytes 2 % (0-10); Neutrophil 87 % (42-75); Platelet Count 213 thou/uL (130-400); Platelet Morphology Comment Appears Adequate; RBC Distribution Width 13.2 % (11.5-14.5); Red Blood Cell (RBC) Count 4.21 mill/uL (4.70-6.10); Schistocytes SLIGHT = 2-5 cells (100X) (0-1/hpf); White Blood Cell (WBC) Count 19.7 thou/uL (4.8-10.8)
[2019-02-15] MEDS: Carvedilol 25 MG TAB PO SCH ×2 (08:37→21:03)
[2019-02-15] MEDS: Aspirin 81 mg Enteric Coated Tablet PO SCH (08:37)
[2019-02-15] MEDS: Doxycycline 100 MG CAP PO SCH ×2 (08:38→21:02)
[2019-02-15] MEDS: predniSONE 20 MG TAB PO SCH (08:38)
[2019-02-15] MEDS: guaiFENesin ER 600 MG TAB PO SCH ×2 (08:38→21:02)
[2019-02-15] MEDS: Lisinopril 20 MG TAB PO SCH ×2 (08:38→21:02)
[2019-02-15] MEDS: Escitalopram Oxalate 10 mg Tablet PO SCH (08:38)
[2019-02-15] MEDS: Famotidine 20 MG TAB PO SCH ×2 (08:38→21:02)
[2019-02-15] MEDS: Clopidogrel Bisulfate 75 MG TAB PO SCH (08:38)
[2019-02-15] MEDS ORDERED: Furosemide 40 MG/4 ML VIAL SLOW IVP SCH (09:00)
[2019-02-15] MEDS ORDERED: Furosemide 40 MG TAB PO SCH (10:45)
[2019-02-15] MEDS: Lidocaine 5% Patch TD SCH (16:34)
--- NOTE | 2019-02-15 16:52 | PRG ---
DATE OF SERVICE: 02/15/2019 SUBJECTIVE: Mr. Hawkins feels much better. Breathing is dramatically better than yesterday. OBJECTIVE: VITAL SIGNS: His blood pressure 160/74, pulse 70. LUNGS: Clear. CARDIAC: Normal S1, normal S2. ABDOMEN: Soft and nontender. DIAGNOSTIC DATA: Echocardiogram showed normal left ventricular function. ASSESSMENT: Episode of diastolic heart failure, improved with apparently a single dose of IV Lasix. PLAN: He is back on oral Lasix. Okay to me to go home at any time. Job ID: [id number]
--- NOTE | 2019-02-15 19:56 | PDOC.HOSPP ---
- Subjective Encounter Date: 02/15/19 Encounter Time: 10:30 Subjective: Patient seen and examined for Acute Resp failure. SOB improving. No new complaints. No overnight events - Objective Vital Signs & Weight: Vital Signs (12 hours) Temp Pulse Resp BP BP Pulse Ox 02/15/19 18:35 79 16 94 L 02/15/19 18:31 79 16 94 L 02/15/19 15:40 98.5 F 77 18 160/74 H 92 L 02/15/19 12:59 75 16 02/15/19 12:00 97.2 F L 77 20 138/78 94 L 02/15/19 08:00 92 L 02/15/19 07:59 97.8 F 55 L 20 128/70 92 L Weight Admit Weight 136 lb 3.2 oz Weight 134 lb 3.2 oz I&O: 02/14/19 02/15/19 02/16/19 06:59 06:59 06:59 Intake Total 240 240 Output Total 400 875 Balance -160 -105 Result Diagrams: 02/15/19 07:14 02/15/19 07:14 EKG Reviewed by me: Yes (Tele paced) Hospitalist ROS - Review of Systems Constitutional: denies: fever, chills, sweats, weakness, malaise, other Gastrointestinal: denies: nausea, vomiting, abdominal pain, diarrhea, constipation, melena, hematochezia, other - Medication Medications: Active Medications Generic Name Dose Route Start Last Admin Trade Name Freq PRN Reason Stop Dose Admin Acetaminophen 650 mg 02/13/19 14:30 02/14/19 13:33 Tylenol PO 650 mg Q4H PRN Administration Headache/Fever/Mild Pain (1-3) Albuterol Sulfate 2 puff 02/13/19 20:38 02/13/19 22:10 Proventil Hfa INH 2 puff Q4HR PRN Administration SOB &/or Wheezing Albuterol/Ipratropium 3 ml 02/13/19 19:00 02/15/19 18:35 Duoneb NEB 3 ml [id number] HILARIO Administration Aspirin 81 mg 02/14/19 09:00 02/15/19 08:37 Ecotrin PO 81 mg DAILY HILARIO Administration Carvedilol 25 mg 02/13/19 21:00 02/15/19 08:37 Coreg PO 25 mg BID HILARIO Administration Clopidogrel Bisulfate 75 mg 02/14/19 09:00 02/15/19 08:38 Plavix PO 75 mg DAILY HILARIO Administration Doxycycline Hyclate 100 mg 02/14/19 09:00 02/15/19 08:38 Vibramycin PO 100 mg BID HILARIO Administration Escitalopram Oxalate 10 mg 02/14/19 09:00 02/15/19 08:38 Lexapro PO 10 mg DAILY HILARIO Administration Famotidine 20 mg 02/14/19 09:00 02/15/19 08:38 Pepcid PO 20 mg BID HILARIO Administration Guaifenesin 600 mg 02/14/19 21:00 02/15/19 08:38 Mucinex PO 600 mg Q12HR HILARIO Administration Hydralazine HCl 10 mg 02/13/19 16:56 02/15/19 04:25 Apresoline SLOW IVP 10 mg Q4H PRN Administration SBP Greater Than 180 Cefepime HCl 1 gm/ Sodium 100 mls @ 200 mls/hr 02/14/19 21:00 02/15/19 07:27 Chloride IVPB 100 mls Q12HR HILARIO Administration Lidocaine 1 patch 02/14/19 16:00 02/15/19 16:34 Lidoderm 5% Patch TD 1 patch 1600 HILARIO Administration Lisinopril 20 mg 02/13/19 21:00 02/15/19 08:38 Zestril PO 20 mg BID HILARIO Administration Melatonin 3 mg 02/13/19 21:00 02/14/19 20:26 Melatonin PO 3 mg HS HILARIO Administration Miscellaneous Medication 1 each 02/15/19 04:00 02/15/19 04:42 Lidocaine Patch Removal TOP 1 each 0400 HILARIO Administration Mometasone Furoate/Formoterol Fumar 2 puff 02/14/19 06:30 02/15/19 18:31 Dulera 200 Mcg/5 Mcg Inhaler INH 2 puff BID-RT HILARIO Administration Nicotine 14 mg 02/14/19 07:35 02/15/19 07:27 Nicoderm Patch TD 14 mg Q24HR PRN Administration Smoking craving Pantoprazole Sodium 40 mg 02/14/19 09:00 02/15/19 08:38 Protonix PO 40 mg DAILY HILARIO Administration Clonazepam Patient's 0 each 02/14/19 21:00 02/14/19 20:27 Home Medication PO 1 each HS HILARIO Administration Prednisone 20 mg 02/14/19 09:00 02/15/19 08:38 Prednisone PO 20 mg DAILY HILARIO Administration Rosuvastatin Calcium 20 mg 02/13/19 21:00 02/14/19 20:26 Crestor PO 20 mg HS HILARIO Administration Sodium Chloride 10 ml 02/14/19 09:00 02/15/19 08:39 Flush - Normal Saline IVF 10 ml Q12HR HILARIO Administration - Exam General Appearance: NAD Heart: RRR, no rubs Respiratory: no wheezes, no rales, rhonchi Gastrointestinal: soft, non-tender, normal bowel sounds Extremities: no cyanosis, no edema Hosp A/P - Plan DVT proph w/SCDs Gen weakness causing fall Acute hypoxic resp failure Acute on chronic diastolic HF COPD Exacerbation CAD CP - Pleuritic CAD HTN HLD Hyponatremia/hypokalemia Moderate PEM PLAN: Change Lasix to PO Replace Potassium Cont Nebs with IV Cefepime/PO Doxy Cont ASA/Plavix/Mucinex/Lidoderm patch Cont other meds Pt declined HHC or Rehab EF - normal on Echo DC planning in 24-48 hr if stable
[2019-02-15] MEDS: Rosuvastatin 20 MG TAB PO SCH (21:03)
[2019-02-15] MEDS: Melatonin 3 MG TAB PO SCH (21:03)
--- NOTE | 2019-02-15 21:28 | PRG ---
DATE OF SERVICE: SUBJECTIVE: Mr. Hawkins says he is feeling better. He has bruises on his face. Both arms are bandaged from abrasions created by falls. He is still smoking heavily at home. OBJECTIVE: VITAL SIGNS: He is afebrile, heart rate 77, respiratory rate 20, oximetry is 94% on room air, blood pressure 138/78. LUNGS: Clear. he was wheezing, but he has never been in the office when he had been actively smoking. HEART: Regular rhythm. S1 and S2 are normal. ABDOMEN: Soft. IMPRESSION: 1. Pneumonia. 2. Chronic obstructive pulmonary disease exacerbation. PLAN: Continue current care. He desperately wants to go home, but this is all created by, in my opinion, his desire to smoke. I would be happy to look in on him again in the morning. Job ID: [id number]
[2019-02-15] MEDS: CLONAZEPAM PO SCH (21:46)
[2019-02-16] MEDS: Lidocaine Patch Removal 1 EACH TOP SCH (04:16)
[2019-02-16 06:29] LABS: #Eosinphils 0.1 thou/uL (0.0-0.7); #Lymphocytes 1.7 thou/uL (1.20-3.40); #Monocytes 0.9 thou/uL (0.11-0.59); #Neutrophils 11.5 thou/uL (1.40-6.50); %Basophils 0.1 % (0.0-1.0); %Eosinophils 0.7 % (0.0-10.0); %Lymphocytes 11.8 % (21.0-51.0); %Monocytes 6.6 % (0.0-10.0); %Neutrophils 80.8 % (42.0-75.0); Hemoglobin 12.5 g/dL (14.0-18.0); Mean Corpuscular HGB CONC 33.2 g/dL (32.0-36.0); Mean Corpuscular Hemoglobin 30.9 pg (27.0-31.0); Mean Corpuscular Volume 92.9 fL (78.0-98.0); Mean Platelet Volume 8.4 fL (7.4-10.4); Platelet Count 209 thou/uL (130-400); RBC Distribution Width 13.2 % (11.5-14.5); Red Blood Cell (RBC) Count 4.06 mill/uL (4.70-6.10); White Blood Cell (WBC) Count 14.2 thou/uL (4.8-10.8)
[2019-02-16 06:54] LABS: Anion Gap 8 mmol/L (10-20); BUN (Urea Nitrogen) 23 mg/dL (8.4-25.7); Calc. Creatinine Clearance 71 mL/min (70-130); Calcium 8.5 mg/dL (7.8-10.44); Carbon Dioxide 32 mmol/L (23-31); Chloride 101 mmol/L (98-107); Estimated GFR-MDRD Greater than 90; Glucose 217 mg/dL (80-115); Potassium 3.7 mmol/L (3.5-5.1); Sodium 137 mmol/L (136-145)
[2019-02-16] MEDS: Mometasone/Formoterol 120 PUFF INHALER INH SCH (07:47)
[2019-02-16] MEDS ORDERED: Furosemide 40 MG TAB PO SCH ×2 (09:00→09:30)
--- NOTE | 2019-02-16 09:36 | PDOC.CPN ---
- Subjective Date: 02/16/19 Time: 09:54 Interval history: The pt seen and examined. No overnight events. No cardiac complaints. He wants nicotine patch - Objective Allergies/Adverse Reactions: Allergies Allergy/AdvReac Type Severity Reaction Status Date / Time adhesive Allergy Verified 02/13/19 17:29 Penicillins Allergy Verified 02/13/19 17:29 Visit Medications: Current Medications Acetaminophen (Tylenol) 650 mg PO Q4H PRN PRN Reason: Headache/Fever/Mild Pain (1-3) Last Admin: 02/14/19 13:33 Dose: 650 mg Acetaminophen (Tylenol) 650 mg [place] Q4H PRN PRN Reason: Headache/Fever/Mild Pain (1-3) Hydrocodone Bitart/Acetaminophen ([place] 5/325) 1 tab PO Q6H PRN PRN Reason: Moderate Pain (4-6) Albuterol Sulfate (Proventil Hfa) 2 puff INH Q4HR PRN PRN Reason: SOB &/or Wheezing Last Admin: 02/13/19 22:10 Dose: 2 puff Albuterol/Ipratropium (Duoneb) 3 ml NEB [id number] [facility] Last Admin: 02/16/19 07:46 Dose: 3 ml Albuterol/Ipratropium (Duoneb) 3 ml NEB [id number] PRN PRN Reason: SOB &/or Wheezing Aspirin (Ecotrin) 81 mg PO DAILY [facility] Last Admin: 02/15/19 08:37 Dose: 81 mg Carvedilol (Coreg) 25 mg PO BID [facility] Last Admin: 02/15/19 21:03 Dose: 25 mg Clonidine (Catapres) 0.1 mg PO Q4H PRN PRN Reason: SBP Greater Than 180 Clopidogrel Bisulfate (Plavix) 75 mg PO DAILY [facility] Last Admin: 02/15/19 08:38 Dose: 75 mg Doxycycline Hyclate (Vibramycin) 100 mg PO BID [facility] Last Admin: 02/15/19 21:02 Dose: 100 mg Escitalopram Oxalate (Lexapro) 10 mg PO DAILY [facility] Last Admin: 02/15/19 08:38 Dose: 10 mg Famotidine (Pepcid) 20 mg PO BID [facility] Last Admin: 02/15/19 21:02 Dose: 20 mg Furosemide (Lasix) 40 mg PO DAILY-[facility] Guaifenesin (Mucinex) 600 mg PO Q12HR [facility] Last Admin: 02/15/19 21:02 Dose: 600 mg Guaifenesin (Robitussin Sf) 200 mg PO Q4H PRN PRN Reason: Cough Hydralazine HCl (Apresoline) 10 mg SLOW IVP Q4H PRN PRN Reason: SBP Greater Than 180 Last Admin: 02/15/19 04:25 Dose: 10 mg Cefepime HCl 1 gm/ Sodium (Chloride) 100 mls @ 200 mls/hr IVPB Q12HR [facility] Last Admin: 02/15/19 21:13 Dose: 100 mls Lidocaine (Lidoderm 5% Patch) 1 patch TD 1600 [facility] Last Admin: 02/15/19 16:34 Dose: 1 patch Lisinopril (Zestril) 20 mg PO BID [facility] Last Admin: 02/15/19 21:02 Dose: 20 mg Melatonin (Melatonin) 3 mg PO HS [facility] Last Admin: 02/15/19 21:03 Dose: 3 mg Miscellaneous Medication (Lidocaine Patch Removal) 1 each TOP 0400 [facility] Last Admin: 02/16/19 04:16 Dose: 1 each Mometasone Furoate/Formoterol Fumar (Dulera 200 Mcg/5 Mcg Inhaler) 2 puff INH BID-RT [facility] Last Admin: 02/16/19 07:47 Dose: 2 puff Nicotine (Nicoderm Patch) 14 mg TD Q24HR PRN PRN Reason: Smoking craving Last Admin: 02/15/19 07:27 Dose: 14 mg Pantoprazole Sodium (Protonix) 40 mg PO DAILY [facility] Last Admin: 02/15/19 08:38 Dose: 40 mg Clonazepam Patient's (Home Medication) 0 each PO HS [facility] Last Admin: 02/15/19 21:46 Dose: 1 each Prednisone (Prednisone) 20 mg PO DAILY [facility] Last Admin: 02/15/19 08:38 Dose: 20 mg Rosuvastatin Calcium (Crestor) 20 mg PO HS [facility] Last Admin: 02/15/19 21:03 Dose: 20 mg Sodium Chloride (Flush - Normal Saline) 10 ml IVF Q12HR [facility] Last Admin: 02/15/19 21:14 Dose: 10 ml Sodium Chloride (Flush - Normal Saline) 10 ml IVF PRN PRN PRN Reason: Saline Flush Vital Signs & Weight: Vital Signs Temp Pulse Resp BP BP Pulse Ox 02/16/19 09:00 98.2 F 73 18 156/82 H 94 L 02/16/19 07:46 80 16 02/16/19 04:00 59 L 18 136/92 H 95 Admit Weight 136 lb 3.2 oz Weight 134 lb 3.2 oz - Physical Exam General: alert & oriented x3 Neck: supple neck Cardiac: regular rate and rhythm, S1/S2 Lungs: clear to auscultation, decreased breath sounds Neuro: cranial nerve 2-12 intact Skin: other (dressing to Bilat hands and multiple bruses) - Labs Result Diagrams: 02/16/19 06:02 02/16/19 06:02 Troponin/CKMB Troponin I 0.018 ng/mL (< 0.028) 02/13/19 18:00 - Telemetry Sinus rhythms and dysrhythmias: sinus rhythm - Assessment/Plan Assessment/Plan: 1. Acute on chronic diastolic HF - stable with RA; cont. Lasix 40mg qd until the pt f/u with Dr Tripp's office or PCP; on BBlocker, KEYANA, and Lasix 2. CAD - on bblocker, ASA, plavix. 3. HTN 4. HLD 5. Gen weakness causing fall 6. Tobacco abuse - on Nicotine patch MAR reviewed * From Cardiac standpoint, the pt is stable to d/c home. Cont Lasix 40mg qd until the pt f/u with his PCP or/and Dr Tripp's office * The pt will f/u with Dr Tripp's office within 1-2 wks.
[2019-02-16] MEDS: Doxycycline 100 MG CAP PO SCH (09:43)
[2019-02-16] MEDS: Escitalopram Oxalate 10 mg Tablet PO SCH (09:43)
[2019-02-16] MEDS: Clopidogrel Bisulfate 75 MG TAB PO SCH (09:43)
[2019-02-16] MEDS: Carvedilol 25 MG TAB PO SCH (09:43)
[2019-02-16] MEDS: Aspirin 81 mg Enteric Coated Tablet PO SCH (09:43)
[2019-02-16] MEDS: Famotidine 20 MG TAB PO SCH (09:43)
[2019-02-16] MEDS: predniSONE 20 MG TAB PO SCH (09:43)
[2019-02-16] MEDS: guaiFENesin ER 600 MG TAB PO SCH (09:43)
[2019-02-16] MEDS: Lisinopril 20 MG TAB PO SCH (09:44)
[2019-02-16] MEDS: Nicotine 14 MG PATCH TD PRN (09:44)
[2019-02-16] MEDS: Cefepime 1 GM in Sodium Chloride 0.9% 100 ML IVPB SCH (09:44)
[2019-02-16 11:30] VITALS: TEMP 97.2
[2019-02-16 13:37] VITALS: BP 178/97
--- NOTE | 2019-02-16 23:53 | DIS ---
DATE OF ADMISSION: 02/14/2019 DATE OF DISCHARGE: 02/16/2019 DISCHARGE DISPOSITION: Home. FOLLOWUP: 1. Follow up with primary care physician, Dr. Roberto Cervantes, in 1 week. 2. Follow up with Dr. Tatum and Dr. Tripp in 2 to 3 weeks. ALLERGIES: THE PATIENT IS ALLERGIC TO PENICILLIN AND ADHESIVES. DISCHARGE MEDICATIONS: 1. Mucinex twice daily for the next 10 days. 2. Nicotine patch as needed. 3. Omnicef 300 mg twice daily for the next 5 days. 4. Doxycycline 100 mg b.i.d. for the next 5 days. 5. Lasix 40 mg daily. 6. Lidoderm patch daily for the next 7 days. 7. Prednisone taper. INPATIENT VETERINARY TECHNOLOGIST: 1. Cardiology, Dr. Tripp. 2. Pulmonary, Dr. Tatum. BRIEF HOSPITAL COURSE: The patient is a 68-year-old male with COPD, presented to the emergency room with shortness of breath along with left-sided rib cage pain. His workup was consistent with COPD/congestive heart failure exacerbation. He was placed on noninvasive positive-pressure ventilation in the emergency room. His symptoms improved with IV diuretics along with nebulizer treatment, steroids, and antibiotics. He was also evaluated by Pulmonary, Dr. Tatum, and Cardiology, Dr. Tripp. His symptoms have significantly improved. He is saturating 95% on room air. He appears stable for discharge. Tobacco cessation was extensively emphasized. FINAL DIAGNOSES: 1. Generalized weakness causing fall. There were no acute fractures noted. 2. Acute hypoxic respiratory failure secondary to acute on chronic diastolic heart failure exacerbation, as well as chronic obstructive pulmonary disease exacerbation. 3. Coronary artery disease. 4. Pleuritic chest pain secondary to fall. 5. Coronary artery disease. 6. Hypertension. 7. Hyperlipidemia. 8. Moderate protein energy malnutrition. 9. Hypokalemia. 10. Hyponatremia. 11. Peripheral vascular disease. 12. Depression, mild, stable. 13. Penicillin allergy. 14. Gastroesophageal reflux disease. 15. Chronic anemia. PLAN: Plan was discussed with the patient and the family in detail, they stated understanding. Job ID: [id number]
== END 2019-02-16 15:05 | disposition home or self-care (01) | DRG 291 ==
LOC: ERS 11:06 → 2SW 16:08 → OBSVTOIN 02-14 06:06
PROVIDERS: ADMIT Internal Medicine; ATTEND Internal Medicine
PROC: 5A09357 Assistance with Respiratory Ventilation, Less than 24 Consecutive Hours, Continuous Positive Airway Pressure (ICD-10-PCS; principal; 2019-02-14)
DX: I11.0 Hypertensive heart disease with heart failure (principal); J96.01 Acute respiratory failure with hypoxia; J18.9 Pneumonia, unspecified organism; J44.1 Chronic obstructive pulmonary disease with (acute) exacerbation; E44.0 Moderate protein-calorie malnutrition; E87.1 Hypo-osmolality and hyponatremia; I50.33 Acute on chronic diastolic (congestive) heart failure; I25.10 Atherosclerotic heart disease of native coronary artery without angina pectoris; E78.5 Hyperlipidemia, unspecified; E87.6 Hypokalemia; I73.9 Peripheral vascular disease, unspecified; F32.9 Major depressive disorder, single episode, unspecified; K21.9 Gastro-esophageal reflux disease without esophagitis; D64.9 Anemia, unspecified; F17.200 Nicotine dependence, unspecified, uncomplicated; S20.212A Contusion of left front wall of thorax, initial encounter; S20.211A Contusion of right front wall of thorax, initial encounter; W18.30XA Fall on same level, unspecified, initial encounter; Z88.0 Allergy status to penicillin; Z68.20 Body mass index [BMI] 20.0-20.9, adult; Z91.048 Other nonmedicinal substance allergy status; Z95.1 Presence of aortocoronary bypass graft; Z95.2 Presence of prosthetic heart valve; Z95.828 Presence of other vascular implants and grafts; Z79.899 Other long term (current) drug therapy
CPT/HCPCS: 36415; 71045; 71275; 80048; 80053; 81003; 82805; 83605; 83735; 83880; 84145; 84484; 85025; 87040; 93005; 93306; 93798; 94640; 94660; J0360; J0692; J1940; J1956; J3475; J3490; J7512; J7620; Q9967; S0028

== ENCOUNTER 2019-04-10 07:50 | Outpatient (CLI) | payer BC, MEDICARE ==
[2019-04-10 13:34] LABS: Mean Corpuscular HGB CONC 32.2 g/dL (32.0-36.0); Mean Corpuscular Hemoglobin 30.7 pg (27.0-31.0); Mean Corpuscular Volume 95.3 fL (78.0-98.0); Mean Platelet Volume 9.9 fL (7.4-10.4); Platelet Count 133 thou/uL (130-400); RBC Distribution Width 14.5 % (11.5-14.5); White Blood Cell (WBC) Count 10.5 thou/uL (4.8-10.8)
[2019-04-10 13:42] LABS: PTT 26.6 SEC (22.9-36.1); Prothrombin Time 13.1 SEC (12.0-14.7)
[2019-04-10 13:55] LABS: Anion Gap 12 mmol/L (10-20); BUN (Urea Nitrogen) 11 mg/dL (8.4-25.7); Calc. Creatinine Clearance 0 mL/min (70-130); Calcium 9.5 mg/dL (7.8-10.44); Carbon Dioxide 30 mmol/L (23-31); Chloride 100 mmol/L (98-107); Estimated GFR-MDRD Greater than 90; Glucose 144 mg/dL (80-115); Potassium 4.4 mmol/L (3.5-5.1); Sodium 138 mmol/L (136-145)
[2019-04-10 14:09] LABS: Bacteria/HPF None Seen HPF (None Seen); Bilirubin Negative (Negative); Blood, Urine Negative (Negative); Clarity Clear (Clear); Glucose, Urine (Dipstick) Normal (Negative); Leukocyte 25 Leu/uL (Negative); Mucous/LPF Rare LPF (<2+); Nitrite Negative (Negative); Protein, Urine (Dipstick) 100 mg/dL (Neg-Trace); Squamous Epithelial 0-3 HPF (0-3)
== END 2019-04-10 07:51 | disposition home or self-care (01) ==
LOC: LABBT 07:50
PROVIDERS: ATTEND Urology
DX: Z01.818 Encounter for other preprocedural examination (principal); C67.0 Malignant neoplasm of trigone of bladder; I73.9 Peripheral vascular disease, unspecified; I25.10 Atherosclerotic heart disease of native coronary artery without angina pectoris; N20.0 Calculus of kidney; N40.1 Benign prostatic hyperplasia with lower urinary tract symptoms; N13.8 Other obstructive and reflux uropathy; I71.4 Abdominal aortic aneurysm, without rupture
CPT/HCPCS: 80048; 81001; 85027; 85610; 85730; 87086; 93005; 93010

== ENCOUNTER 2019-04-19 07:29 | Day surgery (SDC) | payer BC, MEDICARE ==
[2019-04-10 12:16] VITALS: BMI 19.0
[2019-04-19] MEDS ORDERED: Levofloxacin 500 mg/D5W 100 ml Premix Bag ONE (09:00)
[2019-04-19] MEDS ORDERED: mitoMYcin 40 MG in Sterile Water 20 ML IV SCH (09:00)
[2019-04-19] MEDS ORDERED: Albuterol Sulfate 2.5 mg/3 ml Neb NEB SCH (09:15)
[2019-04-19] MEDS ORDERED: PHENYLEPHRINE-NS 100 MCG/ML 10 ML SYRINGE ONE (09:42)
[2019-04-19] MEDS ORDERED: Rocuronium Bromide 10 MG/ML (10ML VIAL) ONE (09:42)
[2019-04-19] MEDS ORDERED: Dexamethasone 20 MG/5 ML VIAL ONE (09:42)
[2019-04-19] MEDS ORDERED: Ondansetron PF 4 MG/2 ML Vial ONE (09:42)
[2019-04-19] MEDS ORDERED: diphenhydrAMINE 50 MG/ML VIAL ONE (09:42)
[2019-04-19] MEDS ORDERED: PROPOFOL 200 MG/20 ML VIAL ONE (09:42)
[2019-04-19] MEDS ORDERED: Fentanyl 100 MCG/2 ML VIAL ONE (09:52)
[2019-04-19] MEDS ORDERED: SUGAMMADEX SODIUM 200 MG/2 ML VIAL ONE (09:54)
[2019-04-19] MEDS ORDERED: B & O ONE (11:41)
--- NOTE | 2019-04-19 18:20 | OP ---
DATE OF PROCEDURE: 04/19/2019 SERVICE: Urology. PREOPERATIVE DIAGNOSIS: Bladder cancer. POSTOPERATIVE DIAGNOSIS: Bladder cancer. PROCEDURE PERFORMED: Transurethral resection of bladder tumor, tumor between 2 to 5 cm. INDICATION FOR PROCEDURE: Mr. Hawkins is a 68-year-old white male with a history of gross hematuria. He presented to t[place], and we performed a cystoscopy with CT scan, which demonstrated a bladder tumor, which was confined to the bladder with no evidence of metastatic disease. We discussed treatment including TURBT with postoperative mitomycin-C with all risks and benefits, and he has agreed to proceed. DESCRIPTION OF PROCEDURE: After identification of armband and verification of consent, the patient was brought back to the operating room, where he underwent general anesthesia with endotracheal intubation. He was then placed in dorsal lithotomy position and prepped and draped in usual sterile fashion. After appropriate time-out, a 26-Lithuanian resectoscope sheath with visual obturator was passed through the urethra into the bladder. There was a stricture present at the mid urethra within the pendulous urethra, which was somewhat difficult to push past. This did cause some mild splitting of the urethra in order to get the cystoscope passed it. The scope was then passed atraumatically otherwise into the bladder. The bladder shows heavy trabeculation with multiple cellules that previously been described on outpatient cystoscopy. The 2 tumors were previously noted, that were still present with the calcified larger tumor on the left and a smaller fine papillary flat tumor on the right. There were no other tumors noted on full cystoscopy. Both ureters were in orthotopic location relatively close to the ureteral orifices. The visual obturator was switched out for the bladder looped bipolar resectoscope and resection was initially carried out on the left bladder tumor with bladder partially decompressed to avoid an obturator reflex. Dissection was carried down into the detrusor muscle. This was then fully cauterized until there was no evidence of tumor and no bleeding. The right tumor was then also shaved out with approximately 1 swipe to remove the majority of the tumor. The circumference and the base of the resection site were then cauterized. There was no bleeding. All the chips were evacuated via the resectoscope and sent off for routine pathologic evaluation. Upon completion, both resection sites looked good. They were dry with no bleeding. Both ureters were in orthotopic location, unharmed. The resectoscope was then withdrawn and a 20-Lithuanian Barahona catheter was placed with a mild amount of difficulty near the urethral stricture into the bladder. A 10 mL of sterile water was placed into the balloon. After the bladder was drained, 40 mg of mitomycin-C and 20 mL of water were instilled into the bladder and then the catheter plugged. The patient was then taken out of positioning, awakened, and taken to PACU for recovery in stable condition. COMPLICATIONS: None. ESTIMATED BLOOD LOSS: Minimal. RETAINED TUBES AND DRAINS: A 20-Lithuanian Barahona catheter with 10 mL of sterile water in the balloon. SPECIMENS: Bladder tumor for routine pathologic evaluation. DISPOSITION: The patient will go home with his catheter secondary to the dilation. We will plan for removal of the catheter in approximately 4 days and followup care thereafter. Job ID: [id number]
== END 2019-04-19 13:45 | disposition home or self-care (01) ==
LOC: SDC 07:29
PROVIDERS: ATTEND Urology
PROC: 0TBB8ZX Excision of Bladder, Via Natural or Artificial Opening Endoscopic, Diagnostic (ICD-10-PCS; principal; 2019-04-19)
DX: C67.0 Malignant neoplasm of trigone of bladder (principal); N32.89 Other specified disorders of bladder; N35.919 Unspecified urethral stricture, male, unspecified site; J44.9 Chronic obstructive pulmonary disease, unspecified; I25.10 Atherosclerotic heart disease of native coronary artery without angina pectoris; I48.91 Unspecified atrial fibrillation; Z79.899 Other long term (current) drug therapy; Z88.0 Allergy status to penicillin; Z91.048 Other nonmedicinal substance allergy status; Z95.1 Presence of aortocoronary bypass graft; Z95.810 Presence of automatic (implantable) cardiac defibrillator
CPT/HCPCS: 88307; J1100; J1200; J1956; J2405; J2704; J3010; J9280

== ENCOUNTER 2019-04-22 13:51 | Emergency (ER) | payer BC, MEDICARE ==
[~2019-04-22 13:51] MED LIST changes: -ISOVUE-370 76%-LOCM 1 ML ONE; +Iopamidol-370 76% 500 ML 1 ML ONE
[2019-04-22] MEDS ORDERED: Morphine 4 MG/ML VIAL ONE (15:12)
[2019-04-22 15:33] LABS: Bilirubin Negative (Negative); Blood, Urine 2+ (Negative); Clarity Clear (Clear); Glucose, Urine (Dipstick) Normal (Negative); Leukocyte 250 Leu/uL (Negative); Mucous/LPF Rare LPF (<2+); Nitrite Negative (Negative); Protein, Urine (Dipstick) 70 mg/dL (Neg-Trace); RBC/HPF Greater than 50 HPF (0-3); Squamous Epithelial None Seen HPF (0-3); Urobilinogen Normal mg/dL (Less than 2)
[2019-04-22 15:39] LABS: #Eosinphils 0.1 thou/uL (0.0-0.7); #Monocytes 0.8 thou/uL (0.11-0.59); #Neutrophils 7.1 thou/uL (1.40-6.50); %Basophils 0.4 % (0.0-1.0); %Eosinophils 1.4 % (0.0-10.0); %Lymphocytes 19.6 % (21.0-51.0); %Monocytes 8.3 % (0.0-10.0); %Neutrophils 70.3 % (42.0-75.0); Hemoglobin 13.9 g/dL (14.0-18.0); Mean Corpuscular HGB CONC 31.7 g/dL (32.0-36.0); Mean Corpuscular Hemoglobin 30.5 pg (27.0-31.0); Mean Corpuscular Volume 96.1 fL (78.0-98.0); Mean Platelet Volume 9.8 fL (7.4-10.4); Platelet Count 114 thou/uL (130-400); RBC Distribution Width 14.1 % (11.5-14.5); Red Blood Cell (RBC) Count 4.55 mill/uL (4.70-6.10)
--- NOTE | 2019-04-22 15:39 | RAD ---
EXAM: Single view of the chest HISTORY: Bladder cancer surgery COMPARISON: 02/13/2019 FINDINGS: Single view of the chest shows a normal sized cardiomediastinal silhouette. The pacemaker is unchanged in position. Increased interstitial markings are present. There is biapical pleural thickening. There is no evidence of consolidation, mass, or pleural effusion. The bones are unremark able. IMPRESSION: No evidence of acute cardiopulmonary disease
[2019-04-22 15:44] LABS: Bacteria/HPF None Seen HPF (None Seen)
[2019-04-22] MEDS ORDERED: Fentanyl 100 MCG/2 ML VIAL ONE (15:56)
[2019-04-22 15:59] LABS: ALT (SGPT) 10 U/L (8-55); AST (SGOT) 14 U/L (5-34); Albumin 3.4 g/dL (3.4-4.8); Alkaline Phosphatase 79 U/L (40-110); Anion Gap 12 mmol/L (10-20); BUN (Urea Nitrogen) 20 mg/dL (8.4-25.7); Bilirubin, Total 0.6 mg/dL (0.2-1.2); Calc. Creatinine Clearance 0 mL/min (70-130); Calcium 9.2 mg/dL (7.8-10.44); Carbon Dioxide 28 mmol/L (23-31); Chloride 103 mmol/L (98-107); Estimated GFR-MDRD 89; Globulin 2.8 g/dL (2.4-3.5); Glucose 157 mg/dL (80-115); Protein, Total 6.2 g/dL (5.8-8.1); Sodium 139 mmol/L (136-145)
[2019-04-22] MEDS ORDERED: methylPREDNISolone Sod Succ/PF 125 MG/2 ML VIAL ONE (16:02)
--- NOTE | 2019-04-22 16:36 | CT ---
CT Abdomen Pelvis W Con: 04/22/2019 3:17 PM CLINICAL INFORMATION: Bladder cancer COMPARISON: 01/21/2018 TECHNIQUE: Multiple contiguous axial images were obtained and a CT of the abdomen and pelvis with IV contrast. C oronal and sagittal reformats were performed. FINDINGS: Lower Chest: Atelectasis is seen in both lung bases adjacent to tiny pleural effusions. Abdomen: Liver: within normal limits. Bile Ducts: Normal caliber. Gallbladder: No calcified gallstones. Normal caliber wall. Pancreas: within normal limits. Spleen: within normal limits. Adrenals: within normal limits. Kidneys: Small bilateral subcentimeter hypodensities likely represent cysts. There are nonobstructing calcifications in both kidneys measuring up to 3 mm in size. Pelvis: Reproductive Organs: No pelvic masses. Ureters: within normal limits. Bladder: Contains a Barahona catheter. Peritoneum: No ascites or free air, no fluid collection. Bowel: Normal caliber. Mesentery and Retroperitoneum: No enlarged mesenteric or retroperitoneal lymph nodes. Vessels: Atherosclerotic calcifications. Abdominal Wall: within normal limits. Bones: Degenerative and postsurgical changes in the spine. IMPRESSION: 1. No evidence of acute intraabdominal or pelvic abnormality. 2. Bilateral renal cysts
[2019-04-22] MEDS ORDERED: Acetaminophen 325 MG TAB PO PRN (18:52)
[2019-04-22] MEDS ORDERED: HYDROcodone/Acetaminophen 7.5/325 mg Tablet PO PRN (18:52)
[2019-04-22] MEDS ORDERED: Ondansetron PF 4 MG/2 ML Vial IVP PRN (18:52)
[2019-04-22] MEDS ORDERED: HYDROcodone/Acetaminophen 5/325 mg Tablet PO PRN (18:52)
[2019-04-22] MEDS ORDERED: Labetalol HCl 100 MG/20 ML VIAL ONE (20:31)
--- NOTE | 2019-04-22 20:49 | PDOC.HHP ---
Hospitalist HPI - History of Present Illness Abd pain History of Present Illness: 68 YO M with a recent diagnosis of bladder cancer who had a cystoscopy and biopsy with mass resection a few days prior to presentation. Pt had been pain s/ p procedure but began experiencing a little pain 2 days after. He took Tramadol and because he didn't like how it made him feel, he decided not to take it again. He however began having new pain and came to the ER. In the ER, he was noted to be wheezing a bit and had a BNP of >1000. Pt admitted not taking his oral Lasix at home the past few days. He was given some Lasix and nebs and the initial plan was to admit the pt. However on re- evaluation, his pain was gone. He was no longer wheezing and requested to go home. He said he already had Lasix at home he'll take and will call his working foreman tmr. Pt will therefore be d/c home now. Hospitalist ROS - Review of Systems Constitutional: denies: fever, chills, sweats, weakness, malaise, other Eyes: denies: pain, vision change, conjunctivae inflammation, eyelid inflammation, redness, other ENT: denies: ear pain, ear discharge, nose pain, nose discharge, nose congestion , mouth pain, mouth swelling, throat pain, throat swelling, other Respiratory: denies: cough, dry, shortness of breath, hemoptysis, SOB with excertion, pleuritic pain, sputum, wheezing, other Cardiovascular: denies: chest pain, palpitations, orthopnea, paroxysmal noc. dyspnea, edema, light headedness, other Gastrointestinal: denies: nausea, vomiting, abdominal pain, diarrhea, constipation, melena, hematochezia, other Genitourinary: denies: dysuria, frequency, incontinence, hematuria, retention, other Musculoskeletal: denies: neck pain, shoulder pain, arm pain, back pain, hand pain, leg pain, foot pain, other Skin: denies: rash, lesions, denis, bruising, other Neurological: denies: weakness, numbness, incoordination, change in speech, confusion, seizures, other Hospitalist History - Past Medical History Cardiac: reports: AFIB, HTN Pulmonary: reports: COPD Heme/Onc: reports: Cancer (Bladder) - Past Surgical History Past Surgical History: reports: Cystoscopy - Family History Family History: reports: hypertension - Social History Smoking Status: Former smoker Alcohol: reports: None Drugs: reports: none Living Situation: With Family Activity level: independent ambulation - Exam General Appearance: NAD, awake alert, ill appearing Eye: PERRL, anicteric sclera ENT: normocephalic atraumatic, moist mucosa Neck: supple, symmetric, no JVD, no thyromegaly, no lymphadenopathy Heart: RRR, no murmur, no gallops, no rubs Heart - other findings: PM on ant upper left chest wall Respiratory: CTAB, no wheezes, no rales, no ronchi Gastrointestinal: soft, non-tender, non-distended, normal bowel sounds Extremities: no cyanosis, no clubbing, no edema Skin: no lesions, no rashes Neurological: cranial nerve grossly intact, no focal deficits Musculoskeletal: normal strength, no muscle wasting Psychiatric: normal affect, normal behavior, A&O x 3 Hospitalist Results - Labs Result Diagrams: 04/22/19 15:29 04/22/19 15:29 Lab results: WBC 10.0 thou/uL (4.8-10.8) 04/22/19 15:29 Hgb 13.9 g/dL (14.0-18.0) L 04/22/19 15:29 Hct 43.8 % (42.0-52.0) 04/22/19 15:29 MCV 96.1 fL (78.0-98.0) 04/22/19 15:29 Plt Count 114 thou/uL (130-400) L 04/22/19 15:29 Neutrophils % 70.3 % (42.0-75.0) 04/22/19 15:29 Sodium 139 mmol/L (136-145) 04/22/19 15:29 Potassium 4.0 mmol/L (3.5-5.1) 04/22/19 15:29 Chloride 103 mmol/L (98-107) 04/22/19 15:29 Carbon Dioxide 28 mmol/L (23-31) 04/22/19 15:29 BUN 20 mg/dL (8.4-25.7) 04/22/19 15:29 Creatinine 0.85 mg/dL (0.7-1.3) 04/22/19 15:29 Glucose 157 mg/dL (80-115) H 04/22/19 15:29 Calcium 9.2 mg/dL (7.8-10.44) 04/22/19 15:29 Total Bilirubin 0.6 mg/dL (0.2-1.2) 04/22/19 15:29 AST 14 U/L (5-34) 04/22/19 15: ALT 10 U/L (8-55) 04/22/19 15: Alkaline Phosphatase 79 U/L (40-110) 04/22/19 15: Troponin I 0.010 ng/mL (< 0.028) 04/22/19 15:29 B-Natriuretic Peptide 1093.8 pg/mL (0-100) H 04/22/19 15:29 Serum Total Protein 6.2 g/dL (5.8-8.1) 04/22/19 15: Albumin 3.4 g/dL (3.4-4.8) 04/22/19 15: Urine Ketones Negative mg/dL (Negative) 04/22/19 15:02 Urine Blood 2+ (Negative) A 04/22/19 15:02 Urine Nitrite Negative (Negative) 04/22/19 15:02 Ur Leukocyte Esterase 250 Ashwin/uL (Negative) A 04/22/19 15:02 Urine RBC Greater than 50 HPF (0-3) A 04/22/19 15:02 Urine WBC 11-20 HPF (0-3) A 04/22/19 15:02 Ur Squamous Epith Cells None Seen HPF (0-3) 04/22/19 15:02 Urine Bacteria None Seen HPF (None Seen) 04/22/19 15:02 Hospitalist H&P A/P - Problem (1) COPD (chronic obstructive pulmonary disease) Status: Chronic Qualifiers: COPD type: chronic bronchitis (2) HTN (hypertension) Code(s): I10 - ESSENTIAL (PRIMARY) HYPERTENSION Status: Chronic Qualifiers: Hypertension type: essential hypertension Qualified Code(s): I10 - Essential (primary) hypertension (3) Abdominal pain Code(s): R10.9 - UNSPECIFIED ABDOMINAL PAIN Status: Acute (4) Bladder cancer Status: Acute - Plan Plan: Abd pain and wheezing have resolved. Pt feels well. and is requesting to be d/c home. Will d/c home now.
[2019-04-22] MEDS ORDERED: Famotidine 20 MG TAB PO SCH (21:00)
[2019-04-23] MEDS ORDERED: Furosemide 40 MG/4 ML VIAL SLOW IVP SCH (06:00)
[2019-04-23] MEDS ORDERED: Aspirin Chewable 81 MG TAB PO SCH (09:00)
== END 2019-04-22 22:23 | disposition home or self-care (01) ==
LOC: ERS 13:51
DX: I11.0 Hypertensive heart disease with heart failure (principal); I50.9 Heart failure, unspecified; R10.30 Lower abdominal pain, unspecified; J44.9 Chronic obstructive pulmonary disease, unspecified; F41.9 Anxiety disorder, unspecified; Z79.899 Other long term (current) drug therapy; Z79.82 Long term (current) use of aspirin; Z95.5 Presence of coronary angioplasty implant and graft; Z79.01 Long term (current) use of anticoagulants; Z79.51 Long term (current) use of inhaled steroids
CPT/HCPCS: 36415; 71045; 74177; 80053; 81003; 81015; 83880; 84484; 85025; 93005; 94640; 96374; 96375; J2270; J2930; J3010; J7620; Q9967

== ENCOUNTER 2019-05-22 09:21 | Outpatient (CLI) | payer BC, MEDICARE ==
[2019-05-22 12:35] LABS: Hemoglobin 13.2 g/dL (14.0-18.0); Mean Corpuscular HGB CONC 32.2 g/dL (32.0-36.0); Mean Corpuscular Hemoglobin 31.4 pg (27.0-31.0); Mean Corpuscular Volume 97.5 fL (78.0-98.0); Mean Platelet Volume 9.6 fL (7.4-10.4); Platelet Count 168 thou/uL (130-400); RBC Distribution Width 13.1 % (11.5-14.5); Red Blood Cell (RBC) Count 4.22 mill/uL (4.70-6.10); White Blood Cell (WBC) Count 8.8 thou/uL (4.8-10.8)
--- NOTE | 2019-05-22 12:40 | EKG ---
Test Reason : Blood Pressure : / mmHG Vent. Rate : 082 BPM Atrial Rate : 082 BPM P-R Int : 160 ms QRS Dur : 142 ms QT Int : 420 ms P-R-T Axes : 063 243 066 degrees QTc Int : 490 ms Electronic atrial pacemaker RBBB PAC's Abnormal ECG When compared with ECG of 22-APR-2019 15:21, Premature ventricular complexes are no longer Present Right bundle branch block is now Present Confirmed by DR. Nakul DAVENPORT ([id number]) on 05/22/2019 12:39:37 PM Referred By: CORTEZ Confirmed By:DR. Nakul DAVENPORT
[2019-05-22 12:42] LABS: INR-International Normal Ratio 1.1; Prothrombin Time 13.7 SEC (12.0-14.7)
[2019-05-22 12:43] LABS: Bacteria/HPF None Seen HPF (None Seen); Bilirubin Negative (Negative); Blood, Urine 1+ (Negative); Clarity Turbid (Clear); Glucose, Urine (Dipstick) Normal (Negative); Leukocyte 250 Leu/uL (Negative); Nitrite Negative (Negative); Protein, Urine (Dipstick) 100 mg/dL (Neg-Trace); Squamous Epithelial 0-3 HPF (0-3); Urobilinogen 3 mg/dL (Less than 2); WBC/HPF Greater than 50 HPF (0-3)
[2019-05-22 12:56] LABS: PTT 27.6 SEC (22.9-36.1)
[2019-05-22 12:58] LABS: Anion Gap 11 mmol/L (10-20); BUN (Urea Nitrogen) 12 mg/dL (8.4-25.7); Calc. Creatinine Clearance 0 mL/min (70-130); Carbon Dioxide 32 mmol/L (23-31); Chloride 103 mmol/L (98-107); Estimated GFR-MDRD 71; Glucose 161 mg/dL (80-115); Potassium 3.9 mmol/L (3.5-5.1); Sodium 142 mmol/L (136-145)
[2019-05-22 13:12] LABS: Mucous/LPF 1+ LPF (<2+)
== END 2019-05-22 09:22 | disposition home or self-care (01) ==
LOC: LABBT 09:21
PROVIDERS: ATTEND Urology
DX: Z01.818 Encounter for other preprocedural examination (principal); C67.0 Malignant neoplasm of trigone of bladder; N40.1 Benign prostatic hyperplasia with lower urinary tract symptoms; I71.4 Abdominal aortic aneurysm, without rupture; I25.10 Atherosclerotic heart disease of native coronary artery without angina pectoris; I73.9 Peripheral vascular disease, unspecified; N20.0 Calculus of kidney
CPT/HCPCS: 80048; 81001; 85027; 85610; 85730; 87086; 93005; 93010

== ENCOUNTER 2019-05-30 06:05 | Day surgery (SDC) | payer BC, MEDICARE ==
[2019-05-22 11:12] VITALS: BMI 18.8
[2019-05-30] MEDS ORDERED: Levofloxacin 500 mg/D5W 100 ml Premix Bag ONE (07:07)
[2019-05-30] MEDS ORDERED: SUGAMMADEX SODIUM 200 MG/2 ML VIAL ONE (08:26)
[2019-05-30] MEDS ORDERED: Fentanyl 100 MCG/2 ML VIAL ONE (08:26)
[2019-05-30] MEDS ORDERED: SUGAMMADEX SODIUM 500 MG/5 ML VIAL ONE (08:27)
--- NOTE | 2019-05-30 10:45 | OP ---
DATE OF PROCEDURE: 05/30/2019 SERVICE: Urology. PREOPERATIVE DIAGNOSIS: Bladder cancer. POSTOPERATIVE DIAGNOSIS: Bladder cancer. PROCEDURE PERFORMED: Transurethral resection of bladder tumor base, repeat resection. INDICATIONS FOR PROCEDURE: Mr. Hawkins is a 69-year-old white male, who initially presented to me with gross hematuria. He was found to have a tumor on his left bladder wall. He underwent TURBT previously with postoperative mitomycin-C. Postop, his tumor came back as high-grade T1 with only scant muscle present within the specimen. I had recommended that we proceed forward with repeat TURBT to get deeper tissues, more muscle fibers to ensure that he did not have any residual cancer. Risks and benefits were discussed including risk of perforation of the bladder, with all risks and benefits discussed ahead of time and he has agreed to proceed forward. DESCRIPTION OF PROCEDURE: After identification of armband and verification of consent, the patient was brought back to the operating room. He underwent general anesthesia with endotracheal intubation and full paralysis. He was placed in dorsal lithotomy position and prepped and draped in usual sterile fashion. 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 There was significant resistance. Therefore, I opted to go to the single flow 24-Nigerian resectoscope sheath. This was switched out and the scope was able to be passed much more easily. The prostate was mildly obstructive with some mild regrowth of tissues. Inside the bladder, there were no new tumors on full cystoscopy. There was again heavy trabeculations with multiple cellules. Both sites of previous resection appeared to be healing well. There was a lot of necrotic debris on the left lateral bladder wall tumor site. This was scraped off using the resectoscope loop and evacuated via the scope. Resection was then started on the left bladder wall at the inferior margin of the resection taking care not to injure the ureteral orifice. Resection was carried out deeply into the detrusor muscle until adequate detrusor muscle fibers were identified. Resection was then carried in an anterior fashion until the entire previous bladder tumor base was fully resected and there was a heavy exposure of detrusor muscle fibers. At no point was any perforation or perivesical fat identified. Meticulous hemostasis was performed of the bladder tumor bed as the resection was carried out because we were on single flow. The bladder was emptied periodically to avoid overdistention or tears in the bladder wall and at these times the specimens were handed off for routine pathologic evaluation. The previous resection site on the posterior right bladder wall, which had a fine papillary tumor appeared to be healing well. A few areas were cauterized, but there did not appear to be any evidence of tumor recurrence. There was one area that looked a little bit suspicious in the posterior bladder wall, which was most likely inflammation, but out of concern given the patient's high-grade multifocal nature of his cancer, I went ahead and cauterized this so that it was destroyed. Upon completion, all areas were adequately hemostatic. There was no evidence of bleeding. There was no evidence of bladder perforation. All the chips had been evacuated and sent off for routine pathologic evaluation. The resectoscope loop was then removed. The patient was then taken out of positioning, awakened, taken to PACU for recovery in stable condition. COMPLICATIONS: None. ESTIMATED BLOOD LOSS: Minimal. RETAINED TUBES AND DRAINS: None. SPECIMENS: Bladder tumor base. DISPOSITION: The patient will be discharged home and follow up with me in approximately 2 weeks for postop check at which time we will go over his pathology and decide what further course of action is necessary. Job ID: [id number]
[2019-05-30] MEDS ORDERED: Rocuronium Bromide 10 MG/ML (10ML VIAL) ONE (10:56)
[2019-05-30] MEDS ORDERED: PHENYLEPHRINE-NS 100 MCG/ML 10 ML SYRINGE ONE (10:56)
[2019-05-30] MEDS ORDERED: Lidocaine 1% PF 5 ML VIAL ONE (10:56)
[2019-05-30] MEDS ORDERED: PROPOFOL 200 MG/20 ML VIAL ONE (10:56)
[2019-05-30] MEDS ORDERED: Glycopyrrolate 0.2 MG/ML 5 ML SYRINGE ONE (10:56)
== END 2019-05-30 15:58 | disposition home or self-care (01) ==
LOC: SDC 06:05
PROVIDERS: ATTEND Urology
PROC: 0TBB8ZZ Excision of Bladder, Via Natural or Artificial Opening Endoscopic (ICD-10-PCS; principal; 2019-05-30)
PROC: 0T5B8ZZ Destruction of Bladder, Via Natural or Artificial Opening Endoscopic (ICD-10-PCS; principal; 2019-05-30)
DX: C67.9 Malignant neoplasm of bladder, unspecified (principal); I10 Essential (primary) hypertension; E78.5 Hyperlipidemia, unspecified; J44.9 Chronic obstructive pulmonary disease, unspecified; I48.91 Unspecified atrial fibrillation; Z79.899 Other long term (current) drug therapy; Z79.84 Long term (current) use of oral hypoglycemic drugs; Z88.0 Allergy status to penicillin; Z91.018 Allergy to other foods; Z95.1 Presence of aortocoronary bypass graft
CPT/HCPCS: 51798; 88307; J1956; J2001; J2704; J3010; J7620

== ENCOUNTER 2019-06-18 11:46 | Emergency (ER) | payer BC, MEDICARE ==
--- NOTE | 2019-06-18 12:11 | CT ---
Exam: Head CT without contrast HISTORY: Status post fall. Hit head. COMPARISON: none FINDINGS: Hemorrhage: No intraparenchymal hemorrhage or extra-axial hematoma. Brain parenchyma: Cortical toure-white matter differentiation is preserved. No mass effect or midline shift. Basilar cisterns are patent. Ventricular white matter hypodensities due to chronic small vessel ischemic change. Remote cavitary l acunar infarct involving the right centrum semiovale Ventricular system: Ventricles and sulci are patent and symmetric. Calvarium: Intact. Sinuses and mastoid air cells: Adequate aeration. IMPRESSION: No acute intracranial process.
[2019-06-18] MEDS ORDERED: Bacitracin 1 PK ONE (12:44)
== END 2019-06-18 12:56 | disposition home or self-care (01) ==
LOC: ERS 11:46
DX: S51.811A Laceration without foreign body of right forearm, initial encounter (principal); S61.411A Laceration without foreign body of right hand, initial encounter; S00.03XA Contusion of scalp, initial encounter; W18.30XA Fall on same level, unspecified, initial encounter
CPT/HCPCS: 70450

== ENCOUNTER 2019-09-03 10:43 | Outpatient (CLI) | payer BC, MEDICARE ==
--- NOTE | 2019-09-03 17:34 | CT ---
CT OF THE THORAX WITHOUT IV CONTRAST: 09/03/19 INDICATION: Follow-up pulmonary nodules. COMPARISON: Prior CTA of the thorax dated 02/13/19. FINDINGS: There are scattered areas of interstitial fibrotic change with peripheral bronchiectasis. There are a reas of worsening reticulonodularity seen in a tree-in-bud pattern involving the subpleural regions o f predominantly the lower lobes. There are some patchy areas of reticulonodularity seen involving the anterior segment of the left upper lobe appearing. Left apical pulmonary nodule is stable measuring 12.4 x 4.6 mm. Small subpleural tree-in-bud type nodularity seen involving the anterior segment of th e right upper lobe. Small ground glass nodular opacity seen within the lateral segment of the right m iddle lobe on image 106 of series 3 measuring 6 mm. No pleural effusion is evident. There is aortic v alvular replacement. There is post CABG change. There is a mildly prominent precarinal lymph node radha suring 1.2 cm which is stable to the prior exam. The visualized upper abdomen demonstrates no definit e acute abnormality. There is mild degenerative scoliosis of the thoracic spine. IMPRESSION: 1. Worsening reticulonodularity seen predominantly in a basilar distribution with some involveme nt of the anterior segments of both upper lobes as well as the lateral segment of the right middle lo be. There are areas of peripheral interstitial fibrosis with bronchiectasis. Findings are suspicious for respiratory bronchiolitis. Treatment and short term follow-up in 6 to 8 weeks is recommended. 2. Other chronic findings as above. POS: BRAD
== END 2019-09-03 10:44 | disposition home or self-care (01) ==
LOC: BICCT 10:43
PROVIDERS: ATTEND Internal Medicine Critical Care Medicine
DX: R91.1 Solitary pulmonary nodule (principal); J84.10 Pulmonary fibrosis, unspecified; J47.9 Bronchiectasis, uncomplicated; R91.8 Other nonspecific abnormal finding of lung field; Z95.2 Presence of prosthetic heart valve; Z95.1 Presence of aortocoronary bypass graft; M41.84 Other forms of scoliosis, thoracic region
CPT/HCPCS: 71250

== ENCOUNTER 2019-10-07 09:44 | Outpatient (CLI) | payer BC, MEDICARE ==
--- NOTE | 2019-10-07 10:59 | MMO ---
Bilateral MAMMO Bilat Diag DDI+PAMELLA. CLINICAL HISTORY: Patient is 69 years old and is seen for diagnostic exam. The patient has no family history of breast cancer. The patient has a history of bladder cancer. VIEWS: The views performed were: bilateral craniocaudal with tomosynthesis; bilateral mediolateral oblique with tomosynthesis; and bilateral mediolateral with tomosynthesis. FILMS COMPARED: The present examination has been compared to a prior imaging study performed at [facility] on 10/07/2019. This study has been interpreted with the assistance of computer-aided detection. MAMMOGRAM FINDINGS: Bilateral retroaerolar densiites are consistent with gynecomastia on mammo and US. There are no suspicious masses, suspicious calcifications, or new areas of architectural distortion. IMPRESSION: THERE IS NO MAMMOGRAPHIC EVIDENCE OF MALIGNANCY. ANY DECISION TO BIOPSY SHOULD BE BASED ON CLINICAL ASSESSMENT. THE RESULTS OF THIS EXAM WERE SENT TO THE PATIENT. ACR BI-RADS Category 2 - Benign finding MAMMOGRAPHY NOTE: 1. A negative mammogram report should not delay a biopsy if a dominant of clinically suspicious mass is present. 2. Approximately 10% to 15% of breast cancers are not detected by mammography. 3. Adenosis and dense breasts may obscure an underlying neoplasm. Reported by: RONALD KO MD Electonically Signed: [id number]
--- NOTE | 2019-10-07 12:26 | ULT ---
LIMITED RIGHT BREAST ULTRASOUND: Date: 10/07/2019 HISTORY: Patient on spironolactone. Right breast mass. FINDINGS: Correlation made with mammogram from same date. Sonographic evaluation of the retroareolar aspects of the breast bilaterally demonstrate fibroglandul ar tissue which appears similar on either side. IMPRESSION: Bilateral gynecomastia. POS: MARILEE
== END 2019-10-07 09:45 | disposition home or self-care (01) ==
LOC: BICMAMMO 09:44
PROVIDERS: ATTEND Family Medicine
DX: N62 Hypertrophy of breast (principal)
CPT/HCPCS: 77066; G0279

== ENCOUNTER 2019-10-16 09:56 | Emergency (ER) | payer BC, MEDICARE ==
[2019-10-16] MEDS ORDERED: HYDROcodone/Acetaminophen 10/325 mg Tablet ONE (10:52)
--- NOTE | 2019-10-16 11:27 | RAD ---
EXAM: Left rib series with chest x-ray HISTORY: Rib pain COMPARISON: None FINDINGS: Single view of the chest shows a normal sized cardiomediastinal silhouette. A pacemaker se en with its leads in the right atrium and ventricle. The patient is status post aortic valve repair. There is no evidence of consolidation, mass, or pleural effusion. Multiple views of the left ribs shows no evidence of displaced rib fracture. No underlying pleural th ickening or pneumothorax are seen. IMPRESSION: 1. No evidence of displaced rib fracture. 2. No evidence of acute cardiopulmonary disease.
== END 2019-10-16 12:56 | disposition home or self-care (01) ==
LOC: ERS 09:56
DX: S61.511A Laceration without foreign body of right wrist, initial encounter (principal); S51.812A Laceration without foreign body of left forearm, initial encounter; S20.212A Contusion of left front wall of thorax, initial encounter; J44.9 Chronic obstructive pulmonary disease, unspecified; I50.9 Heart failure, unspecified; F41.9 Anxiety disorder, unspecified; F17.210 Nicotine dependence, cigarettes, uncomplicated; W01.0XXA Fall on same level from slipping, tripping and stumbling without subsequent striking against object, initial encounter

== ENCOUNTER 2019-10-18 09:28 | Inpatient (IN) | payer BC, MEDICARE, OTHER ==
[2019-10-18] MEDS ORDERED: Ondansetron PF 4 MG/2 ML Vial ONE (09:52)
[2019-10-18] MEDS ORDERED: Morphine 4 MG/ML VIAL ONE (09:52)
[2019-10-18 10:01] LABS: #Monocytes 0.8 thou/uL (0.11-0.59); #Neutrophils 9.2 thou/uL (1.40-6.50); %Basophils 0.4 % (0.0-1.0); %Eosinophils 0.4 % (0.0-10.0); %Monocytes 7.2 % (0.0-10.0); %Neutrophils 82.9 % (42.0-75.0); Hemoglobin 12.5 g/dL (14.0-18.0); Mean Corpuscular HGB CONC 32.5 g/dL (32.0-36.0); Mean Corpuscular Hemoglobin 31.2 pg (27.0-31.0); Mean Corpuscular Volume 96.3 fL (78.0-98.0); Mean Platelet Volume 9.5 fL (7.4-10.4); Platelet Count 157 thou/uL (130-400); RBC Distribution Width 13.9 % (11.5-14.5); Red Blood Cell (RBC) Count 4.01 mill/uL (4.70-6.10); White Blood Cell (WBC) Count 11.1 thou/uL (4.8-10.8)
[2019-10-18] MEDS ORDERED: Fentanyl 100 MCG/2 ML VIAL ONE ×2 (10:14→12:13)
[2019-10-18 10:22] LABS: ALT (SGPT) 11 U/L (8-55); AST (SGOT) 20 U/L (5-34); Albumin 3.5 g/dL (3.4-4.8); Alkaline Phosphatase 89 U/L (40-110); Anion Gap 12 mmol/L (10-20); BUN (Urea Nitrogen) 22 mg/dL (8.4-25.7); CK (CPK) 91 U/L (30-200); Calc. Creatinine Clearance 0 mL/min (70-130); Calcium 8.7 mg/dL (7.8-10.44); Carbon Dioxide 27 mmol/L (23-31); Chloride 103 mmol/L (98-107); Estimated GFR-MDRD 72; Globulin 3.6 g/dL (2.4-3.5); Glucose 120 mg/dL (80-115); Protein, Total 7.1 g/dL (5.8-8.1); Sodium 138 mmol/L (136-145)
--- NOTE | 2019-10-18 10:49 | RAD ---
PORTABLE CHEST 1 VIEW: Date: 10/18/2019 Time: 1009 hours HISTORY: Shortness of breath. COPD. CHF. FINDINGS: Comparison made with exam of 06/09/2019 and 10/16/2019. The heart size is normal. Changes of aortic valve repair are again seen. Left-sided pacemaker device remains in place. No focal areas of consolidation, pneumothoraces, or pleural effusions are seen. IMPRESSION: No acute process. POS: AH
--- NOTE | 2019-10-18 11:14 | CT ---
EXAM: CT of the chest without contrast HISTORY: Shortness of breath and fall with left rib pain COMPARISON: 09/03/2019 TECHNIQUE: Multiple contiguous axial images were obtained in a CT the chest without contrast. Coronal and sagittal reformats were performed. FINDINGS: HEART: Normal in size without focal cardiac abnormality. As a pacemaker with its leads in the right a trium and ventricle. The patient is status post aortic valve repair and sternotomy. MEDIASTINUM: No hilar or mediastinal lymphadenopathy. Evaluation of the mediastinum is limited withou t IV contrast. LUNGS: No focal infiltrates, nodules, or masses. PLEURAL SPACE: Small left pleural effusion with adjacent atelectasis versus infiltrate. There are are as of pleural thickening in the inferior aspect of both thorax. These appear to have increased compared to the prior examination with the largest area of pleural thickening measuring 1.8 cm in siz e on the right. CHEST WALL SOFT TISSUES: Unremarkable OSSEOUS STRUCTURES: Degenerative changes in the spine. No rib fractures are appreciated. VISUALIZED SUBDIAPHRAGMATIC STRUCTURES: Unremarkable IMPRESSION: 1. Nonspecific areas of pleural thickening along both diaphragms. 2. Small left pleural effusion with adjacent atelectasis versus infiltrate
[2019-10-18 11:36] LABS: Bacteria/HPF None Seen HPF (None Seen); Bilirubin Negative (Negative); Blood, Urine Negative (Negative); Clarity Clear (Clear); Glucose, Urine (Dipstick) Normal (Negative); Ketone, Urine Negative (Negative); Leukocyte Negative Leu/uL (Negative); Nitrite Negative (Negative); Protein, Urine (Dipstick) 50 mg/dL (Neg-Trace); RBC/HPF 0-3 HPF (0-3); Specific Gravity, Urine 1.024 (1.002-1.036); Squamous Epithelial 0-3 HPF (0-3); Urobilinogen Normal mg/dL (Less than 2); pH, Urine 5.5 (5.0-9.0)
[2019-10-18] MEDS ORDERED: Senokot S 8.6-50 MG TAB PO PRN (13:45)
[2019-10-18] MEDS ORDERED: Melatonin 3 MG TAB PO PRN (13:51)
[2019-10-18 13:56] LABS: Troponin I Less than 0.010 ng/mL (< 0.028)
--- NOTE | 2019-10-18 15:21 | HP ---
PRIMARY CARE PROVIDER: Dr. Dave. CHIEF COMPLAINT: Chest pain. HISTORY OF PRESENT ILLNESS: This is a 69-year-old male with history of extensive coronary artery disease, peripheral vascular disease, COPD, systolic and diastolic heart failure with hospitalization here in May of 2019, bladder cancer, who presents to the emergency room complaining of worsening chest pain. The patient reports the onset was 2 days ago when he tripped at a store, landing on his left arm and his left side of his ribs. He complained of immediate pain and was brought to the emergency room, evaluated and then discharged to home with Tylenol No. 3. The history is mostly obtained from the patient's by phone, who reports that yesterday he was doing okay. He had been taking pain medication and tolerating it well. He had not taken his usual furosemide because of difficulty with getting up and down. Today, the patient complained of worsening pain, on the left side and "lungs hurting." He reports it is the same pain as from the fall, only more intense. It is localized to the left side of his chest as well as his arm. He reports chills today, denies any fevers or coughing. He does note that there has been swelling of his feet and ankles as well as left arm and abdomen that occurred since the fall. No precipitating factors or relieving factors for the change in symtpoms today. The patient has been managed for heart failure by Dr. Tripp in the outpatient setting without a recent exacerbation. He reports that the COPD has been controlled on his usual medication of Dulera. In the emergency room, the patient found to be hypoxic with an oxygen level of 88% on room air, as well as hypotensive on presentation. Hospitalist called for admission. He received fentanyl 50 mcg x2, started on normal saline and received approximately 300 mL. ALLERGIES: PENICILLIN AND ADHESIVE TAPE. CURRENT MEDICATIONS: The patient's has a list, but not with her presently. I reviewed the last discharge summary on June 10 and they are; 1. Furosemide 20 mg daily. 2. Entresto 24/ one tablet twice daily. 3. Dulera 200/5 two puffs twice daily. 4. DuoNeb as needed. 5. Albuterol two puffs every 4 hours as needed. 6. Melatonin 3 mg at bedtime. 7. Crestor 20 mg at bedtime. 8. Nexium 40 mg daily. 9. Carvedilol 25 mg b.i.d. 10. Furosemide 20 to 40 mg as needed. 11. Clonazepam 2 mg tablets, 1-1/2 tablets at bedtime. 12. Aspirin 81 mg daily. 13. Tamsulosin 0.4 mg daily. 14. Plavix 75 mg daily. 15. Lexapro 10 mg daily. 16. Clonidine, no dose, it simply states one tablet for systolic pressure greater than 180. PAST MEDICAL HISTORY: Remarkable for; 1. Systolic and diastolic heart failure with last hospitalization here in May of 2019. 2. Coronary artery disease with history of CABG. 3. Peripheral vascular disease with history of stents in his leg and aorta. 4. Depression. 5. Hypertension. 6. COPD. 7. Dyslipidemia. 8. BPH. PAST SURGICAL HISTORY: 1. Hernia repair. 2. Shoulder surgery. 3. Cervical and lumbar spinal surgeries. 4. Aortic stent. 5. CABG. 6. History of ablation. 7. "Ballooning in his legs.". SOCIAL HISTORY: The patient is , his is his surrogate decision maker. He is a full code. He currently smokes a pack of cigarettes per day. No significant alcohol use. FAMILY HISTORY: Negative for premature coronary artery disease. REVIEW OF SYSTEMS: Positive for chills, swelling of his feet, ankles, left arm , and abdomen, as well as a wound on his left arm post fall. All remaining review of systems are reviewed and negative. PHYSICAL EXAMINATION: VITAL SIGNS: Blood pressure 120/64, pulse 100, respirations 28, sat 100% on room air, and temperature 98.7. GENERAL: The patient easily falls asleep (note, he has received fentanyl already). Cachectic male, not in apparent distress, easily awakens to voice and answers questions appropriately. HEENT: Pupils are equal and round. Oral mucosa is pink and moist. NECK: Supple, nontender. LYMPHATICS: No palpable cervical or supraclavicular lymphadenopathy. LUNGS: Some decreased breath sounds at the left lung base. No audible wheezing , rhonchi, or rales. CHEST WALL: Tenderness to palpation of the left lower ribs along the axillary and anterior area without palpable defect. HEART: Normal S1 and S2. No significant murmur. ABDOMEN: Soft. Present bowel sounds. Nontender. Nondistended. EXTREMITIES: No appreciable edema. SKIN: He has a large open skin tear on his left upper extremity. NEUROLOGIC: No focal deficits. PSYCH: Difficult to assess. The patient appears tired. DIAGNOSTIC STUDIES: On telemetry monitoring, the patient with an episode of wide-complex tachycardia that lasted a few seconds. EKG, right bundle-branch block, extreme axis deviation, no ST changes, PVCs with a QT corrected of 440. Labs reviewed. CBC; 11.1, 12.5, 38.6, 157 with 82.9% neutrophils, 9% lymphocytes. Renal panel; 138, 4.0, 103, 27, 22, 1.02, 120. Lactic acid 2. Troponin x2 negative. Liver function tests; T-bilirubin 1, AST 20, ALT 11, alkaline phosphatase 89, total protein 7.1, albumin 3.5. BNP 299; on review of the past in May, it was 724. Urinalysis shows present protein, 4 to 6 white blood cells, 4 to [address], personally reviewed, pleural thickening along both diaphragms, small left pleural effusion with adjacent atelectasis versus infiltrate. Chest x-ray also personally reviewed, shows no acute process. IMPRESSION: 1. Acute respiratory failure with hypoxia. 2. Wide-complex tachycardia in a patient with known systolic and diastolic heart failure and AICD in place. 3. Chest pain, status post fall with possible pneumonia in the context of abnormal CT scan, elevated white blood cell count and associated chills today. 4. Possible decompensated systolic and diastolic heart failure on the basis of chest CT appearance and reported swelling at home. 5. Chronic obstructive pulmonary disease, no signs of exacerbation. 6. Peripheral vascular disease. 7. History of bladder cancer, unknown status. 8. BPH. 9. Hypertension, appears controlled. 10. Borderline prolonged QT. 11. Left arm abrasions, status post fall. PLAN: 1. Observation status in the hospital. 2. Gentle diuresis with IV Lasix and monitor oxygen levels as well as symptoms. 3. Initiation of antibiotics, we will use doxycycline given the borderline prolonged QT interval as well as the wide complex tachycardia, avoiding any medications that could prolong the QT interval. Monitor on telemetry. 4. Cardiology consultation with Dr. Tripp. 5. Check magnesium, monitor potassium levels and replace as needed. 6. Incentive spirometry as the patient is likely splinting due to pain along the chest wall. 7. Continue pain medication. 8. Continuing his cardiac medications with hold parameters to avoid hypotension. 9. Wound care to the left arm. 10. Continuing monitoring on telemetry, hold any antiarrhythmics for now, pending Dr. Tripp's assessment. 11. Continuing his usual medications for COPD and monitoring for change in breathing as well as oxygen requirements. 12. We will continue the clonazepam and order p.r.n. with hold parameters to avoid any excessive sedation that may be associated with medications used to treat the pain. 13. Anticipated length of stay at this time is one midnight; however, subject to reassessment tomorrow. 14. DVT prophylaxis with pneumatic compression devices. 15. GI prophylaxis, not indicated. The patient is on a PPI at home. We will continue that. 16. Code status is full. Surrogate decision maker is the patient's . Reviewed the plan of care with the patient, who demonstrates understanding. No questions or further needs at the end of evaluation. The patient is at high risk given age comorbidities and current presentation. Addendum - RN reconcilled medication and reports the patient is no longer on carvedilol, and is on a higher dose of entresto. Will d/c the carvedilol and order a lower dose of entresto due to his current bp - with hold parameters. Job ID: [id number] [facility]
[2019-10-18] MEDS ORDERED: Carvedilol 25 MG TAB PO SCH (17:00)
[2019-10-18 17:07] LABS: Troponin I 0.015 ng/mL (< 0.028)
[2019-10-18] MEDS: HYDROcodone/Acetaminophen 5/325 mg Tablet PO PRN ×2 (18:35→23:56)
[2019-10-18] MEDS: Furosemide 20 MG/2 ML VIAL SLOW IVP SCH (18:35)
[2019-10-18] MEDS: Mometasone 200 MCG/Formoterol 5 MCG 120 PUFF INHALER INH SCH ×2 (18:36→19:46)
[2019-10-18] MEDS: clonazePAM 1 MG TAB PO PRN (20:47)
[2019-10-18] MEDS: Nicotine 21 MG PATCH TOP SCH (20:47)
[2019-10-18] MEDS: Rosuvastatin 20 MG TAB PO SCH (20:47)
--- NOTE | 2019-10-19 00:36 | CON ---
DATE OF CONSULTATION: 10/18/2019 REASON FOR CONSULTATION: Shortness of breath and hypoxemia. HISTORY OF PRESENT ILLNESS: Mr. Hawkins is a 69-year-old gentleman with history of coronary artery disease, previous bypass surgery, history of transcutaneous aortic valve replacement, history of peripheral vascular disease, history of COPD, and continued smoking, was admitted to the hospital with hypoxemia and pain in the area that he fell and hurt his chest. PAST MEDICAL HISTORY: 1. The patient's past history, he has had progressively more fwbndheig-hy-vivhchv congestive heart failure symptoms this year. He has had heart failure symptoms off and on, but the last year was becoming more refractory. 2. He also began lower blood pressure, take him off carvedilol. Most recent ejection fraction 35% to 40%. He has congestive heart failure systolic diastolic mixed. Also history of transcutaneous aortic valve replacement. 3. History of bilateral carotid arterial disease, history of peripheral vascular disease, history of pacemaker defibrillator implantation, and history of hypercholesterolemia. MEDICATIONS: At home; 1. Torsemide. 2. Clonidine. 3. Entresto, the last dose was 97/103. 4. Aspirin. 5. Plavix. 6. Rosuvastatin. 7. Had to be taken off beta blockers. 8. Inhaled bronchodilators. PHYSICAL EXAMINATION: GENERAL: Overall examination, he is a very frail-appearing gentleman, looks much older than his chronologic age of 69. VITAL SIGNS: Blood pressure 137/66 and pulse is 90. LUNGS: Clear. CARDIAC: No murmur, rub, or gallop. ABDOMEN: Soft and nontender. EXTREMITIES: Warm and dry. No clubbing or cyanosis. There is 1+ edema. PERTINENT LABORATORY: BNP is 299. Chest x-ray look clear. Chest CT, some pleural thickening. ASSESSMENT: 1. Chest pain, musculoskeletal after a fall. 2. Chronic obstructive pulmonary disease. 3. History of congestive heart failure systolic diastolic mixed. PLAN: 1. Agree with COVID screen would be appropriate, the patient has declined this. 2. May need to consider CT pulmonary angiogram if he remains hypoxemic. 3. Avoid beta blockers if he could not tolerate them. 4. Continue . 5. Continue diuretics. We will follow with you. Job ID: [id number]
[2019-10-19] MEDS: Furosemide 20 MG/2 ML VIAL SLOW IVP SCH (05:07)
[2019-10-19] MEDS: HYDROcodone/Acetaminophen 5/325 mg Tablet PO PRN ×3 (05:07→20:12)
[2019-10-19] MEDS: Mometasone 200 MCG/Formoterol 5 MCG 120 PUFF INHALER INH SCH ×2 (05:08→18:30)
[2019-10-19 05:33] LABS: #Lymphocytes 1.3 thou/uL (1.20-3.40); #Monocytes 0.8 thou/uL (0.11-0.59); #Neutrophils 8.8 thou/uL (1.40-6.50); %Basophils 0.3 % (0.0-1.0); %Eosinophils 0.3 % (0.0-10.0); %Lymphocytes 11.5 % (21.0-51.0); %Monocytes 7.6 % (0.0-10.0); %Neutrophils 80.4 % (42.0-75.0); Hemoglobin 10.8 g/dL (14.0-18.0); Mean Corpuscular HGB CONC 31.3 g/dL (32.0-36.0); Mean Corpuscular Hemoglobin 30.5 pg (27.0-31.0); Mean Corpuscular Volume 97.7 fL (78.0-98.0); Mean Platelet Volume 9.5 fL (7.4-10.4); Platelet Count 134 thou/uL (130-400); RBC Distribution Width 13.8 % (11.5-14.5); Red Blood Cell (RBC) Count 3.54 mill/uL (4.70-6.10)
[2019-10-19 06:01] LABS: Anion Gap 9 mmol/L (10-20); BUN (Urea Nitrogen) 27 mg/dL (8.4-25.7); Calc. Creatinine Clearance 59 mL/min (70-130); Calcium 8.5 mg/dL (7.8-10.44); Carbon Dioxide 27 mmol/L (23-31); Chloride 106 mmol/L (98-107); Estimated GFR-MDRD 77; Glucose 99 mg/dL (80-115); Potassium 4.1 mmol/L (3.5-5.1); Sodium 138 mmol/L (136-145)
--- NOTE | 2019-10-19 07:38 | PDOC.HOSPP ---
- Subjective Encounter Date: 10/19/19 (f/u acute resp failure) Encounter Time: 07:36 Subjective: Pt reports he is still in pain - thinks it is a little better, and breathing is a little better. He denies any new sx, n/v/abd pain - Objective Vital Signs & Weight: Vital Signs (12 hours) Temp Pulse Resp BP BP Pulse Ox 10/19/19 05:05 98.4 F 79 20 120/57 L 94 L 10/19/19 00:20 98.4 F 68 20 106/55 L 100 10/18/19 20:05 98.7 F 82 20 133/59 L 100 Weight Weight 131 lb 6.4 oz I&O: 10/18/19 10/19/19 10/20/19 06:59 06:59 06:59 Intake Total 560 Output Total 325 Balance 235 Result Diagrams: 10/19/19 05:05 10/19/19 05:05 EKG Reviewed by me: Yes (tele - sinus with int a pacing 80's) Hospitalist ROS - Medication Medications: Active Medications Generic Name Dose Route Start Last Admin Trade Name Freq PRN Reason Stop Dose Admin Hydrocodone Bitart/Acetaminophen 1 tab 10/18/19 13:45 10/18/19 18:35 [place] 5/325 PO 1 tab Q6H PRN Administration Mild-Moderate Pain (1-5) Hydrocodone Bitart/Acetaminophen 2 tab 10/18/19 13:45 10/19/19 05:07 [place] 5/325 PO 2 tab Q6H PRN Administration Moderate to Severe Pain (6-10) Clonazepam 2 mg 10/18/19 13:56 10/18/19 20:47 Klonopin PO 2 mg HS PRN Administration Insomnia Furosemide 20 mg 10/18/19 14:00 10/19/19 05:07 Lasix SLOW IVP 20 mg 0600,1400 HILARIO Administration Doxycycline Hyclate 100 mg/ 100 mls @ 0 mls/hr 10/18/19 18:00 10/19/19 05:06 Sodium Chloride IVPB 100 mls 0600,1800 HILARIO Administration Mometasone Furoate/Formoterol Fumar 2 puff 10/18/19 18:30 10/19/19 05:08 Dulera 200 Mcg/5 Mcg Inhaler INH 2 puff BID-RT HILARIO Administration Nicotine 21 mg 10/18/19 20:00 10/18/19 20:47 Nicoderm Patch TOP 21 mg Q24HR HILARIO Administration Rosuvastatin Calcium 20 mg 10/18/19 21:00 10/18/19 20:47 Crestor PO 20 mg HS HILARIO Administration Sacubitril/Valsartan 1 tab 10/18/19 21:00 10/18/19 20:47 Entresto 24 Mg-26 Mg Tablet PO 1 tab BID HILARIO Administration - Exam General Appearance: NAD General - other findings: cachectic male Respiratory: no wheezes, no rales, no ronchi Respiratory - other findings: decreased breath sounds left base, Gastrointestinal: soft, non-tender, non-distended, normal bowel sounds Extremities: no cyanosis, no clubbing, no edema Hosp A/P (1) Acute respiratory failure Code(s): J96.00 - ACUTE RESPIRATORY FAILURE, UNSP W HYPOXIA OR HYPERCAPNIA Status: Acute - Plan Acute resp failure with hypoxia - possible pneumonia, possible acute on chronic HFrEF, possible pulmonary contusion s/p fall 3 days ago - continue abx and change to oral - continue gentle diuresis - will change to once daily as pt is not overtly volume overloaded - appreciate Cardiology consult - COVID test pending - continue entresto at lower dose with hold parameters to avoid hypotension - continue incentive spirometer - ophthalmic asst consult as pt is underweight/cachectic appearing Continue home meds as ordered pt/ot dvt prophy - scd's gi prophy - not indicated code status full change to inpatient status as pt requires further evaluation and tx in the hospital - oxygen supplementation as needed, IV diuresis, and medication adjustment.
[2019-10-19] MEDS: Aspirin 81 mg Enteric Coated Tablet PO SCH (08:36)
[2019-10-19] MEDS: Clopidogrel Bisulfate 75 MG TAB PO SCH (08:36)
[2019-10-19] MEDS: Escitalopram Oxalate 10 mg Tablet PO SCH (08:36)
[2019-10-19] MEDS: Tamsulosin HCl 0.4 MG CAP PO SCH (08:36)
--- NOTE | 2019-10-19 09:31 | PRG ---
DATE OF SERVICE: SUBJECTIVE: Mr. Hawkins states he still has a lot of pain from where he fell. Breathing about the same. OBJECTIVE: VITAL SIGNS: Blood pressure 105/59, pulse 83. Physical examination deferred. Today, he is being checked for COVID. ASSESSMENT: 1. Congestive heart failure, systolic and diastolic combined, chronic. 2. Pain due to a fall, mechanical injury. 3. Chronic obstructive pulmonary disease. 4. Continued smoking. PLAN: 1. We are going to check his OptiVol to see where he stands with a heart failure standpoint. 2. COVID nasal swab is pending. Job ID: [id number]
[2019-10-19 12:46] LABS: SARS-CoV-2 MS2 Positive; SARS-CoV-2 N Gene Negative; SARS-CoV-2 S Gene Negative; SARS-CoV-2 by NAA Not Detected (NotDetected); SARS-CoV-2 orf1ab Negative
[2019-10-19] MEDS: Doxycycline 100 MG CAP PO SCH (20:13)
[2019-10-19] MEDS: clonazePAM 1 MG TAB PO PRN (20:13)
[2019-10-19] MEDS: Rosuvastatin 20 MG TAB PO SCH (20:13)
[2019-10-19] MEDS: Nicotine 21 MG PATCH TOP SCH (20:16)
[2019-10-20 04:49] LABS: #Eosinphils 0.1 thou/uL (0.0-0.7); #Lymphocytes 1.4 thou/uL (1.20-3.40); #Neutrophils 8.4 thou/uL (1.40-6.50); %Basophils 0.2 % (0.0-1.0); %Eosinophils 1.1 % (0.0-10.0); %Lymphocytes 12.8 % (21.0-51.0); %Neutrophils 76.9 % (42.0-75.0); Hemoglobin 10.6 g/dL (14.0-18.0); Mean Corpuscular HGB CONC 33.3 g/dL (32.0-36.0); Mean Corpuscular Hemoglobin 32.2 pg (27.0-31.0); Mean Corpuscular Volume 96.4 fL (78.0-98.0); Mean Platelet Volume 9.6 fL (7.4-10.4); Platelet Count 145 thou/uL (130-400); RBC Distribution Width 13.7 % (11.5-14.5); White Blood Cell (WBC) Count 10.9 thou/uL (4.8-10.8)
[2019-10-20 05:11] LABS: Anion Gap 10 mmol/L (10-20); BUN (Urea Nitrogen) 30 mg/dL (8.4-25.7); Calc. Creatinine Clearance 62 mL/min (70-130); Calcium 8.7 mg/dL (7.8-10.44); Carbon Dioxide 26 mmol/L (23-31); Chloride 105 mmol/L (98-107); Estimated GFR-MDRD 85; Glucose 111 mg/dL (80-115); Potassium 3.8 mmol/L (3.5-5.1); Sodium 137 mmol/L (136-145)
[2019-10-20] MEDS: Mometasone 200 MCG/Formoterol 5 MCG 120 PUFF INHALER INH SCH ×2 (07:23→18:59)
[2019-10-20] MEDS: Aspirin 81 mg Enteric Coated Tablet PO SCH (07:57)
[2019-10-20] MEDS: Clopidogrel Bisulfate 75 MG TAB PO SCH (07:57)
[2019-10-20] MEDS: Doxycycline 100 MG CAP PO SCH ×2 (07:57→21:06)
[2019-10-20] MEDS: Escitalopram Oxalate 10 mg Tablet PO SCH (07:57)
[2019-10-20] MEDS: Tamsulosin HCl 0.4 MG CAP PO SCH (07:57)
[2019-10-20] MEDS: HYDROcodone/Acetaminophen 5/325 mg Tablet PO PRN ×2 (07:58→18:34)
[2019-10-20] MEDS ORDERED: Furosemide 20 MG/2 ML VIAL SLOW IVP SCH (09:00)
--- NOTE | 2019-10-20 09:35 | PDOC.HOSPP ---
- Subjective Encounter Date: 10/20/19 (f/u acute resp failure) Encounter Time: 09:34 Subjective: Pt today able to work with PT - Physical therapist reports initial bp 88 systolic and asx, after ambulating bp 110's systolic. Pt c/o worsening pain. Reports no BM. Denies any n/v/abd pain. - Objective Vital Signs & Weight: Vital Signs (12 hours) Temp Pulse Resp BP Pulse Ox 10/20/19 07:47 97.4 F L 86 16 131/62 95 10/20/19 04:40 98.7 F 77 16 110/53 L 92 L 10/20/19 04:00 98.7 F 77 16 110/63 92 L 10/20/19 01:16 94 L 10/19/19 23:57 99 Weight Admit Weight 131 lb Weight 125 lb 14.4 oz I&O: 10/19/19 10/20/19 10/21/19 06:59 06:59 06:59 Intake Total 560 720 Output Total 325 Balance 235 720 Result Diagrams: 10/20/19 04:06 10/20/19 04:06 EKG Reviewed by me: Yes (tele - sinus and paced with rate 100's, 10 sec VT at 5: 28) Hospitalist ROS - Medication Medications: Active Medications Generic Name Dose Route Start Last Admin Trade Name Freq PRN Reason Stop Dose Admin Hydrocodone Bitart/Acetaminophen 1 tab 10/18/19 13:45 10/18/19 18:35 [place] 5/325 PO 1 tab Q6H PRN Administration Mild-Moderate Pain (1-5) Hydrocodone Bitart/Acetaminophen 2 tab 10/18/19 13:45 10/20/19 07:58 [place] 5/325 PO 2 tab Q6H PRN Administration Moderate to Severe Pain (6-10) Aspirin 81 mg 10/19/19 09:00 10/20/19 07:57 Ecotrin PO 81 mg DAILY HILARIO Administration Clonazepam 2 mg 10/18/19 13:56 10/19/19 20:13 Klonopin PO 2 mg HS PRN Administration Insomnia Clopidogrel Bisulfate 75 mg 10/19/19 09:00 10/20/19 07:57 Plavix PO 75 mg DAILY HILARIO Administration Doxycycline Hyclate 100 mg 10/19/19 21:00 10/20/19 07:57 Vibramycin PO 100 mg BID HILARIO Administration Escitalopram Oxalate 10 mg 10/19/19 09:00 10/20/19 07:57 Lexapro PO 10 mg DAILY HILARIO Administration Mometasone Furoate/Formoterol Fumar 2 puff 10/18/19 18:30 10/20/19 07:23 Dulera 200 Mcg/5 Mcg Inhaler INH 2 puff BID-RT HILARIO Administration Nicotine 21 mg 10/18/19 20:00 10/19/19 20:16 Nicoderm Patch TOP 21 mg Q24HR HILARIO Administration Pantoprazole Sodium 40 mg 10/19/19 09:00 10/20/19 07:57 Protonix PO 40 mg DAILY HILARIO Administration Rosuvastatin Calcium 20 mg 10/18/19 21:00 10/19/19 20:13 Crestor PO 20 mg HS HILARIO Administration Sacubitril/Valsartan 1 tab 10/18/19 21:00 10/20/19 07:58 Entresto 24 Mg-26 Mg Tablet PO 1 tab BID HILARIO Administration Tamsulosin HCl 0.4 mg 10/19/19 09:00 10/20/19 07:57 Flomax PO 0.4 mg DAILY HILARIO Administration - Exam General Appearance: NAD Heart: RRR, no murmur Heart - other findings: distant heart sounds Respiratory: no wheezes, no ronchi Respiratory - other findings: tachypneic post-ambulation with physical therapy Gastrointestinal: soft, non-tender, non-distended, normal bowel sounds Extremities: no cyanosis, no clubbing, no edema Psychiatric: normal affect Hosp A/P (1) CHF (congestive heart failure) Code(s): I50.9 - HEART FAILURE, UNSPECIFIED Status: Suspected Qualifiers: Heart failure type: combined systolic and diastolic Heart failure chronicity: acute Qualified Code(s): I50.41 - Acute combined systolic ( congestive) and diastolic (congestive) heart failure (2) Acute respiratory failure Code(s): J96.00 - ACUTE RESPIRATORY FAILURE, UNSP W HYPOXIA OR HYPERCAPNIA Status: Acute Qualifiers: Respiratory failure complication: hypoxia Qualified Code(s): J96.01 - Acute respiratory failure with hypoxia (3) CAD (coronary artery disease) Code(s): I25.10 - ATHSCL HEART DISEASE OF [place] CORONARY ARTERY W/O ANG PCTRS Status: Chronic Qualifiers: Coronary Disease-Associated Artery/Lesion type: bypass graft [place] vs. transplanted heart: [place] heart Associated angina: without angina Qualified Code(s): I25.810 - Atherosclerosis of coronary artery bypass graft(s) without angina pectoris (4) COPD (chronic obstructive pulmonary disease) Status: Chronic Qualifiers: COPD type: chronic bronchitis (5) Dyslipidemia Code(s): E78.5 - HYPERLIPIDEMIA, UNSPECIFIED Status: Chronic (6) HTN (hypertension) Code(s): I10 - ESSENTIAL (PRIMARY) HYPERTENSION Status: Chronic Qualifiers: Hypertension type: essential hypertension Qualified Code(s): I10 - Essential (primary) hypertension (7) Tobacco abuse Code(s): Z72.0 - TOBACCO USE Status: Chronic - Plan Acute resp failure with hypoxia - possible pneumonia, possible acute on chronic HFrEF, possible pulmonary contusion s/p fall 4 days ago - - appreciate Cardiology consult - day 2 of 5 doxycycline - pt has been diuresed with IV lasix - d/w Cardiology - continues to have a lot of pulmonary edema. Will increase lasix to 20 mg IV BID-diuretic to see if we can improve his breathing. - continue entresto at lower dose with hold parameters to avoid more significant hypotension - continue incentive spirometer - VT on monitor - has AICD Continue home meds as ordered pt/ot Incentive spirometer dvt prophy - scd's gi prophy - not indicated code status full Home - pt with weakness, pain that is not optimally controlled. Await Cardiology recommendations, anticipate he will benefit from another 1-2 days of working with PT here. Consider home health.
--- NOTE | 2019-10-20 12:29 | PDOC.CPN ---
- Subjective Date: 10/20/19 Time: 10:00 Interval history: Patient seen and examined by me. States he is feeling a little bit stronger today. Continues to describe rib pain from his fall, no fractures seen. COVID screen negative. He denies chest pain or tightness. On RA currently, describes some SOB with exertion. Noted with productive cough. Telemetry reviewed, no overnight events. - Review of Systems General: denies: fever/chills, weight/appetite/sleep changes, night sweats, fatigue Respiratory: reports: cough, congestion, shortness of breath (with exertion), exercise intolerance Cardiovascular: denies: chest pain, palpitation, edema, paroxysmal nocturnal dyspnea, orthopnea Gastrointestinal: denies: nausea, vomiting, diarrhea, constipation, abd pain, GI bleeding - Objective Allergies/Adverse Reactions: Allergies Allergy/AdvReac Type Severity Reaction Status Date / Time Penicillins Allergy Intermediate Rash Verified 10/18/19 16:59 adhesive Allergy Verified 10/18/19 16:59 Visit Medications: Current Medications Acetaminophen (Tylenol) 650 mg PO Q4H PRN PRN Reason: Headache/Fever/Mild Pain (1-3) Hydrocodone Bitart/Acetaminophen ([place] 5/325) 1 tab PO Q6H PRN PRN Reason: Mild-Moderate Pain (1-5) Last Admin: 10/18/19 18:35 Dose: 1 tab Hydrocodone Bitart/Acetaminophen ([place] 5/325) 2 tab PO Q6H PRN PRN Reason: Moderate to Severe Pain (6-10) Last Admin: 10/20/19 07:58 Dose: 2 tab Albuterol/Ipratropium (Duoneb) 3 ml NEB [id number] PRN PRN Reason: SOB &/or Wheezing Aspirin (Ecotrin) 81 mg PO DAILY [facility] Last Admin: 10/20/19 07:57 Dose: 81 mg Clonazepam (Klonopin) 2 mg PO HS PRN PRN Reason: Insomnia Last Admin: 10/19/19 20:13 Dose: 2 mg Clopidogrel Bisulfate (Plavix) 75 mg PO DAILY [facility] Last Admin: 10/20/19 07:57 Dose: 75 mg Doxycycline Hyclate (Vibramycin) 100 mg PO BID [facility] Last Admin: 10/20/19 07:57 Dose: 100 mg Escitalopram Oxalate (Lexapro) 10 mg PO DAILY [facility] Last Admin: 10/20/19 07:57 Dose: 10 mg Furosemide (Lasix) 20 mg SLOW IVP 0600,1400 [facility] Melatonin (Melatonin) 3 mg PO HS PRN PRN Reason: Insomnia Mometasone Furoate/Formoterol Fumar (Dulera 200 Mcg/5 Mcg Inhaler) 2 puff INH BID-RT [facility] Last Admin: 10/20/19 07:23 Dose: 2 puff Nicotine (Nicoderm Patch) 21 mg TOP Q24HR [facility] Last Admin: 10/19/19 20:16 Dose: 21 mg Pantoprazole Sodium (Protonix) 40 mg PO DAILY [facility] Last Admin: 10/20/19 07:57 Dose: 40 mg Rosuvastatin Calcium (Crestor) 20 mg PO HS [facility] Last Admin: 10/19/19 20:13 Dose: 20 mg Sacubitril/Valsartan (Entresto 24 Mg-26 Mg Tablet) 1 tab PO BID [facility] Last Admin: 10/20/19 07:58 Dose: 1 tab Senna/Docusate Sodium (Senokot S) 2 tab PO BIDPRN PRN PRN Reason: Constipation Tamsulosin HCl (Flomax) 0.4 mg PO DAILY [facility] Last Admin: 10/20/19 07:57 Dose: 0.4 mg Vital Signs & Weight: Vital Signs Temp Pulse Pulse Pulse Resp BP BP 10/20/19 08:59 87 113 H 88/54 L 117/52 L 10/20/19 07:47 97.4 F L 86 16 10/20/19 04:40 98.7 F 77 16 10/20/19 04:00 98.7 F 77 16 10/20/19 01:16 BP Pulse Ox 10/20/19 08:59 10/20/19 07:47 131/62 95 10/20/19 04:40 110/53 L 92 L 10/20/19 04:00 110/63 92 L 10/20/19 01:16 94 L Admit Weight 131 lb Weight 125 lb 14.4 oz - CHADS-VASc Congestive heart failure: 1 Hypertension: 1 Age 65-74: 1 Vascular disease: 1 Risk Score: 4 - Quality Measures Condition: Atrial Fibrillation/Flutter (hx or current) CV meds: Beta Julia: No, KEYANA/ARB: Yes, Statin: Yes, ASA: Yes, Plavix/Effient/ Brilinta: No, Anticoagulant: No - Medication Contraindications No Beta Julia reason: Medical contraindication - Physical Exam General: no apparent distress, cachectic HEENT: mucus membranes moist Neck: supple neck, no JVD/HJR Cardiac: regular rate and rhythm, no murmur, S1/S2 Lungs: normal breath sounds, normal exam, no wheeze, rales, rhonchi Neuro: grossly intact Abdomen: active bowel sounds, soft, non-tender Extremities: no cyanosis, no clubbing, no edema - Labs Result Diagrams: 10/20/19 04:06 10/20/19 04:06 Troponin/CKMB Troponin I 0.015 ng/mL (< 0.028) 10/18/19 16:20 - Telemetry Sinus rhythms and dysrhythmias: sinus rhythm - Assessment/Plan Assessment/Plan: Assessment: 1. Acute on chronic combined systolic & diastolic HF 2. COPD 3. Continued Tobacco Abuse 4. Nonsustained VT 5. AICD 6. Mechanical Fall 7. Paroxysmal AFib-low burden per ICD interrogation, no OAC indicated Plan: ICD interrogated, Optivol remains persistently elevated at 200, thoracic impedance well below baseline. Noted with nonsustained VT, not new. Continue diuresis with IV furosemide, will increase to BID, BP stable, creatinine stable. Will increase LRL on ICD to 80 BPM, hopefully, can increase his cardiac output, it has become more and more difficult to control his symptoms over the last 6 months, more refractory to medications. Would recommend placement for deconditioning prior to discharge home. I called Alaina Hawkins, patient's spouse, and updated her on his condition. Discussed and reviewed plan with Dr. Tripp, he agrees with POC.
[2019-10-20] MEDS: Acetaminophen 325 MG TAB PO PRN (14:40)
[2019-10-20] MEDS: Furosemide 20 MG/2 ML VIAL SLOW IVP SCH (14:41)
--- NOTE | 2019-10-20 17:18 | RAD ---
RIGHT KNEE FOUR VIEWS: History: Knee pain status post fall. FINDINGS: An SFA stent is noted. Surgical clips are seen along the medial aspect of the knee. Vascular calcific ations are noted. Mild arthritic changes of the knee are seen. No fractures. IMPRESSION: No evidence of fracture. No joint effusion. POS: LAUREN
[2019-10-20] MEDS: Rosuvastatin 20 MG TAB PO SCH (21:06)
[2019-10-20] MEDS: Nicotine 21 MG PATCH TOP SCH (21:06)
[2019-10-20] MEDS: clonazePAM 1 MG TAB PO PRN (21:10)
[2019-10-21 04:20] LABS: Anion Gap 11 mmol/L (10-20); BUN (Urea Nitrogen) 28 mg/dL (8.4-25.7); Calc. Creatinine Clearance 65 mL/min (70-130); Calcium 9.2 mg/dL (7.8-10.44); Carbon Dioxide 27 mmol/L (23-31); Chloride 105 mmol/L (98-107); Estimated GFR-MDRD 89; Glucose 106 mg/dL (80-115); Potassium 3.5 mmol/L (3.5-5.1); Sodium 139 mmol/L (136-145)
[2019-10-21] MEDS: Furosemide 20 MG/2 ML VIAL SLOW IVP SCH ×2 (05:18→13:32)
[2019-10-21] MEDS: HYDROcodone/Acetaminophen 5/325 mg Tablet PO PRN ×2 (05:23→10:41)
[2019-10-21] MEDS: Mometasone 200 MCG/Formoterol 5 MCG 120 PUFF INHALER INH SCH ×2 (07:29→18:25)
--- NOTE | 2019-10-21 08:21 | PRG ---
DATE OF SERVICE: 10/21/2019 SUBJECTIVE: Mr. Hawkins is breathing better. He still has musculoskeletal chest pain. OBJECTIVE: VITAL SIGNS: Blood pressure 154/88. Pulse, it is 90, it is sinus, atrial paced rhythm with frequent PACs. LUNGS: Clear. CARDIAC: Normal S1. Normal S2. Echocardiogram showed the ejection fraction is only mildly diminished in terms of left ventricular ejection fraction of 40% to 45%. ASSESSMENT: Congestive heart failure, systolic and diastolic mixed, mostly diastolic. Clinically, it has improved, but the OptiVol is still very high indicating still has pulmonary congestion. The I and O do not seem to be accurate. According to 131 pounds to 117. PLAN: Okay released home. Resume torsemide 20 mg twice a day. Resume Entresto reduced dose to 49/51 twice a day. Okay to me to be released. Job ID: [id number]
[2019-10-21] MEDS: Clopidogrel Bisulfate 75 MG TAB PO SCH (08:59)
[2019-10-21] MEDS: Doxycycline 100 MG CAP PO SCH ×2 (08:59→21:39)
[2019-10-21] MEDS: Aspirin 81 mg Enteric Coated Tablet PO SCH (08:59)
[2019-10-21] MEDS: Tamsulosin HCl 0.4 MG CAP PO SCH (09:00)
[2019-10-21] MEDS ORDERED: Torsemide 20 MG TAB PO SCH (09:00)
[2019-10-21] MEDS: Escitalopram Oxalate 10 mg Tablet PO SCH (09:00)
--- NOTE | 2019-10-21 12:00 | PDOC.HOSPP ---
- Subjective Encounter Date: 10/21/19 (f/u HF) Encounter Time: 11:58 Subjective: Mr. Hawkins was admitted a few days ago for acute resp failure with hypoxia. He has a hx of advanced systolic and diastolic heart failure. He had fallen and was seen in the ER for chest wall pain, and discharged home. He returned with worsening pain. Since admission he was covered with antibiotics in case of pneumonia. He also has been treated for heart failure, as his AICD demonstrates volume overload. Pt reports increased cough that started yesterday. States pain is controlled. Nursing staff noticing that he is very weak and requires assistance with eating. No overnight events. - Objective Vital Signs & Weight: Vital Signs (12 hours) Temp Pulse Resp BP Pulse Ox 10/21/19 11:39 99.7 F H 84 20 130/61 95 10/21/19 08:52 98.9 F 80 18 139/65 94 L 10/21/19 07:29 102 H 20 10/21/19 05:10 99.7 F H 89 20 154/88 H 93 L 10/21/19 00:38 95 Weight Admit Weight 131 lb Weight 117 lb 9.6 oz I&O: 10/20/19 10/21/19 10/22/19 06:59 06:59 06:59 Intake Total 720 360 Output Total 350 Balance 720 10 Result Diagrams: 10/20/19 04:06 10/21/19 03:51 EKG Reviewed by me: Yes (tele - paced and sinus with pac's, rate 90-100) Hospitalist ROS - Medication Medications: Active Medications Generic Name Dose Route Start Last Admin Trade Name [place]aliq PRN Reason Stop Dose Admin Acetaminophen 650 mg 10/18/19 13:45 10/20/19 14:40 Tylenol PO 650 mg Q4H PRN Administration Headache/Fever/Mild Pain (1-3) Hydrocodone Bitart/Acetaminophen 1 tab 10/18/19 13:45 10/21/19 10:41 [place] 5/325 PO 1 tab Q6H PRN Administration Mild-Moderate Pain (1-5) Hydrocodone Bitart/Acetaminophen 2 tab 10/18/19 13:45 10/20/19 07:58 [place] 5/325 PO 2 tab Q6H PRN Administration Moderate to Severe Pain (6-10) Aspirin 81 mg 10/19/19 09:00 10/21/19 08:59 Ecotrin PO 81 mg DAILY HILARIO Administration Clonazepam 2 mg 10/18/19 13:56 10/20/19 21:10 Klonopin PO 2 mg HS PRN Administration Insomnia Clopidogrel Bisulfate 75 mg 10/19/19 09:00 10/21/19 08:59 Plavix PO 75 mg DAILY HILARIO Administration Doxycycline Hyclate 100 mg 10/19/19 21:00 10/21/19 08:59 Vibramycin PO 100 mg BID HILARIO Administration Escitalopram Oxalate 10 mg 10/19/19 09:00 10/21/19 09:00 Lexapro PO 10 mg DAILY HILARIO Administration Furosemide 20 mg 10/20/19 14:00 10/21/19 05:18 Lasix SLOW IVP 20 mg 0600,1400 HILARIO Administration Mometasone Furoate/Formoterol Fumar 2 puff 10/18/19 18:30 10/21/19 07:29 Dulera 200 Mcg/5 Mcg Inhaler INH 2 puff BID-RT HILARIO Administration Nicotine 21 mg 10/18/19 20:00 10/20/19 21:06 Nicoderm Patch TOP 21 mg Q24HR HILARIO Administration Pantoprazole Sodium 40 mg 10/19/19 09:00 10/21/19 09:00 Protonix PO 40 mg DAILY HILARIO Administration Rosuvastatin Calcium 20 mg 10/18/19 21:00 10/20/19 21:06 Crestor PO 20 mg HS HILARIO Administration Senna/Docusate Sodium 2 tab 10/18/19 13:45 10/20/19 14:40 Senokot S PO 2 tab BIDPRN PRN Administration Constipation Tamsulosin HCl 0.4 mg 10/19/19 09:00 10/21/19 09:00 Flomax PO 0.4 mg DAILY HILARIO Administration - Exam General Appearance: NAD Heart: RRR, no murmur Respiratory - other findings: decreased breath sounds at left base, no audible wheezing/rhonchi/rales Gastrointestinal: soft, non-tender, non-distended, normal bowel sounds Psychiatric: normal affect Hosp A/P (1) CHF (congestive heart failure) Code(s): I50.9 - HEART FAILURE, UNSPECIFIED Status: Suspected Qualifiers: Heart failure type: combined systolic and diastolic Heart failure chronicity: acute Qualified Code(s): I50.41 - Acute combined systolic ( congestive) and diastolic (congestive) heart failure (2) Acute respiratory failure Code(s): J96.00 - ACUTE RESPIRATORY FAILURE, UNSP W HYPOXIA OR HYPERCAPNIA Status: Acute Qualifiers: Respiratory failure complication: hypoxia Qualified Code(s): J96.01 - Acute respiratory failure with hypoxia (3) CAD (coronary artery disease) Code(s): I25.10 - ATHSCL HEART DISEASE OF [place] CORONARY ARTERY W/O ANG PCTRS Status: Chronic Qualifiers: Coronary Disease-Associated Artery/Lesion type: bypass graft [place] vs. transplanted heart: [place] heart Associated angina: without angina Qualified Code(s): I25.810 - Atherosclerosis of coronary artery bypass graft(s) without angina pectoris (4) COPD (chronic obstructive pulmonary disease) Status: Chronic Qualifiers: COPD type: chronic bronchitis (5) Dyslipidemia Code(s): E78.5 - HYPERLIPIDEMIA, UNSPECIFIED Status: Chronic (6) HTN (hypertension) Code(s): I10 - ESSENTIAL (PRIMARY) HYPERTENSION Status: Chronic Qualifiers: Hypertension type: essential hypertension Qualified Code(s): I10 - Essential (primary) hypertension (7) Tobacco abuse Code(s): Z72.0 - TOBACCO USE Status: Chronic - Plan Acute resp failure with hypoxia - possible pneumonia, acute on chronic HFrEF, possible pulmonary contusion s/p fall 5 days ago Cardiology consulting - appreciate recommendations, pt has been diuresed with IV lasix. Change to torsemide at home dosing. Pt with end-stage heart failure. - day 3 of 5 doxycycline - continue entresto at lower dose with hold parameters - continue incentive spirometer - VT on monitor yesterday - has AICD Continue home meds as ordered pt/ot - pt with significant weakness requiring a lot of support. d/w patient - he desires to return home, d/w on speaker phone with him - she is concerned about him returning home and falling, and I am too. Will place CM consult to discuss with both transitional care such as SNF. Incentive spirometer dvt prophy - scd's gi prophy - not indicated code status full Pt has been medically stabilized, to continue with pt/ot, and ready for discharge planning. I recommend SNF due to significant weakness. No questions at end of evaluation of patient/discussion with patient's by phone, they demonstrate understanding and agree.
[2019-10-21] MEDS: Nicotine 21 MG PATCH TOP SCH (21:38)
[2019-10-21] MEDS: Rosuvastatin 20 MG TAB PO SCH (21:39)
[2019-10-21] MEDS: Acetaminophen 325 MG TAB PO PRN (21:39)
[2019-10-21] MEDS: clonazePAM 1 MG TAB PO PRN (21:39)
[2019-10-22 04:48] LABS: Anion Gap 13 mmol/L (10-20); BUN (Urea Nitrogen) 26 mg/dL (8.4-25.7); Calc. Creatinine Clearance 59 mL/min (70-130); Calcium 9.1 mg/dL (7.8-10.44); Carbon Dioxide 25 mmol/L (23-31); Chloride 106 mmol/L (98-107); Estimated GFR-MDRD 86; Glucose 121 mg/dL (80-115); Potassium 3.2 mmol/L (3.5-5.1); Sodium 141 mmol/L (136-145)
[2019-10-22] MEDS: Mometasone 200 MCG/Formoterol 5 MCG 120 PUFF INHALER INH SCH (06:58)
[2019-10-22] MEDS: Clopidogrel Bisulfate 75 MG TAB PO SCH (08:35)
[2019-10-22] MEDS: Tamsulosin HCl 0.4 MG CAP PO SCH (08:35)
[2019-10-22] MEDS: Torsemide 20 MG TAB PO SCH ×2 (08:35→13:08)
[2019-10-22] MEDS: Aspirin 81 mg Enteric Coated Tablet PO SCH (08:35)
[2019-10-22] MEDS: Doxycycline 100 MG CAP PO SCH (08:35)
[2019-10-22] MEDS: Escitalopram Oxalate 10 mg Tablet PO SCH (08:35)
--- NOTE | 2019-10-22 09:33 | PRG ---
DATE OF SERVICE: 10/22/2019 SUBJECTIVE: Mr. Hawkins just feels very weak. He is not having shortness of breath. He is not having chest pain. OBJECTIVE: VITAL SIGNS: Blood pressure 144/71, pulse 80. He has an occasional episode of what looks like supraventricular rhythm. ASSESSMENT: Congestive heart failure, systolic and diastolic combined, appears adequately compensated. PLAN: 1. We will add low-dose beta [place]. 2. Awaiting placement. Job ID: [id number]
[2019-10-22] MEDS ORDERED: Potassium Chloride 20 MEQ TAB PO SCH (12:45)
[2019-10-22 15:50] VITALS: BP 133/70; TEMP 97.5
--- NOTE | 2019-10-23 03:22 | DIS ---
DATE OF ADMISSION: 10/18/2019 DATE OF DISCHARGE: 10/22/2019 DISCHARGE DIAGNOSES: 1. Chest pain, status post fall. 2. [id number] combined systolic and diastolic congestive heart failure. 3. Acute respiratory failure with hypoxia. 4. Coronary artery disease. 5. Chronic obstructive pulmonary disease. 6. Dyslipidemia. 7. Hypertension. 8. Tobacco abuse. DISCHARGE MEDICATIONS: 1. Aspirin 81 mg orally daily. 2. Clonazepam 1.5 mg orally nightly. 3. Clopidogrel 75 mg orally daily. 4. Citalopram 10 mg orally daily. 5. Esomeprazole 40 mg orally daily. 6. DuoNeb 3 mL nebulized q.6 hours as needed for shortness of breath or wheezing. 7. Melatonin 3 mg orally nightly. 8. Mometasone/formoterol 2 puffs inhaled b.i.d. 9. Rosuvastatin 20 mg orally nightly. 10. Entresto 97 mg/103 mg 1 tablet orally twice daily. 11. Tamsulosin 0.4 mg orally daily. 12. Tylenol No. 3 one tablet orally q.6 hours as needed for pain. 13. Clonidine 0.1 mg orally as needed for systolic blood pressure greater than 180. 14. Torsemide 20 mg orally twice daily. HISTORY OF PRESENT ILLNESS AND HOSPITAL COURSE: The patient is a 69-year-old gentleman with history of coronary artery disease, congestive heart failure, and COPD in addition to bladder cancer, who was brought to the emergency department due to worsening chest pain. The patient reported a mechanical fall 2 days prior to admission, landing on his left arm and left chest. His pain was localized to that area. He was also found to be somewhat hypoxic in the ER. Images studies revealed some evidence of pulmonary edema. The patient was admitted to the hospital and Cardiology consult was obtained. He was managed with diuresis in addition to antibiotics, which were started empirically until pneumonia was ruled out. COVID-19 PCR test was done and results were unremarkable. The patient's respiratory status has improved; however, he was found to be profoundly weak and upon assessment by Physical Therapy, stent placement was recommended. This was discussed with the patient and his family. The patient was understanding of his current weak status, but still insisted on being discharged home. He did not object to outpatient physical therapy. This will be arranged prior to discharge. Job ID: [id number]
== END 2019-10-22 17:15 | disposition home or self-care (01) | DRG 291 ==
LOC: ERS 09:28 → OBSVTOIN 13:00 → 2SW 13:00 → 2NO 10-19 16:45
PROVIDERS: ADMIT Family Medicine; ATTEND Family Medicine
DX: I11.0 Hypertensive heart disease with heart failure (principal); J96.01 Acute respiratory failure with hypoxia; I47.2 Ventricular tachycardia; R07.89 Other chest pain; I50.43 Acute on chronic combined systolic (congestive) and diastolic (congestive) heart failure; I25.10 Atherosclerotic heart disease of native coronary artery without angina pectoris; J44.9 Chronic obstructive pulmonary disease, unspecified; F41.9 Anxiety disorder, unspecified; E78.00 Pure hypercholesterolemia, unspecified; Z20.828 Contact with and (suspected) exposure to other viral communicable diseases; I73.9 Peripheral vascular disease, unspecified; F17.210 Nicotine dependence, cigarettes, uncomplicated; F32.9 Major depressive disorder, single episode, unspecified; N40.0 Benign prostatic hyperplasia without lower urinary tract symptoms; I48.0 Paroxysmal atrial fibrillation; E78.5 Hyperlipidemia, unspecified; Z85.51 Personal history of malignant neoplasm of bladder; Z95.5 Presence of coronary angioplasty implant and graft; Z95.1 Presence of aortocoronary bypass graft; Z91.81 History of falling; Z88.0 Allergy status to penicillin; Z88.8 Allergy status to other drugs, medicaments and biological substances
CPT/HCPCS: 36415; 71045; 71250; 80048; 80053; 81003; 81015; 82550; 83605; 83735; 83880; 84484; 85025; 87040; 87635; 93005; 93306; 94760; 96361; 96365; 96366; 96374; 96375; 96376; 97139; G0378; J1940; J2270; J2405; J3010; J3490; U0003

== ENCOUNTER 2019-12-30 16:55 | Emergency (ER) | payer BC, MEDICARE ==
--- NOTE | 2019-12-30 17:33 | CT ---
BRAIN CT WITHOUT IV CONTRAST: History: Injury from a fall. FINDINGS: There is a prominent left frontal scalp hematoma. There is bilateral atrophy and chronic white matter ischemic change. There is no focal mass or midline shift. No intra or extraaxial hemorrhage. IMPRESSION: Left frontal scalp hematoma. No mass or hemorrhage. Atrophy and chronic white matter ischemic changes , stable. POS: RRE
--- NOTE | 2019-12-30 17:59 | CT ---
CERVICAL SPINE CT SCAN WITHOUT IV CONTRAST: History: Injury from trauma. FINDINGS: Anterior cervical fusion changes at C4, C5, and C6 as well as fusion changes at C5-6 and facet prosth esis bilaterally at C4-5 and C5-6. Multilevel lateral recess and foraminal stenotic changes. Prominent carotid artery vascular calcifica tions. [place] nodule in the left upper lobe measuring approximately 0.7 x 1.2 cm which is little randhawa ged from a prior CT scan of 10-18-2019. IMPRESSION: No evidence for acute fracture or dislocation. Extensive post operative change. Other findings as abo ve. POS: RRE
--- NOTE | 2019-12-30 18:03 | CT ---
FACIAL BONE CT SCAN WITHOUT IV CONTRAST: History: Injury from a trip and fall. Left frontal scalp hematoma. FINDINGS: There is some left sided nasoseptal deviation with some minimal sinus mucosal thickening. No evidence for air fluid level within the sinuses. No evidence for acute facial fracture or dislocation. The ma ndible appears intact. Zygomatic arches are intact. Visualized orbits appear unremarkable. Left front al scalp hematoma. IMPRESSION: Left frontal scalp hematoma. Mild sinus mucosal congestion. Left sided nasoseptal deviation anteriorly. No evidence for acute facial bone fracture. POS: RRE
[2019-12-30 18:20] LABS: #Basophils 0.1 thou/uL (0.0-0.2); #Eosinphils 0.3 thou/uL (0.0-0.7); #Lymphocytes 2.1 thou/uL (1.20-3.40); #Monocytes 0.5 thou/uL (0.11-0.59); #Neutrophils 4.1 thou/uL (1.40-6.50); %Basophils 0.8 % (0.0-1.0); %Eosinophils 3.6 % (0.0-10.0); %Lymphocytes 29.4 % (21.0-51.0); %Monocytes 7.6 % (0.0-10.0); %Neutrophils 58.6 % (42.0-75.0); Hemoglobin 11.5 g/dL (14.0-18.0); Mean Corpuscular HGB CONC 32.1 g/dL (32.0-36.0); Mean Corpuscular Hemoglobin 30.8 pg (27.0-31.0); Mean Corpuscular Volume 96.1 fL (78.0-98.0); Platelet Count 240 thou/uL (130-400); RBC Distribution Width 14.3 % (11.5-14.5); Red Blood Cell (RBC) Count 3.73 mill/uL (4.70-6.10); White Blood Cell (WBC) Count 7.1 thou/uL (4.8-10.8)
[2019-12-30 18:25] LABS: INR-International Normal Ratio 1.1; PTT 30.6 sec (22.9-36.1); Prothrombin Time 14.3 sec (12.0-14.7)
[2019-12-30 18:41] LABS: ALT (SGPT) 9 U/L (8-55); AST (SGOT) 19 U/L (5-34); Albumin 3.2 g/dL (3.4-4.8); Alkaline Phosphatase 133 U/L (40-110); Anion Gap 14 mmol/L (10-20); BUN (Urea Nitrogen) 17 mg/dL (8.4-25.7); Bilirubin, Total 0.4 mg/dL (0.2-1.2); Calc. Creatinine Clearance 0 mL/min (70-130); Calcium 8.5 mg/dL (7.8-10.44); Carbon Dioxide 23 mmol/L (23-31); Chloride 108 mmol/L (98-107); Estimated GFR-MDRD 76; Globulin 4.2 g/dL (2.4-3.5); Glucose 103 mg/dL (80-115); Potassium 4.5 mmol/L (3.5-5.1); Protein, Total 7.4 g/dL (5.8-8.1); Sodium 140 mmol/L (136-145)
[2019-12-30] MEDS ORDERED: Boostrix 0.5 ML VIAL ONE (20:16)
== END 2019-12-30 20:36 | disposition home or self-care (01) ==
LOC: ERS 16:55
DX: S00.93XA Contusion of unspecified part of head, initial encounter (principal); I50.9 Heart failure, unspecified; J44.9 Chronic obstructive pulmonary disease, unspecified; F17.210 Nicotine dependence, cigarettes, uncomplicated; Z79.82 Long term (current) use of aspirin; Z79.899 Other long term (current) drug therapy; W01.10XA Fall on same level from slipping, tripping and stumbling with subsequent striking against unspecified object, initial encounter
CPT/HCPCS: 36415; 70450; 70486; 72125; 80053; 85025; 85610; 85730; 90715

== ENCOUNTER 2020-02-03 10:38 | Outpatient (CLI) | payer BC, MEDICARE ==
--- NOTE | 2020-02-03 11:52 | CT ---
CT Abdomen Pelvis W WO con History: Hematuria. Bladder cancer. Comparison: CT examination 04/22/2019. CT abdomen pelvis with and without contrast January 25, 2019. Findings: Abnormal scarring both lung bases. Moderate left pleural effusion with abnormal parenchymal enhancement. There is also a triangular-shaped peripheral enhancing likely scar tissue left lung base at the area of prior infection seen on October 18, 2019. Infrarenal abdominal aortic ectasia is similar. No aneurysmal dilatation. On the delayed phase contrast sequence no definite filling defect seen within the urinary bladder as was seen on the 2019 exam. No nephroureterolithiasis or hydroureteronephrosis. Simple cysts interpolar right kidney. No filling defects within the renal calyces, pelvis, nor ureters. No dilated loops of large or small bowel. No hepatic mass. Simple cyst hepatic segment 5. Spleen is unremarkable. Main pancreatic duct size upper limits of normal, although unchanged. No intrahepatic or extra hepatic biliary dilatation. Posterior spinal fusion hardware L4/L5. No suspicious osteolytic or osteoblastic lesion. Impression: 1. No significant mass is appreciated remaining within the urinary bladder. 2. Irregular shaped opacities in the both lower lobes may be sequelae of scar from prior infection al though there is a left layering pleural effusion with abnormal parenchymal enhancement. CT chest with contrast recommended. Thoracentesis with cytology may be beneficial. 3. No evidence for pelvic adenopathy. 4. Prostatomegaly. 5. No evidence for obstructive uropathy.
== END 2020-02-03 10:39 | disposition home or self-care (01) ==
LOC: BICCT 10:38
PROVIDERS: ATTEND Urology
DX: C67.0 Malignant neoplasm of trigone of bladder (principal); J90 Pleural effusion, not elsewhere classified; R91.8 Other nonspecific abnormal finding of lung field; N40.0 Benign prostatic hyperplasia without lower urinary tract symptoms
CPT/HCPCS: 74178; 82565; Q9967

== ENCOUNTER 2020-02-26 08:19 | Outpatient (CLI) | payer BC, MEDICARE ==
--- NOTE | 2020-02-26 09:27 | CT ---
CT OF THE THORAX WITHOUT IV CONTRAST INDICATION: Follow-up pulmonary nodule. COMPARISON: Prior CT of the thorax without contrast dated October 18, [address] the chest, abdomen a nd pelvis dated December 20, 2018. FINDINGS: LUNGS: The spiculated pulmonary nodule within the left upper lobe measures 1.1 x 0.5 cm on image 28 o f series 3 where previously this pulmonary nodule measured approximately 1.1 to 1.2 cm in its greatest dimension on the prior exam. This lesion is stable to comparison CT the chest dated 9 but is new to a CT of the thorax dated 08/14/2013. The pleural-based nodularity affecting both hemithoraces are largely stable. No new suspicious pulmonary nodule is evident. Areas of scarring and subsegmental volume loss are stable within both lower lobes. There is improved aeration of the posterior right and left lower lobe which may reflect resolved pneumonia or edema. Pleural spaces: The tiny right and small left pleural effusion persists. Lymph nodes: No pathologically enlarged lymph nodes. Heart and great vessels: There is postsurgical change of an aortic valvular replacement. There is sev ere calcifications involving the thoracic aorta and coronary arteries. There is a dual-lead pacemaker overlying the left chest wall. Upper abdomen: Visualized aspects of the upper abdomen appear within normal limits. Osseous structures: There is scattered degenerative and osteoarthritic change present. No acute fract ure or subluxation demonstrated. IMPRESSION: 1. Stable left upper lobe pulmonary nodule. Continued CT follow-up is recommended. 2. Stable pleural-based nodularity involving both hemithoraces. Continued CT follow-up is recommended . 3. Stable small left and tiny right pleural effusions. 4. Resolved airspace disease involving both posterior lower lobe suspicious for either edema or pneum onia. 5. Stable chronic findings as above.
== END 2020-02-26 08:20 | disposition home or self-care (01) ==
LOC: BICCT 08:19
PROVIDERS: ATTEND Internal Medicine Critical Care Medicine
DX: R91.1 Solitary pulmonary nodule (principal); J44.9 Chronic obstructive pulmonary disease, unspecified; R91.8 Other nonspecific abnormal finding of lung field; J90 Pleural effusion, not elsewhere classified; Z95.2 Presence of prosthetic heart valve; I70.0 Atherosclerosis of aorta; I25.10 Atherosclerotic heart disease of native coronary artery without angina pectoris; Z95.0 Presence of cardiac pacemaker; M19.90 Unspecified osteoarthritis, unspecified site
CPT/HCPCS: 71250; 87086; 88112

== ENCOUNTER 2020-05-20 10:26 | Emergency (ER) | payer BC, MEDICARE ==
[2020-05-20 11:00] LABS: Bacteria/HPF None Seen HPF (None Seen); Bilirubin Negative (Negative); Blood, Urine Trace (Negative); Clarity Turbid (Clear); Glucose, Urine (Dipstick) Normal (Negative); Ketone, Urine Negative (Negative); Leukocyte 500 Leu/uL (Negative); Nitrite Negative (Negative); Protein, Urine (Dipstick) 100 mg/dL (Neg-Trace); RBC/HPF 0-3 HPF (0-3); Specific Gravity, Urine 1.021 (1.002-1.036); Squamous Epithelial None Seen HPF (0-3); Urobilinogen Normal mg/dL (Less than 2); WBC/HPF Greater than 50 HPF (0-3)
--- NOTE | 2020-05-20 11:16 | RAD ---
EXAM: Single view of the chest HISTORY: Fever COMPARISON: 10/18/2019 FINDINGS: Single view of the chest shows a normal sized cardiomediastinal silhouette. The patient is status post CABG and aortic valve repair. The pacemaker is unchanged in position. There is no evidence of consolidation, mass, or pleural effusion. No acute osseous abnormality. IMPRESSION: No evidence of acute cardiopulmonary disease
[2020-05-20 11:42] LABS: #Basophils 0.1 thou/uL (0.0-0.2); #Eosinphils 0.6 thou/uL (0.0-0.7); #Lymphocytes 2.2 thou/uL (1.20-3.40); #Monocytes 0.6 thou/uL (0.11-0.59); #Neutrophils 5.1 thou/uL (1.40-6.50); %Basophils 0.8 % (0.0-1.0); %Eosinophils 7.1 % (0.0-10.0); %Lymphocytes 25.6 % (21.0-51.0); %Monocytes 7.1 % (0.0-10.0); %Neutrophils 59.3 % (42.0-75.0); Hemoglobin 12.5 g/dL (14.0-18.0); Mean Corpuscular HGB CONC 32.8 g/dL (32.0-36.0); Mean Corpuscular Hemoglobin 30.9 pg (27.0-31.0); Mean Platelet Volume 8.5 fL (7.4-10.4); Platelet Count 173 thou/uL (130-400); RBC Distribution Width 14.4 % (11.5-14.5); Red Blood Cell (RBC) Count 4.03 mill/uL (4.70-6.10); White Blood Cell (WBC) Count 8.6 thou/uL (4.8-10.8)
[2020-05-20 12:06] LABS: ALT (SGPT) 12 U/L (8-55); AST (SGOT) 27 U/L (5-34); Albumin 3.5 g/dL (3.4-4.8); Alkaline Phosphatase 122 U/L (40-110); Anion Gap 13 mmol/L (10-20); BUN (Urea Nitrogen) 23 mg/dL (8.4-25.7); Bilirubin, Total 0.5 mg/dL (0.2-1.2); Calc. Creatinine Clearance 0 mL/min (70-130); Calcium 8.5 mg/dL (7.8-10.44); Carbon Dioxide 24 mmol/L (23-31); Chloride 105 mmol/L (98-107); Globulin 3.8 g/dL (2.4-3.5); Glucose 104 mg/dL (83-110); Potassium 4.3 mmol/L (3.5-5.1); Protein, Total 7.3 g/dL (5.8-8.1); Sodium 138 mmol/L (136-145)
[2020-05-20 20:41] LABS: SARS-CoV-2 PCR by NAA Not Detected (NotDetected)
== END 2020-05-20 14:15 | disposition home or self-care (01) ==
LOC: ERS 10:26
DX: R50.9 Fever, unspecified (principal); R53.81 Other malaise; R10.9 Unspecified abdominal pain; R30.0 Dysuria; R35.0 Frequency of micturition; Z20.822 Contact with and (suspected) exposure to COVID-19; I50.9 Heart failure, unspecified; J44.9 Chronic obstructive pulmonary disease, unspecified; F17.210 Nicotine dependence, cigarettes, uncomplicated; Z79.82 Long term (current) use of aspirin; Z79.899 Other long term (current) drug therapy
CPT/HCPCS: 71045; 80053; 81003; 81015; 83605; 85025; 87040; 87086; 87635; 93005; U0003; U0005

== ENCOUNTER 2020-06-19 13:22 | Outpatient (CLI) | payer BC, MEDICARE | END 2020-06-19 13:23 | disposition home or self-care (01) | LOC: MRI 13:22 | PROVIDERS: ATTEND Family Medicine | DX: M47.816 Spondylosis without myelopathy or radiculopathy, lumbar region (principal); M48.061 Spinal stenosis, lumbar region without neurogenic claudication; M48.07 Spinal stenosis, lumbosacral region; M51.36 Other intervertebral disc degeneration, lumbar region; Z98.890 Other specified postprocedural states | CPT/HCPCS: 72148 ==

== ENCOUNTER 2020-08-12 09:35 | Outpatient (CLI) | payer BC, MEDICARE | END 2020-08-12 09:36 | disposition home or self-care (01) | LOC: BICRAD 09:35 | PROVIDERS: ATTEND Internal Medicine Critical Care Medicine | DX: R06.00 Dyspnea, unspecified (principal); J44.9 Chronic obstructive pulmonary disease, unspecified; I70.0 Atherosclerosis of aorta; R91.8 Other nonspecific abnormal finding of lung field; Z98.1 Arthrodesis status | CPT/HCPCS: 71046 ==

== ENCOUNTER 2020-09-02 08:59 | Outpatient (CLI) | payer BC, MEDICARE | END 2020-09-02 09:00 | disposition home or self-care (01) | LOC: CT 08:59 | PROVIDERS: ATTEND Internal Medicine Critical Care Medicine | DX: J44.9 Chronic obstructive pulmonary disease, unspecified (principal); J90 Pleural effusion, not elsewhere classified; J98.4 Other disorders of lung; I70.0 Atherosclerosis of aorta; R91.1 Solitary pulmonary nodule | CPT/HCPCS: 71250 ==

== ENCOUNTER 2020-10-12 13:59 | Emergency (ER) | payer BC, MEDICARE | END 2020-10-12 17:58 | disposition home or self-care (01) | LOC: ERS 13:59 | DX: J44.9 Chronic obstructive pulmonary disease, unspecified (principal); I11.0 Hypertensive heart disease with heart failure; I50.9 Heart failure, unspecified; F17.210 Nicotine dependence, cigarettes, uncomplicated; Z79.899 Other long term (current) drug therapy; Z79.82 Long term (current) use of aspirin | CPT/HCPCS: 36415; 71045; 80053; 82805; 83880; 84484; 85025; 93005; 94640; J7512; J7620 ==

== ENCOUNTER 2020-11-06 23:22 | Emergency (ER) | payer BC, OTHER ==
[2020-11-07 00:07] LABS: #Basophils 0.1 thou/uL (0.0-0.2); #Eosinphils 0.1 thou/uL (0.0-0.7); #Lymphocytes 2.4 thou/uL (1.20-3.40); #Monocytes 0.8 thou/uL (0.11-0.59); #Neutrophils 9.6 thou/uL (1.40-6.50); %Basophils 0.5 % (0.0-1.0); %Eosinophils 0.8 % (0.0-10.0); %Lymphocytes 18.2 % (21.0-51.0); %Neutrophils 74.5 % (42.0-75.0); Hemoglobin 15.1 g/dL (14.0-18.0); Mean Corpuscular HGB CONC 34.9 g/dL (32.0-36.0); Mean Corpuscular Hemoglobin 34.9 pg (27.0-31.0); Mean Corpuscular Volume 99.9 fL (78.0-98.0); Mean Platelet Volume 8.9 fL (7.4-10.4); Platelet Count 139 thou/uL (130-400); RBC Distribution Width 14.1 % (11.5-14.5); Red Blood Cell (RBC) Count 4.33 mill/uL (4.70-6.10); White Blood Cell (WBC) Count 12.9 thou/uL (4.8-10.8)
[2020-11-07] MEDS ORDERED: Acetaminophen 500 MG TAB ONE (00:07)
[2020-11-07 00:14] LABS: Prothrombin Time 13.1 sec (12.0-14.7)
[2020-11-07 00:16] LABS: PTT 22.6 sec (22.9-36.1)
== END 2020-11-07 01:56 | disposition home or self-care (01) ==
LOC: ERS 23:22
DX: S00.83XA Contusion of other part of head, initial encounter (principal); S10.93XA Contusion of unspecified part of neck, initial encounter; F10.129 Alcohol abuse with intoxication, unspecified; W01.10XA Fall on same level from slipping, tripping and stumbling with subsequent striking against unspecified object, initial encounter; Z79.899 Other long term (current) drug therapy; Z79.82 Long term (current) use of aspirin; I50.9 Heart failure, unspecified; J44.9 Chronic obstructive pulmonary disease, unspecified; F17.210 Nicotine dependence, cigarettes, uncomplicated
CPT/HCPCS: 36415; 70450; 72125; 85025; 85610; 85730

== ENCOUNTER 2021-01-07 10:00 | Outpatient (CLI) | payer BC, MEDICARE | END 2021-01-07 10:01 | disposition home or self-care (01) | LOC: RAD 10:00 | PROVIDERS: ATTEND Internal Medicine Critical Care Medicine | DX: R06.00 Dyspnea, unspecified (principal) | CPT/HCPCS: 71046 ==

== ENCOUNTER 2021-01-11 13:14 | Outpatient (CLI) | payer BC, MEDICARE ==
[~2021-01-11 13:14] MED LIST changes: +Iopamidol 370 76% 100 ML VIAL ONE; -Iopamidol-370 76% 500 ML 1 ML ONE
== END 2021-01-11 13:15 | disposition home or self-care (01) ==
LOC: BICCT 13:14
PROVIDERS: ATTEND Urology
DX: C67.0 Malignant neoplasm of trigone of bladder (principal); N28.89 Other specified disorders of kidney and ureter; N40.0 Benign prostatic hyperplasia without lower urinary tract symptoms; Z98.1 Arthrodesis status
CPT/HCPCS: 74178; Q9967

== ENCOUNTER 2021-06-24 18:47 | Inpatient (IN) | payer BC, MEDICARE ==
[2021-06-24 19:13] LABS: #Lymphocytes 0.8 thou/uL (1.20-3.40); #Monocytes 0.5 thou/uL (0.11-0.59); #Neutrophils 7.9 thou/uL (1.40-6.50); %Basophils 0.2 % (0.0-1.0); %Eosinophils 0.1 % (0.0-10.0); %Lymphocytes 8.9 % (21.0-51.0); %Monocytes 5.4 % (0.0-10.0); %Neutrophils 85.4 % (42.0-75.0); Hemoglobin 14.4 g/dL (14.0-18.0); Mean Corpuscular HGB CONC 31.3 g/dL (32.0-36.0); Mean Corpuscular Hemoglobin 32.7 pg (27.0-31.0); Mean Platelet Volume 9.2 fL (7.4-10.4); Platelet Count 120 thou/uL (130-400); RBC Distribution Width 12.2 % (11.5-14.5); White Blood Cell (WBC) Count 9.3 thou/uL (4.8-10.8)
[2021-06-24 19:37] LABS: ALT (SGPT) 13 U/L (8-55); AST (SGOT) 12 U/L (5-34); Albumin 3.4 g/dL (3.4-4.8); Alkaline Phosphatase 63 U/L (40-110); Anion Gap 15 mmol/L (10-20); BUN (Urea Nitrogen) 26 mg/dL (8.4-25.7); Bilirubin, Total 0.6 mg/dL (0.2-1.2); Calc. Creatinine Clearance 0 mL/min (70-130); Calcium 8.8 mg/dL (7.8-10.44); Carbon Dioxide 33 mmol/L (23-31); Chloride 98 mmol/L (98-107); Globulin 2.5 g/dL (2.4-3.5); Glucose 301 mg/dL (83-110); Magnesium 1.7 mg/dL (1.6-2.6); Potassium 4.2 mmol/L (3.5-5.1); Protein, Total 5.9 g/dL (5.8-8.1); Sodium 142 mmol/L (136-145)
[2021-06-24 20:41] LABS: Bilirubin Negative (Negative); Blood, Urine Negative (Negative); Clarity Clear (Clear); Glucose, Urine (Dipstick) 500 mg/dL (Negative); Ketone, Urine Negative (Negative); Leukocyte Negative Leu/uL (Negative); Nitrite Negative (Negative); Protein, Urine (Dipstick) 20 mg/dL (Neg-Trace); Specific Gravity, Urine 1.011 (1.002-1.036); Urobilinogen Normal mg/dL (Less than 2)
[2021-06-24] MEDS ORDERED: Furosemide 40 MG/4 ML VIAL ONE (21:03)
[2021-06-24 22:22] LABS: SARS-CoV-2 NAA Rapid Test Not Detected (NotDetected)
[2021-06-24 23:22] LABS: Troponin I Less than 0.010 ng/mL (< 0.028)
[2021-06-25] MEDS ORDERED: methylPREDNISolone Sod Succ 40 MG VIAL IVP SCH ×2 (01:30→09:00)
[2021-06-25] MEDS ORDERED: Azithromycin 500 MG in Sodium Chloride 0.9% 250 ML 250 ML IVPB SCH (02:00)
[2021-06-25 02:32] LABS: Troponin I 0.014 ng/mL (< 0.028)
[2021-06-25] MEDS ORDERED: Acetaminophen 325 MG TAB PO PRN (06:37)
[2021-06-25] MEDS ORDERED: Dextrose 50% Abboject 50 ML SYRINGE SLOW IVP PRN (06:37)
[2021-06-25] MEDS ORDERED: Ondansetron ODT 4 MG TAB PO PRN (06:37)
[2021-06-25] MEDS ORDERED: HumaLOG 300 UNITS/3 ML VIAL SC PRN (06:37)
[2021-06-25] MEDS ORDERED: Acetaminophen 650 MG Suppository PR PRN (06:37)
[2021-06-25] MEDS ORDERED: Ondansetron PF 4 MG/2 ML Vial IVP PRN (06:37)
[2021-06-25] MEDS ORDERED: Dextrose 5% in Water 1,000 ML IV PRN (06:37)
[2021-06-25 07:31] LABS: Hemoglobin A1c 7.9 % (4.0-6.0)
[2021-06-25 07:37] LABS: #Lymphocytes 0.8 thou/uL (1.20-3.40); #Monocytes 0.5 thou/uL (0.11-0.59); #Neutrophils 8.3 thou/uL (1.40-6.50); %Eosinophils 0.3 % (0.0-10.0); %Lymphocytes 8.7 % (21.0-51.0); %Monocytes 5.1 % (0.0-10.0); %Neutrophils 85.9 % (42.0-75.0); Hemoglobin 14.2 g/dL (14.0-18.0); Mean Corpuscular HGB CONC 32.6 g/dL (32.0-36.0); Mean Corpuscular Hemoglobin 34.4 pg (27.0-31.0); Mean Platelet Volume 8.9 fL (7.4-10.4); Platelet Count 111 thou/uL (130-400); Red Blood Cell (RBC) Count 4.13 mill/uL (4.70-6.10); White Blood Cell (WBC) Count 9.6 thou/uL (4.8-10.8)
[2021-06-25 07:44] LABS: Anion Gap 12 mmol/L (10-20); BUN (Urea Nitrogen) 27 mg/dL (8.4-25.7); Calc. Creatinine Clearance 53 mL/min (70-130); Calcium 8.8 mg/dL (7.8-10.44); Carbon Dioxide 36 mmol/L (23-31); Chloride 96 mmol/L (98-107); Glucose 286 mg/dL (83-110); Potassium 3.5 mmol/L (3.5-5.1); Sodium 140 mmol/L (136-145)
[2021-06-25] MEDS: Enoxaparin Sodium 40 MG/0.4 ML SYRINGE SC SCH (09:31)
[2021-06-25] MEDS ORDERED: Electrolyte Replacement Protocol 1 EACH FS SCH (13:30)
[2021-06-25] MEDS ORDERED: Potassium Chloride 20 MEQ TAB PO SCH (13:30)
[2021-06-25] MEDS ORDERED: Clopidogrel Bisulfate 75 MG TAB PO SCH (13:30)
[2021-06-25] MEDS ORDERED: Polyethylene Glycol 3350 17 GM Packet PO PRN (13:35)
[2021-06-25] MEDS ORDERED: Furosemide 40 MG/4 ML VIAL SLOW IVP SCH (13:45)
[2021-06-25] MEDS: methylPREDNISolone Sod Succ 40 MG VIAL IVP SCH (17:06)
[2021-06-25] MEDS: HumaLOG 300 UNITS/3 ML VIAL SC PRN (17:06)
[2021-06-25] MEDS: Nicotine 21 MG PATCH TD SCH (18:17)
[2021-06-25] MEDS: Mometasone 200 MCG/Formoterol 5 MCG 120 PUFF INHALER INH SCH (19:01)
[2021-06-25] MEDS: Melatonin 3 MG TAB PO SCH (19:45)
[2021-06-25] MEDS: clonazePAM 1 MG TAB PO SCH (19:45)
[2021-06-25] MEDS: guaiFENesin ER 600 MG TAB PO SCH (19:45)
[2021-06-25] MEDS: Rosuvastatin 20 MG TAB PO SCH (19:46)
[2021-06-25] MEDS: Docusate 100 MG CAP PO SCH (19:46)
[2021-06-25] MEDS: Sotalol HCl 80 MG TAB PO SCH (19:46)
[2021-06-25] MEDS: Sacubitril 49 MG/Valsartan 51 MG TABLET PO SCH (19:46)
[2021-06-25] MEDS: Lantus 1000 UNITS/10 ML VIAL SC SCH (19:47)
[2021-06-25] MEDS ORDERED: Lantus 1000 UNITS/10 ML VIAL SC SCH (21:00)
[2021-06-25] MEDS ORDERED: Non-Formulary Item 1 EACH (Sacubitril/Valsartan [Entresto 97 Mg-103 Mg Tablet] 1 EACH Tab PO SCH (21:00)
[2021-06-26] MEDS: methylPREDNISolone Sod Succ 40 MG VIAL IVP SCH ×4 (00:13→16:18)
[2021-06-26 04:57] LABS: BUN (Urea Nitrogen) 35 mg/dL (8.4-25.7); Calc. Creatinine Clearance 57 mL/min (70-130); Calcium 8.7 mg/dL (7.8-10.44); Glucose 214 mg/dL (83-110)
[2021-06-26 05:06] LABS: Anion Gap 17 mmol/L (10-20); Carbon Dioxide 33 mmol/L (23-31); Chloride 96 mmol/L (98-107); Sodium 142 mmol/L (136-145)
[2021-06-26] MEDS: Mometasone 200 MCG/Formoterol 5 MCG 120 PUFF INHALER INH SCH ×2 (07:39→19:33)
[2021-06-26] MEDS: Sacubitril 49 MG/Valsartan 51 MG TABLET PO SCH ×2 (08:28→20:37)
[2021-06-26] MEDS: Aspirin 81 mg Enteric Coated Tablet PO SCH (08:28)
[2021-06-26] MEDS: Docusate 100 MG CAP PO SCH ×2 (08:28→20:37)
[2021-06-26] MEDS: Sotalol HCl 80 MG TAB PO SCH ×2 (08:29→20:37)
[2021-06-26] MEDS: Tamsulosin HCl 0.4 MG CAP PO SCH (08:29)
[2021-06-26] MEDS: guaiFENesin ER 600 MG TAB PO SCH ×2 (08:29→20:36)
[2021-06-26] MEDS: Enoxaparin Sodium 40 MG/0.4 ML SYRINGE SC SCH (08:31)
[2021-06-26] MEDS ORDERED: Non-Formulary Item 1 EACH (Esomeprazole Magnesium [Nexium] 20 MG Capsule.Dr) PO SCH (09:00)
[2021-06-26] MEDS ORDERED: Furosemide 40 MG/4 ML VIAL SLOW IVP SCH (09:00)
[2021-06-26 11:06] VITALS: BMI 20.5
[2021-06-26] MEDS: HumaLOG 300 UNITS/3 ML VIAL SC PRN ×3 (12:09→20:47)
[2021-06-26] MEDS: Nicotine 21 MG PATCH TD SCH (17:56)
[2021-06-26] MEDS: Melatonin 3 MG TAB PO SCH (20:37)
[2021-06-26] MEDS: Rosuvastatin 20 MG TAB PO SCH (20:37)
[2021-06-26] MEDS: clonazePAM 1 MG TAB PO SCH (20:38)
[2021-06-26] MEDS: Lantus 1000 UNITS/10 ML VIAL SC SCH (20:39)
[2021-06-27] MEDS: methylPREDNISolone Sod Succ 40 MG VIAL IVP SCH ×5 (01:02→23:50)
[2021-06-27 04:55] LABS: Anion Gap 13 mmol/L (10-20); BUN (Urea Nitrogen) 33 mg/dL (8.4-25.7); Calc. Creatinine Clearance 76 mL/min (70-130); Calcium 8.4 mg/dL (7.8-10.44); Carbon Dioxide 35 mmol/L (23-31); Chloride 93 mmol/L (98-107); Glucose 135 mg/dL (83-110); Potassium 3.4 mmol/L (3.5-5.1); Sodium 138 mmol/L (136-145)
[2021-06-27] MEDS ORDERED: Potassium Chloride 20 MEQ TAB PO SCH (07:00)
[2021-06-27] MEDS: Mometasone 200 MCG/Formoterol 5 MCG 120 PUFF INHALER INH SCH ×2 (07:20→19:09)
[2021-06-27] MEDS: Sacubitril 49 MG/Valsartan 51 MG TABLET PO SCH ×2 (08:39→20:55)
[2021-06-27] MEDS: Aspirin 81 mg Enteric Coated Tablet PO SCH (08:39)
[2021-06-27] MEDS: Torsemide 20 MG TAB PO SCH ×2 (08:39→15:30)
[2021-06-27] MEDS: Docusate 100 MG CAP PO SCH ×2 (08:39→20:55)
[2021-06-27] MEDS: Sotalol HCl 80 MG TAB PO SCH ×2 (08:40→20:56)
[2021-06-27] MEDS: Tamsulosin HCl 0.4 MG CAP PO SCH (08:40)
[2021-06-27] MEDS: guaiFENesin ER 600 MG TAB PO SCH ×2 (08:40→20:55)
[2021-06-27] MEDS: Enoxaparin Sodium 40 MG/0.4 ML SYRINGE SC SCH (08:41)
[2021-06-27] MEDS: HumaLOG 300 UNITS/3 ML VIAL SC PRN ×3 (11:24→20:55)
[2021-06-27] MEDS: Nicotine 21 MG PATCH TD SCH (17:47)
[2021-06-27] MEDS: Lantus 1000 UNITS/10 ML VIAL SC SCH (20:54)
[2021-06-27] MEDS: Melatonin 3 MG TAB PO SCH (20:55)
[2021-06-27] MEDS: Rosuvastatin 20 MG TAB PO SCH (20:55)
[2021-06-27] MEDS: clonazePAM 1 MG TAB PO SCH (20:56)
[2021-06-28 05:13] LABS: Anion Gap 17 mmol/L (10-20); BUN (Urea Nitrogen) 42 mg/dL (8.4-25.7); Calc. Creatinine Clearance 56 mL/min (70-130); Calcium 8.3 mg/dL (7.8-10.44); Carbon Dioxide 34 mmol/L (23-31); Chloride 94 mmol/L (98-107); Glucose 177 mg/dL (83-110); Magnesium 1.6 mg/dL (1.6-2.6); Potassium 3.4 mmol/L (3.5-5.1); Sodium 142 mmol/L (136-145)
[2021-06-28] MEDS: methylPREDNISolone Sod Succ 40 MG VIAL IVP SCH ×3 (05:43→21:23)
[2021-06-28] MEDS: HumaLOG 300 UNITS/3 ML VIAL SC PRN ×2 (05:51→17:11)
[2021-06-28] MEDS ORDERED: Magnesium 2 GM/50 ML(in water) 2 GM in Premix Bag 1 BAG IVPB SCH (07:00)
[2021-06-28] MEDS ORDERED: Potassium Chloride 20 MEQ TAB PO SCH (07:00)
[2021-06-28] MEDS: Mometasone 200 MCG/Formoterol 5 MCG 120 PUFF INHALER INH SCH ×2 (07:52→17:20)
[2021-06-28] MEDS: Sotalol HCl 80 MG TAB PO SCH ×2 (08:26→21:21)
[2021-06-28] MEDS: Sacubitril 49 MG/Valsartan 51 MG TABLET PO SCH ×2 (08:26→21:18)
[2021-06-28] MEDS: Torsemide 20 MG TAB PO SCH ×2 (08:26→15:18)
[2021-06-28] MEDS: Docusate 100 MG CAP PO SCH ×2 (08:27→21:18)
[2021-06-28] MEDS: Clopidogrel Bisulfate 75 MG TAB PO SCH (08:28)
[2021-06-28] MEDS: guaiFENesin ER 600 MG TAB PO SCH ×2 (08:28→21:18)
[2021-06-28] MEDS: Enoxaparin Sodium 40 MG/0.4 ML SYRINGE SC SCH (08:29)
[2021-06-28] MEDS: Tamsulosin HCl 0.4 MG CAP PO SCH (08:29)
[2021-06-28] MEDS: Aspirin 81 mg Enteric Coated Tablet PO SCH (08:51)
[2021-06-28] MEDS: Nicotine 21 MG PATCH TD SCH (17:12)
[2021-06-28] MEDS: clonazePAM 1 MG TAB PO SCH (21:17)
[2021-06-28] MEDS: Lantus 1000 UNITS/10 ML VIAL SC SCH (21:18)
[2021-06-28] MEDS: Melatonin 3 MG TAB PO SCH (21:18)
[2021-06-28] MEDS: Rosuvastatin 20 MG TAB PO SCH (21:18)
[2021-06-29 04:52] LABS: Magnesium 1.8 mg/dL (1.6-2.6)
[2021-06-29] MEDS: methylPREDNISolone Sod Succ 40 MG VIAL IVP SCH ×2 (05:59→13:24)
[2021-06-29] MEDS: Mometasone 200 MCG/Formoterol 5 MCG 120 PUFF INHALER INH SCH ×2 (07:25→19:16)
[2021-06-29] MEDS: guaiFENesin ER 600 MG TAB PO SCH ×2 (09:29→20:34)
[2021-06-29] MEDS: Tamsulosin HCl 0.4 MG CAP PO SCH (09:30)
[2021-06-29] MEDS: Sacubitril 49 MG/Valsartan 51 MG TABLET PO SCH ×2 (09:30→20:35)
[2021-06-29] MEDS: Enoxaparin Sodium 40 MG/0.4 ML SYRINGE SC SCH (09:30)
[2021-06-29] MEDS: Aspirin 81 mg Enteric Coated Tablet PO SCH (09:30)
[2021-06-29] MEDS: Sotalol HCl 80 MG TAB PO SCH ×2 (09:30→20:36)
[2021-06-29] MEDS: Docusate 100 MG CAP PO SCH ×2 (09:30→20:35)
[2021-06-29] MEDS: Torsemide 20 MG TAB PO SCH ×2 (09:31→13:25)
[2021-06-29] MEDS ORDERED: Magnesium 2 GM/50 ML(in water) 2 GM in Premix Bag 1 BAG IVPB SCH (09:45)
[2021-06-29] MEDS: HumaLOG 300 UNITS/3 ML VIAL SC PRN (13:25)
[2021-06-29] MEDS: Nicotine 21 MG PATCH TD SCH (19:12)
[2021-06-29] MEDS: clonazePAM 1 MG TAB PO SCH (20:35)
[2021-06-29] MEDS: Rosuvastatin 20 MG TAB PO SCH (20:35)
[2021-06-29] MEDS: Melatonin 3 MG TAB PO SCH (20:35)
[2021-06-29] MEDS: Lantus 1000 UNITS/10 ML VIAL SC SCH (20:37)
[2021-06-30] MEDS ORDERED: LACTINEX 1 TAB PO SCH (02:00)
[2021-06-30] MEDS: Mometasone 200 MCG/Formoterol 5 MCG 120 PUFF INHALER INH SCH (06:27)
[2021-06-30] MEDS ORDERED: predniSONE 20 MG TAB PO SCH (08:00)
[2021-06-30] MEDS: Torsemide 20 MG TAB PO SCH (09:55)
[2021-06-30] MEDS: Sacubitril 49 MG/Valsartan 51 MG TABLET PO SCH (09:55)
[2021-06-30] MEDS: Enoxaparin Sodium 40 MG/0.4 ML SYRINGE SC SCH (09:55)
[2021-06-30] MEDS: Tamsulosin HCl 0.4 MG CAP PO SCH (09:55)
[2021-06-30] MEDS: guaiFENesin ER 600 MG TAB PO SCH (09:55)
[2021-06-30] MEDS: Clopidogrel Bisulfate 75 MG TAB PO SCH (09:55)
[2021-06-30] MEDS: Aspirin 81 mg Enteric Coated Tablet PO SCH (09:56)
[2021-06-30] MEDS: Sotalol HCl 80 MG TAB PO SCH (09:56)
[2021-06-30] MEDS: Docusate 100 MG CAP PO SCH (09:56)
[2021-06-30 12:28] VITALS: BP 137/82; TEMP 97.8
== END 2021-06-30 14:00 | disposition home or self-care (01) | DRG 291 ==
LOC: ERS 18:47 → ERHOLD 22:34 → 2NO 06-25 04:32 → OBSVTOIN 06-25 13:35
PROVIDERS: ADMIT Student in an Organized Health Care Education/Training Program; ATTEND Internal Medicine
DX: I11.0 Hypertensive heart disease with heart failure (principal); J96.21 Acute and chronic respiratory failure with hypoxia; I50.43 Acute on chronic combined systolic (congestive) and diastolic (congestive) heart failure; J44.1 Chronic obstructive pulmonary disease with (acute) exacerbation; R64 Cachexia; N17.9 Acute kidney failure, unspecified; Z68.1 Body mass index [BMI] 19.9 or less, adult; I25.810 Atherosclerosis of coronary artery bypass graft(s) without angina pectoris; Z20.822 Contact with and (suspected) exposure to COVID-19; F41.9 Anxiety disorder, unspecified; F17.210 Nicotine dependence, cigarettes, uncomplicated; E78.5 Hyperlipidemia, unspecified; I49.9 Cardiac arrhythmia, unspecified; N40.0 Benign prostatic hyperplasia without lower urinary tract symptoms; I73.9 Peripheral vascular disease, unspecified; E11.51 Type 2 diabetes mellitus with diabetic peripheral angiopathy without gangrene; I25.5 Ischemic cardiomyopathy; K59.00 Constipation, unspecified; I25.2 Old myocardial infarction; Z88.0 Allergy status to penicillin; Z91.048 Other nonmedicinal substance allergy status; Z79.52 Long term (current) use of systemic steroids; Z79.51 Long term (current) use of inhaled steroids; Z85.51 Personal history of malignant neoplasm of bladder; Z95.1 Presence of aortocoronary bypass graft; Z98.890 Other specified postprocedural states; I42.8 Other cardiomyopathies; Z95.2 Presence of prosthetic heart valve; I25.10 Atherosclerotic heart disease of native coronary artery without angina pectoris; Z79.02 Long term (current) use of antithrombotics/antiplatelets; Z79.82 Long term (current) use of aspirin; Z79.899 Other long term (current) drug therapy
CPT/HCPCS: 36415; 36416; 71045; 80048; 80053; 81003; 81015; 83036; 83735; 83880; 84484; 85025; 87324; 87449; 93005; 93306; 94640; 94760; 96372; 96374; 96375; 96376; G0378; J1650; J1815; J1940; J2920; J3475; J7512; J7620; U0002

== ENCOUNTER 2021-09-06 23:07 | Emergency (ER) | payer MEDICARE, OTHER | END 2021-09-06 23:44 | disposition left against medical advice (07) | LOC: ERS 23:07 | DX: Z53.21 Procedure and treatment not carried out due to patient leaving prior to being seen by health care provider (principal) ==

== ENCOUNTER 2021-11-14 10:04 | Emergency (ER) | payer MEDICARE ==
[2021-11-14 10:41] LABS: #Eosinphils 0.1 thou/uL (0.0-0.7); #Lymphocytes 0.9 thou/uL (1.20-3.40); #Monocytes 0.7 thou/uL (0.11-0.59); #Neutrophils 12.4 thou/uL (1.40-6.50); %Basophils 0.3 % (0.0-1.0); %Eosinophils 0.4 % (0.0-10.0); %Lymphocytes 6.5 % (21.0-51.0); %Monocytes 5.2 % (0.0-10.0); %Neutrophils 87.7 % (42.0-75.0); Hemoglobin 13.9 g/dL (14.0-18.0); Mean Corpuscular HGB CONC 31.7 g/dL (32.0-36.0); Mean Corpuscular Volume 97.8 fL (78.0-98.0); Mean Platelet Volume 8.9 fL (7.4-10.4); Platelet Count 169 thou/uL (130-400); RBC Distribution Width 12.5 % (11.5-14.5); Red Blood Cell (RBC) Count 4.48 mill/uL (4.70-6.10); White Blood Cell (WBC) Count 14.2 thou/uL (4.8-10.8)
[2021-11-14 11:02] LABS: ALT (SGPT) 19 U/L (8-55); AST (SGOT) 17 U/L (5-34); Albumin 3.4 g/dL (3.4-4.8); Alkaline Phosphatase 124 U/L (40-110); Anion Gap 14 mmol/L (10-20); BUN (Urea Nitrogen) 26 mg/dL (8.4-25.7); Bilirubin, Total 0.4 mg/dL (0.2-1.2); Calc. Creatinine Clearance 0 mL/min (70-130); Calcium 9.1 mg/dL (7.8-10.44); Carbon Dioxide 33 mmol/L (23-31); Chloride 96 mmol/L (98-107); Estimated GFR 66; Globulin 3.2 g/dL (2.4-3.5); Glucose 301 mg/dL (83-110); Potassium 4.1 mmol/L (3.5-5.1); Protein, Total 6.6 g/dL (5.8-8.1); Sodium 139 mmol/L (136-145)
[2021-11-14] MEDS ORDERED: Aspirin Chewable 81 MG TAB ONE (11:40)
[2021-11-14] MEDS ORDERED: Bacitracin 1 PK ONE (11:41)
== END 2021-11-14 13:28 | disposition home or self-care (01) ==
LOC: ERS 10:04
DX: S20.219A Contusion of unspecified front wall of thorax, initial encounter (principal); I50.9 Heart failure, unspecified; J44.9 Chronic obstructive pulmonary disease, unspecified; I25.10 Atherosclerotic heart disease of native coronary artery without angina pectoris; I25.2 Old myocardial infarction; F17.210 Nicotine dependence, cigarettes, uncomplicated; Z79.899 Other long term (current) drug therapy; Z79.01 Long term (current) use of anticoagulants; Z79.82 Long term (current) use of aspirin; W19.XXXA Unspecified fall, initial encounter
CPT/HCPCS: 36415; 71045; 80053; 83605; 83880; 84484; 85025; 87040; 93005

== ENCOUNTER 2022-01-11 12:52 | Outpatient (CLI) | payer MEDICARE, OTHER | END 2022-01-11 12:53 | disposition home or self-care (01) | LOC: BICCT 12:52 | PROVIDERS: ATTEND Urology | DX: C67.0 Malignant neoplasm of trigone of bladder (principal); I71.40 Abdominal aortic aneurysm, without rupture, unspecified; J98.4 Other disorders of lung | CPT/HCPCS: 74178; 82565; Q9967 ==

== ENCOUNTER 2022-01-26 09:30 | Outpatient (CLI) | payer MEDICARE, OTHER | END 2022-01-26 09:31 | disposition home or self-care (01) | LOC: RAD 09:30 | PROVIDERS: ATTEND Internal Medicine Critical Care Medicine | DX: R06.00 Dyspnea, unspecified (principal) | CPT/HCPCS: 71046 ==

== ENCOUNTER 2022-02-07 11:25 | Inpatient (IN) | payer MEDICARE, OTHER ==
[2022-02-07] MEDS ORDERED: Aspirin Chewable 81 MG TAB ONE (12:33)
[2022-02-07 12:41] LABS: #Eosinphils 0.1 thou/uL (0.0-0.7); #Lymphocytes 0.8 thou/uL (1.20-3.40); #Monocytes 0.5 thou/uL (0.11-0.59); %Basophils 0.1 % (0.0-1.0); %Eosinophils 0.6 % (0.0-10.0); %Lymphocytes 6.1 % (21.0-51.0); %Monocytes 4.4 % (0.0-10.0); %Neutrophils 88.9 % (42.0-75.0); Hemoglobin 13.5 g/dL (14.0-18.0); Mean Corpuscular HGB CONC 30.5 g/dL (32.0-36.0); Mean Platelet Volume 9.8 fL (7.4-10.4); Platelet Count 85 10x3/uL (130-400); RBC Distribution Width 12.7 % (11.5-14.5); Red Blood Cell (RBC) Count 4.23 mill/uL (4.70-6.10); White Blood Cell (WBC) Count 12.4 10x3/uL (4.8-10.8)
[2022-02-07 12:55] LABS: ALT (SGPT) 24 U/L (8-55); AST (SGOT) 21 U/L (5-34); Albumin 3.3 g/dL (3.4-4.8); Alkaline Phosphatase 77 U/L (40-110); Anion Gap 13 mmol/L (10-20); BUN (Urea Nitrogen) 26 mg/dL (8.4-25.7); Bilirubin, Total 0.7 mg/dL (0.2-1.2); CK (CPK) 23 U/L (30-200); Calc. Creatinine Clearance 0 mL/min (70-130); Calcium 9.5 mg/dL (7.8-10.44); Carbon Dioxide 31 mmol/L (23-31); Chloride 99 mmol/L (98-107); Estimated GFR 69; Globulin 2.9 g/dL (2.4-3.5); Glucose 206 mg/dL (83-110); Lipase 5 U/L (8-78); Potassium 4.7 mmol/L (3.5-5.1); Protein, Total 6.2 g/dL (5.8-8.1); Sodium 138 mmol/L (136-145)
[2022-02-07 13:05] LABS: MDiff Complete? YES; Macrocytosis SLIGHT = 6-15 cells (100X) (0-5/hpf); Platelet Morphology Comment Appears Decreased; Polychromasia SLIGHT = 2-3 cells (100X) (0-2/hpf); Schistocytes SLIGHT = 2-5 cells (100X) (0-1/hpf)
[2022-02-07] MEDS ORDERED: Cefepime 2 GM VIAL ONE (13:39)
[2022-02-07] MEDS ORDERED: Nitroglycerin 2% Ointment 1 INCH/1 GM Packet ONE (13:39)
[2022-02-07] MEDS ORDERED: Nicotine 14 MG PATCH TOP SCH (13:45)
[2022-02-07] MEDS ORDERED: VANCOMYCIN 1.25 GM/250 ML BAG 1.25 GM in Premix Bag 1 BAG IVPB SCH (13:45)
[2022-02-07 13:49] LABS: SARS-CoV-2 NAA Rapid Test Not Detected (NotDetected)
[2022-02-07] MEDS ORDERED: Albuterol Sulfate 2.5 mg/3 ml Neb NEB PRN (14:23)
[2022-02-07] MEDS ORDERED: Polyethylene Glycol 3350 17 GM Packet PO PRN (14:33)
[2022-02-07 17:10] VITALS: BMI 19.6
[2022-02-07] MEDS ORDERED: FLU VACC QS2022-23(65YR UP)/PF 240 MCG/0.7 ML SYRINGE IM ONE (18:00)
[2022-02-07] MEDS: Mometasone/Formoterol 200/5 60 PUFF INH SCH (18:56)
[2022-02-07] MEDS ORDERED: Sotalol HCl 80 MG TAB PO SCH (21:00)
[2022-02-07] MEDS: Tamsulosin HCl 0.4 MG CAP PO SCH (21:15)
[2022-02-07] MEDS: Senokot S 8.6-50 MG TAB PO SCH (21:15)
[2022-02-07] MEDS: Melatonin 3 MG TAB PO SCH (21:16)
[2022-02-07] MEDS: clonazePAM 1 MG TAB PO SCH (21:16)
[2022-02-07] MEDS: Rosuvastatin 10 MG TAB PO SCH (21:16)
[2022-02-07] MEDS: cefTRIAXone\\ROCEPHIN 1 GM in Sodium Chloride 0.9% 100 ML IVPB SCH (21:17)
[2022-02-08] MEDS: Nitroglycerin 2% Ointment 1 INCH/1 GM Packet TOP SCH ×4 (01:06→20:56)
[2022-02-08 05:36] LABS: #Eosinphils 0.1 thou/uL (0.0-0.7); #Lymphocytes 1.3 thou/uL (1.20-3.40); #Monocytes 0.8 thou/uL (0.11-0.59); #Neutrophils 6.6 thou/uL (1.40-6.50); %Basophils 0.4 % (0.0-1.0); %Eosinophils 0.8 % (0.0-10.0); %Lymphocytes 15.1 % (21.0-51.0); %Monocytes 9.1 % (0.0-10.0); %Neutrophils 74.6 % (42.0-75.0); Hemoglobin 12.2 g/dL (14.0-18.0); Mean Corpuscular HGB CONC 31.3 g/dL (32.0-36.0); Mean Corpuscular Hemoglobin 32.3 pg (27.0-31.0); Mean Platelet Volume 9.3 fL (7.4-10.4); Platelet Count 90 10x3/uL (130-400); RBC Distribution Width 12.5 % (11.5-14.5); Red Blood Cell (RBC) Count 3.77 mill/uL (4.70-6.10); White Blood Cell (WBC) Count 8.9 10x3/uL (4.8-10.8)
[2022-02-08 06:14] LABS: Anion Gap 10 mmol/L (10-20); BUN (Urea Nitrogen) 32 mg/dL (8.4-25.7); Calc. Creatinine Clearance 59 mL/min (70-130); Carbon Dioxide 32 mmol/L (23-31); Chloride 101 mmol/L (98-107); Estimated GFR 86; Glucose 223 mg/dL (83-110); Potassium 4.3 mmol/L (3.5-5.1); Sodium 139 mmol/L (136-145)
[2022-02-08] MEDS: Mometasone/Formoterol 200/5 60 PUFF INH SCH ×2 (07:33→18:26)
[2022-02-08] MEDS ORDERED: predniSONE 20 MG TAB PO SCH ×2 (08:00→11:45)
[2022-02-08] MEDS ORDERED: Iopamidol 370 76% 100 ML VIAL ONE (08:52)
[2022-02-08] MEDS: Torsemide 20 MG TAB PO SCH (09:00)
[2022-02-08] MEDS: Senokot S 8.6-50 MG TAB PO SCH ×2 (09:00→20:56)
[2022-02-08] MEDS: Aspirin Chewable 81 MG TAB PO SCH (09:00)
[2022-02-08] MEDS ORDERED: Escitalopram Oxalate 20 mg Tablet PO SCH (09:00)
[2022-02-08] MEDS: Escitalopram Oxalate 10 mg Tablet PO SCH (09:06)
[2022-02-08] MEDS ORDERED: Dextrose 5% in Water 1,000 ML IV PRN (11:36)
[2022-02-08] MEDS ORDERED: Dextrose 50% Abboject 50 ML SYRINGE SLOW IVP PRN (11:36)
[2022-02-08] MEDS: Vancomycin 1 GM in Premix Bag 1 BAG IVPB SCH (13:16)
[2022-02-08] MEDS: Nicotine 14 MG PATCH TD SCH (13:16)
[2022-02-08] MEDS: HumaLOG 300 UNITS/3 ML VIAL SC PRN ×3 (13:17→21:09)
[2022-02-08] MEDS: cefTRIAXone\\ROCEPHIN 1 GM in Sodium Chloride 0.9% 100 ML IVPB SCH (20:53)
[2022-02-08] MEDS: Melatonin 3 MG TAB PO SCH (20:54)
[2022-02-08] MEDS: clonazePAM 1 MG TAB PO SCH (20:54)
[2022-02-08] MEDS: Rosuvastatin 10 MG TAB PO SCH (20:55)
[2022-02-08] MEDS: Tamsulosin HCl 0.4 MG CAP PO SCH (20:56)
[2022-02-09 05:52] LABS: #Eosinphils 0.1 thou/uL (0.0-0.7); #Lymphocytes 1.2 thou/uL (1.20-3.40); #Monocytes 0.6 thou/uL (0.11-0.59); #Neutrophils 8.5 thou/uL (1.40-6.50); %Eosinophils 0.5 % (0.0-10.0); %Monocytes 5.4 % (0.0-10.0); %Neutrophils 82.1 % (42.0-75.0); Hemoglobin 12.3 g/dL (14.0-18.0); Mean Corpuscular HGB CONC 31.3 g/dL (32.0-36.0); Mean Corpuscular Hemoglobin 32.2 pg (27.0-31.0); Mean Platelet Volume 8.9 fL (7.4-10.4); Platelet Count 103 10x3/uL (130-400); RBC Distribution Width 12.5 % (11.5-14.5); Red Blood Cell (RBC) Count 3.82 mill/uL (4.70-6.10); White Blood Cell (WBC) Count 10.3 10x3/uL (4.8-10.8)
[2022-02-09 06:02] LABS: Anion Gap 8 mmol/L (10-20); BUN (Urea Nitrogen) 35 mg/dL (8.4-25.7); Calc. Creatinine Clearance 47 mL/min (70-130); Calcium 9.2 mg/dL (7.8-10.44); Carbon Dioxide 36 mmol/L (23-31); Chloride 99 mmol/L (98-107); Estimated GFR 66; Glucose 273 mg/dL (83-110); Sodium 139 mmol/L (136-145)
[2022-02-09 06:18] LABS: Hemoglobin A1c 7.3 % (4.0-6.0)
[2022-02-09] MEDS: Nitroglycerin 2% Ointment 1 INCH/1 GM Packet TOP SCH ×3 (06:45→22:33)
[2022-02-09] MEDS: Mometasone/Formoterol 200/5 60 PUFF INH SCH ×2 (07:19→19:27)
[2022-02-09] MEDS: Escitalopram Oxalate 10 mg Tablet PO SCH (09:47)
[2022-02-09] MEDS: Aspirin Chewable 81 MG TAB PO SCH (09:47)
[2022-02-09] MEDS: predniSONE 20 MG TAB PO SCH (09:47)
[2022-02-09] MEDS: Senokot S 8.6-50 MG TAB PO SCH ×2 (09:49→19:53)
[2022-02-09] MEDS: Torsemide 20 MG TAB PO SCH (09:49)
[2022-02-09] MEDS ORDERED: Vancomycin 1 GM/200 ML (FROZEN) BAG ONE (14:11)
[2022-02-09] MEDS ORDERED: Bupivacaine HCl 0.5%/Epinephrine 1:200,000/PF 30 ml Vial ONE (16:22)
[2022-02-09] MEDS ORDERED: fentaNYL PF 100 MCG/2 ML SYRINGE ONE (16:31)
[2022-02-09] MEDS ORDERED: PROPOFOL 200 MG/20 ML VIAL ONE (16:36)
[2022-02-09] MEDS: Vancomycin 1 GM in Premix Bag 1 BAG IVPB SCH (17:35)
[2022-02-09] MEDS: Nicotine 14 MG PATCH TD SCH (19:24)
[2022-02-09] MEDS: Melatonin 3 MG TAB PO SCH (19:54)
[2022-02-09] MEDS: Rosuvastatin 10 MG TAB PO SCH (19:54)
[2022-02-09] MEDS: Tamsulosin HCl 0.4 MG CAP PO SCH (19:55)
[2022-02-09] MEDS: clonazePAM 1 MG TAB PO SCH (19:55)
[2022-02-09] MEDS: cefTRIAXone\\ROCEPHIN 1 GM in Sodium Chloride 0.9% 100 ML IVPB SCH (19:55)
[2022-02-10] MEDS: Nitroglycerin 2% Ointment 1 INCH/1 GM Packet TOP SCH ×3 (05:39→22:04)
[2022-02-10] MEDS: Mometasone/Formoterol 200/5 60 PUFF INH SCH ×2 (07:51→18:48)
[2022-02-10] MEDS: Aspirin Chewable 81 MG TAB PO SCH (10:19)
[2022-02-10] MEDS: predniSONE 20 MG TAB PO SCH (10:19)
[2022-02-10] MEDS: Escitalopram Oxalate 10 mg Tablet PO SCH (10:20)
[2022-02-10] MEDS: Senokot S 8.6-50 MG TAB PO SCH ×2 (10:20→22:01)
[2022-02-10] MEDS: Torsemide 20 MG TAB PO SCH (10:20)
[2022-02-10] MEDS: traMADol HCl 50 MG TAB PO PRN (12:23)
[2022-02-10 14:36] LABS: Vancomycin, Trough 15.5 ug/mL
[2022-02-10] MEDS: Vancomycin 1 GM in Premix Bag 1 BAG IVPB SCH (16:15)
[2022-02-10] MEDS: HumaLOG 300 UNITS/3 ML VIAL SC PRN ×2 (17:49→22:01)
[2022-02-10] MEDS ORDERED: Gentamicin Sulfate 80 MG in Premix Bag 1 BAG IVPB SCH (18:00)
[2022-02-10] MEDS: Nicotine 14 MG PATCH TD SCH (19:03)
[2022-02-10] MEDS: cefTRIAXone\\ROCEPHIN 2 GM in Sodium Chloride 0.9% 100 ML IVPB SCH (21:59)
[2022-02-10] MEDS: clonazePAM 1 MG TAB PO SCH (21:59)
[2022-02-10] MEDS: Melatonin 3 MG TAB PO SCH (22:00)
[2022-02-10] MEDS: Tamsulosin HCl 0.4 MG CAP PO SCH (22:01)
[2022-02-10] MEDS: Rosuvastatin 10 MG TAB PO SCH (22:01)
[2022-02-11 05:08] LABS: Hemoglobin 12.4 g/dL (14.0-18.0); Mean Corpuscular Hemoglobin 32.6 pg (27.0-31.0); Platelet Count 112 10x3/uL (130-400); RBC Distribution Width 12.3 % (11.5-14.5); Red Blood Cell (RBC) Count 3.79 mill/uL (4.70-6.10); White Blood Cell (WBC) Count 14.5 10x3/uL (4.8-10.8)
[2022-02-11 05:22] LABS: Anion Gap 9 mmol/L (10-20); BUN (Urea Nitrogen) 35 mg/dL (8.4-25.7); Calc. Creatinine Clearance 71 mL/min (70-130); Calcium 8.6 mg/dL (7.8-10.44); Carbon Dioxide 37 mmol/L (23-31); Chloride 97 mmol/L (98-107); Estimated GFR 95; Glucose 219 mg/dL (83-110); Potassium 4.1 mmol/L (3.5-5.1); Sodium 139 mmol/L (136-145)
[2022-02-11] MEDS: Gentamicin Sulfate 80 MG in Premix Bag 1 BAG IVPB SCH ×2 (05:35→17:11)
[2022-02-11] MEDS: Nitroglycerin 2% Ointment 1 INCH/1 GM Packet TOP SCH ×3 (05:44→22:16)
[2022-02-11] MEDS: Mometasone/Formoterol 200/5 60 PUFF INH SCH ×2 (07:52→20:05)
[2022-02-11] MEDS ORDERED: PROPOFOL 200 MG/20 ML VIAL ONE (07:55)
[2022-02-11] MEDS ORDERED: predniSONE 20 MG TAB PO SCH (08:00)
[2022-02-11] MEDS ORDERED: GENTAMICIN SULFATE IVPB SCH (09:00)
[2022-02-11] MEDS: Torsemide 20 MG TAB PO SCH (09:01)
[2022-02-11] MEDS: Aspirin Chewable 81 MG TAB PO SCH (09:02)
[2022-02-11] MEDS: Senokot S 8.6-50 MG TAB PO SCH ×2 (09:02→20:06)
[2022-02-11] MEDS: predniSONE 20 MG TAB PO SCH (09:03)
[2022-02-11] MEDS: Sacubitril 49 MG/Valsartan 51 MG TABLET PO SCH ×2 (09:04→20:06)
[2022-02-11] MEDS: Escitalopram Oxalate 10 mg Tablet PO SCH (09:04)
[2022-02-11] MEDS: HumaLOG 300 UNITS/3 ML VIAL SC PRN ×2 (17:41→21:02)
[2022-02-11] MEDS: Nicotine 14 MG PATCH TD SCH (20:04)
[2022-02-11] MEDS: cefTRIAXone\\ROCEPHIN 2 GM in Sodium Chloride 0.9% 100 ML IVPB SCH (20:04)
[2022-02-11] MEDS: clonazePAM 1 MG TAB PO SCH (20:05)
[2022-02-11] MEDS: Melatonin 3 MG TAB PO SCH (20:05)
[2022-02-11] MEDS: Rosuvastatin 10 MG TAB PO SCH (20:06)
[2022-02-11] MEDS: Tamsulosin HCl 0.4 MG CAP PO SCH (20:07)
[2022-02-11] MEDS: Insulin Glargine 30 UNITS/0.3 ML VIAL SC SCH (21:02)
[2022-02-12] MEDS: Nitroglycerin 2% Ointment 1 INCH/1 GM Packet TOP SCH ×3 (06:03→20:38)
[2022-02-12] MEDS: Mometasone/Formoterol 200/5 60 PUFF INH SCH ×2 (07:29→19:49)
[2022-02-12] MEDS: Sacubitril 49 MG/Valsartan 51 MG TABLET PO SCH ×2 (09:28→20:38)
[2022-02-12] MEDS: Escitalopram Oxalate 10 mg Tablet PO SCH (09:29)
[2022-02-12] MEDS: Torsemide 20 MG TAB PO SCH (09:29)
[2022-02-12] MEDS: predniSONE 20 MG TAB PO SCH (09:30)
[2022-02-12] MEDS: Aspirin Chewable 81 MG TAB PO SCH (09:30)
[2022-02-12] MEDS: Senokot S 8.6-50 MG TAB PO SCH ×2 (09:31→20:38)
[2022-02-12] MEDS ORDERED: hydrOXYzine 25 MG TAB PO SCH (15:45)
[2022-02-12] MEDS: Gentamicin Sulfate 80 MG in Premix Bag 1 BAG IVPB SCH (17:41)
[2022-02-12] MEDS: Nicotine 14 MG PATCH TD SCH (20:35)
[2022-02-12] MEDS: Insulin Glargine 30 UNITS/0.3 ML VIAL SC SCH (20:36)
[2022-02-12] MEDS: clonazePAM 1 MG TAB PO SCH (20:36)
[2022-02-12] MEDS: cefTRIAXone\\ROCEPHIN 2 GM in Sodium Chloride 0.9% 100 ML IVPB SCH (20:36)
[2022-02-12] MEDS: Melatonin 3 MG TAB PO SCH (20:37)
[2022-02-12] MEDS: Rosuvastatin 10 MG TAB PO SCH (20:38)
[2022-02-12] MEDS: Tamsulosin HCl 0.4 MG CAP PO SCH (20:38)
[2022-02-12] MEDS: HumaLOG 300 UNITS/3 ML VIAL SC PRN (20:39)
[2022-02-13] MEDS: Nitroglycerin 2% Ointment 1 INCH/1 GM Packet TOP SCH ×3 (06:02→20:03)
[2022-02-13 06:03] LABS: Hemoglobin 12.5 g/dL (14.0-18.0); Mean Corpuscular HGB CONC 32.7 g/dL (32.0-36.0); Mean Corpuscular Hemoglobin 33.2 pg (27.0-31.0); Mean Platelet Volume 9.4 fL (7.4-10.4); Platelet Count 107 10x3/uL (130-400); RBC Distribution Width 12.2 % (11.5-14.5); Red Blood Cell (RBC) Count 3.76 mill/uL (4.70-6.10); White Blood Cell (WBC) Count 10.2 10x3/uL (4.8-10.8)
[2022-02-13 06:21] LABS: BUN (Urea Nitrogen) 24 mg/dL (8.4-25.7); Calc. Creatinine Clearance 71 mL/min (70-130); Calcium 8.5 mg/dL (7.8-10.44); Estimated GFR 95; Glucose 74 mg/dL (83-110)
[2022-02-13 06:30] LABS: Anion Gap 14 mmol/L (10-20); Carbon Dioxide 35 mmol/L (23-31); Chloride 96 mmol/L (98-107); Potassium 3.6 mmol/L (3.5-5.1); Sodium 141 mmol/L (136-145)
[2022-02-13] MEDS: Mometasone/Formoterol 200/5 60 PUFF INH SCH ×2 (07:49→18:28)
[2022-02-13] MEDS: Aspirin Chewable 81 MG TAB PO SCH (09:36)
[2022-02-13] MEDS: Escitalopram Oxalate 10 mg Tablet PO SCH (09:37)
[2022-02-13] MEDS: Sacubitril 49 MG/Valsartan 51 MG TABLET PO SCH ×2 (09:37→20:03)
[2022-02-13] MEDS: Torsemide 20 MG TAB PO SCH (09:37)
[2022-02-13] MEDS: predniSONE 20 MG TAB PO SCH (09:37)
[2022-02-13] MEDS: Senokot S 8.6-50 MG TAB PO SCH ×2 (09:37→20:02)
[2022-02-13] MEDS ORDERED: Benzonatate 100 MG CAP PO PRN (11:04)
[2022-02-13] MEDS: HumaLOG 300 UNITS/3 ML VIAL SC PRN ×2 (12:51→18:41)
[2022-02-13] MEDS: Carvedilol 3.125 MG TAB PO SCH (17:53)
[2022-02-13] MEDS: Acetaminophen 325 MG TAB PO PRN ×2 (17:54→22:32)
[2022-02-13] MEDS: Gentamicin Sulfate 80 MG in Premix Bag 1 BAG IVPB SCH (17:59)
[2022-02-13] MEDS: Nicotine 14 MG PATCH TD SCH (20:00)
[2022-02-13] MEDS: Tamsulosin HCl 0.4 MG CAP PO SCH (20:01)
[2022-02-13] MEDS: clonazePAM 1 MG TAB PO SCH (20:02)
[2022-02-13] MEDS: Rosuvastatin 10 MG TAB PO SCH (20:02)
[2022-02-13] MEDS: Melatonin 3 MG TAB PO SCH (20:02)
[2022-02-13] MEDS: cefTRIAXone\\ROCEPHIN 2 GM in Sodium Chloride 0.9% 100 ML IVPB SCH (20:02)
[2022-02-13] MEDS ORDERED: Insulin Glargine 30 UNITS/0.3 ML VIAL SC SCH (21:00)
[2022-02-13] MEDS ORDERED: Meropenem 1 GM in Sodium Chloride 0.9% 100 ML IVPB SCH (23:00)
[2022-02-13 23:08] LABS: #Eosinphils 0.1 thou/uL (0.0-0.7); #Monocytes 0.5 thou/uL (0.11-0.59); #Neutrophils 7.2 thou/uL (1.40-6.50); %Eosinophils 0.7 % (0.0-10.0); %Lymphocytes 11.1 % (21.0-51.0); %Monocytes 5.4 % (0.0-10.0); %Neutrophils 82.8 % (42.0-75.0); Hemoglobin 12.4 g/dL (14.0-18.0); Mean Corpuscular HGB CONC 33.3 g/dL (32.0-36.0); Mean Platelet Volume 8.9 fL (7.4-10.4); Platelet Count 113 10x3/uL (130-400); RBC Distribution Width 12.3 % (11.5-14.5); Red Blood Cell (RBC) Count 3.65 mill/uL (4.70-6.10); White Blood Cell (WBC) Count 8.7 10x3/uL (4.8-10.8)
[2022-02-13] MEDS ORDERED: Acetaminophen 325 MG TAB PO PRN (23:13)
[2022-02-13 23:23] LABS: ALT (SGPT) 20 U/L (8-55); AST (SGOT) 20 U/L (5-34); Albumin 2.6 g/dL (3.4-4.8); Alkaline Phosphatase 73 U/L (40-110); Anion Gap 13 mmol/L (10-20); BUN (Urea Nitrogen) 29 mg/dL (8.4-25.7); Bilirubin, Total 0.3 mg/dL (0.2-1.2); Calc. Creatinine Clearance 51 mL/min (70-130); Calcium 8.5 mg/dL (7.8-10.44); Carbon Dioxide 34 mmol/L (23-31); Chloride 95 mmol/L (98-107); Estimated GFR 72; Globulin 2.8 g/dL (2.4-3.5); Glucose 195 mg/dL (83-110); Protein, Total 5.4 g/dL (5.8-8.1); Sodium 138 mmol/L (136-145)
[2022-02-13] MEDS: Sodium Chloride 0.9% 1,000 ML IV SCH (23:30)
[2022-02-14] MEDS: Vancomycin 1 GM in Premix Bag 1 BAG IVPB SCH ×3 (00:55→23:38)
[2022-02-14] MEDS ORDERED: Norepinephrine 8 MG/0.9% NS 250 ML IVPB SCH (01:45)
[2022-02-14 04:21] LABS: Bilirubin Negative (Negative); Blood, Urine Trace (Negative); CAUTI Indications for Culture Fever or rigors; Clarity Clear (Clear); Glucose, Urine (Dipstick) Normal (Negative); Ketone, Urine Negative (Negative); Leukocyte 75 Leu/uL (Negative); Nitrite Negative (Negative); Protein, Urine (Dipstick) 30 mg/dL (Neg-Trace); RBC/HPF 0-3 HPF (0-3); Specific Gravity, Urine 1.015 (1.002-1.036); Squamous Epithelial 0-3 HPF (0-3); Urobilinogen Normal mg/dL (Less than 2)
[2022-02-14 04:22] LABS: Bacteria/HPF Rare-Few HPF (None Seen)
[2022-02-14 04:23] LABS: Urine Culture Reflex No No
[2022-02-14] MEDS: Sodium Chloride 0.9% 1,000 ML IV SCH ×3 (05:23→18:19)
[2022-02-14] MEDS: Nitroglycerin 2% Ointment 1 INCH/1 GM Packet TOP SCH ×4 (05:51→21:13)
[2022-02-14] MEDS: Meropenem 1 GM in Sodium Chloride 0.9% 100 ML IVPB SCH ×3 (07:34→23:37)
[2022-02-14] MEDS: Carvedilol 3.125 MG TAB PO SCH (07:34)
[2022-02-14] MEDS: predniSONE 20 MG TAB PO SCH (07:34)
[2022-02-14] MEDS: Mometasone/Formoterol 200/5 60 PUFF INH SCH ×2 (07:46→18:38)
[2022-02-14] MEDS ORDERED: Meropenem 1 GM in Sodium Chloride 0.9% 100 ML IVPB SCH (08:00)
[2022-02-14] MEDS: Aspirin Chewable 81 MG TAB PO SCH (08:38)
[2022-02-14] MEDS: Sacubitril 49 MG/Valsartan 51 MG TABLET PO SCH (08:38)
[2022-02-14] MEDS: Escitalopram Oxalate 10 mg Tablet PO SCH (08:38)
[2022-02-14] MEDS: Senokot S 8.6-50 MG TAB PO SCH ×2 (08:38→21:10)
[2022-02-14] MEDS: Torsemide 20 MG TAB PO SCH (08:53)
[2022-02-14] MEDS: HumaLOG 300 UNITS/3 ML VIAL SC PRN ×2 (16:00→21:25)
[2022-02-14] MEDS: Tamsulosin HCl 0.4 MG CAP PO SCH (21:09)
[2022-02-14] MEDS: Rosuvastatin 10 MG TAB PO SCH (21:10)
[2022-02-14] MEDS: Melatonin 3 MG TAB PO SCH (21:12)
[2022-02-14] MEDS: Nicotine 14 MG PATCH TD SCH (21:12)
[2022-02-14] MEDS: clonazePAM 1 MG TAB PO SCH (21:12)
[2022-02-14] MEDS: Insulin Glargine 30 UNITS/0.3 ML VIAL SC SCH (21:23)
[2022-02-14] MEDS: Benzonatate 100 MG CAP PO PRN (23:38)
[2022-02-15 04:36] LABS: Hemoglobin 11.5 g/dL (14.0-18.0); Mean Corpuscular HGB CONC 31.8 g/dL (32.0-36.0); Mean Corpuscular Hemoglobin 32.5 pg (27.0-31.0); Mean Platelet Volume 9.1 fL (7.4-10.4); Platelet Count 125 10x3/uL (130-400); RBC Distribution Width 12.4 % (11.5-14.5); Red Blood Cell (RBC) Count 3.53 mill/uL (4.70-6.10); White Blood Cell (WBC) Count 6.2 10x3/uL (4.8-10.8)
[2022-02-15 05:09] LABS: BUN (Urea Nitrogen) 28 mg/dL (8.4-25.7); Calc. Creatinine Clearance 64 mL/min (70-130); Calcium 8.3 mg/dL (7.8-10.44); Estimated GFR 92; Glucose 148 mg/dL (83-110)
[2022-02-15] MEDS: Nitroglycerin 2% Ointment 1 INCH/1 GM Packet TOP SCH ×3 (05:09→21:26)
[2022-02-15 05:46] LABS: Chloride 95 mmol/L (98-107); Potassium 3.2 mmol/L (3.5-5.1); Sodium 140 mmol/L (136-145)
[2022-02-15 05:49] LABS: Anion Gap 15 mmol/L (10-20); Carbon Dioxide 33 mmol/L (23-31)
[2022-02-15] MEDS ORDERED: Potassium Chloride 20 MEQ TAB PO SCH (06:45)
[2022-02-15] MEDS ORDERED: Electrolyte Replacement Protocol FS PRN (06:45)
[2022-02-15 06:53] LABS: Magnesium 1.6 mg/dL (1.6-2.6)
[2022-02-15] MEDS: Meropenem 1 GM in Sodium Chloride 0.9% 100 ML IVPB SCH ×3 (07:30→23:58)
[2022-02-15] MEDS: predniSONE 20 MG TAB PO SCH (07:30)
[2022-02-15] MEDS ORDERED: Magnesium 2 GM/50 ML(in water) 2 GM in Premix Bag 1 BAG IVPB SCH (07:45)
[2022-02-15] MEDS: Mometasone/Formoterol 200/5 60 PUFF INH SCH ×2 (08:36→18:27)
[2022-02-15] MEDS: Escitalopram Oxalate 10 mg Tablet PO SCH (09:01)
[2022-02-15] MEDS: Senokot S 8.6-50 MG TAB PO SCH ×2 (09:01→20:44)
[2022-02-15] MEDS: Aspirin Chewable 81 MG TAB PO SCH (09:01)
[2022-02-15] MEDS: Torsemide 20 MG TAB PO SCH (09:01)
[2022-02-15] MEDS: Potassium Chloride 20 MEQ in Premix Bag 1 BAG IVPB SCH ×2 (09:07→09:09)
[2022-02-15 11:34] LABS: Vancomycin, Trough 23.2 ug/mL
[2022-02-15 11:37] LABS: Potassium 4.3 mmol/L (3.5-5.1)
[2022-02-15] MEDS: Vancomycin HCl 750 MG in Sodium Chloride 0.9% 250 ML 250 ML IVPB SCH ×2 (11:58→23:58)
[2022-02-15] MEDS: HumaLOG 300 UNITS/3 ML VIAL SC PRN ×2 (16:16→20:46)
[2022-02-15] MEDS: Benzonatate 100 MG CAP PO PRN ×2 (18:05→23:58)
[2022-02-15] MEDS: Tamsulosin HCl 0.4 MG CAP PO SCH (20:43)
[2022-02-15] MEDS: Melatonin 3 MG TAB PO SCH (20:43)
[2022-02-15] MEDS: Nicotine 14 MG PATCH TD SCH (20:43)
[2022-02-15] MEDS: Rosuvastatin 10 MG TAB PO SCH (20:43)
[2022-02-15] MEDS: Insulin Glargine 30 UNITS/0.3 ML VIAL SC SCH (20:44)
[2022-02-15] MEDS: clonazePAM 1 MG TAB PO SCH (20:44)
[2022-02-16] MEDS: Mometasone/Formoterol 200/5 60 PUFF INH SCH ×2 (06:51→18:22)
[2022-02-16] MEDS: Meropenem 1 GM in Sodium Chloride 0.9% 100 ML IVPB SCH ×2 (09:29→17:52)
[2022-02-16] MEDS: predniSONE 20 MG TAB PO SCH (09:29)
[2022-02-16] MEDS: Torsemide 20 MG TAB PO SCH ×2 (09:30→09:32)
[2022-02-16] MEDS: Escitalopram Oxalate 10 mg Tablet PO SCH (09:30)
[2022-02-16] MEDS: Senokot S 8.6-50 MG TAB PO SCH ×2 (09:30→20:45)
[2022-02-16] MEDS: Aspirin Chewable 81 MG TAB PO SCH (09:30)
[2022-02-16] MEDS: Vancomycin HCl 750 MG in Sodium Chloride 0.9% 250 ML 250 ML IVPB SCH (14:38)
[2022-02-16] MEDS: traMADol HCl 50 MG TAB PO PRN (15:03)
[2022-02-16] MEDS: HumaLOG 300 UNITS/3 ML VIAL SC PRN (18:01)
[2022-02-16] MEDS: Nicotine 14 MG PATCH TD SCH (20:41)
[2022-02-16] MEDS: clonazePAM 1 MG TAB PO SCH (20:42)
[2022-02-16] MEDS: Rosuvastatin 10 MG TAB PO SCH (20:44)
[2022-02-16] MEDS: Melatonin 3 MG TAB PO SCH (20:45)
[2022-02-16] MEDS: Insulin Glargine 30 UNITS/0.3 ML VIAL SC SCH (20:46)
[2022-02-16] MEDS: Tamsulosin HCl 0.4 MG CAP PO SCH (20:46)
[2022-02-16 23:32] LABS: Vancomycin, Trough 25.2 ug/mL
[2022-02-17] MEDS: Meropenem 1 GM in Sodium Chloride 0.9% 100 ML IVPB SCH ×2 (00:53→09:08)
[2022-02-17] MEDS: Vancomycin HCl 750 MG in Sodium Chloride 0.9% 250 ML 250 ML IVPB SCH (01:43)
[2022-02-17 05:03] LABS: #Lymphocytes 0.9 thou/uL (1.20-3.40); #Monocytes 0.5 thou/uL (0.11-0.59); #Neutrophils 3.4 thou/uL (1.40-6.50); %Basophils 0.1 % (0.0-1.0); %Eosinophils 0.9 % (0.0-10.0); %Lymphocytes 18.5 % (21.0-51.0); %Monocytes 9.9 % (0.0-10.0); %Neutrophils 70.6 % (42.0-75.0); Mean Corpuscular HGB CONC 30.9 g/dL (32.0-36.0); Mean Corpuscular Hemoglobin 31.8 pg (27.0-31.0); Mean Platelet Volume 8.8 fL (7.4-10.4); Platelet Count 123 10x3/uL (130-400); RBC Distribution Width 12.2 % (11.5-14.5); Red Blood Cell (RBC) Count 3.45 mill/uL (4.70-6.10); White Blood Cell (WBC) Count 4.8 10x3/uL (4.8-10.8)
[2022-02-17 05:22] LABS: ALT (SGPT) 37 U/L (8-55); AST (SGOT) 41 U/L (5-34); Albumin 2.5 g/dL (3.4-4.8); Alkaline Phosphatase 121 U/L (40-110); BUN (Urea Nitrogen) 25 mg/dL (8.4-25.7); Bilirubin, Total 0.2 mg/dL (0.2-1.2); Calc. Creatinine Clearance 60 mL/min (70-130); Calcium 7.9 mg/dL (7.8-10.44); Estimated GFR 92; Globulin 2.6 g/dL (2.4-3.5); Glucose 121 mg/dL (83-110); Magnesium 1.9 mg/dL (1.6-2.6); Phosphorus 2.3 mg/dL (2.3-4.7); Protein, Total 5.1 g/dL (5.8-8.1)
[2022-02-17 05:31] LABS: Anion Gap 13 mmol/L (10-20); Carbon Dioxide 35 mmol/L (23-31); Chloride 99 mmol/L (98-107); Potassium 3.8 mmol/L (3.5-5.1); Sodium 143 mmol/L (136-145)
[2022-02-17] MEDS: Mometasone/Formoterol 200/5 60 PUFF INH SCH ×2 (07:30→18:47)
[2022-02-17] MEDS: predniSONE 20 MG TAB PO SCH (09:09)
[2022-02-17] MEDS: Senokot S 8.6-50 MG TAB PO SCH ×2 (09:10→21:02)
[2022-02-17] MEDS: Aspirin Chewable 81 MG TAB PO SCH (09:10)
[2022-02-17] MEDS: Torsemide 20 MG TAB PO SCH (09:10)
[2022-02-17] MEDS: Escitalopram Oxalate 10 mg Tablet PO SCH (09:10)
[2022-02-17] MEDS ORDERED: VANCOMYCIN 1.25 GM/250 ML BAG 1.25 GM in Premix Bag 1 BAG IVPB SCH (12:00)
[2022-02-17] MEDS: Nicotine 14 MG PATCH TD SCH (20:53)
[2022-02-17] MEDS: Gentamicin Sulfate 80 MG in Premix Bag 1 BAG IVPB SCH (20:53)
[2022-02-17] MEDS: cefTRIAXone\\ROCEPHIN 2 GM in Sodium Chloride 0.9% 100 ML IVPB SCH (20:54)
[2022-02-17] MEDS: clonazePAM 1 MG TAB PO SCH (21:00)
[2022-02-17] MEDS: Insulin Glargine 30 UNITS/0.3 ML VIAL SC SCH (21:01)
[2022-02-17] MEDS: Rosuvastatin 10 MG TAB PO SCH (21:01)
[2022-02-17] MEDS: Melatonin 3 MG TAB PO SCH (21:01)
[2022-02-17] MEDS: Tamsulosin HCl 0.4 MG CAP PO SCH (21:02)
[2022-02-18 06:18] LABS: ALT (SGPT) 60 U/L (8-55); AST (SGOT) 71 U/L (5-34); Albumin 2.8 g/dL (3.4-4.8); Alkaline Phosphatase 92 U/L (40-110); BUN (Urea Nitrogen) 22 mg/dL (8.4-25.7); Bilirubin, Total 0.3 mg/dL (0.2-1.2); Calc. Creatinine Clearance 66 mL/min (70-130); Calcium 8.3 mg/dL (7.8-10.44); Estimated GFR 94; Globulin 2.9 g/dL (2.4-3.5); Glucose 71 mg/dL (83-110); Magnesium 1.9 mg/dL (1.6-2.6); Protein, Total 5.7 g/dL (5.8-8.1)
[2022-02-18 06:25] LABS: #Lymphocytes 1.4 thou/uL (1.20-3.40); #Monocytes 0.4 thou/uL (0.11-0.59); %Basophils 0.2 % (0.0-1.0); %Eosinophils 0.6 % (0.0-10.0); %Monocytes 8.1 % (0.0-10.0); %Neutrophils 62.2 % (42.0-75.0); Mean Corpuscular HGB CONC 32.8 g/dL (32.0-36.0); Mean Corpuscular Hemoglobin 33.7 pg (27.0-31.0); Mean Platelet Volume 8.9 fL (7.4-10.4); Platelet Count 119 10x3/uL (130-400); RBC Distribution Width 12.1 % (11.5-14.5); Red Blood Cell (RBC) Count 3.86 mill/uL (4.70-6.10); White Blood Cell (WBC) Count 4.9 10x3/uL (4.8-10.8)
[2022-02-18 06:28] LABS: Anion Gap 14 mmol/L (10-20); Carbon Dioxide 35 mmol/L (23-31); Chloride 95 mmol/L (98-107); Potassium 3.4 mmol/L (3.5-5.1); Sodium 141 mmol/L (136-145)
[2022-02-18] MEDS: Mometasone/Formoterol 200/5 60 PUFF INH SCH ×2 (06:51→19:10)
[2022-02-18] MEDS ORDERED: Electrolyte Replacement Protocol 1 EACH FS SCH (07:27)
[2022-02-18] MEDS ORDERED: Magnesium 2 GM/50 ML(in water) 2 GM in Premix Bag 1 BAG IVPB SCH (08:00)
[2022-02-18] MEDS ORDERED: Potassium Chloride 20 MEQ TAB PO SCH (08:00)
[2022-02-18] MEDS: PHOS-NAK 1 PKT PACK PO SCH ×2 (09:51→14:32)
[2022-02-18] MEDS: predniSONE 20 MG TAB PO SCH (09:53)
[2022-02-18] MEDS: Escitalopram Oxalate 10 mg Tablet PO SCH (09:54)
[2022-02-18] MEDS: Aspirin Chewable 81 MG TAB PO SCH (09:54)
[2022-02-18] MEDS: Torsemide 20 MG TAB PO SCH (09:55)
[2022-02-18] MEDS: Senokot S 8.6-50 MG TAB PO SCH ×2 (09:55→20:30)
[2022-02-18] MEDS ORDERED: Sodium Chloride 0.9% 500 ML IV SCH (14:00)
[2022-02-18 18:15] LABS: Bacteria/HPF None Seen HPF (None Seen); Bilirubin Negative (Negative); Blood, Urine Negative (Negative); CAUTI Indications for Culture Dysuria,urgency,freq; Clarity Clear (Clear); Glucose, Urine (Dipstick) Normal (Negative); Ketone, Urine Negative (Negative); Leukocyte 75 Leu/uL (Negative); Nitrite Negative (Negative); Protein, Urine (Dipstick) 10 mg/dL (Neg-Trace); RBC/HPF 0-3 HPF (0-3); Specific Gravity, Urine 1.008 (1.002-1.036); Squamous Epithelial 0-3 HPF (0-3); Urobilinogen Normal mg/dL (Less than 2); WBC/HPF 0-3 HPF (0-3)
[2022-02-18 18:21] LABS: Urine Culture Reflex No No
[2022-02-18] MEDS: Nicotine 14 MG PATCH TD SCH (20:28)
[2022-02-18] MEDS: Gentamicin Sulfate 80 MG in Premix Bag 1 BAG IVPB SCH (20:28)
[2022-02-18] MEDS: Rosuvastatin 10 MG TAB PO SCH (20:29)
[2022-02-18] MEDS: clonazePAM 1 MG TAB PO SCH (20:30)
[2022-02-18] MEDS: Melatonin 3 MG TAB PO SCH (20:30)
[2022-02-18] MEDS: Tamsulosin HCl 0.4 MG CAP PO SCH (20:30)
[2022-02-18] MEDS: cefTRIAXone\\ROCEPHIN 2 GM in Sodium Chloride 0.9% 100 ML IVPB SCH (21:34)
[2022-02-18] MEDS: Insulin Glargine 30 UNITS/0.3 ML VIAL SC SCH (21:34)
[2022-02-19] MEDS: Mometasone/Formoterol 200/5 60 PUFF INH SCH ×2 (06:56→18:40)
[2022-02-19 07:44] LABS: #Lymphocytes 1.7 thou/uL (1.20-3.40); #Monocytes 0.3 thou/uL (0.11-0.59); #Neutrophils 2.5 thou/uL (1.40-6.50); %Basophils 0.2 % (0.0-1.0); %Eosinophils 0.6 % (0.0-10.0); %Lymphocytes 38.4 % (21.0-51.0); %Monocytes 6.2 % (0.0-10.0); %Neutrophils 54.6 % (42.0-75.0); Hemoglobin 11.3 g/dL (14.0-18.0); Mean Corpuscular HGB CONC 30.6 g/dL (32.0-36.0); Mean Corpuscular Hemoglobin 31.6 pg (27.0-31.0); Mean Platelet Volume 8.6 fL (7.4-10.4); Platelet Count 123 10x3/uL (130-400); RBC Distribution Width 12.1 % (11.5-14.5); Red Blood Cell (RBC) Count 3.57 mill/uL (4.70-6.10); White Blood Cell (WBC) Count 4.5 10x3/uL (4.8-10.8)
[2022-02-19 08:00] LABS: ALT (SGPT) 51 U/L (8-55); AST (SGOT) 50 U/L (5-34); Albumin 2.6 g/dL (3.4-4.8); Alkaline Phosphatase 77 U/L (40-110); BUN (Urea Nitrogen) 23 mg/dL (8.4-25.7); Bilirubin, Total 0.2 mg/dL (0.2-1.2); Calc. Creatinine Clearance 71 mL/min (70-130); Estimated GFR 97; Globulin 2.6 g/dL (2.4-3.5); Protein, Total 5.2 g/dL (5.8-8.1)
[2022-02-19 08:08] LABS: Chloride 98 mmol/L (98-107); Potassium 3.3 mmol/L (3.5-5.1); Sodium 144 mmol/L (136-145)
[2022-02-19 08:11] LABS: Anion Gap 13 mmol/L (10-20); Carbon Dioxide 36 mmol/L (23-31)
[2022-02-19 08:18] LABS: Glucose 43 mg/dL (83-110)
[2022-02-19] MEDS: Escitalopram Oxalate 10 mg Tablet PO SCH (09:33)
[2022-02-19] MEDS: Aspirin Chewable 81 MG TAB PO SCH (09:33)
[2022-02-19] MEDS: Senokot S 8.6-50 MG TAB PO SCH ×2 (09:33→20:51)
[2022-02-19] MEDS: predniSONE 20 MG TAB PO SCH (09:33)
[2022-02-19] MEDS: Torsemide 20 MG TAB PO SCH (09:34)
[2022-02-19] MEDS ORDERED: Potassium Chloride 20 MEQ TAB PO SCH (12:00)
[2022-02-19] MEDS: HumaLOG 300 UNITS/3 ML VIAL SC PRN (16:59)
[2022-02-19] MEDS: Nicotine 14 MG PATCH TD SCH (20:50)
[2022-02-19] MEDS: Gentamicin Sulfate 80 MG in Premix Bag 1 BAG IVPB SCH (20:50)
[2022-02-19] MEDS: Melatonin 3 MG TAB PO SCH (20:50)
[2022-02-19] MEDS: clonazePAM 1 MG TAB PO SCH (20:51)
[2022-02-19] MEDS: Rosuvastatin 10 MG TAB PO SCH (20:51)
[2022-02-19] MEDS: Tamsulosin HCl 0.4 MG CAP PO SCH (20:52)
[2022-02-19] MEDS: cefTRIAXone\\ROCEPHIN 2 GM in Sodium Chloride 0.9% 100 ML IVPB SCH (21:58)
[2022-02-20 05:08] LABS: #Lymphocytes 1.7 thou/uL (1.20-3.40); #Monocytes 0.4 thou/uL (0.11-0.59); #Neutrophils 2.9 thou/uL (1.40-6.50); %Basophils 0.2 % (0.0-1.0); %Eosinophils 0.5 % (0.0-10.0); %Monocytes 6.9 % (0.0-10.0); %Neutrophils 58.4 % (42.0-75.0); Mean Corpuscular HGB CONC 31.6 g/dL (32.0-36.0); Mean Corpuscular Hemoglobin 31.9 pg (27.0-31.0); Mean Platelet Volume 9.2 fL (7.4-10.4); Platelet Count 126 10x3/uL (130-400); RBC Distribution Width 12.1 % (11.5-14.5); Red Blood Cell (RBC) Count 3.45 mill/uL (4.70-6.10)
[2022-02-20 05:23] LABS: ALT (SGPT) 45 U/L (8-55); AST (SGOT) 36 U/L (5-34); Albumin 2.6 g/dL (3.4-4.8); Alkaline Phosphatase 85 U/L (40-110); BUN (Urea Nitrogen) 26 mg/dL (8.4-25.7); Bilirubin, Total 0.3 mg/dL (0.2-1.2); Calc. Creatinine Clearance 58 mL/min (70-130); Calcium 8.2 mg/dL (7.8-10.44); Estimated GFR 91; Globulin 2.8 g/dL (2.4-3.5); Glucose 143 mg/dL (83-110); Protein, Total 5.4 g/dL (5.8-8.1)
[2022-02-20 05:32] LABS: Anion Gap 14 mmol/L (10-20); Carbon Dioxide 33 mmol/L (23-31); Chloride 97 mmol/L (98-107); Sodium 140 mmol/L (136-145)
[2022-02-20] MEDS: Mometasone/Formoterol 200/5 60 PUFF INH SCH ×2 (07:09→18:55)
[2022-02-20] MEDS: predniSONE 20 MG TAB PO SCH (08:33)
[2022-02-20] MEDS: Torsemide 20 MG TAB PO SCH (08:34)
[2022-02-20] MEDS: Escitalopram Oxalate 10 mg Tablet PO SCH (08:34)
[2022-02-20] MEDS: Aspirin Chewable 81 MG TAB PO SCH (08:34)
[2022-02-20] MEDS: Senokot S 8.6-50 MG TAB PO SCH ×2 (08:34→21:55)
[2022-02-20] MEDS: HumaLOG 300 UNITS/3 ML VIAL SC PRN ×2 (12:57→17:59)
[2022-02-20] MEDS: Nicotine 14 MG PATCH TD SCH (20:08)
[2022-02-20] MEDS: Gentamicin Sulfate 80 MG in Premix Bag 1 BAG IVPB SCH (20:20)
[2022-02-20] MEDS: cefTRIAXone\\ROCEPHIN 2 GM in Sodium Chloride 0.9% 100 ML IVPB SCH (21:54)
[2022-02-20] MEDS: clonazePAM 1 MG TAB PO SCH (21:55)
[2022-02-20] MEDS: Rosuvastatin 10 MG TAB PO SCH (21:56)
[2022-02-20] MEDS: Tamsulosin HCl 0.4 MG CAP PO SCH (21:56)
[2022-02-20] MEDS: Melatonin 3 MG TAB PO SCH (21:56)
[2022-02-21 05:32] LABS: ALT (SGPT) 45 U/L (8-55); AST (SGOT) 37 U/L (5-34); Albumin 2.7 g/dL (3.4-4.8); Alkaline Phosphatase 99 U/L (40-110); Anion Gap 13 mmol/L (10-20); BUN (Urea Nitrogen) 29 mg/dL (8.4-25.7); Bilirubin, Total 0.3 mg/dL (0.2-1.2); Calc. Creatinine Clearance 57 mL/min (70-130); Calcium 8.4 mg/dL (7.8-10.44); Carbon Dioxide 31 mmol/L (23-31); Chloride 99 mmol/L (98-107); Estimated GFR 91; Globulin 3.1 g/dL (2.4-3.5); Glucose 131 mg/dL (83-110); Potassium 4.7 mmol/L (3.5-5.1); Protein, Total 5.8 g/dL (5.8-8.1); Sodium 138 mmol/L (136-145)
[2022-02-21] MEDS: Mometasone/Formoterol 200/5 60 PUFF INH SCH (07:16)
[2022-02-21 07:50] LABS: #Monocytes 0.4 thou/uL (0.11-0.59); %Basophils 0.4 % (0.0-1.0); %Eosinophils 0.6 % (0.0-10.0); %Monocytes 5.5 % (0.0-10.0); %Neutrophils 62.4 % (42.0-75.0); Hemoglobin 12.4 g/dL (14.0-18.0); Mean Corpuscular HGB CONC 31.7 g/dL (32.0-36.0); Mean Platelet Volume 9.1 fL (7.4-10.4); Platelet Count 151 10x3/uL (130-400); RBC Distribution Width 11.8 % (11.5-14.5); Red Blood Cell (RBC) Count 3.87 mill/uL (4.70-6.10); White Blood Cell (WBC) Count 6.4 10x3/uL (4.8-10.8)
[2022-02-21] MEDS: Aspirin Chewable 81 MG TAB PO SCH (10:36)
[2022-02-21] MEDS: predniSONE 20 MG TAB PO SCH (10:36)
[2022-02-21] MEDS: Senokot S 8.6-50 MG TAB PO SCH (10:37)
[2022-02-21] MEDS: Escitalopram Oxalate 10 mg Tablet PO SCH (10:37)
[2022-02-21] MEDS: Torsemide 20 MG TAB PO SCH (10:37)
[2022-02-21 12:47] VITALS: BP 124/62; TEMP 98.4
[2022-02-21] MEDS: HumaLOG 300 UNITS/3 ML VIAL SC PRN (12:54)
[2022-02-21] MEDS ORDERED: cefTRIAXone\\ROCEPHIN 2 GM in Sodium Chloride 0.9% 100 ML IVPB SCH (16:00)
[2022-02-21] MEDS ORDERED: Gentamicin Sulfate 80 MG in Premix Bag 1 BAG IVPB SCH (16:00)
[2022-02-21] MEDS ORDERED: Mometasone 200 MCG/Formoterol 5 MCG 120 PUFF INHALER INH SCH (18:30)
== END 2022-02-21 19:00 | disposition home or self-care (01) | DRG 856 ==
LOC: ERS 11:25 → 2SW 16:26 → OBSVTOIN 02-08 11:43 → CCU 02-14 01:25 → 2NO 02-16 05:05
PROVIDERS: ADMIT Internal Medicine; ATTEND Internal Medicine
PROC: 0PB00ZZ Excision of Sternum, Open Approach (ICD-10-PCS; principal; 2022-02-09)
PROC: 02HV33Z Insertion of Infusion Device into Superior Vena Cava, Percutaneous Approach (ICD-10-PCS; 2022-02-11)
PROC: B24BZZ4 Ultrasonography of Heart with Aorta, Transesophageal (ICD-10-PCS; 2022-02-11)
PROC: 3E033XZ Introduction of Vasopressor into Peripheral Vein, Percutaneous Approach (ICD-10-PCS; 2022-02-14)
DX: T81.49XA Infection following a procedure, other surgical site, initial encounter (principal); A40.8 Other streptococcal sepsis; I33.0 Acute and subacute infective endocarditis; I42.8 Other cardiomyopathies; J44.1 Chronic obstructive pulmonary disease with (acute) exacerbation; R64 Cachexia; I50.32 Chronic diastolic (congestive) heart failure; Z68.1 Body mass index [BMI] 19.9 or less, adult; E44.1 Mild protein-calorie malnutrition; I25.10 Atherosclerotic heart disease of native coronary artery without angina pectoris; I11.0 Hypertensive heart disease with heart failure; Z20.822 Contact with and (suspected) exposure to COVID-19; N40.0 Benign prostatic hyperplasia without lower urinary tract symptoms; K21.9 Gastro-esophageal reflux disease without esophagitis; K59.00 Constipation, unspecified; D69.6 Thrombocytopenia, unspecified; F17.210 Nicotine dependence, cigarettes, uncomplicated; I48.0 Paroxysmal atrial fibrillation; B95.4 Other streptococcus as the cause of diseases classified elsewhere; Y83.8 Other surgical procedures as the cause of abnormal reaction of the patient, or of later complication, without mention of misadventure at the time of the procedure; F41.9 Anxiety disorder, unspecified; F32.A Depression, unspecified; E78.5 Hyperlipidemia, unspecified; Z99.81 Dependence on supplemental oxygen; Z88.0 Allergy status to penicillin; Z91.048 Other nonmedicinal substance allergy status; Z79.51 Long term (current) use of inhaled steroids; Z79.52 Long term (current) use of systemic steroids; Z79.82 Long term (current) use of aspirin; Z79.899 Other long term (current) drug therapy; Z98.890 Other specified postprocedural states; Z90.49 Acquired absence of other specified parts of digestive tract; I95.9 Hypotension, unspecified; E11.649 Type 2 diabetes mellitus with hypoglycemia without coma
CPT/HCPCS: 36415; 36416; 36569; 70450; 71045; 71260; 80048; 80053; 80170; 80202; 81001; 82550; 83036; 83605; 83690; 83735; 83880; 84100; 84145; 84443; 84484; 85025; 85027; 86140; 87040; 87070; 87077; 87149; 87186; 87205; 87811; 93005; 93306; 93312; 94640; 94760; 96374; 96375; 96376; 97139; C1751; G0378; J0692; J0696; J1580; J1815; J2185; J2704; J3370; J3370-JW; J3475; J3490; J7030; J7050; J7512; J7611; J7620; Q9967

== ENCOUNTER 2022-03-03 10:15 | Inpatient (IN) | payer MEDICARE, OTHER ==
[2022-03-03 10:47] LABS: #Lymphocytes 1.2 thou/uL (1.20-3.40); #Monocytes 0.8 thou/uL (0.11-0.59); %Basophils 0.2 % (0.0-1.0); %Eosinophils 0.4 % (0.0-10.0); %Monocytes 6.8 % (0.0-10.0); %Neutrophils 82.6 % (42.0-75.0); Hemoglobin 12.7 g/dL (14.0-18.0); Mean Corpuscular HGB CONC 32.2 g/dL (32.0-36.0); Mean Corpuscular Hemoglobin 32.9 pg (27.0-31.0); Mean Platelet Volume 9.1 fL (7.4-10.4); Platelet Count 91 10x3/uL (130-400); Red Blood Cell (RBC) Count 3.86 mill/uL (4.70-6.10); White Blood Cell (WBC) Count 12.1 10x3/uL (4.8-10.8)
[2022-03-03 10:59] LABS: PTT 28.4 sec (22.9-36.1); Prothrombin Time 13.2 sec (12.0-14.7)
[2022-03-03 11:19] LABS: ALT (SGPT) 16 U/L (8-55); AST (SGOT) 18 U/L (5-34); Alkaline Phosphatase 79 U/L (40-110); Anion Gap 14 mmol/L (10-20); BUN (Urea Nitrogen) 15 mg/dL (8.4-25.7); Bilirubin, Total 0.4 mg/dL (0.2-1.2); Calc. Creatinine Clearance 0 mL/min (70-130); Calcium 8.6 mg/dL (7.8-10.44); Carbon Dioxide 28 mmol/L (23-31); Chloride 104 mmol/L (98-107); Estimated GFR 91; Glucose 179 mg/dL (83-110); Potassium 4.5 mmol/L (3.5-5.1); Sodium 141 mmol/L (136-145)
[2022-03-03] MEDS ORDERED: Vancomycin 1 GM/200 ML (FROZEN) BAG ONE (11:50)
[2022-03-03] MEDS ORDERED: Torsemide 20 MG TAB PO SCH (15:30)
[2022-03-03] MEDS ORDERED: Iopamidol-370 76% 500 ML 1 ML ONE (15:53)
[2022-03-03] MEDS ORDERED: Gentamicin 80 MG/100 ML BAG IVPB SCH (16:00)
[2022-03-03 16:21] LABS: Troponin I Less than 0.010 ng/mL (< 0.028)
[2022-03-03] MEDS: Nicotine 21 MG PATCH TD SCH (18:17)
[2022-03-03] MEDS: cefTRIAXone\\ROCEPHIN 2 GM VIAL IVPB SCH (18:17)
[2022-03-03 18:37] VITALS: BMI 20.8
[2022-03-03] MEDS: Mometasone/Formoterol 200/5 60 PUFF INH SCH (18:42)
[2022-03-03 18:57] LABS: Troponin I Less than 0.010 ng/mL (< 0.028)
[2022-03-03] MEDS ORDERED: Vancomycin 1.5 GRAM/300 ML BAG 1.5 GM in Premix Bag 1 BAG IVPB SCH (19:30)
[2022-03-03] MEDS: Senokot S 8.6-50 MG TAB PO SCH (20:03)
[2022-03-03] MEDS: Rosuvastatin 20 MG TAB PO SCH (20:04)
[2022-03-03] MEDS: Gentamicin Sulfate 80 MG in Premix Bag 1 BAG IVPB SCH (20:06)
[2022-03-03] MEDS ORDERED: Vancomycin 1.5 GRAM/300 ML BAG IVPB SCH (21:00)
[2022-03-04 05:03] LABS: #Eosinphils 0.1 thou/uL (0.0-0.7); #Lymphocytes 1.7 thou/uL (1.20-3.40); #Monocytes 0.9 thou/uL (0.11-0.59); #Neutrophils 6.6 thou/uL (1.40-6.50); %Basophils 0.1 % (0.0-1.0); %Eosinophils 1.4 % (0.0-10.0); %Lymphocytes 17.9 % (21.0-51.0); %Monocytes 9.4 % (0.0-10.0); %Neutrophils 71.3 % (42.0-75.0); Hemoglobin 10.9 g/dL (14.0-18.0); Mean Platelet Volume 9.1 fL (7.4-10.4); Platelet Count 105 10x3/uL (130-400); RBC Distribution Width 11.8 % (11.5-14.5); Red Blood Cell (RBC) Count 3.39 mill/uL (4.70-6.10); White Blood Cell (WBC) Count 9.2 10x3/uL (4.8-10.8)
[2022-03-04 05:14] LABS: Phosphorus 2.3 mg/dL (2.3-4.7)
[2022-03-04 05:17] LABS: ALT (SGPT) 14 U/L (8-55); AST (SGOT) 13 U/L (5-34); Albumin 2.5 g/dL (3.4-4.8); Alkaline Phosphatase 58 U/L (40-110); Anion Gap 7 mmol/L (10-20); BUN (Urea Nitrogen) 13 mg/dL (8.4-25.7); Bilirubin, Total 0.3 mg/dL (0.2-1.2); Calc. Creatinine Clearance 74 mL/min (70-130); Calcium 8.1 mg/dL (7.8-10.44); Carbon Dioxide 33 mmol/L (23-31); Chloride 103 mmol/L (98-107); Estimated GFR 94; Globulin 2.4 g/dL (2.4-3.5); Glucose 105 mg/dL (83-110); Magnesium 1.6 mg/dL (1.6-2.6); Potassium 4.4 mmol/L (3.5-5.1); Protein, Total 4.9 g/dL (5.8-8.1); Sodium 139 mmol/L (136-145)
[2022-03-04] MEDS: Mometasone/Formoterol 200/5 60 PUFF INH SCH ×2 (07:07→18:44)
[2022-03-04] MEDS: Aspirin 81 mg Enteric Coated Tablet PO SCH (09:59)
[2022-03-04] MEDS: predniSONE 20 MG TAB PO SCH (10:00)
[2022-03-04] MEDS: Escitalopram Oxalate 10 mg Tablet PO SCH (10:00)
[2022-03-04] MEDS: Senokot S 8.6-50 MG TAB PO SCH ×2 (10:00→21:15)
[2022-03-04] MEDS: Tamsulosin HCl 0.4 MG CAP PO SCH (10:01)
[2022-03-04] MEDS: Sotalol HCl 80 MG TAB PO SCH ×2 (10:01→21:14)
[2022-03-04] MEDS: Torsemide 20 MG TAB PO SCH (10:04)
[2022-03-04] MEDS: Enoxaparin Sodium 30 MG/0.3 ML SYRINGE SC SCH (10:05)
[2022-03-04] MEDS: cefTRIAXone\\ROCEPHIN 2 GM VIAL IVPB SCH (15:26)
[2022-03-04] MEDS: Nicotine 21 MG PATCH TD SCH (17:27)
[2022-03-04] MEDS ORDERED: VANCOMYCIN 1.25 GM/250 ML BAG 1.25 GM in Premix Bag 1 BAG IVPB SCH (21:00)
[2022-03-04] MEDS: Rosuvastatin 20 MG TAB PO SCH (21:14)
[2022-03-04] MEDS: Gentamicin Sulfate 80 MG in Premix Bag 1 BAG IVPB SCH (21:15)
[2022-03-04] MEDS ORDERED: Melatonin 3 MG TAB PO SCH (22:45)
[2022-03-04] MEDS ORDERED: clonazePAM 0.5 MG TAB PO SCH (22:45)
[2022-03-05 04:38] LABS: #Lymphocytes 1.6 thou/uL (1.20-3.40); #Monocytes 0.9 thou/uL (0.11-0.59); #Neutrophils 6.7 thou/uL (1.40-6.50); %Basophils 0.2 % (0.0-1.0); %Eosinophils 0.4 % (0.0-10.0); %Lymphocytes 17.6 % (21.0-51.0); %Monocytes 9.2 % (0.0-10.0); %Neutrophils 72.5 % (42.0-75.0); Hemoglobin 10.6 g/dL (14.0-18.0); Mean Corpuscular HGB CONC 32.3 g/dL (32.0-36.0); Mean Corpuscular Hemoglobin 32.5 pg (27.0-31.0); Platelet Count 113 10x3/uL (130-400); RBC Distribution Width 11.7 % (11.5-14.5); Red Blood Cell (RBC) Count 3.25 mill/uL (4.70-6.10); White Blood Cell (WBC) Count 9.2 10x3/uL (4.8-10.8)
[2022-03-05 04:59] LABS: ALT (SGPT) 10 U/L (8-55); AST (SGOT) 11 U/L (5-34); Albumin 2.4 g/dL (3.4-4.8); Alkaline Phosphatase 72 U/L (40-110); Anion Gap 9 mmol/L (10-20); BUN (Urea Nitrogen) 19 mg/dL (8.4-25.7); Bilirubin, Total 0.2 mg/dL (0.2-1.2); Calc. Creatinine Clearance 52 mL/min (70-130); Calcium 8.3 mg/dL (7.8-10.44); Carbon Dioxide 34 mmol/L (23-31); Chloride 98 mmol/L (98-107); Estimated GFR 68; Globulin 2.9 g/dL (2.4-3.5); Glucose 205 mg/dL (83-110); Protein, Total 5.3 g/dL (5.8-8.1); Sodium 137 mmol/L (136-145)
[2022-03-05] MEDS: Mometasone/Formoterol 200/5 60 PUFF INH SCH ×2 (07:40→19:01)
[2022-03-05] MEDS: predniSONE 20 MG TAB PO SCH (08:47)
[2022-03-05] MEDS: Enoxaparin Sodium 30 MG/0.3 ML SYRINGE SC SCH (08:47)
[2022-03-05] MEDS: Aspirin 81 mg Enteric Coated Tablet PO SCH (08:47)
[2022-03-05] MEDS: Torsemide 20 MG TAB PO SCH (08:48)
[2022-03-05] MEDS: Escitalopram Oxalate 10 mg Tablet PO SCH (08:48)
[2022-03-05] MEDS: Sotalol HCl 80 MG TAB PO SCH ×2 (08:48→20:24)
[2022-03-05] MEDS: Tamsulosin HCl 0.4 MG CAP PO SCH (08:48)
[2022-03-05] MEDS: Senokot S 8.6-50 MG TAB PO SCH ×2 (08:48→20:22)
[2022-03-05] MEDS: Nicotine 21 MG PATCH TD SCH (17:27)
[2022-03-05] MEDS: cefTRIAXone\\ROCEPHIN 2 GM VIAL IVPB SCH (17:27)
[2022-03-05 20:00] LABS: Vancomycin, Trough 21.5 ug/mL
[2022-03-05] MEDS: Gentamicin Sulfate 80 MG in Premix Bag 1 BAG IVPB SCH (20:18)
[2022-03-05] MEDS: Rosuvastatin 20 MG TAB PO SCH (20:23)
[2022-03-05] MEDS ORDERED: Vancomycin 1 GM in Premix Bag 1 BAG IVPB SCH (21:00)
[2022-03-05] MEDS ORDERED: Melatonin 3 MG TAB PO SCH (21:00)
[2022-03-05] MEDS ORDERED: clonazePAM 0.5 MG TAB PO SCH (21:00)
[2022-03-05] MEDS ORDERED: Benzonatate 100 MG CAP PO PRN (21:06)
[2022-03-06 04:49] LABS: #Eosinphils 0.1 thou/uL (0.0-0.7); #Monocytes 0.8 thou/uL (0.11-0.59); #Neutrophils 7.4 thou/uL (1.40-6.50); %Eosinophils 0.6 % (0.0-10.0); %Lymphocytes 19.2 % (21.0-51.0); %Monocytes 8.2 % (0.0-10.0); %Neutrophils 71.9 % (42.0-75.0); Hemoglobin 10.6 g/dL (14.0-18.0); Mean Corpuscular HGB CONC 32.3 g/dL (32.0-36.0); Mean Corpuscular Hemoglobin 32.2 pg (27.0-31.0); Mean Corpuscular Volume 99.7 fl (78.0-98.0); Mean Platelet Volume 8.8 fL (7.4-10.4); Platelet Count 125 10x3/uL (130-400); RBC Distribution Width 11.7 % (11.5-14.5); Red Blood Cell (RBC) Count 3.28 mill/uL (4.70-6.10); White Blood Cell (WBC) Count 10.2 10x3/uL (4.8-10.8)
[2022-03-06 05:02] LABS: Anion Gap 10 mmol/L (10-20); BUN (Urea Nitrogen) 24 mg/dL (8.4-25.7); Calc. Creatinine Clearance 50 mL/min (70-130); Calcium 8.3 mg/dL (7.8-10.44); Carbon Dioxide 33 mmol/L (23-31); Chloride 98 mmol/L (98-107); Estimated GFR 66; Glucose 165 mg/dL (83-110); Sodium 137 mmol/L (136-145)
[2022-03-06] MEDS: Escitalopram Oxalate 10 mg Tablet PO SCH (10:18)
[2022-03-06] MEDS: Enoxaparin Sodium 30 MG/0.3 ML SYRINGE SC SCH (10:18)
[2022-03-06] MEDS: Aspirin 81 mg Enteric Coated Tablet PO SCH (10:18)
[2022-03-06] MEDS: Senokot S 8.6-50 MG TAB PO SCH (10:19)
[2022-03-06] MEDS: predniSONE 20 MG TAB PO SCH (10:19)
[2022-03-06] MEDS: Tamsulosin HCl 0.4 MG CAP PO SCH (10:20)
[2022-03-06] MEDS: Sotalol HCl 80 MG TAB PO SCH (10:20)
[2022-03-06] MEDS: Torsemide 20 MG TAB PO SCH (10:21)
[2022-03-06] MEDS ORDERED: Mometasone 200 MCG/Formoterol 5 MCG 120 PUFF INHALER INH SCH ×2 (10:45→18:30)
[2022-03-06] MEDS: Mometasone/Formoterol 200/5 60 PUFF INH SCH (10:48)
[2022-03-06 14:09] VITALS: BP 149/80; TEMP 98
== END 2022-03-06 15:12 | disposition home health service (06) | DRG 862 ==
LOC: ERS 10:15 → SUATTDRO 10:15 → 2NO 15:22
PROVIDERS: ADMIT Family Medicine; ATTEND Family Medicine
DX: T81.49XA Infection following a procedure, other surgical site, initial encounter (principal); J18.9 Pneumonia, unspecified organism; L03.313 Cellulitis of chest wall; J44.0 Chronic obstructive pulmonary disease with (acute) lower respiratory infection; J44.1 Chronic obstructive pulmonary disease with (acute) exacerbation; Z66 Do not resuscitate; Z20.822 Contact with and (suspected) exposure to COVID-19; F41.9 Anxiety disorder, unspecified; F17.210 Nicotine dependence, cigarettes, uncomplicated; I11.0 Hypertensive heart disease with heart failure; Y83.8 Other surgical procedures as the cause of abnormal reaction of the patient, or of later complication, without mention of misadventure at the time of the procedure; I50.9 Heart failure, unspecified; I25.10 Atherosclerotic heart disease of native coronary artery without angina pectoris; Z88.0 Allergy status to penicillin; Z95.1 Presence of aortocoronary bypass graft; Z79.82 Long term (current) use of aspirin; Z79.899 Other long term (current) drug therapy; Z79.52 Long term (current) use of systemic steroids; Z95.0 Presence of cardiac pacemaker
CPT/HCPCS: 36415; 71045; 71260; 80048; 80053; 80170; 80202; 83605; 83735; 83880; 84100; 84145; 84484; 85025; 85610; 85730; 87040; 87070; 87205; 93005; 94640; 94664; 94760; 97139; J0696; J1580; J1650; J3370; J3370-JW; J7512; J7620; Q9967; U0003; U0005

== ENCOUNTER 2022-03-22 12:58 | Inpatient (IN) | payer MEDICARE, OTHER ==
[2022-03-22 13:56] LABS: #Lymphocytes 0.9 thou/uL (1.20-3.40); #Monocytes 0.2 thou/uL (0.11-0.59); #Neutrophils 9.6 thou/uL (1.40-6.50); %Basophils 0.4 % (0.0-1.0); %Eosinophils 0.4 % (0.0-10.0); %Monocytes 1.9 % (0.0-10.0); %Neutrophils 89.3 % (42.0-75.0); Hemoglobin 11.4 g/dL (14.0-18.0); Mean Corpuscular Hemoglobin 31.5 pg (27.0-31.0); Platelet Count 92 10x3/uL (130-400); RBC Distribution Width 12.4 % (11.5-14.5); Red Blood Cell (RBC) Count 3.62 mill/uL (4.70-6.10); White Blood Cell (WBC) Count 10.7 10x3/uL (4.8-10.8)
[2022-03-22 14:14] LABS: PTT 24.2 sec (22.9-36.1); Prothrombin Time 13.1 sec (12.0-14.7)
[2022-03-22 14:16] LABS: ALT (SGPT) 8 U/L (8-55); AST (SGOT) 16 U/L (5-34); Albumin 3.3 g/dL (3.4-4.8); Alkaline Phosphatase 70 U/L (40-110); BUN (Urea Nitrogen) 67 mg/dL (8.4-25.7); Bilirubin, Total 0.3 mg/dL (0.2-1.2); Calc. Creatinine Clearance 0 mL/min (70-130); Calcium 8.5 mg/dL (7.8-10.44); Estimated GFR 15; Globulin 3.2 g/dL (2.4-3.5); Glucose 208 mg/dL (83-110); Protein, Total 6.5 g/dL (5.8-8.1)
[2022-03-22 14:27] LABS: Chloride 93 mmol/L (98-107); Potassium 4.3 mmol/L (3.5-5.1); Sodium 145 mmol/L (136-145)
[2022-03-22 14:30] LABS: Anion Gap 22 mmol/L (10-20); Carbon Dioxide 34 mmol/L (23-31)
[2022-03-22] MEDS ORDERED: Heparin 25,000 units/D5W 500 ML ONE (15:08)
[2022-03-22] MEDS ORDERED: Heparin 10,000 UNITS/ 10 ML VIAL ONE (15:11)
[2022-03-22] MEDS ORDERED: Dextrose 50% Abboject 50 ML SYRINGE SLOW IVP PRN (18:13)
[2022-03-22] MEDS ORDERED: Dextrose 5% in Water 1,000 ML IV PRN (18:13)
[2022-03-22] MEDS ORDERED: Heparin 10,000 UNITS/ 10 ML VIAL SLOW IVP SCH (18:15)
[2022-03-22] MEDS ORDERED: Heparin 25,000 units/D5W 500 ML IVPB SCH (18:15)
[2022-03-22 18:28] LABS: Troponin I 0.013 ng/mL (< 0.028)
[2022-03-22 19:24] LABS: Hemoglobin 11.8 g/dL (14.0-18.0); Platelet Count 87 10x3/uL (130-400)
[2022-03-22] MEDS ORDERED: Ipratropium/Albuterol 3 ML NEB ONE (19:36)
[2022-03-22 19:37] LABS: PTT 154.1 sec (22.9-36.1)
[2022-03-22 19:51] LABS: Troponin I 0.012 ng/mL (< 0.028)
[2022-03-22] MEDS: Ipratropium/Albuterol 3 ML NEB NEB PRN (19:57)
[2022-03-22] MEDS ORDERED: Vancomycin 1 GM in Premix Bag 1 BAG IVPB SCH (20:00)
[2022-03-22] MEDS ORDERED: Vancomycin 1 GM/200 ML (FROZEN) BAG ONE (20:10)
[2022-03-22] MEDS: Nicotine 21 MG PATCH TD SCH (20:23)
[2022-03-22] MEDS ORDERED: clonazePAM 1 MG TAB PO SCH (21:00)
[2022-03-22] MEDS ORDERED: Carvedilol 6.25 MG TAB PO SCH (21:15)
[2022-03-22] MEDS ORDERED: clonazePAM 1 MG TAB ONE (21:33)
[2022-03-22] MEDS ORDERED: Cefepime 1 GM VIAL ONE (21:33)
[2022-03-22] MEDS: Cefepime 1 GM in Sodium Chloride 0.9% 100 ML IVPB SCH (21:53)
[2022-03-22] MEDS ORDERED: Vancomycin Dose by Levels Sliding Scale (Wt <71) FS SCH (22:15)
[2022-03-22] MEDS: methylPREDNISolone Sod Succ 40 MG VIAL IVP SCH (23:46)
[2022-03-23 04:22] LABS: #Lymphocytes 0.6 thou/uL (1.20-3.40); #Monocytes 0.1 thou/uL (0.11-0.59); #Neutrophils 6.3 thou/uL (1.40-6.50); %Basophils 0.1 % (0.0-1.0); %Eosinophils 0.4 % (0.0-10.0); %Lymphocytes 7.9 % (21.0-51.0); %Monocytes 1.5 % (0.0-10.0); %Neutrophils 90.1 % (42.0-75.0); Hemoglobin 10.5 g/dL (14.0-18.0); Mean Corpuscular HGB CONC 31.2 g/dL (32.0-36.0); Mean Corpuscular Hemoglobin 31.9 pg (27.0-31.0); Mean Platelet Volume 10.5 fL (7.4-10.4); Platelet Count 82 10x3/uL (130-400); RBC Distribution Width 12.3 % (11.5-14.5)
[2022-03-23 04:39] LABS: Anion Gap 16 mmol/L (10-20); BUN (Urea Nitrogen) 72 mg/dL (8.4-25.7); Calc. Creatinine Clearance 14 mL/min (70-130); Calcium 7.9 mg/dL (7.8-10.44); Carbon Dioxide 37 mmol/L (23-31); Chloride 93 mmol/L (98-107); Estimated GFR 16; Glucose 381 mg/dL (83-110); Potassium 4.3 mmol/L (3.5-5.1); Sodium 142 mmol/L (136-145)
[2022-03-23 04:57] LABS: PTT 121.8 sec (22.9-36.1)
[2022-03-23] MEDS: methylPREDNISolone Sod Succ 40 MG VIAL IVP SCH ×4 (05:08→23:10)
[2022-03-23] MEDS: HumaLOG 300 UNITS/3 ML VIAL SC PRN ×3 (06:30→18:54)
[2022-03-23] MEDS: Sodium Chloride 0.9% 1,000 ML IV SCH (15:02)
[2022-03-23 15:50] LABS: Actual Bicarbonate (HCO3a) 36.9 mEq/L (22-28); Base Excess (BEa) 8.7 mEq/L (-2.0 to +3.0); Calcium, Ionized (arterial) 1.08 mmol/L (1.12-1.30); Carboxyhemoglobin (COHb) 0.2 gm% (0.0-3.0); Hemoglobin (Hb) 11.4 g/dL (14.0-18.0); O2 Tension (PaO2), arterial 92.3 mmHg (> 70.0); Potassium - ABG Lab 4.39 mmol/L (3.70-5.30); pH, Arterial 7.33 (7.35-7.45)
[2022-03-23 15:53] LABS: CO2 Tension 72.3 mmHg (35.0-45.0)
[2022-03-23 15:54] LABS: ALV-art Gradient 16.965 mmHg (0-20); Puncture Site RBA
[2022-03-23] MEDS: Ipratropium/Albuterol 3 ML NEB NEB PRN ×2 (17:13→22:12)
[2022-03-23] MEDS: Nicotine 21 MG PATCH TD SCH (21:56)
[2022-03-23] MEDS: hydrALAZINE 20 MG/ML VIAL SLOW IVP PRN (21:56)
[2022-03-23] MEDS: Cefepime 1 GM in Sodium Chloride 0.9% 100 ML IVPB SCH (21:56)
[2022-03-23] MEDS ORDERED: Vancomycin HCl 750 MG in Sodium Chloride 0.9% 250 ML 250 ML IVPB SCH (22:00)
[2022-03-23] MEDS ORDERED: clonazePAM 1 MG TAB PO SCH (23:00)
[2022-03-24 04:48] LABS: #Lymphocytes 0.9 thou/uL (1.20-3.40); #Monocytes 0.4 thou/uL (0.11-0.59); %Basophils 0.1 % (0.0-1.0); %Eosinophils 0.1 % (0.0-10.0); %Lymphocytes 6.2 % (21.0-51.0); %Monocytes 2.3 % (0.0-10.0); %Neutrophils 91.3 % (42.0-75.0); Hemoglobin 10.9 g/dL (14.0-18.0); Mean Corpuscular HGB CONC 31.7 g/dL (32.0-36.0); Mean Corpuscular Hemoglobin 32.5 pg (27.0-31.0); Mean Platelet Volume 9.6 fL (7.4-10.4); Platelet Count 93 10x3/uL (130-400); RBC Distribution Width 12.4 % (11.5-14.5); Red Blood Cell (RBC) Count 3.36 mill/uL (4.70-6.10); White Blood Cell (WBC) Count 15.3 10x3/uL (4.8-10.8)
[2022-03-24 05:16] LABS: Anion Gap 16 mmol/L (10-20); BUN (Urea Nitrogen) 83 mg/dL (8.4-25.7); Calc. Creatinine Clearance 15 mL/min (70-130); Calcium 8.4 mg/dL (7.8-10.44); Carbon Dioxide 34 mmol/L (23-31); Chloride 98 mmol/L (98-107); Estimated GFR 17; Glucose 194 mg/dL (83-110); Potassium 4.2 mmol/L (3.5-5.1); Sodium 144 mmol/L (136-145)
[2022-03-24] MEDS: methylPREDNISolone Sod Succ 40 MG VIAL IVP SCH ×3 (05:40→18:01)
[2022-03-24] MEDS: HumaLOG 300 UNITS/3 ML VIAL SC PRN ×2 (05:40→22:24)
[2022-03-24] MEDS: Tamsulosin HCl 0.4 MG CAP PO SCH (10:29)
[2022-03-24] MEDS: Sodium Chloride 0.9% 1,000 ML IV SCH (10:31)
[2022-03-24] MEDS: Heparin 5,000 UNITS/ML VIAL SC SCH ×2 (11:20→22:20)
[2022-03-24] MEDS ORDERED: Furosemide 20 MG/2 ML VIAL SLOW IVP SCH (16:00)
[2022-03-24] MEDS: Ipratropium/Albuterol 3 ML NEB NEB PRN ×2 (17:00→21:19)
[2022-03-24] MEDS: Mometasone 200 MCG/Formoterol 5 MCG 120 PUFF INHALER INH SCH (18:53)
[2022-03-24 19:04] LABS: Magnesium 1.7 mg/dL (1.6-2.6); Phosphorus 6.2 mg/dL (2.3-4.7)
[2022-03-24] MEDS: Nicotine 21 MG PATCH TD SCH (20:46)
[2022-03-24] MEDS: clonazePAM 0.5 MG TAB PO PRN (20:46)
[2022-03-24] MEDS: Sotalol HCl 80 MG TAB PO SCH (20:47)
[2022-03-24] MEDS: Rosuvastatin 20 MG TAB PO SCH (20:47)
[2022-03-24] MEDS ORDERED: CEFEPIME HCL IN DEXTROSE 5 % 1 GM in Premix Bag 1 BAG IVPB SCH (21:00)
[2022-03-24 22:47] LABS: Vancomycin, Random 16.5 ug/mL (See Comment)
[2022-03-24] MEDS ORDERED: Vancomycin HCl 250 MG in Sodium Chloride 0.9% 100 ML IV SCH (23:59)
[2022-03-25] MEDS: methylPREDNISolone Sod Succ 40 MG VIAL IVP SCH ×5 (00:45→17:20)
[2022-03-25] MEDS: HumaLOG 300 UNITS/3 ML VIAL SC PRN ×4 (06:37→21:45)
[2022-03-25 08:12] LABS: #Lymphocytes 0.7 thou/uL (1.20-3.40); #Monocytes 0.2 thou/uL (0.11-0.59); #Neutrophils 10.8 thou/uL (1.40-6.50); %Basophils 0.1 % (0.0-1.0); %Eosinophils 0.1 % (0.0-10.0); %Lymphocytes 5.8 % (21.0-51.0); %Monocytes 1.6 % (0.0-10.0); %Neutrophils 92.4 % (42.0-75.0); Hemoglobin 11.3 g/dL (14.0-18.0); Mean Corpuscular HGB CONC 31.4 g/dL (32.0-36.0); Mean Platelet Volume 9.9 fL (7.4-10.4); Platelet Count 85 10x3/uL (130-400); RBC Distribution Width 12.4 % (11.5-14.5); Red Blood Cell (RBC) Count 3.55 mill/uL (4.70-6.10); White Blood Cell (WBC) Count 11.7 10x3/uL (4.8-10.8)
[2022-03-25 08:26] LABS: Phosphorus 6.2 mg/dL (2.3-4.7)
[2022-03-25 08:31] LABS: ALT (SGPT) 10 U/L (8-55); AST (SGOT) 13 U/L (5-34); Albumin 2.9 g/dL (3.4-4.8); Alkaline Phosphatase 52 U/L (40-110); Anion Gap 15 mmol/L (10-20); BUN (Urea Nitrogen) 86 mg/dL (8.4-25.7); Bilirubin, Total 0.3 mg/dL (0.2-1.2); Calc. Creatinine Clearance 16 mL/min (70-130); Calcium 8.6 mg/dL (7.8-10.44); Carbon Dioxide 32 mmol/L (23-31); Chloride 100 mmol/L (98-107); Estimated GFR 19; Glucose 201 mg/dL (83-110); Potassium 4.3 mmol/L (3.5-5.1); Protein, Total 5.9 g/dL (5.8-8.1); Sodium 143 mmol/L (136-145)
[2022-03-25] MEDS: Sotalol HCl 80 MG TAB PO SCH ×2 (10:02→21:39)
[2022-03-25] MEDS: Aspirin 81 mg Enteric Coated Tablet PO SCH (10:02)
[2022-03-25] MEDS: Heparin 5,000 UNITS/ML VIAL SC SCH ×2 (10:02→21:40)
[2022-03-25] MEDS: Tamsulosin HCl 0.4 MG CAP PO SCH (10:02)
[2022-03-25] MEDS: Mometasone 200 MCG/Formoterol 5 MCG 120 PUFF INHALER INH SCH ×2 (10:49→18:11)
[2022-03-25] MEDS: Ipratropium/Albuterol 3 ML NEB NEB PRN ×2 (10:49→15:35)
[2022-03-25] MEDS ORDERED: Furosemide 20 MG/2 ML VIAL SLOW IVP SCH (12:30)
[2022-03-25] MEDS: Rosuvastatin 20 MG TAB PO SCH (21:38)
[2022-03-25] MEDS: Cefuroxime 250 MG TAB PO SCH (21:38)
[2022-03-25] MEDS: Nicotine 21 MG PATCH TD SCH (21:42)
[2022-03-25] MEDS: clonazePAM 0.5 MG TAB PO PRN (21:44)
[2022-03-26] MEDS: methylPREDNISolone Sod Succ 40 MG VIAL IVP SCH ×4 (00:30→20:23)
[2022-03-26] MEDS: hydrALAZINE 20 MG/ML VIAL SLOW IVP PRN (00:36)
[2022-03-26] MEDS: Ipratropium/Albuterol 3 ML NEB NEB PRN ×2 (01:09→15:02)
[2022-03-26 02:03] LABS: #Lymphocytes 0.5 thou/uL (1.20-3.40); #Monocytes 0.4 thou/uL (0.11-0.59); #Neutrophils 11.8 thou/uL (1.40-6.50); %Eosinophils 0.1 % (0.0-10.0); %Lymphocytes 4.1 % (21.0-51.0); %Monocytes 3.1 % (0.0-10.0); %Neutrophils 92.7 % (42.0-75.0); Hemoglobin 11.6 g/dL (14.0-18.0); Mean Corpuscular HGB CONC 32.4 g/dL (32.0-36.0); Mean Corpuscular Hemoglobin 32.1 pg (27.0-31.0); Mean Corpuscular Volume 99.1 fl (78.0-98.0); Mean Platelet Volume 10.2 fL (7.4-10.4); Platelet Count 75 10x3/uL (130-400); RBC Distribution Width 12.2 % (11.5-14.5); White Blood Cell (WBC) Count 12.7 10x3/uL (4.8-10.8)
[2022-03-26 02:24] LABS: ALT (SGPT) 9 U/L (8-55); AST (SGOT) 13 U/L (5-34); Albumin 3.1 g/dL (3.4-4.8); Anion Gap 17 mmol/L (10-20); BUN (Urea Nitrogen) 89 mg/dL (8.4-25.7); Bilirubin, Total 0.4 mg/dL (0.2-1.2); Calcium 8.8 mg/dL (7.8-10.44); Carbon Dioxide 34 mmol/L (23-31); Chloride 99 mmol/L (98-107); Globulin 2.9 g/dL (2.4-3.5); Potassium 4.4 mmol/L (3.5-5.1); Sodium 146 mmol/L (136-145)
[2022-03-26 02:34] LABS: Calc. Creatinine Clearance 17 mL/min (70-130); Estimated GFR 20; Glucose 209 mg/dL (83-110)
[2022-03-26 04:24] LABS: Alkaline Phosphatase 61 U/L (40-110)
[2022-03-26 07:37] LABS: Bacteria/HPF None Seen HPF (None Seen); Bilirubin Negative (Negative); Blood, Urine Trace (Negative); Clarity Clear (Clear); Glucose, Urine (Dipstick) Greater than 1000 mg/dL (Negative); Ketone, Urine Negative (Negative); Leukocyte 25 Leu/uL (Negative); Nitrite Negative (Negative); Protein, Urine (Dipstick) 50 mg/dL (Neg-Trace); Specific Gravity, Urine 1.015 (1.002-1.036); Squamous Epithelial 0-3 HPF (0-3); Urobilinogen Normal mg/dL (Less than 2); WBC/HPF 0-3 HPF (0-3); Yeast-Budding 2+ HPF (None Seen)
[2022-03-26] MEDS: Mometasone 200 MCG/Formoterol 5 MCG 120 PUFF INHALER INH SCH ×2 (07:41→18:54)
[2022-03-26 08:44] LABS: Creatinine, Urine 38.96 mg/dL (63-166); Microalbumin Urine 14.4 mg/dL (0.5-50.0); Microalbumin/Creat Ratio 369.6 mg/g (Less than 30)
[2022-03-26] MEDS ORDERED: Furosemide 20 MG/2 ML VIAL SLOW IVP SCH (09:00)
[2022-03-26] MEDS ORDERED: FLU VACC QS2022-23(65YR UP)/PF 240 MCG/0.7 ML SYRINGE IM ONE (09:00)
[2022-03-26] MEDS: Sotalol HCl 80 MG TAB PO SCH ×2 (11:00→17:43)
[2022-03-26] MEDS: Cefuroxime 250 MG TAB PO SCH ×2 (11:01→17:43)
[2022-03-26] MEDS: Aspirin 81 mg Enteric Coated Tablet PO SCH (11:01)
[2022-03-26] MEDS: Heparin 5,000 UNITS/ML VIAL SC SCH ×2 (11:01→17:44)
[2022-03-26] MEDS: Tamsulosin HCl 0.4 MG CAP PO SCH (11:01)
[2022-03-26] MEDS: HumaLOG 300 UNITS/3 ML VIAL SC PRN ×2 (11:12→17:45)
[2022-03-26] MEDS ORDERED: Amlodipine 5 MG TAB PO SCH (11:45)
[2022-03-26] MEDS ORDERED: Polyethylene Glycol 3350 17 GM Packet PO SCH (15:45)
[2022-03-26] MEDS: Dextrose 5% in Water 1,000 ML IV SCH (17:42)
[2022-03-26] MEDS: Nicotine 21 MG PATCH TD SCH (17:44)
[2022-03-26] MEDS: Rosuvastatin 20 MG TAB PO SCH (17:44)
[2022-03-26] MEDS: Insulin Glargine 30 UNITS/0.3 ML VIAL SC SCH (20:23)
[2022-03-26] MEDS: clonazePAM 0.5 MG TAB PO PRN (20:24)
[2022-03-27] MEDS: HumaLOG 300 UNITS/3 ML VIAL SC PRN ×2 (06:38→21:32)
[2022-03-27] MEDS ORDERED: Amlodipine 5 MG TAB PO SCH (09:00)
[2022-03-27 09:28] LABS: #Lymphocytes 0.7 thou/uL (1.20-3.40); #Monocytes 0.6 thou/uL (0.11-0.59); #Neutrophils 11.2 thou/uL (1.40-6.50); %Eosinophils 0.1 % (0.0-10.0); %Lymphocytes 5.5 % (21.0-51.0); %Monocytes 4.5 % (0.0-10.0); %Neutrophils 89.9 % (42.0-75.0); Hemoglobin 11.6 g/dL (14.0-18.0); Mean Corpuscular HGB CONC 31.8 g/dL (32.0-36.0); Mean Corpuscular Hemoglobin 31.7 pg (27.0-31.0); Mean Corpuscular Volume 99.9 fl (78.0-98.0); Mean Platelet Volume 10.8 fL (7.4-10.4); Platelet Count 72 10x3/uL (130-400); RBC Distribution Width 12.2 % (11.5-14.5); Red Blood Cell (RBC) Count 3.65 mill/uL (4.70-6.10); White Blood Cell (WBC) Count 12.5 10x3/uL (4.8-10.8)
[2022-03-27 09:43] LABS: Anion Gap 16 mmol/L (10-20); BUN (Urea Nitrogen) 90 mg/dL (8.4-25.7); Calc. Creatinine Clearance 19 mL/min (70-130); Calcium 8.8 mg/dL (7.8-10.44); Carbon Dioxide 34 mmol/L (23-31); Chloride 99 mmol/L (98-107); Estimated GFR 23; Glucose 169 mg/dL (83-110); Potassium 4.3 mmol/L (3.5-5.1); Sodium 145 mmol/L (136-145)
[2022-03-27] MEDS: Heparin 5,000 UNITS/ML VIAL SC SCH ×2 (11:03→17:35)
[2022-03-27] MEDS: Sotalol HCl 80 MG TAB PO SCH (11:04)
[2022-03-27] MEDS: Tamsulosin HCl 0.4 MG CAP PO SCH (11:04)
[2022-03-27] MEDS: Polyethylene Glycol 3350 17 GM Packet PO SCH (11:05)
[2022-03-27] MEDS: Cefuroxime 250 MG TAB PO SCH ×2 (11:05→17:34)
[2022-03-27] MEDS: Aspirin 81 mg Enteric Coated Tablet PO SCH (11:05)
[2022-03-27] MEDS: Mometasone 200 MCG/Formoterol 5 MCG 120 PUFF INHALER INH SCH ×2 (11:06→19:28)
[2022-03-27] MEDS: Ipratropium/Albuterol 3 ML NEB NEB PRN ×2 (11:07→15:24)
[2022-03-27] MEDS: methylPREDNISolone Sod Succ 40 MG VIAL IVP SCH ×3 (11:18→20:34)
[2022-03-27] MEDS ORDERED: Labetalol HCl 100 MG TAB PO SCH (14:00)
[2022-03-27] MEDS ORDERED: Carvedilol 6.25 MG TAB PO SCH (17:00)
[2022-03-27] MEDS: Dextrose 5% in Water 1,000 ML IV SCH (17:32)
[2022-03-27] MEDS: hydrALAZINE 25 MG TAB PO SCH (17:34)
[2022-03-27] MEDS: Rosuvastatin 20 MG TAB PO SCH (17:34)
[2022-03-27] MEDS: Nicotine 21 MG PATCH TD SCH (17:35)
[2022-03-27] MEDS: Insulin Glargine 30 UNITS/0.3 ML VIAL SC SCH (17:41)
[2022-03-27] MEDS: clonazePAM 0.5 MG TAB PO PRN (20:34)
[2022-03-28] MEDS ORDERED: Ipratropium Bromide 2.5 ml Neb ONE (00:56)
[2022-03-28] MEDS: Ipratropium/Albuterol 3 ML NEB NEB PRN (01:00)
[2022-03-28] MEDS: HumaLOG 300 UNITS/3 ML VIAL SC PRN ×3 (06:26→17:28)
[2022-03-28] MEDS ORDERED: Escitalopram Oxalate 10 mg Tablet PO SCH (06:30)
[2022-03-28] MEDS: Mometasone 200 MCG/Formoterol 5 MCG 120 PUFF INHALER INH SCH ×2 (07:30→18:37)
[2022-03-28] MEDS: Amlodipine 10 MG TAB PO SCH (08:16)
[2022-03-28] MEDS: methylPREDNISolone Sod Succ 40 MG VIAL IVP SCH ×2 (08:16→13:14)
[2022-03-28] MEDS: Cefuroxime 250 MG TAB PO SCH ×2 (08:16→17:29)
[2022-03-28] MEDS: Aspirin 81 mg Enteric Coated Tablet PO SCH (08:16)
[2022-03-28] MEDS: hydrALAZINE 25 MG TAB PO SCH ×3 (08:17→19:59)
[2022-03-28] MEDS: clonazePAM 0.5 MG TAB PO PRN (08:17)
[2022-03-28] MEDS: Polyethylene Glycol 3350 17 GM Packet PO SCH (08:17)
[2022-03-28] MEDS: Tamsulosin HCl 0.4 MG CAP PO SCH (08:17)
[2022-03-28 09:36] LABS: #Lymphocytes 0.6 thou/uL (1.20-3.40); #Monocytes 0.6 thou/uL (0.11-0.59); %Basophils 0.1 % (0.0-1.0); %Eosinophils 0.1 % (0.0-10.0); %Lymphocytes 5.1 % (21.0-51.0); %Neutrophils 89.7 % (42.0-75.0); Hemoglobin 12.2 g/dL (14.0-18.0); Mean Corpuscular HGB CONC 32.2 g/dL (32.0-36.0); Mean Corpuscular Hemoglobin 32.1 pg (27.0-31.0); Mean Corpuscular Volume 99.5 fl (78.0-98.0); Mean Platelet Volume 11.1 fL (7.4-10.4); Platelet Count 73 10x3/uL (130-400); RBC Distribution Width 12.2 % (11.5-14.5); Red Blood Cell (RBC) Count 3.79 mill/uL (4.70-6.10); White Blood Cell (WBC) Count 12.2 10x3/uL (4.8-10.8)
[2022-03-28 09:57] LABS: Anion Gap 13 mmol/L (10-20); BUN (Urea Nitrogen) 85 mg/dL (8.4-25.7); Calc. Creatinine Clearance 21 mL/min (70-130); Calcium 8.8 mg/dL (7.8-10.44); Carbon Dioxide 36 mmol/L (23-31); Chloride 99 mmol/L (98-107); Estimated GFR 26; Glucose 195 mg/dL (83-110); Potassium 4.4 mmol/L (3.5-5.1); Sodium 144 mmol/L (136-145)
[2022-03-28] MEDS ORDERED: clonazePAM 0.5 MG TAB PO PRN (17:16)
[2022-03-28] MEDS: Nicotine 21 MG PATCH TD SCH (17:29)
[2022-03-28] MEDS: Rosuvastatin 20 MG TAB PO SCH (17:29)
[2022-03-28] MEDS ORDERED: Insulin Glargine 30 UNITS/0.3 ML VIAL SC SCH (19:00)
[2022-03-29] MEDS: Amlodipine 10 MG TAB PO SCH (07:45)
[2022-03-29] MEDS: Escitalopram Oxalate 10 mg Tablet PO SCH (07:45)
[2022-03-29] MEDS: Aspirin 81 mg Enteric Coated Tablet PO SCH (07:45)
[2022-03-29] MEDS: hydrALAZINE 25 MG TAB PO SCH ×3 (07:45→18:05)
[2022-03-29] MEDS: Tamsulosin HCl 0.4 MG CAP PO SCH (07:46)
[2022-03-29] MEDS: Polyethylene Glycol 3350 17 GM Packet PO SCH (07:46)
[2022-03-29] MEDS: Dextrose 5% in Water 1,000 ML IV SCH ×2 (07:46→15:41)
[2022-03-29] MEDS: Cefuroxime 250 MG TAB PO SCH ×2 (07:46→18:04)
[2022-03-29 08:44] LABS: #Lymphocytes 0.7 thou/uL (1.20-3.40); #Monocytes 0.6 thou/uL (0.11-0.59); #Neutrophils 14.3 thou/uL (1.40-6.50); %Basophils 0.2 % (0.0-1.0); %Eosinophils 0.1 % (0.0-10.0); %Lymphocytes 4.7 % (21.0-51.0); %Monocytes 4.1 % (0.0-10.0); Hemoglobin 11.5 g/dL (14.0-18.0); Mean Corpuscular HGB CONC 31.9 g/dL (32.0-36.0); Mean Corpuscular Hemoglobin 32.1 pg (27.0-31.0); Mean Platelet Volume 10.7 fL (7.4-10.4); Platelet Count 89 10x3/uL (130-400); RBC Distribution Width 12.3 % (11.5-14.5); Red Blood Cell (RBC) Count 3.59 mill/uL (4.70-6.10); White Blood Cell (WBC) Count 15.7 10x3/uL (4.8-10.8)
[2022-03-29] MEDS ORDERED: Furosemide 20 MG/2 ML VIAL SLOW IVP SCH (10:30)
[2022-03-29 11:39] LABS: Anion Gap 17 mmol/L (10-20); BUN (Urea Nitrogen) 80 mg/dL (8.4-25.7); Calc. Creatinine Clearance 22 mL/min (70-130); Calcium 8.8 mg/dL (7.8-10.44); Carbon Dioxide 26 mmol/L (23-31); Chloride 100 mmol/L (98-107); Estimated GFR 28; Glucose 72 mg/dL (83-110); Potassium 4.5 mmol/L (3.5-5.1); Sodium 138 mmol/L (136-145)
[2022-03-29] MEDS: Mometasone 200 MCG/Formoterol 5 MCG 120 PUFF INHALER INH SCH ×2 (11:48→18:55)
[2022-03-29] MEDS: Nicotine 21 MG PATCH TD SCH (18:05)
[2022-03-29] MEDS: HumaLOG 300 UNITS/3 ML VIAL SC PRN (18:05)
[2022-03-29] MEDS: Rosuvastatin 20 MG TAB PO SCH (18:05)
[2022-03-29] MEDS ORDERED: Insulin Glargine 30 UNITS/0.3 ML VIAL SC SCH (19:00)
[2022-03-30] MEDS ORDERED: Amlodipine 10 MG TAB PO SCH (09:00)
[2022-03-30] MEDS: Mometasone 200 MCG/Formoterol 5 MCG 120 PUFF INHALER INH SCH ×2 (09:12→18:44)
[2022-03-30] MEDS: Ipratropium/Albuterol 3 ML NEB NEB PRN ×2 (09:16→18:43)
[2022-03-30] MEDS: hydrALAZINE 25 MG TAB PO SCH ×3 (09:40→18:48)
[2022-03-30] MEDS: Amlodipine 5 MG TAB PO SCH (09:41)
[2022-03-30] MEDS: Aspirin 81 mg Enteric Coated Tablet PO SCH (09:41)
[2022-03-30] MEDS: Cefuroxime 250 MG TAB PO SCH ×2 (09:41→17:11)
[2022-03-30] MEDS: Furosemide 20 MG/2 ML VIAL SLOW IVP SCH (09:42)
[2022-03-30] MEDS: Escitalopram Oxalate 10 mg Tablet PO SCH (09:42)
[2022-03-30] MEDS: Polyethylene Glycol 3350 17 GM Packet PO SCH (09:43)
[2022-03-30] MEDS: Tamsulosin HCl 0.4 MG CAP PO SCH (09:43)
[2022-03-30 10:33] LABS: #Eosinphils 0.1 thou/uL (0.0-0.7); #Lymphocytes 0.9 thou/uL (1.20-3.40); #Monocytes 0.9 thou/uL (0.11-0.59); #Neutrophils 13.7 thou/uL (1.40-6.50); %Eosinophils 0.4 % (0.0-10.0); %Lymphocytes 5.8 % (21.0-51.0); %Monocytes 5.9 % (0.0-10.0); %Neutrophils 87.9 % (42.0-75.0); Hemoglobin 12.3 g/dL (14.0-18.0); Mean Corpuscular HGB CONC 31.9 g/dL (32.0-36.0); Mean Corpuscular Hemoglobin 31.5 pg (27.0-31.0); Mean Corpuscular Volume 98.8 fl (78.0-98.0); Mean Platelet Volume 10.7 fL (7.4-10.4); Platelet Count 94 10x3/uL (130-400); RBC Distribution Width 12.4 % (11.5-14.5); Red Blood Cell (RBC) Count 3.91 mill/uL (4.70-6.10); White Blood Cell (WBC) Count 15.6 10x3/uL (4.8-10.8)
[2022-03-30 10:51] LABS: Anion Gap 13 mmol/L (10-20); BUN (Urea Nitrogen) 78 mg/dL (8.4-25.7); Calc. Creatinine Clearance 23 mL/min (70-130); Carbon Dioxide 31 mmol/L (23-31); Chloride 103 mmol/L (98-107); Estimated GFR 29; Glucose 63 mg/dL (83-110); Potassium 4.1 mmol/L (3.5-5.1); Sodium 143 mmol/L (136-145)
[2022-03-30] MEDS: Rosuvastatin 20 MG TAB PO SCH (17:11)
[2022-03-30] MEDS: Nicotine 21 MG PATCH TD SCH (17:11)
[2022-03-30 18:28] LABS: Actual Bicarbonate (HCO3v) 27 mEq/L (22-28); Base Excess 5.9 mEq/L (-2.0 to +3.0); Calcium, Ionized (venous) 1.01 mmol/L (1.16-1.32); Chloride (VBG) 102 mmol/L (98-106); Hemoglobin (Hb) 11.7 g/dL (12.6-17.4); Potassium (VBG) 4.14 mmol/L (3.70-5.30); Sodium 138.7 mmol/L (133-146); pH (venous) 7.62 (7.32-7.43)
[2022-03-30] MEDS: guaiFENesin ER 600 MG TAB PO PRN (21:28)
[2022-03-30] MEDS: Heparin 5,000 UNITS/ML VIAL SC SCH (21:28)
[2022-03-30] MEDS: clonazePAM 0.5 MG TAB PO PRN (21:29)
[2022-03-30 22:48] LABS: Bacteria/HPF None Seen HPF (None Seen); Bilirubin Negative (Negative); Blood, Urine 1+ (Negative); CAUTI Indications for Culture Alt mental st,lethar; Clarity Clear (Clear); Glucose, Urine (Dipstick) >=1000 mg/dL (Negative); Ketone, Urine Negative (Negative); Leukocyte Negative Leu/uL (Negative); Nitrite Negative (Negative); Protein, Urine (Dipstick) 70 mg/dL (Neg-Trace); RBC/HPF 0-3 HPF (0-3); Specific Gravity, Urine 1.011 (1.002-1.036); Squamous Epithelial 0-3 HPF (0-3); Urobilinogen Normal mg/dL (Less than 2); WBC/HPF 0-3 HPF (0-3)
[2022-03-30 22:49] LABS: Urine Culture Reflex No No
[2022-03-31] MEDS: hydrALAZINE 25 MG TAB PO SCH ×3 (06:28→17:56)
[2022-03-31] MEDS: Mometasone 200 MCG/Formoterol 5 MCG 120 PUFF INHALER INH SCH ×2 (09:17→18:46)
[2022-03-31] MEDS: Ipratropium/Albuterol 3 ML NEB NEB PRN (09:19)
[2022-03-31] MEDS: Aspirin 81 mg Enteric Coated Tablet PO SCH (09:54)
[2022-03-31] MEDS: Escitalopram Oxalate 10 mg Tablet PO SCH (09:54)
[2022-03-31] MEDS: Cefuroxime 250 MG TAB PO SCH ×2 (09:54→17:57)
[2022-03-31] MEDS: Amlodipine 5 MG TAB PO SCH (09:55)
[2022-03-31 09:56] LABS: Hemoglobin 11.1 g/dL (14.0-18.0); Mean Corpuscular HGB CONC 32.5 g/dL (32.0-36.0); Mean Corpuscular Hemoglobin 32.1 pg (27.0-31.0); Mean Corpuscular Volume 98.6 fl (78.0-98.0); Mean Platelet Volume 10.4 fL (7.4-10.4); Platelet Count 99 10x3/uL (130-400); RBC Distribution Width 12.4 % (11.5-14.5); Red Blood Cell (RBC) Count 3.45 mill/uL (4.70-6.10)
[2022-03-31] MEDS: Polyethylene Glycol 3350 17 GM Packet PO SCH (09:56)
[2022-03-31] MEDS: Tamsulosin HCl 0.4 MG CAP PO SCH (09:56)
[2022-03-31] MEDS: Furosemide 20 MG/2 ML VIAL SLOW IVP SCH (09:57)
[2022-03-31] MEDS: Heparin 5,000 UNITS/ML VIAL SC SCH ×2 (09:58→20:54)
[2022-03-31 10:04] LABS: Anion Gap 18 mmol/L (10-20); BUN (Urea Nitrogen) 71 mg/dL (8.4-25.7); Calc. Creatinine Clearance 23 mL/min (70-130); Calcium 8.9 mg/dL (7.8-10.44); Carbon Dioxide 27 mmol/L (23-31); Chloride 102 mmol/L (98-107); Estimated GFR 29; Glucose 117 mg/dL (83-110); Potassium 4.3 mmol/L (3.5-5.1); Sodium 143 mmol/L (136-145)
[2022-03-31 11:15] LABS: Band 1 % (5-11); Lymphocytes 7 % (21-51); MDiff Complete? YES; Neutrophil 92 % (42-75); Platelet Morphology Comment Appears Decreased; RBC Morphology Normal
[2022-03-31 12:07] LABS: Anion Gap 17 mmol/L (10-20); BUN (Urea Nitrogen) 68 mg/dL (8.4-25.7); Calc. Creatinine Clearance 23 mL/min (70-130); Calcium 8.6 mg/dL (7.8-10.44); Carbon Dioxide 28 mmol/L (23-31); Chloride 100 mmol/L (98-107); Estimated GFR 29; Glucose 146 mg/dL (83-110); Potassium 3.9 mmol/L (3.5-5.1); Sodium 141 mmol/L (136-145)
[2022-03-31] MEDS: Nicotine 21 MG PATCH TD SCH (17:56)
[2022-03-31] MEDS: Rosuvastatin 20 MG TAB PO SCH (17:57)
[2022-03-31] MEDS: Ipratropium/Albuterol 3 ML NEB NEB SCH (18:45)
[2022-03-31] MEDS: HumaLOG 300 UNITS/3 ML VIAL SC PRN (20:55)
[2022-03-31] MEDS: clonazePAM 0.5 MG TAB PO PRN (22:07)
[2022-04-01] MEDS: hydrALAZINE 25 MG TAB PO SCH ×3 (06:01→19:13)
[2022-04-01] MEDS: HumaLOG 300 UNITS/3 ML VIAL SC PRN ×2 (06:03→16:44)
[2022-04-01] MEDS: Ipratropium/Albuterol 3 ML NEB NEB SCH ×2 (07:29→18:10)
[2022-04-01] MEDS: Mometasone 200 MCG/Formoterol 5 MCG 120 PUFF INHALER INH SCH ×2 (07:31→18:22)
[2022-04-01 09:18] LABS: Hemoglobin 10.8 g/dL (14.0-18.0); Mean Corpuscular Hemoglobin 32.4 pg (27.0-31.0); Mean Corpuscular Volume 98.2 fl (78.0-98.0); Mean Platelet Volume 9.9 fL (7.4-10.4); Platelet Count 117 10x3/uL (130-400); RBC Distribution Width 12.4 % (11.5-14.5); Red Blood Cell (RBC) Count 3.32 mill/uL (4.70-6.10); White Blood Cell (WBC) Count 14.6 10x3/uL (4.8-10.8)
[2022-04-01 09:22] LABS: Anion Gap 14 mmol/L (10-20); BUN (Urea Nitrogen) 66 mg/dL (8.4-25.7); Calc. Creatinine Clearance 22 mL/min (70-130); Calcium 8.6 mg/dL (7.8-10.44); Carbon Dioxide 30 mmol/L (23-31); Chloride 103 mmol/L (98-107); Estimated GFR 30; Glucose 127 mg/dL (83-110); Potassium 3.4 mmol/L (3.5-5.1); Sodium 144 mmol/L (136-145)
[2022-04-01] MEDS: Aspirin 81 mg Enteric Coated Tablet PO SCH (09:23)
[2022-04-01] MEDS: Polyethylene Glycol 3350 17 GM Packet PO SCH (09:23)
[2022-04-01] MEDS: Amlodipine 5 MG TAB PO SCH (09:23)
[2022-04-01] MEDS: Escitalopram Oxalate 10 mg Tablet PO SCH (09:23)
[2022-04-01] MEDS: Cefuroxime 250 MG TAB PO SCH ×2 (09:23→18:38)
[2022-04-01] MEDS: Tamsulosin HCl 0.4 MG CAP PO SCH (09:23)
[2022-04-01] MEDS: Furosemide 20 MG/2 ML VIAL SLOW IVP SCH (09:23)
[2022-04-01 09:55] LABS: Eosinophils 1 % (0-10); Lymphocytes 13 % (21-51); MDiff Complete? YES; Monocytes 1 % (0-10); Neutrophil 85 % (42-75); Platelet Morphology Comment Appears Decreased; Polychromasia SLIGHT = 2-3 cells (100X) (0-2/hpf)
[2022-04-01] MEDS: Heparin 5,000 UNITS/ML VIAL SC SCH ×2 (11:32→21:23)
[2022-04-01] MEDS ORDERED: Potassium Chloride 20 MEQ TAB PO SCH (17:00)
[2022-04-01] MEDS: Nicotine 21 MG PATCH TD SCH (18:38)
[2022-04-01] MEDS: Rosuvastatin 20 MG TAB PO SCH (18:38)
[2022-04-01] MEDS: Ipratropium/Albuterol 3 ML NEB NEB PRN (20:48)
[2022-04-01] MEDS: clonazePAM 0.5 MG TAB PO PRN (21:23)
[2022-04-02] MEDS: HumaLOG 300 UNITS/3 ML VIAL SC PRN ×2 (06:19→17:45)
[2022-04-02] MEDS: Ipratropium/Albuterol 3 ML NEB NEB SCH ×2 (08:06→19:25)
[2022-04-02] MEDS: Mometasone 200 MCG/Formoterol 5 MCG 120 PUFF INHALER INH SCH ×2 (08:07→19:26)
[2022-04-02] MEDS: Potassium Chloride 20 MEQ TAB PO SCH (08:43)
[2022-04-02] MEDS: Cefuroxime 250 MG TAB PO SCH ×2 (08:43→17:42)
[2022-04-02] MEDS: hydrALAZINE 25 MG TAB PO SCH ×3 (08:43→18:47)
[2022-04-02] MEDS: Escitalopram Oxalate 10 mg Tablet PO SCH (08:43)
[2022-04-02] MEDS: Amlodipine 5 MG TAB PO SCH (08:43)
[2022-04-02] MEDS: Tamsulosin HCl 0.4 MG CAP PO SCH (08:43)
[2022-04-02] MEDS: Furosemide 20 MG/2 ML VIAL SLOW IVP SCH (08:43)
[2022-04-02] MEDS: Aspirin 81 mg Enteric Coated Tablet PO SCH (08:43)
[2022-04-02] MEDS: Polyethylene Glycol 3350 17 GM Packet PO SCH (08:44)
[2022-04-02] MEDS: Heparin 5,000 UNITS/ML VIAL SC SCH ×2 (08:44→21:21)
[2022-04-02 10:27] LABS: #Eosinphils 0.2 thou/uL (0.0-0.7); #Lymphocytes 1.2 thou/uL (1.20-3.40); #Monocytes 0.8 thou/uL (0.11-0.59); #Neutrophils 10.9 thou/uL (1.40-6.50); %Basophils 0.1 % (0.0-1.0); %Eosinophils 1.8 % (0.0-10.0); %Lymphocytes 9.1 % (21.0-51.0); %Monocytes 5.9 % (0.0-10.0); %Neutrophils 83.2 % (42.0-75.0); Hemoglobin 10.6 g/dL (14.0-18.0); Mean Corpuscular Hemoglobin 33.1 pg (27.0-31.0); Mean Corpuscular Volume 97.5 fl (78.0-98.0); Platelet Count 101 10x3/uL (130-400); RBC Distribution Width 12.4 % (11.5-14.5); Red Blood Cell (RBC) Count 3.19 mill/uL (4.70-6.10); White Blood Cell (WBC) Count 13.1 10x3/uL (4.8-10.8)
[2022-04-02 10:43] LABS: Anion Gap 17 mmol/L (10-20); BUN (Urea Nitrogen) 56 mg/dL (8.4-25.7); Calc. Creatinine Clearance 22 mL/min (70-130); Calcium 8.4 mg/dL (7.8-10.44); Carbon Dioxide 25 mmol/L (23-31); Chloride 105 mmol/L (98-107); Estimated GFR 28; Glucose 131 mg/dL (83-110); Potassium 4.1 mmol/L (3.5-5.1); Sodium 143 mmol/L (136-145)
[2022-04-02] MEDS: Ipratropium/Albuterol 3 ML NEB NEB PRN (11:37)
[2022-04-02 14:38] LABS: Magnesium 1.3 mg/dL (1.6-2.6)
[2022-04-02] MEDS ORDERED: Magnesium 2 GM/50 ML(in water) 2 GM in Premix Bag 1 BAG IVPB SCH ×2 (15:45→17:00)
[2022-04-02] MEDS: Rosuvastatin 20 MG TAB PO SCH (17:42)
[2022-04-02] MEDS: Nicotine 21 MG PATCH TD SCH (17:42)
[2022-04-02] MEDS: clonazePAM 0.5 MG TAB PO SCH (21:20)
[2022-04-03 05:23] LABS: Magnesium 2.2 mg/dL (1.6-2.6)
[2022-04-03] MEDS ORDERED: cefTRIAXone\\ROCEPHIN 2 GM in Sodium Chloride 0.9% 100 ML IVPB SCH (07:00)
[2022-04-03] MEDS ORDERED: Bupivacaine HCl 0.5%/Epinephrine 1:200,000/PF 30 ml Vial ONE (07:22)
[2022-04-03] MEDS ORDERED: Dexamethasone 4 mg/ml Vial ONE (07:22)
[2022-04-03] MEDS ORDERED: Neomycin-Polymyxin 1 ML AMP ONE (07:26)
[2022-04-03] MEDS: Ipratropium/Albuterol 3 ML NEB NEB SCH ×2 (07:39→18:42)
[2022-04-03] MEDS: Mometasone 200 MCG/Formoterol 5 MCG 120 PUFF INHALER INH SCH ×2 (07:40→18:43)
[2022-04-03] MEDS ORDERED: Fentanyl 250 MCG/5 ML VIAL ONE (07:46)
[2022-04-03] MEDS ORDERED: Clindamycin/D5W 900 mg/50 ml Premix Bag ONE (07:52)
[2022-04-03] MEDS ORDERED: Levofloxacin 500 mg/D5W 100 ml Premix Bag ONE (07:52)
[2022-04-03] MEDS ORDERED: Ondansetron ORAL SOLN. 4 MG/5 ML UDCUP ONE (08:22)
[2022-04-03] MEDS ORDERED: PROPOFOL 200 MG/20 ML VIAL ONE (08:22)
[2022-04-03] MEDS ORDERED: Lidocaine 1% PF 5 ML VIAL ONE (08:22)
[2022-04-03] MEDS: Polyethylene Glycol 3350 17 GM Packet PO SCH (09:47)
[2022-04-03] MEDS: Escitalopram Oxalate 10 mg Tablet PO SCH (09:47)
[2022-04-03] MEDS: Amlodipine 5 MG TAB PO SCH (09:47)
[2022-04-03] MEDS: Potassium Chloride 20 MEQ TAB PO SCH (09:47)
[2022-04-03] MEDS: Aspirin 81 mg Enteric Coated Tablet PO SCH (09:47)
[2022-04-03] MEDS: Cefuroxime 250 MG TAB PO SCH ×2 (09:47→17:16)
[2022-04-03] MEDS: hydrALAZINE 25 MG TAB PO SCH ×3 (09:48→21:04)
[2022-04-03] MEDS: Heparin 5,000 UNITS/ML VIAL SC SCH ×2 (09:48→21:00)
[2022-04-03] MEDS: Tamsulosin HCl 0.4 MG CAP PO SCH (09:48)
[2022-04-03] MEDS: Furosemide 20 MG/2 ML VIAL SLOW IVP SCH (09:48)
[2022-04-03] MEDS: Acetaminophen 325 MG TAB PO PRN ×2 (10:26→21:01)
[2022-04-03] MEDS: HumaLOG 300 UNITS/3 ML VIAL SC PRN ×2 (11:50→17:16)
[2022-04-03 12:41] LABS: #Eosinphils 0.1 thou/uL (0.0-0.7); #Lymphocytes 0.9 thou/uL (1.20-3.40); #Monocytes 0.7 thou/uL (0.11-0.59); #Neutrophils 9.1 thou/uL (1.40-6.50); %Eosinophils 0.8 % (0.0-10.0); %Lymphocytes 8.4 % (21.0-51.0); %Monocytes 6.7 % (0.0-10.0); %Neutrophils 84.1 % (42.0-75.0); Hemoglobin 9.7 g/dL (14.0-18.0); Mean Corpuscular HGB CONC 32.6 g/dL (32.0-36.0); Mean Corpuscular Hemoglobin 32.2 pg (27.0-31.0); Mean Corpuscular Volume 98.7 fl (78.0-98.0); Mean Platelet Volume 10.2 fL (7.4-10.4); Platelet Count 117 10x3/uL (130-400); RBC Distribution Width 12.4 % (11.5-14.5); White Blood Cell (WBC) Count 10.8 10x3/uL (4.8-10.8)
[2022-04-03 13:01] LABS: Anion Gap 9 mmol/L (10-20); BUN (Urea Nitrogen) 54 mg/dL (8.4-25.7); Calc. Creatinine Clearance 24 mL/min (70-130); Calcium 8.2 mg/dL (7.8-10.44); Carbon Dioxide 31 mmol/L (23-31); Chloride 101 mmol/L (98-107); Estimated GFR 32; Glucose 221 mg/dL (83-110); Sodium 137 mmol/L (136-145)
[2022-04-03 14:28] VITALS: BMI 18.1
[2022-04-03] MEDS: Ipratropium/Albuterol 3 ML NEB NEB PRN (14:55)
[2022-04-03] MEDS: Nicotine 21 MG PATCH TD SCH (17:16)
[2022-04-03] MEDS: Rosuvastatin 20 MG TAB PO SCH (17:16)
[2022-04-03] MEDS: clonazePAM 0.5 MG TAB PO SCH (21:00)
[2022-04-04] MEDS: Acetaminophen 325 MG TAB PO PRN ×2 (06:01→12:03)
[2022-04-04] MEDS: hydrALAZINE 25 MG TAB PO SCH ×3 (06:20→17:47)
[2022-04-04] MEDS: Ipratropium/Albuterol 3 ML NEB NEB SCH ×2 (07:34→19:11)
[2022-04-04] MEDS: Mometasone 200 MCG/Formoterol 5 MCG 120 PUFF INHALER INH SCH ×2 (07:35→19:15)
[2022-04-04] MEDS: Cefuroxime 250 MG TAB PO SCH (09:02)
[2022-04-04] MEDS: Escitalopram Oxalate 10 mg Tablet PO SCH (09:02)
[2022-04-04] MEDS: Aspirin 81 mg Enteric Coated Tablet PO SCH (09:02)
[2022-04-04] MEDS: Amlodipine 5 MG TAB PO SCH (09:02)
[2022-04-04] MEDS: Polyethylene Glycol 3350 17 GM Packet PO SCH (09:02)
[2022-04-04] MEDS: Potassium Chloride 20 MEQ TAB PO SCH (09:02)
[2022-04-04] MEDS: Fluconazole 100 MG TAB PO SCH (09:03)
[2022-04-04] MEDS: Tamsulosin HCl 0.4 MG CAP PO SCH (09:03)
[2022-04-04] MEDS: Heparin 5,000 UNITS/ML VIAL SC SCH ×2 (09:04→20:03)
[2022-04-04] MEDS: Furosemide 20 MG/2 ML VIAL SLOW IVP SCH (09:04)
[2022-04-04 10:56] LABS: #Eosinphils 0.1 thou/uL (0.0-0.7); #Lymphocytes 0.7 thou/uL (1.20-3.40); #Monocytes 0.6 thou/uL (0.11-0.59); #Neutrophils 8.5 thou/uL (1.40-6.50); %Basophils 0.1 % (0.0-1.0); %Eosinophils 1.2 % (0.0-10.0); %Lymphocytes 6.9 % (21.0-51.0); %Monocytes 5.7 % (0.0-10.0); %Neutrophils 86.2 % (42.0-75.0); Hemoglobin 8.9 g/dL (14.0-18.0); Mean Corpuscular HGB CONC 32.2 g/dL (32.0-36.0); Mean Corpuscular Volume 99.4 fl (78.0-98.0); Mean Platelet Volume 8.9 fL (7.4-10.4); Platelet Count 116 10x3/uL (130-400); RBC Distribution Width 12.3 % (11.5-14.5); Red Blood Cell (RBC) Count 2.79 mill/uL (4.70-6.10); White Blood Cell (WBC) Count 9.8 10x3/uL (4.8-10.8)
[2022-04-04 10:57] LABS: Anion Gap 10 mmol/L (10-20); BUN (Urea Nitrogen) 49 mg/dL (8.4-25.7); Calc. Creatinine Clearance 22 mL/min (70-130); Carbon Dioxide 30 mmol/L (23-31); Chloride 103 mmol/L (98-107); Estimated GFR 30; Glucose 255 mg/dL (83-110); Sodium 139 mmol/L (136-145)
[2022-04-04] MEDS: Rosuvastatin 20 MG TAB PO SCH (17:48)
[2022-04-04] MEDS: Nicotine 21 MG PATCH TD SCH (17:48)
[2022-04-04] MEDS: clonazePAM 0.5 MG TAB PO SCH (20:03)
[2022-04-04] MEDS: HumaLOG 300 UNITS/3 ML VIAL SC PRN (20:50)
[2022-04-05] MEDS: Acetaminophen 325 MG TAB PO PRN (03:33)
[2022-04-05] MEDS ORDERED: HYDROcodone/Acetaminophen 5/325 mg Tablet PO PRN (05:47)
[2022-04-05] MEDS ORDERED: Furosemide 20 MG/2 ML VIAL SLOW IVP SCH (06:00)
[2022-04-05] MEDS: hydrALAZINE 25 MG TAB PO SCH ×2 (06:16→12:39)
[2022-04-05] MEDS: HumaLOG 300 UNITS/3 ML VIAL SC PRN (06:16)
[2022-04-05] MEDS: Mometasone 200 MCG/Formoterol 5 MCG 120 PUFF INHALER INH SCH (07:13)
[2022-04-05] MEDS: Ipratropium/Albuterol 3 ML NEB NEB SCH (07:13)
[2022-04-05] MEDS ORDERED: predniSONE 5 MG TAB PO SCH (08:00)
[2022-04-05 08:28] VITALS: TEMP 97.9
[2022-04-05] MEDS ORDERED: Furosemide 20 MG TAB PO SCH (09:00)
[2022-04-05] MEDS ORDERED: Amlodipine 5 MG TAB PO SCH (09:00)
[2022-04-05 09:02] LABS: #Eosinphils 0.2 thou/uL (0.0-0.7); #Lymphocytes 0.9 thou/uL (1.20-3.40); #Monocytes 0.6 thou/uL (0.11-0.59); #Neutrophils 9.3 thou/uL (1.40-6.50); %Basophils 0.1 % (0.0-1.0); %Eosinophils 1.8 % (0.0-10.0); %Lymphocytes 8.4 % (21.0-51.0); %Neutrophils 84.8 % (42.0-75.0); Mean Corpuscular HGB CONC 32.1 g/dL (32.0-36.0); Mean Corpuscular Volume 99.8 fl (78.0-98.0); Mean Platelet Volume 8.5 fL (7.4-10.4); Platelet Count 120 10x3/uL (130-400); RBC Distribution Width 12.7 % (11.5-14.5); Red Blood Cell (RBC) Count 2.81 mill/uL (4.70-6.10)
[2022-04-05] MEDS: guaiFENesin ER 600 MG TAB PO PRN (09:07)
[2022-04-05] MEDS: Tamsulosin HCl 0.4 MG CAP PO SCH (09:09)
[2022-04-05] MEDS: Aspirin 81 mg Enteric Coated Tablet PO SCH (09:10)
[2022-04-05] MEDS: Fluconazole 100 MG TAB PO SCH (09:10)
[2022-04-05] MEDS: Polyethylene Glycol 3350 17 GM Packet PO SCH (09:11)
[2022-04-05] MEDS: Escitalopram Oxalate 10 mg Tablet PO SCH (09:11)
[2022-04-05] MEDS: Potassium Chloride 20 MEQ TAB PO SCH (09:14)
[2022-04-05] MEDS: Heparin 5,000 UNITS/ML VIAL SC SCH (09:14)
[2022-04-05] MEDS ORDERED: Simethicone Chewable 80 MG TAB PO PRN (09:17)
[2022-04-05 09:22] LABS: Anion Gap 10 mmol/L (10-20); BUN (Urea Nitrogen) 44 mg/dL (8.4-25.7); Calc. Creatinine Clearance 24 mL/min (70-130); Calcium 8.5 mg/dL (7.8-10.44); Carbon Dioxide 29 mmol/L (23-31); Chloride 104 mmol/L (98-107); Estimated GFR 32; Glucose 70 mg/dL (83-110); Potassium 4.4 mmol/L (3.5-5.1); Sodium 139 mmol/L (136-145)
[2022-04-05] MEDS: Ipratropium/Albuterol 3 ML NEB NEB PRN (15:05)
[2022-04-05 17:23] VITALS: BP 121/65
[2022-04-06] MEDS ORDERED: predniSONE 5 MG TAB PO SCH (08:00)
== END 2022-04-05 17:35 | DRG 853 ==
LOC: ERS 12:58 → ERHOLD 13:50 → 2NO 22:52
PROVIDERS: ADMIT Family Medicine; ATTEND Internal Medicine
PROC: 3E03329 Introduction of Other Anti-infective into Peripheral Vein, Percutaneous Approach (ICD-10-PCS; 2022-03-22)
PROC: 0PB00ZZ Excision of Sternum, Open Approach (ICD-10-PCS; principal; 2022-04-03)
DX: A40.8 Other streptococcal sepsis (principal); G93.41 Metabolic encephalopathy; L89.153 Pressure ulcer of sacral region, stage 3; I50.41 Acute combined systolic (congestive) and diastolic (congestive) heart failure; I33.0 Acute and subacute infective endocarditis; J96.21 Acute and chronic respiratory failure with hypoxia; J96.22 Acute and chronic respiratory failure with hypercapnia; J44.1 Chronic obstructive pulmonary disease with (acute) exacerbation; J98.11 Atelectasis; N17.9 Acute kidney failure, unspecified; I47.20 Ventricular tachycardia, unspecified; I13.0 Hypertensive heart and chronic kidney disease with heart failure and stage 1 through stage 4 chronic kidney disease, or unspecified chronic kidney disease; N18.4 Chronic kidney disease, stage 4 (severe); E87.0 Hyperosmolality and hypernatremia; T81.41XA Infection following a procedure, superficial incisional surgical site, initial encounter; Z20.822 Contact with and (suspected) exposure to COVID-19; F41.9 Anxiety disorder, unspecified; F17.210 Nicotine dependence, cigarettes, uncomplicated; E11.65 Type 2 diabetes mellitus with hyperglycemia; E11.22 Type 2 diabetes mellitus with diabetic chronic kidney disease; B37.2 Candidiasis of skin and nail; Y83.8 Other surgical procedures as the cause of abnormal reaction of the patient, or of later complication, without mention of misadventure at the time of the procedure; K59.00 Constipation, unspecified; D63.1 Anemia in chronic kidney disease; E83.42 Hypomagnesemia; I48.0 Paroxysmal atrial fibrillation; Z95.810 Presence of automatic (implantable) cardiac defibrillator; Z95.1 Presence of aortocoronary bypass graft; Z90.49 Acquired absence of other specified parts of digestive tract
CPT/HCPCS: 36415; 36416; 36600; 70450; 71045; 71046; 76770; 78451; 80048; 80053; 80202; 81001; 82043; 82805; 83735; 83880; 84100; 84145; 85025; 85610; 85730; 87040; 87070; 87205; 93005; 93306; 93970; 94640; 96361; 96374; 96375; 97139; A9540; J0360; J0692; J1100; J1642; J1644; J1815; J1940; J1956; J2704; J2920; J3010; J3370; J3370-JW; J3475; J3490; J7050; J7070; J7512; J7620; Q0162

== ENCOUNTER 2022-04-22 08:44 | Inpatient (IN) | payer MEDICARE, OTHER ==
[2022-04-22] MEDS ORDERED: Ondansetron PF 4 MG/2 ML Vial IVP PRN (10:25)
[2022-04-22] MEDS ORDERED: Guaifenesin DM 100-10/5 ML UDCUP PO PRN (10:25)
[2022-04-22] MEDS ORDERED: Vancomycin HCl 1 GM in Sodium Chloride 0.9% 250 ML 300 ML IVPB SCH (10:25)
[2022-04-22] MEDS ORDERED: Sodium Chloride 0.9% 1,000 ML IV SCH (10:25)
[2022-04-22] MEDS ORDERED: Bisacodyl 5 MG TAB PO PRN (10:25)
[2022-04-22] MEDS ORDERED: Acetaminophen 325 MG TAB PO PRN (10:25)
[2022-04-22] MEDS ORDERED: NOREPINEPHRINE 8 MG/250 ML-D5W 250 ML IVPB SCH (10:25)
[2022-04-22 10:38] LABS: Troponin I 0.043 ng/mL (< 0.028)
[2022-04-22] MEDS ORDERED: Vancomycin 1 GM in Premix Bag 1 BAG IVPB SCH (11:45)
[2022-04-22] MEDS ORDERED: Vancomycin Dose by Levels Sliding Scale (Wt <71) FS SCH (11:45)
[2022-04-22] MEDS ORDERED: Lactated Ringer's 500 ML IV SCH (12:00)
[2022-04-22 12:05] LABS: Troponin I 0.047 ng/mL (< 0.028)
[2022-04-22] MEDS: Lactated Ringer's 1,000 ML IV SCH (12:05)
[2022-04-22] MEDS ORDERED: Magnesium Sulfate 20 GM/WATER 500 ML BAG IVPB SCH (12:15)
[2022-04-22] MEDS ORDERED: Magnesium Sulfate In Water 4 GM in Premix Bag 1 BAG IVPB SCH (12:30)
[2022-04-22] MEDS: Cefepime 1 GM in Sodium Chloride 0.9% 100 ML IVPB SCH (12:36)
[2022-04-22 12:38] LABS: Phosphorus 2.4 mg/dL (2.3-4.7)
[2022-04-22] MEDS: methylPREDNISolone Sod Succ 40 MG VIAL IVP SCH ×2 (13:00→21:27)
[2022-04-22] MEDS: Nicotine 21 MG PATCH TD SCH (14:20)
[2022-04-22] MEDS ORDERED: Iopamidol-370 76% 500 ML 1 ML ONE (15:25)
[2022-04-22] MEDS: Albumin 25% 25 GM/100 ML BOT IVPB SCH ×2 (18:26→23:30)
[2022-04-22] MEDS: Mometasone 200 MCG/Formoterol 5 MCG 120 PUFF INHALER INH SCH (18:52)
[2022-04-22] MEDS: Rosuvastatin 20 MG TAB PO SCH (21:28)
[2022-04-23 04:39] LABS: ALT (SGPT) 21 U/L (8-55); AST (SGOT) 18 U/L (5-34); Albumin 2.9 g/dL (3.4-4.8); Alkaline Phosphatase 91 U/L (40-110); Anion Gap 13 mmol/L (10-20); BUN (Urea Nitrogen) 53 mg/dL (8.4-25.7); Bilirubin, Total 0.5 mg/dL (0.2-1.2); Calc. Creatinine Clearance 31 mL/min (70-130); Calcium 9.3 mg/dL (7.8-10.44); Carbon Dioxide 21 mmol/L (23-31); Chloride 108 mmol/L (98-107); Estimated GFR 43; Glucose 210 mg/dL (83-110); Potassium 5.5 mmol/L (3.5-5.1); Protein, Total 5.9 g/dL (5.8-8.1); Sodium 136 mmol/L (136-145)
[2022-04-23 05:26] LABS: Band 13 % (5-11); Lymphocytes 3 % (21-51); MDiff Complete? YES; Mean Corpuscular HGB CONC 31.6 g/dL (32.0-36.0); Mean Corpuscular Hemoglobin 30.8 pg (27.0-31.0); Mean Corpuscular Volume 97.6 fl (78.0-98.0); Mean Platelet Volume 9.2 fL (7.4-10.4); Neutrophil 84 % (42-75); Platelet Count 132 10x3/uL (130-400); RBC Distribution Width 16.1 % (11.5-14.5); White Blood Cell (WBC) Count 23.4 10x3/uL (4.8-10.8)
[2022-04-23] MEDS: Lactated Ringer's 1,000 ML IV SCH ×2 (06:26→11:44)
[2022-04-23] MEDS: methylPREDNISolone Sod Succ 40 MG VIAL IVP SCH ×2 (06:26→14:04)
[2022-04-23] MEDS: Albumin 25% 25 GM/100 ML BOT IVPB SCH ×2 (06:26→11:30)
[2022-04-23] MEDS ORDERED: predniSONE 5 MG TAB PO SCH (08:00)
[2022-04-23] MEDS: Mometasone 200 MCG/Formoterol 5 MCG 120 PUFF INHALER INH SCH ×2 (10:28→18:26)
[2022-04-23 11:25] LABS: Vancomycin, Random 11.8 ug/mL (See Comment)
[2022-04-23] MEDS: Aspirin 81 mg Enteric Coated Tablet PO SCH (11:29)
[2022-04-23] MEDS: Fluconazole 100 MG TAB PO SCH (11:29)
[2022-04-23] MEDS: Tamsulosin HCl 0.4 MG CAP PO SCH (11:29)
[2022-04-23] MEDS: Cefepime 1 GM in Sodium Chloride 0.9% 100 ML IVPB SCH (11:38)
[2022-04-23] MEDS: Vancomycin HCl 750 MG in Sodium Chloride 0.9% 250 ML 250 ML IVPB SCH (12:41)
[2022-04-23] MEDS ORDERED: Labetalol HCl 100 MG/20 ML VIAL SLOW IVP PRN (14:51)
[2022-04-23] MEDS ORDERED: Metoprolol Tartrate 5 MG/5 ML VIAL IVP PRN (14:55)
[2022-04-23] MEDS ORDERED: Furosemide 40 MG/4 ML VIAL SLOW IVP SCH (15:00)
[2022-04-23] MEDS ORDERED: Metoprolol Tartrate 5 MG/5 ML VIAL IVP SCH (15:30)
[2022-04-23] MEDS ORDERED: Amlodipine 5 MG TAB PO SCH (16:00)
[2022-04-23] MEDS: Nicotine 21 MG PATCH TD SCH (17:17)
[2022-04-23] MEDS: Ipratropium/Albuterol 3 ML NEB NEB PRN (18:27)
[2022-04-23] MEDS: Rosuvastatin 20 MG TAB PO SCH (20:59)
[2022-04-23] MEDS: Hydrocortisone 10 mg Tablet PO SCH (20:59)
[2022-04-23] MEDS ORDERED: VANCOMYCIN 1.25 GM/250 ML BAG IVPB SCH (21:00)
[2022-04-23] MEDS ORDERED: Metoprolol Tartrate 25 MG TAB PO SCH (21:00)
[2022-04-23] MEDS ORDERED: clonazePAM 0.5 MG TAB PO SCH (23:45)
[2022-04-24] MEDS: Cefepime 1 GM in Sodium Chloride 0.9% 100 ML IVPB SCH ×3 (01:14→23:17)
[2022-04-24 04:56] LABS: Hemoglobin 8.3 g/dL (14.0-18.0); Mean Corpuscular Hemoglobin 31.2 pg (27.0-31.0); Mean Corpuscular Volume 97.4 fl (78.0-98.0); Mean Platelet Volume 9.7 fL (7.4-10.4); Platelet Count 136 10x3/uL (130-400); RBC Distribution Width 15.9 % (11.5-14.5); Red Blood Cell (RBC) Count 2.66 mill/uL (4.70-6.10); White Blood Cell (WBC) Count 23.6 10x3/uL (4.8-10.8)
[2022-04-24 05:22] LABS: ALT (SGPT) 29 U/L (8-55); AST (SGOT) 28 U/L (5-34); Albumin 3.1 g/dL (3.4-4.8); Alkaline Phosphatase 112 U/L (40-110); Anion Gap 12 mmol/L (10-20); BUN (Urea Nitrogen) 58 mg/dL (8.4-25.7); Bilirubin, Total 0.4 mg/dL (0.2-1.2); Calc. Creatinine Clearance 30 mL/min (70-130); Calcium 9.1 mg/dL (7.8-10.44); Carbon Dioxide 21 mmol/L (23-31); Chloride 108 mmol/L (98-107); Estimated GFR 40; Glucose 252 mg/dL (83-110); Magnesium 2.4 mg/dL (1.6-2.6); Potassium 4.8 mmol/L (3.5-5.1); Protein, Total 6.1 g/dL (5.8-8.1); Sodium 136 mmol/L (136-145)
[2022-04-24 05:39] LABS: Band 8 % (5-11); Lymphocytes 3 % (21-51); MDiff Complete? YES; Monocytes 2 % (0-10); Neutrophil 87 % (42-75)
[2022-04-24] MEDS: Aspirin 81 mg Enteric Coated Tablet PO SCH (08:24)
[2022-04-24] MEDS: Fluconazole 100 MG TAB PO SCH (08:25)
[2022-04-24] MEDS: Tamsulosin HCl 0.4 MG CAP PO SCH (08:26)
[2022-04-24] MEDS: Hydrocortisone 10 mg Tablet PO SCH (08:31)
[2022-04-24] MEDS: Mometasone 200 MCG/Formoterol 5 MCG 120 PUFF INHALER INH SCH ×2 (08:39→19:14)
[2022-04-24] MEDS: Ipratropium/Albuterol 3 ML NEB NEB PRN ×2 (08:39→19:15)
[2022-04-24] MEDS ORDERED: Amlodipine 5 MG TAB PO SCH ×2 (09:00→20:45)
[2022-04-24] MEDS: Vancomycin HCl 750 MG in Sodium Chloride 0.9% 250 ML 250 ML IVPB SCH (12:24)
[2022-04-24] MEDS ORDERED: clonazePAM 1 MG TAB PO PRN (14:29)
[2022-04-24] MEDS: Nicotine 21 MG PATCH TD SCH (17:10)
[2022-04-24] MEDS ORDERED: Metoprolol Tartrate 5 MG/5 ML VIAL ONE (19:28)
[2022-04-24] MEDS: Rosuvastatin 20 MG TAB PO SCH (20:51)
[2022-04-24] MEDS: DAPTOmycin 600 MG in Sodium Chloride 0.9% 100 ML IVPB SCH (20:51)
[2022-04-24] MEDS ORDERED: clonazePAM 1 MG TAB PO SCH (23:43)
[2022-04-25 07:04] LABS: #Eosinphils 0.1 thou/uL (0.0-0.7); #Lymphocytes 1.2 thou/uL (1.20-3.40); #Monocytes 0.9 thou/uL (0.11-0.59); #Neutrophils 11.3 thou/uL (1.40-6.50); %Basophils 0.2 % (0.0-1.0); %Eosinophils 0.6 % (0.0-10.0); %Monocytes 6.4 % (0.0-10.0); %Neutrophils 83.8 % (42.0-75.0); Anion Gap 11 mmol/L (10-20); BUN (Urea Nitrogen) 50 mg/dL (8.4-25.7); CK (CPK) 16 U/L (30-200); Calc. Creatinine Clearance 45 mL/min (70-130); Calcium 9.2 mg/dL (7.8-10.44); Carbon Dioxide 23 mmol/L (23-31); Chloride 109 mmol/L (98-107); Estimated GFR 61; Glucose 89 mg/dL (83-110); Hemoglobin 9.2 g/dL (14.0-18.0); Mean Corpuscular HGB CONC 31.6 g/dL (32.0-36.0); Mean Corpuscular Hemoglobin 30.4 pg (27.0-31.0); Mean Corpuscular Volume 96.4 fl (78.0-98.0); Mean Platelet Volume 9.4 fL (7.4-10.4); Platelet Count 150 10x3/uL (130-400); Potassium 4.1 mmol/L (3.5-5.1); RBC Distribution Width 15.5 % (11.5-14.5); Red Blood Cell (RBC) Count 3.01 mill/uL (4.70-6.10); Sodium 139 mmol/L (136-145); White Blood Cell (WBC) Count 13.5 10x3/uL (4.8-10.8)
[2022-04-25] MEDS: Ipratropium/Albuterol 3 ML NEB NEB PRN ×2 (07:07→20:04)
[2022-04-25] MEDS: Mometasone 200 MCG/Formoterol 5 MCG 120 PUFF INHALER INH SCH ×2 (07:07→20:05)
[2022-04-25] MEDS: Fluconazole 100 MG TAB PO SCH (08:07)
[2022-04-25] MEDS: Amlodipine 5 MG TAB PO SCH (08:07)
[2022-04-25] MEDS: Zinc Sulfate 220 MG CAP PO SCH (08:08)
[2022-04-25] MEDS: predniSONE 5 MG TAB PO SCH (08:08)
[2022-04-25] MEDS: Tamsulosin HCl 0.4 MG CAP PO SCH (08:08)
[2022-04-25] MEDS: Aspirin 81 mg Enteric Coated Tablet PO SCH (08:08)
[2022-04-25] MEDS ORDERED: Electrolyte Replacement Protocol 1 EACH FS SCH (10:00)
[2022-04-25] MEDS: Cefepime 1 GM in Sodium Chloride 0.9% 100 ML IVPB SCH (11:33)
[2022-04-25] MEDS: Senokot S 8.6-50 MG TAB PO PRN (17:58)
[2022-04-25] MEDS: Nicotine 21 MG PATCH TD SCH (17:58)
[2022-04-25] MEDS: clonazePAM 1 MG TAB PO PRN (20:52)
[2022-04-25] MEDS: Rosuvastatin 20 MG TAB PO SCH (20:52)
[2022-04-25] MEDS: DAPTOmycin 600 MG in Sodium Chloride 0.9% 100 ML IVPB SCH (20:54)
[2022-04-26] MEDS: Cefepime 1 GM in Sodium Chloride 0.9% 100 ML IVPB SCH (00:03)
[2022-04-26 04:56] LABS: Hemoglobin 8.7 g/dL (14.0-18.0); Mean Corpuscular HGB CONC 32.1 g/dL (32.0-36.0); Mean Corpuscular Hemoglobin 30.7 pg (27.0-31.0); Mean Corpuscular Volume 95.6 fl (78.0-98.0); Mean Platelet Volume 8.8 fL (7.4-10.4); Platelet Count 144 10x3/uL (130-400); RBC Distribution Width 15.4 % (11.5-14.5); Red Blood Cell (RBC) Count 2.83 mill/uL (4.70-6.10); White Blood Cell (WBC) Count 9.5 10x3/uL (4.8-10.8)
[2022-04-26 05:15] LABS: Anion Gap 10 mmol/L (10-20); BUN (Urea Nitrogen) 52 mg/dL (8.4-25.7); Calc. Creatinine Clearance 48 mL/min (70-130); Calcium 9.1 mg/dL (7.8-10.44); Carbon Dioxide 25 mmol/L (23-31); Chloride 106 mmol/L (98-107); Estimated GFR 68; Glucose 102 mg/dL (83-110); Potassium 4.1 mmol/L (3.5-5.1); Sodium 137 mmol/L (136-145)
[2022-04-26 05:41] LABS: Band 1 % (5-11); Lymphocytes 16 % (21-51); MDiff Complete? YES; Metamyelocyte 2 % (0-0); Monocytes 10 % (0-10); Myelocyte 2 % (0-0); Neutrophil 69 % (42-75)
[2022-04-26] MEDS: Mometasone 200 MCG/Formoterol 5 MCG 120 PUFF INHALER INH SCH ×2 (07:50→18:41)
[2022-04-26] MEDS: Fluconazole 100 MG TAB PO SCH (09:00)
[2022-04-26] MEDS: predniSONE 5 MG TAB PO SCH (09:00)
[2022-04-26] MEDS: Aspirin 81 mg Enteric Coated Tablet PO SCH (09:01)
[2022-04-26] MEDS: Tamsulosin HCl 0.4 MG CAP PO SCH (09:01)
[2022-04-26] MEDS: Zinc Sulfate 220 MG CAP PO SCH (09:01)
[2022-04-26] MEDS: Amlodipine 5 MG TAB PO SCH (09:01)
[2022-04-26] MEDS ORDERED: Ketamine 50 MG/ML (10ML VIAL) ONE (16:29)
[2022-04-26] MEDS ORDERED: Fentanyl 250 MCG/5 ML VIAL ONE (16:30)
[2022-04-26] MEDS ORDERED: fentaNYL PF 100 MCG/2 ML SYRINGE ONE (16:30)
[2022-04-26] MEDS ORDERED: PROPOFOL 200 MG/20 ML VIAL ONE (16:57)
[2022-04-26] MEDS: Nicotine 21 MG PATCH TD SCH (17:59)
[2022-04-26] MEDS: Ipratropium/Albuterol 3 ML NEB NEB PRN (18:41)
[2022-04-26] MEDS: Rosuvastatin 20 MG TAB PO SCH (20:49)
[2022-04-26] MEDS: clonazePAM 1 MG TAB PO PRN (20:49)
[2022-04-26] MEDS: DAPTOmycin 600 MG in Sodium Chloride 0.9% 100 ML IVPB SCH (20:52)
[2022-04-27] MEDS: Ipratropium/Albuterol 3 ML NEB NEB PRN ×2 (08:05→18:36)
[2022-04-27] MEDS: Mometasone 200 MCG/Formoterol 5 MCG 120 PUFF INHALER INH SCH ×2 (08:06→18:30)
[2022-04-27] MEDS: Fluconazole 100 MG TAB PO SCH (08:39)
[2022-04-27] MEDS: Amlodipine 5 MG TAB PO SCH (08:39)
[2022-04-27] MEDS: Tamsulosin HCl 0.4 MG CAP PO SCH (08:39)
[2022-04-27] MEDS: predniSONE 5 MG TAB PO SCH (08:39)
[2022-04-27] MEDS: Zinc Sulfate 220 MG CAP PO SCH (08:40)
[2022-04-27] MEDS: Aspirin 81 mg Enteric Coated Tablet PO SCH (08:40)
[2022-04-27 11:48] LABS: Hemoglobin 9.7 g/dL (14.0-18.0); Mean Corpuscular HGB CONC 32.4 g/dL (32.0-36.0); Mean Corpuscular Hemoglobin 31.6 pg (27.0-31.0); Mean Corpuscular Volume 97.5 fl (78.0-98.0); Mean Platelet Volume 9.1 fL (7.4-10.4); Platelet Count 127 10x3/uL (130-400); RBC Distribution Width 15.6 % (11.5-14.5); Red Blood Cell (RBC) Count 3.06 mill/uL (4.70-6.10); White Blood Cell (WBC) Count 13.8 10x3/uL (4.8-10.8)
[2022-04-27 11:56] LABS: Anion Gap 17 mmol/L (10-20); BUN (Urea Nitrogen) 51 mg/dL (8.4-25.7); Calc. Creatinine Clearance 43 mL/min (70-130); Calcium 8.8 mg/dL (7.8-10.44); Carbon Dioxide 18 mmol/L (23-31); Chloride 104 mmol/L (98-107); Estimated GFR 64; Glucose 129 mg/dL (83-110); Magnesium 1.3 mg/dL (1.6-2.6); Potassium 4.5 mmol/L (3.5-5.1); Sodium 134 mmol/L (136-145)
[2022-04-27 12:20] LABS: Lymphocytes 12 % (21-51); MDiff Complete? YES; Metamyelocyte 5 % (0-0); Monocytes 3 % (0-10); Myelocyte 3 % (0-0); Neutrophil 77 % (42-75); Platelet Morphology Comment Appears Decreased; Polychromasia SLIGHT = 2-3 cells (100X) (0-2/hpf)
[2022-04-27] MEDS ORDERED: Magnesium Sulfate In Water 4 GM in Premix Bag 1 BAG IVPB SCH (12:30)
[2022-04-27 15:24] VITALS: BMI 18.4
[2022-04-27] MEDS: Nicotine 21 MG PATCH TD SCH (17:15)
[2022-04-27] MEDS: DAPTOmycin 600 MG in Sodium Chloride 0.9% 100 ML IVPB SCH (20:14)
[2022-04-27] MEDS: clonazePAM 1 MG TAB PO PRN (20:15)
[2022-04-27] MEDS: Rosuvastatin 20 MG TAB PO SCH (20:15)
[2022-04-27 20:27] LABS: SARS-CoV-2 NAA Rapid Test Not Detected (NotDetected)
[2022-04-28 03:55] LABS: Mean Corpuscular HGB CONC 32.9 g/dL (32.0-36.0); Mean Corpuscular Hemoglobin 31.4 pg (27.0-31.0); Mean Corpuscular Volume 95.5 fl (78.0-98.0); Mean Platelet Volume 8.4 fL (7.4-10.4); Platelet Count 201 10x3/uL (130-400); RBC Distribution Width 15.4 % (11.5-14.5); Red Blood Cell (RBC) Count 2.86 mill/uL (4.70-6.10)
[2022-04-28 04:15] LABS: Anion Gap 12 mmol/L (10-20); BUN (Urea Nitrogen) 54 mg/dL (8.4-25.7); Calc. Creatinine Clearance 40 mL/min (70-130); Calcium 8.7 mg/dL (7.8-10.44); Carbon Dioxide 25 mmol/L (23-31); Chloride 102 mmol/L (98-107); Estimated GFR 58; Glucose 96 mg/dL (83-110); Magnesium 2.3 mg/dL (1.6-2.6); Potassium 4.3 mmol/L (3.5-5.1); Sodium 135 mmol/L (136-145)
[2022-04-28 04:45] LABS: Eosinophils 1 % (0-10); Lymphocytes 12 % (21-51); MDiff Complete? YES; Metamyelocyte 1 % (0-0); Monocytes 8 % (0-10); Myelocyte 5 % (0-0); Neutrophil 73 % (42-75)
[2022-04-28] MEDS: Mometasone 200 MCG/Formoterol 5 MCG 120 PUFF INHALER INH SCH ×2 (07:10→18:32)
[2022-04-28] MEDS: Ipratropium/Albuterol 3 ML NEB NEB PRN ×2 (07:11→18:32)
[2022-04-28] MEDS: Fluconazole 100 MG TAB PO SCH (09:45)
[2022-04-28] MEDS: Amlodipine 5 MG TAB PO SCH (09:46)
[2022-04-28] MEDS: predniSONE 5 MG TAB PO SCH (09:46)
[2022-04-28] MEDS: Aspirin 81 mg Enteric Coated Tablet PO SCH (09:46)
[2022-04-28] MEDS: Tamsulosin HCl 0.4 MG CAP PO SCH (09:46)
[2022-04-28] MEDS: Senokot S 8.6-50 MG TAB PO PRN (09:47)
[2022-04-28] MEDS: Zinc Sulfate 220 MG CAP PO SCH (09:47)
[2022-04-28 09:54] VITALS: BP 158/78
[2022-04-28] MEDS: Nicotine 21 MG PATCH TD SCH (17:40)
[2022-04-28] MEDS: DAPTOmycin 600 MG in Sodium Chloride 0.9% 100 ML IVPB SCH (19:06)
[2022-04-28] MEDS: Rosuvastatin 20 MG TAB PO SCH (19:10)
[2022-04-28 20:08] VITALS: TEMP 98.4
[2022-04-28] MEDS: clonazePAM 1 MG TAB PO PRN (20:51)
== END 2022-04-28 21:06 | disposition home or self-care (01) | DRG 314 ==
LOC: ERS 08:44 → CCU 09:35
PROVIDERS: ADMIT Internal Medicine; ATTEND Hospitalist
PROC: 3E03329 Introduction of Other Anti-infective into Peripheral Vein, Percutaneous Approach (ICD-10-PCS; principal; 2022-04-22)
PROC: 3E033XZ Introduction of Vasopressor into Peripheral Vein, Percutaneous Approach (ICD-10-PCS; 2022-04-22)
PROC: B24BZZ4 Ultrasonography of Heart with Aorta, Transesophageal (ICD-10-PCS; 2022-04-27)
DX: T82.7XXA Infection and inflammatory reaction due to other cardiac and vascular devices, implants and grafts, initial encounter (principal); A41.02 Sepsis due to Methicillin resistant Staphylococcus aureus; J69.0 Pneumonitis due to inhalation of food and vomit; L89.153 Pressure ulcer of sacral region, stage 3; J96.21 Acute and chronic respiratory failure with hypoxia; R65.21 Severe sepsis with septic shock; N30.00 Acute cystitis without hematuria; N17.9 Acute kidney failure, unspecified; I25.810 Atherosclerosis of coronary artery bypass graft(s) without angina pectoris; I50.42 Chronic combined systolic (congestive) and diastolic (congestive) heart failure; R64 Cachexia; J44.9 Chronic obstructive pulmonary disease, unspecified; F41.9 Anxiety disorder, unspecified; F17.210 Nicotine dependence, cigarettes, uncomplicated; E78.5 Hyperlipidemia, unspecified; E88.09 Other disorders of plasma-protein metabolism, not elsewhere classified; I11.0 Hypertensive heart disease with heart failure; I48.0 Paroxysmal atrial fibrillation; N40.0 Benign prostatic hyperplasia without lower urinary tract symptoms; B37.2 Candidiasis of skin and nail; Y83.8 Other surgical procedures as the cause of abnormal reaction of the patient, or of later complication, without mention of misadventure at the time of the procedure; Z85.51 Personal history of malignant neoplasm of bladder; Z88.0 Allergy status to penicillin; Z91.048 Other nonmedicinal substance allergy status; Z79.82 Long term (current) use of aspirin; Z79.51 Long term (current) use of inhaled steroids; Z98.890 Other specified postprocedural states; Z95.2 Presence of prosthetic heart valve; Z51.5 Encounter for palliative care; Z98.1 Arthrodesis status
CPT/HCPCS: 36415; 71045; 71260; 74177; 76705; 80048; 80053; 80202; 82550; 83605; 83735; 84100; 84145; 85025; 87040; 87077; 87086; 87186; 93005; 93010; 93312; 94640; 94664; 97139; J0692; J0878; J1650; J1940; J2704; J2920; J3010; J3370; J3370-JW; J3475; J3490; J7050; J7120; J7512; J7620; P9047; Q9967; U0002

== ENCOUNTER 2022-05-17 13:05 | Inpatient (IN) | payer MEDICARE, OTHER ==
[2022-05-17 13:45] LABS: #Eosinphils 0.1 thou/uL (0.0-0.7); #Lymphocytes 0.5 thou/uL (1.20-3.40); #Monocytes 0.4 thou/uL (0.11-0.59); #Neutrophils 13.1 thou/uL (1.40-6.50); %Basophils 0.2 % (0.0-1.0); %Eosinophils 0.4 % (0.0-10.0); %Lymphocytes 3.8 % (21.0-51.0); %Monocytes 3.1 % (0.0-10.0); %Neutrophils 92.5 % (42.0-75.0); Hemoglobin 8.6 g/dL (14.0-18.0); Mean Corpuscular HGB CONC 32.8 g/dL (32.0-36.0); Mean Corpuscular Hemoglobin 31.6 pg (27.0-31.0); Mean Corpuscular Volume 96.2 fl (78.0-98.0); Mean Platelet Volume 7.8 fL (7.4-10.4); Platelet Count 292 10x3/uL (130-400); RBC Distribution Width 19.5 % (11.5-14.5); Red Blood Cell (RBC) Count 2.71 mill/uL (4.70-6.10); White Blood Cell (WBC) Count 14.1 10x3/uL (4.8-10.8)
[2022-05-17 14:01] LABS: Prothrombin Time 13.3 sec (12.0-14.7)
[2022-05-17 14:02] LABS: PTT 22.1 sec (22.9-36.1)
[2022-05-17 14:07] LABS: ALT (SGPT) 22 U/L (8-55); AST (SGOT) 23 U/L (5-34); Albumin 3.6 g/dL (3.4-4.8); Alkaline Phosphatase 94 U/L (40-110); Anion Gap 16 mmol/L (10-20); BUN (Urea Nitrogen) 28 mg/dL (8.4-25.7); Bilirubin, Total 0.6 mg/dL (0.2-1.2); Calc. Creatinine Clearance 0 mL/min (70-130); Calcium 9.1 mg/dL (7.8-10.44); Carbon Dioxide 21 mmol/L (23-31); Chloride 105 mmol/L (98-107); Estimated GFR 52; Globulin 3.7 g/dL (2.4-3.5); Glucose 275 mg/dL (83-110); Potassium 4.2 mmol/L (3.5-5.1); Protein, Total 7.3 g/dL (5.8-8.1); Sodium 138 mmol/L (136-145)
[2022-05-17] MEDS ORDERED: Micafungin 100 MG in Sodium Chloride 0.9% 100 ML IVPB SCH (18:30)
[2022-05-17] MEDS ORDERED: DAPTOmycin 500 MG in Sodium Chloride 0.9% 100 ML IVPB SCH (18:30)
[2022-05-17 20:27] LABS: Bilirubin Negative (Negative); Blood, Urine Negative (Negative); Clarity Clear (Clear); Glucose, Urine (Dipstick) Greater than 1000 mg/dL (Negative); Ketone, Urine Negative (Negative); Leukocyte Negative Leu/uL (Negative); Nitrite Negative (Negative); Protein, Urine (Dipstick) 10 mg/dL (Neg-Trace); Specific Gravity, Urine 1.009 (1.002-1.036); Urobilinogen Normal mg/dL (Less than 2); pH, Urine 7.5 (5.0-9.0)
[2022-05-17 20:41] LABS: Lactic Acid 1.2 mmol/L (0.5-2.2)
[2022-05-17] MEDS ORDERED: Ondansetron ODT 4 MG TAB PO PRN (21:11)
[2022-05-17] MEDS ORDERED: Acetaminophen 325 MG TAB PO PRN (21:11)
[2022-05-17] MEDS ORDERED: Senokot S 8.6-50 MG TAB PO PRN (21:11)
[2022-05-17] MEDS: Rosuvastatin 20 MG TAB PO SCH (21:52)
[2022-05-17] MEDS ORDERED: clonazePAM 1 MG TAB ONE (21:56)
[2022-05-17] MEDS: clonazePAM 1 MG TAB PO PRN (21:58)
[2022-05-18 00:56] LABS: SARS-CoV-2 NAA Rapid Test Not Detected (NotDetected)
[2022-05-18 01:41] VITALS: BMI 17.6
[2022-05-18 06:14] LABS: #Eosinphils 0.5 thou/uL (0.0-0.7); #Lymphocytes 2.2 thou/uL (1.20-3.40); #Monocytes 0.9 thou/uL (0.11-0.59); #Neutrophils 8.4 thou/uL (1.40-6.50); %Basophils 0.2 % (0.0-1.0); %Eosinophils 4.3 % (0.0-10.0); %Monocytes 7.2 % (0.0-10.0); %Neutrophils 70.3 % (42.0-75.0); Hemoglobin 7.2 g/dL (14.0-18.0); Mean Corpuscular HGB CONC 32.6 g/dL (32.0-36.0); Mean Corpuscular Hemoglobin 31.2 pg (27.0-31.0); Mean Corpuscular Volume 95.4 fl (78.0-98.0); Mean Platelet Volume 7.6 fL (7.4-10.4); Platelet Count 267 10x3/uL (130-400); RBC Distribution Width 19.2 % (11.5-14.5); Red Blood Cell (RBC) Count 2.32 mill/uL (4.70-6.10)
[2022-05-18 06:37] LABS: Anion Gap 12 mmol/L (10-20); BUN (Urea Nitrogen) 23 mg/dL (8.4-25.7); Calc. Creatinine Clearance 49 mL/min (70-130); Calcium 8.7 mg/dL (7.8-10.44); Carbon Dioxide 25 mmol/L (23-31); Chloride 107 mmol/L (98-107); Estimated GFR 74; Glucose 87 mg/dL (83-110); Potassium 3.8 mmol/L (3.5-5.1); Sodium 140 mmol/L (136-145)
[2022-05-18] MEDS: Mometasone/Formoterol 200/5 60 PUFF INH SCH ×2 (07:39→20:06)
[2022-05-18] MEDS ORDERED: predniSONE 20 MG TAB ONE (08:18)
[2022-05-18] MEDS: predniSONE 5 MG TAB PO SCH (08:20)
[2022-05-18] MEDS ORDERED: Aspirin Chewable 81 MG TAB ONE (08:55)
[2022-05-18] MEDS ORDERED: Famotidine 20 MG TAB ONE (08:55)
[2022-05-18] MEDS: Famotidine 20 MG TAB PO SCH (09:05)
[2022-05-18] MEDS: Aspirin 81 mg Enteric Coated Tablet PO SCH (09:05)
[2022-05-18] MEDS: Heparin 5,000 UNITS/ML VIAL SC SCH ×3 (09:06→21:53)
[2022-05-18] MEDS: Tamsulosin HCl 0.4 MG CAP PO SCH (09:06)
[2022-05-18] MEDS ORDERED: Micafungin 100 MG in Sodium Chloride 0.9% 100 ML IVPB SCH (15:00)
[2022-05-18] MEDS: Ipratropium/Albuterol 3 ML NEB NEB PRN ×2 (15:16→18:36)
[2022-05-18] MEDS ORDERED: Nicotine 21 MG PATCH TD SCH (18:00)
[2022-05-18] MEDS ORDERED: DAPTOmycin 500 MG VIAL IVPB SCH (20:00)
[2022-05-18] MEDS: Rosuvastatin 20 MG TAB PO SCH (21:53)
[2022-05-18] MEDS ORDERED: DAPTOmycin 600 MG in Sodium Chloride 0.9% 100 ML IVPB SCH (22:00)
[2022-05-18] MEDS: clonazePAM 1 MG TAB PO PRN (22:08)
[2022-05-19 06:56] LABS: #Eosinphils 0.5 thou/uL (0.0-0.7); #Lymphocytes 2.2 thou/uL (1.20-3.40); #Monocytes 0.8 thou/uL (0.11-0.59); #Neutrophils 7.1 thou/uL (1.40-6.50); %Basophils 0.3 % (0.0-1.0); %Eosinophils 4.9 % (0.0-10.0); %Lymphocytes 20.4 % (21.0-51.0); %Monocytes 7.4 % (0.0-10.0); Hemoglobin 7.7 g/dL (14.0-18.0); Mean Corpuscular HGB CONC 33.7 g/dL (32.0-36.0); Mean Corpuscular Hemoglobin 32.1 pg (27.0-31.0); Mean Corpuscular Volume 95.3 fl (78.0-98.0); Mean Platelet Volume 7.6 fL (7.4-10.4); Platelet Count 286 10x3/uL (130-400); RBC Distribution Width 18.9 % (11.5-14.5); White Blood Cell (WBC) Count 10.6 10x3/uL (4.8-10.8)
[2022-05-19] MEDS: Mometasone/Formoterol 200/5 60 PUFF INH SCH (07:30)
[2022-05-19] MEDS: Heparin 5,000 UNITS/ML VIAL SC SCH (09:25)
[2022-05-19] MEDS: predniSONE 5 MG TAB PO SCH (09:25)
[2022-05-19] MEDS: Famotidine 20 MG TAB PO SCH (09:25)
[2022-05-19] MEDS: Tamsulosin HCl 0.4 MG CAP PO SCH (09:25)
[2022-05-19] MEDS: Aspirin 81 mg Enteric Coated Tablet PO SCH (09:26)
[2022-05-19 11:52] VITALS: BP 180/80; TEMP 97.3
== END 2022-05-19 15:22 | disposition home or self-care (01) | DRG 863 ==
LOC: ERS 13:05 → ERHOLD 18:57 → 2NO 05-18 15:48
PROVIDERS: ADMIT Family Medicine; ATTEND Internal Medicine
PROC: 02HV33Z Insertion of Infusion Device into Superior Vena Cava, Percutaneous Approach (ICD-10-PCS; principal; 2022-05-17)
DX: T81.49XA Infection following a procedure, other surgical site, initial encounter (principal); E87.20 Acidosis, unspecified; I13.0 Hypertensive heart and chronic kidney disease with heart failure and stage 1 through stage 4 chronic kidney disease, or unspecified chronic kidney disease; D64.9 Anemia, unspecified; I50.9 Heart failure, unspecified; J44.9 Chronic obstructive pulmonary disease, unspecified; F41.9 Anxiety disorder, unspecified; F17.210 Nicotine dependence, cigarettes, uncomplicated; I25.10 Atherosclerotic heart disease of native coronary artery without angina pectoris; N40.0 Benign prostatic hyperplasia without lower urinary tract symptoms; N18.9 Chronic kidney disease, unspecified; Y83.8 Other surgical procedures as the cause of abnormal reaction of the patient, or of later complication, without mention of misadventure at the time of the procedure; Z20.822 Contact with and (suspected) exposure to COVID-19; Z95.1 Presence of aortocoronary bypass graft; Z98.890 Other specified postprocedural states; Z88.0 Allergy status to penicillin; Z88.8 Allergy status to other drugs, medicaments and biological substances; Z79.82 Long term (current) use of aspirin; Z79.899 Other long term (current) drug therapy
CPT/HCPCS: 36415; 71045; 80048; 80053; 81003; 82550; 83605; 85025; 85610; 85730; 86850; 86900; 86901; 87040; 87086; 93005; J0878; J1644; J2248; J3490; J7512; J7620; U0002

== ENCOUNTER 2022-06-22 01:47 | Inpatient (IN) | payer MEDICARE, OTHER ==
[2022-06-22 03:08] LABS: #Eosinphils 0.1 thou/uL (0.0-0.7); #Lymphocytes 2.1 thou/uL (1.20-3.40); #Monocytes 0.9 thou/uL (0.11-0.59); #Neutrophils 6.6 thou/uL (1.40-6.50); %Basophils 0.5 % (0.0-1.0); %Eosinophils 1.5 % (0.0-10.0); %Lymphocytes 21.2 % (21.0-51.0); %Monocytes 9.2 % (0.0-10.0); %Neutrophils 67.6 % (42.0-75.0); Hemoglobin 11.7 g/dL (14.0-18.0); Mean Corpuscular HGB CONC 32.9 g/dL (32.0-36.0); Mean Corpuscular Hemoglobin 30.8 pg (27.0-31.0); Mean Corpuscular Volume 93.7 fl (78.0-98.0); Mean Platelet Volume 8.7 fL (7.4-10.4); Platelet Count 190 10x3/uL (130-400); RBC Distribution Width 15.7 % (11.5-14.5); Red Blood Cell (RBC) Count 3.79 mill/uL (4.70-6.10); White Blood Cell (WBC) Count 9.7 10x3/uL (4.8-10.8)
[2022-06-22 03:31] LABS: ALT (SGPT) 14 U/L (8-55); AST (SGOT) 14 U/L (5-34); Albumin 3.8 g/dL (3.4-4.8); Alkaline Phosphatase 150 U/L (40-110); Anion Gap 13 mmol/L (10-20); BUN (Urea Nitrogen) 69 mg/dL (8.4-25.7); Bilirubin, Total 0.2 mg/dL (0.2-1.2); Calc. Creatinine Clearance 0 mL/min (70-130); Calcium 9.4 mg/dL (7.8-10.44); Carbon Dioxide 20 mmol/L (23-31); Chloride 108 mmol/L (98-107); Estimated GFR 40; Globulin 3.8 g/dL (2.4-3.5); Glucose 116 mg/dL (83-110); Potassium 5.6 mmol/L (3.5-5.1); Protein, Total 7.6 g/dL (5.8-8.1); Sodium 135 mmol/L (136-145)
[2022-06-22] MEDS ORDERED: VANCOMYCIN 750 MG/250 ML BAG 750 MG in Sodium Chloride 0.9% 250 ML 250 ML IVPB SCH (04:15)
[2022-06-22] MEDS ORDERED: traMADol HCl 50 MG TAB PO PRN ×2 (04:26→12:30)
[2022-06-22] MEDS ORDERED: Ipratropium/Albuterol 3 ML NEB NEB PRN (04:26)
[2022-06-22] MEDS ORDERED: Albuterol 200 PUFF (6.7GM INHALER) INH PRN (04:26)
[2022-06-22] MEDS ORDERED: Ondansetron ODT 4 MG TAB PO PRN (04:34)
[2022-06-22] MEDS ORDERED: Senokot S 8.6-50 MG TAB PO PRN (04:34)
[2022-06-22] MEDS ORDERED: Acetaminophen 325 MG TAB PO PRN (04:34)
[2022-06-22 08:57] VITALS: BMI 18.3
[2022-06-22] MEDS ORDERED: Famotidine 20 MG TAB PO SCH ×2 (09:00→09:30)
[2022-06-22] MEDS ORDERED: Cefepime 1 GM in Sodium Chloride 0.9% 100 ML IVPB SCH (09:00)
[2022-06-22] MEDS ORDERED: Lisinopril 2.5 MG TAB PO SCH (09:00)
[2022-06-22] MEDS ORDERED: Spironolactone 25 MG TAB PO SCH (09:00)
[2022-06-22] MEDS ORDERED: Vancomycin 1 GM in Premix Bag 1 BAG IVPB SCH (09:44)
[2022-06-22] MEDS: Mometasone 200 MCG/Formoterol 5 MCG 120 PUFF INHALER INH SCH ×2 (10:30→19:39)
[2022-06-22] MEDS ORDERED: Vancomycin HCl 250 MG, Admixture Fee 1 EACH in Sodium Chloride 0.9% 100 ML IVPB SCH (11:00)
[2022-06-22] MEDS: Zinc Sulfate 220 MG CAP PO SCH (11:53)
[2022-06-22] MEDS: predniSONE 5 MG TAB PO SCH (11:54)
[2022-06-22] MEDS: Furosemide 20 MG TAB PO SCH (11:54)
[2022-06-22] MEDS: Folic Acid 1 MG TAB PO SCH (11:54)
[2022-06-22] MEDS: Tamsulosin HCl 0.4 MG CAP PO SCH (11:54)
[2022-06-22] MEDS: Amlodipine 5 MG TAB PO SCH (11:55)
[2022-06-22] MEDS: Escitalopram Oxalate 10 mg Tablet PO SCH (11:55)
[2022-06-22] MEDS: Cefepime 1 GM in Sodium Chloride 0.9% 100 ML IVPB SCH ×2 (11:56→23:46)
[2022-06-22] MEDS: Empagliflozin 10 MG TAB PO SCH (12:17)
[2022-06-22] MEDS: Clindamycin/D5W 900 MG in Premix Bag 1 BAG IVPB SCH ×2 (13:21→19:36)
[2022-06-22] MEDS: Nicotine 21 MG PATCH TD SCH (15:14)
[2022-06-22] MEDS ORDERED: Nicotine 21 MG PATCH TD SCH (18:00)
[2022-06-22] MEDS ORDERED: Dextrose 5% in Water 1,000 ML IV PRN (19:19)
[2022-06-22] MEDS ORDERED: Dextrose 50% Abboject 50 ML SYRINGE SLOW IVP PRN (19:19)
[2022-06-22] MEDS: Rosuvastatin 20 MG TAB PO SCH (20:49)
[2022-06-22] MEDS: Magnesium Oxide 400 MG TAB PO SCH (20:49)
[2022-06-22] MEDS: Mirtazapine 15 MG TAB PO SCH (20:49)
[2022-06-22] MEDS: clonazePAM 1 MG TAB PO PRN (20:56)
[2022-06-22 21:04] LABS: Anion Gap 14 mmol/L (10-20); BUN (Urea Nitrogen) 57 mg/dL (8.4-25.7); Calc. Creatinine Clearance 28 mL/min (70-130); Calcium 8.5 mg/dL (7.8-10.44); Carbon Dioxide 20 mmol/L (23-31); Chloride 106 mmol/L (98-107); Estimated GFR 40; Glucose 182 mg/dL (83-110); Potassium 5.7 mmol/L (3.5-5.1); Sodium 134 mmol/L (136-145)
[2022-06-23] MEDS: Clindamycin/D5W 900 MG in Premix Bag 1 BAG IVPB SCH ×3 (03:52→21:00)
[2022-06-23 05:40] LABS: #Eosinphils 0.1 thou/uL (0.0-0.7); #Lymphocytes 2.1 thou/uL (1.20-3.40); #Monocytes 0.8 thou/uL (0.11-0.59); %Eosinophils 1.3 % (0.0-10.0); %Lymphocytes 22.8 % (21.0-51.0); %Monocytes 9.2 % (0.0-10.0); %Neutrophils 66.7 % (42.0-75.0); Hemoglobin 10.8 g/dL (14.0-18.0); Mean Corpuscular HGB CONC 32.3 g/dL (32.0-36.0); Mean Corpuscular Hemoglobin 30.5 pg (27.0-31.0); Mean Corpuscular Volume 94.4 fl (78.0-98.0); Mean Platelet Volume 8.4 fL (7.4-10.4); Platelet Count 178 10x3/uL (130-400); RBC Distribution Width 15.4 % (11.5-14.5); Red Blood Cell (RBC) Count 3.55 mill/uL (4.70-6.10)
[2022-06-23 05:54] LABS: Hemoglobin A1c 5.6 % (4.0-6.0)
[2022-06-23 06:03] LABS: ALT (SGPT) 15 U/L (8-55); AST (SGOT) 15 U/L (5-34); Albumin 3.3 g/dL (3.4-4.8); Alkaline Phosphatase 94 U/L (40-110); Anion Gap 14 mmol/L (10-20); BUN (Urea Nitrogen) 53 mg/dL (8.4-25.7); Bilirubin, Direct 0.2 mg/dL (0.1-0.3); Bilirubin, Total 0.3 mg/dL (0.2-1.2); Calc. Creatinine Clearance 34 mL/min (70-130); Calcium 9.2 mg/dL (7.8-10.44); Carbon Dioxide 19 mmol/L (23-31); Chloride 110 mmol/L (98-107); Estimated GFR 48; Glucose 98 mg/dL (83-110); Potassium 4.8 mmol/L (3.5-5.1); Protein, Total 6.9 g/dL (5.8-8.1); Sodium 138 mmol/L (136-145)
[2022-06-23] MEDS: Mometasone 200 MCG/Formoterol 5 MCG 120 PUFF INHALER INH SCH ×2 (07:50→18:45)
[2022-06-23] MEDS: predniSONE 5 MG TAB PO SCH (08:42)
[2022-06-23] MEDS: Escitalopram Oxalate 10 mg Tablet PO SCH (08:42)
[2022-06-23] MEDS: Amlodipine 5 MG TAB PO SCH (08:43)
[2022-06-23] MEDS: Ascorbic Acid 500 mg Chewable Tablet PO SCH (08:43)
[2022-06-23] MEDS: Folic Acid 1 MG TAB PO SCH (08:43)
[2022-06-23] MEDS: Furosemide 20 MG TAB PO SCH (08:43)
[2022-06-23] MEDS: Tamsulosin HCl 0.4 MG CAP PO SCH (08:44)
[2022-06-23] MEDS: Zinc Sulfate 220 MG CAP PO SCH (08:44)
[2022-06-23] MEDS: Magnesium Oxide 400 MG TAB PO SCH ×2 (08:44→21:02)
[2022-06-23] MEDS: Empagliflozin 10 MG TAB PO SCH (08:44)
[2022-06-23] MEDS ORDERED: Famotidine 20 MG TAB PO SCH (09:00)
[2022-06-23] MEDS ORDERED: Non-Formulary Item 1 EACH (Escitalopram Oxalate [Lexapro] 5 MG Tablet) PO SCH (09:00)
[2022-06-23] MEDS: Cefepime 1 GM in Sodium Chloride 0.9% 100 ML IVPB SCH (12:46)
[2022-06-23] MEDS: Nicotine 21 MG PATCH TD SCH (16:06)
[2022-06-23 16:21] LABS: Anion Gap 14 mmol/L (10-20); BUN (Urea Nitrogen) 50 mg/dL (8.4-25.7); Calc. Creatinine Clearance 30 mL/min (70-130); Calcium 8.6 mg/dL (7.8-10.44); Carbon Dioxide 21 mmol/L (23-31); Chloride 107 mmol/L (98-107); Estimated GFR 41; Glucose 160 mg/dL (83-110); Potassium 4.5 mmol/L (3.5-5.1); Sodium 137 mmol/L (136-145)
[2022-06-23] MEDS: HumaLOG 300 UNITS/3 ML VIAL SC PRN (17:29)
[2022-06-23] MEDS: clonazePAM 1 MG TAB PO PRN (21:01)
[2022-06-23] MEDS: Rosuvastatin 20 MG TAB PO SCH (21:02)
[2022-06-23] MEDS: Mirtazapine 15 MG TAB PO SCH (21:02)
[2022-06-23] MEDS: guaiFENesin ER 600 MG TAB PO SCH (21:06)
[2022-06-24] MEDS: Cefepime 1 GM in Sodium Chloride 0.9% 100 ML IVPB SCH ×2 (00:01→12:02)
[2022-06-24] MEDS: Clindamycin/D5W 900 MG in Premix Bag 1 BAG IVPB SCH ×3 (03:57→21:22)
[2022-06-24 05:49] LABS: #Eosinphils 0.1 thou/uL (0.0-0.7); #Lymphocytes 2.3 thou/uL (1.20-3.40); #Monocytes 0.9 thou/uL (0.11-0.59); #Neutrophils 5.4 thou/uL (1.40-6.50); %Basophils 0.5 % (0.0-1.0); %Eosinophils 1.4 % (0.0-10.0); %Lymphocytes 26.6 % (21.0-51.0); %Monocytes 10.1 % (0.0-10.0); %Neutrophils 61.4 % (42.0-75.0); Hemoglobin 10.1 g/dL (14.0-18.0); Mean Corpuscular HGB CONC 32.5 g/dL (32.0-36.0); Mean Corpuscular Hemoglobin 30.6 pg (27.0-31.0); Mean Corpuscular Volume 94.1 fl (78.0-98.0); Mean Platelet Volume 8.4 fL (7.4-10.4); Platelet Count 178 10x3/uL (130-400); RBC Distribution Width 15.5 % (11.5-14.5); Red Blood Cell (RBC) Count 3.29 mill/uL (4.70-6.10); White Blood Cell (WBC) Count 8.8 10x3/uL (4.8-10.8)
[2022-06-24 06:13] LABS: Anion Gap 12 mmol/L (10-20); BUN (Urea Nitrogen) 51 mg/dL (8.4-25.7); Calc. Creatinine Clearance 37 mL/min (70-130); Calcium 8.9 mg/dL (7.8-10.44); Carbon Dioxide 23 mmol/L (23-31); Chloride 107 mmol/L (98-107); Estimated GFR 54; Glucose 84 mg/dL (83-110); Magnesium 1.9 mg/dL (1.6-2.6); Sodium 138 mmol/L (136-145)
[2022-06-24] MEDS: Mometasone 200 MCG/Formoterol 5 MCG 120 PUFF INHALER INH SCH ×2 (08:37→19:20)
[2022-06-24] MEDS: Folic Acid 1 MG TAB PO SCH (09:22)
[2022-06-24] MEDS: Zinc Sulfate 220 MG CAP PO SCH ×2 (09:22→09:23)
[2022-06-24] MEDS: Escitalopram Oxalate 10 mg Tablet PO SCH (09:23)
[2022-06-24] MEDS: Amlodipine 10 MG TAB PO SCH (09:23)
[2022-06-24] MEDS: guaiFENesin ER 600 MG TAB PO SCH ×2 (09:23→21:22)
[2022-06-24] MEDS: Tamsulosin HCl 0.4 MG CAP PO SCH (09:23)
[2022-06-24] MEDS: predniSONE 5 MG TAB PO SCH (09:23)
[2022-06-24] MEDS: Magnesium Oxide 400 MG TAB PO SCH ×2 (09:23→21:23)
[2022-06-24] MEDS: Ascorbic Acid 500 mg Chewable Tablet PO SCH (09:24)
[2022-06-24] MEDS: Aspirin 81 mg Enteric Coated Tablet PO SCH (09:24)
[2022-06-24] MEDS: Empagliflozin 10 MG TAB PO SCH (09:27)
[2022-06-24] MEDS: Furosemide 20 MG TAB PO SCH (09:28)
[2022-06-24] MEDS: Nicotine 21 MG PATCH TD SCH (16:36)
[2022-06-24] MEDS: HumaLOG 300 UNITS/3 ML VIAL SC PRN (16:36)
[2022-06-24] MEDS: Mirtazapine 15 MG TAB PO SCH (21:22)
[2022-06-24] MEDS: Rosuvastatin 20 MG TAB PO SCH (21:22)
[2022-06-24] MEDS: clonazePAM 1 MG TAB PO PRN (21:30)
[2022-06-25] MEDS: Cefepime 1 GM in Sodium Chloride 0.9% 100 ML IVPB SCH ×2 (00:36→12:34)
[2022-06-25] MEDS: Clindamycin/D5W 900 MG in Premix Bag 1 BAG IVPB SCH ×3 (04:29→20:53)
[2022-06-25 06:41] LABS: #Eosinphils 0.2 thou/uL (0.0-0.7); #Lymphocytes 2.3 thou/uL (1.20-3.40); #Monocytes 0.8 thou/uL (0.11-0.59); #Neutrophils 5.8 thou/uL (1.40-6.50); %Basophils 0.2 % (0.0-1.0); %Eosinophils 2.1 % (0.0-10.0); %Lymphocytes 25.2 % (21.0-51.0); %Neutrophils 63.5 % (42.0-75.0); Hemoglobin 10.6 g/dL (14.0-18.0); Mean Corpuscular HGB CONC 31.7 g/dL (32.0-36.0); Mean Corpuscular Hemoglobin 30.1 pg (27.0-31.0); Mean Platelet Volume 8.3 fL (7.4-10.4); Platelet Count 195 10x3/uL (130-400); RBC Distribution Width 15.3 % (11.5-14.5); Red Blood Cell (RBC) Count 3.54 mill/uL (4.70-6.10); White Blood Cell (WBC) Count 9.2 10x3/uL (4.8-10.8)
[2022-06-25 06:59] LABS: Anion Gap 12 mmol/L (10-20); BUN (Urea Nitrogen) 55 mg/dL (8.4-25.7); Calc. Creatinine Clearance 38 mL/min (70-130); Calcium 8.8 mg/dL (7.8-10.44); Carbon Dioxide 22 mmol/L (23-31); Chloride 110 mmol/L (98-107); Estimated GFR 55; Glucose 112 mg/dL (83-110); Magnesium 1.9 mg/dL (1.6-2.6); Potassium 4.4 mmol/L (3.5-5.1); Sodium 140 mmol/L (136-145)
[2022-06-25] MEDS ORDERED: Zinc Sulfate 220 MG CAP PO SCH (08:00)
[2022-06-25] MEDS: Mometasone 200 MCG/Formoterol 5 MCG 120 PUFF INHALER INH SCH ×2 (08:01→18:45)
[2022-06-25] MEDS: Magnesium Oxide 400 MG TAB PO SCH ×2 (09:21→20:54)
[2022-06-25] MEDS: Escitalopram Oxalate 10 mg Tablet PO SCH (09:21)
[2022-06-25] MEDS: Aspirin 81 mg Enteric Coated Tablet PO SCH (09:21)
[2022-06-25] MEDS: Folic Acid 1 MG TAB PO SCH (09:21)
[2022-06-25] MEDS: Ascorbic Acid 500 mg Chewable Tablet PO SCH (09:21)
[2022-06-25] MEDS: Tamsulosin HCl 0.4 MG CAP PO SCH (09:22)
[2022-06-25] MEDS: Empagliflozin 10 MG TAB PO SCH (09:22)
[2022-06-25] MEDS: Amlodipine 10 MG TAB PO SCH (09:22)
[2022-06-25] MEDS: Furosemide 20 MG TAB PO SCH (09:23)
[2022-06-25] MEDS: guaiFENesin ER 600 MG TAB PO SCH ×2 (09:23→20:57)
[2022-06-25] MEDS ORDERED: predniSONE 20 MG TAB PO SCH (12:30)
[2022-06-25] MEDS ORDERED: hydrALAZINE 20 MG/ML VIAL SLOW IVP PRN (12:46)
[2022-06-25] MEDS: Nicotine 21 MG PATCH TD SCH (17:37)
[2022-06-25] MEDS: HumaLOG 300 UNITS/3 ML VIAL SC PRN (17:41)
[2022-06-25] MEDS: Rosuvastatin 20 MG TAB PO SCH (20:57)
[2022-06-25] MEDS: Mirtazapine 15 MG TAB PO SCH (20:57)
[2022-06-25] MEDS: clonazePAM 1 MG TAB PO PRN (21:01)
[2022-06-26] MEDS: Cefepime 1 GM in Sodium Chloride 0.9% 100 ML IVPB SCH ×2 (00:28→11:52)
[2022-06-26] MEDS: Clindamycin/D5W 900 MG in Premix Bag 1 BAG IVPB SCH ×2 (03:26→12:34)
[2022-06-26 06:09] LABS: #Eosinphils 0.2 thou/uL (0.0-0.7); #Lymphocytes 2.5 thou/uL (1.20-3.40); #Monocytes 0.8 thou/uL (0.11-0.59); #Neutrophils 5.9 thou/uL (1.40-6.50); %Basophils 0.1 % (0.0-1.0); %Eosinophils 2.1 % (0.0-10.0); %Lymphocytes 26.3 % (21.0-51.0); %Monocytes 8.6 % (0.0-10.0); %Neutrophils 62.9 % (42.0-75.0); Hemoglobin 11.2 g/dL (14.0-18.0); Mean Corpuscular HGB CONC 33.4 g/dL (32.0-36.0); Mean Corpuscular Hemoglobin 31.3 pg (27.0-31.0); Mean Corpuscular Volume 93.7 fl (78.0-98.0); Mean Platelet Volume 8.4 fL (7.4-10.4); Platelet Count 181 10x3/uL (130-400); RBC Distribution Width 15.5 % (11.5-14.5); Red Blood Cell (RBC) Count 3.59 mill/uL (4.70-6.10); White Blood Cell (WBC) Count 9.4 10x3/uL (4.8-10.8)
[2022-06-26 06:37] LABS: Anion Gap 12 mmol/L (10-20); BUN (Urea Nitrogen) 50 mg/dL (8.4-25.7); Calc. Creatinine Clearance 41 mL/min (70-130); Calcium 8.7 mg/dL (7.8-10.44); Carbon Dioxide 20 mmol/L (23-31); Chloride 109 mmol/L (98-107); Estimated GFR 62; Glucose 95 mg/dL (83-110); Magnesium 1.9 mg/dL (1.6-2.6); Potassium 4.4 mmol/L (3.5-5.1); Sodium 137 mmol/L (136-145)
[2022-06-26] MEDS: Mometasone 200 MCG/Formoterol 5 MCG 120 PUFF INHALER INH SCH ×2 (08:19→18:40)
[2022-06-26] MEDS: Escitalopram Oxalate 10 mg Tablet PO SCH (09:32)
[2022-06-26] MEDS: Aspirin 81 mg Enteric Coated Tablet PO SCH (09:33)
[2022-06-26] MEDS: Amlodipine 10 MG TAB PO SCH (09:33)
[2022-06-26] MEDS: Magnesium Oxide 400 MG TAB PO SCH ×2 (09:33→21:31)
[2022-06-26] MEDS: predniSONE 20 MG TAB PO SCH (09:33)
[2022-06-26] MEDS: Zinc Sulfate 220 MG CAP PO SCH (09:33)
[2022-06-26] MEDS: Ascorbic Acid 500 mg Chewable Tablet PO SCH (09:33)
[2022-06-26] MEDS: Tamsulosin HCl 0.4 MG CAP PO SCH (09:34)
[2022-06-26] MEDS: Empagliflozin 10 MG TAB PO SCH (09:34)
[2022-06-26] MEDS: Folic Acid 1 MG TAB PO SCH (09:34)
[2022-06-26] MEDS: guaiFENesin ER 600 MG TAB PO SCH ×3 (09:35→21:43)
[2022-06-26] MEDS: Furosemide 20 MG TAB PO SCH (09:35)
[2022-06-26] MEDS: Nicotine 21 MG PATCH TD SCH (17:00)
[2022-06-26] MEDS: Rosuvastatin 20 MG TAB PO SCH (21:30)
[2022-06-26] MEDS: Mirtazapine 15 MG TAB PO SCH (21:31)
[2022-06-26] MEDS: clonazePAM 1 MG TAB PO PRN (21:31)
[2022-06-26] MEDS ORDERED: HumaLOG 300 UNITS/3 ML VIAL SC PRN (22:16)
[2022-06-27] MEDS: Cefepime 1 GM in Sodium Chloride 0.9% 100 ML IVPB SCH ×2 (00:22→15:06)
[2022-06-27 05:31] LABS: #Eosinphils 0.2 thou/uL (0.0-0.7); #Lymphocytes 2.5 thou/uL (1.20-3.40); #Monocytes 0.9 thou/uL (0.11-0.59); #Neutrophils 6.6 thou/uL (1.40-6.50); %Basophils 0.3 % (0.0-1.0); %Eosinophils 1.8 % (0.0-10.0); %Lymphocytes 24.2 % (21.0-51.0); %Monocytes 8.3 % (0.0-10.0); %Neutrophils 65.5 % (42.0-75.0); Hemoglobin 11.5 g/dL (14.0-18.0); Mean Corpuscular HGB CONC 32.2 g/dL (32.0-36.0); Mean Corpuscular Hemoglobin 30.1 pg (27.0-31.0); Mean Corpuscular Volume 93.6 fl (78.0-98.0); Mean Platelet Volume 8.6 fL (7.4-10.4); Platelet Count 190 10x3/uL (130-400); RBC Distribution Width 15.4 % (11.5-14.5); Red Blood Cell (RBC) Count 3.81 mill/uL (4.70-6.10); White Blood Cell (WBC) Count 10.1 10x3/uL (4.8-10.8)
[2022-06-27 05:54] LABS: Anion Gap 11 mmol/L (10-20); BUN (Urea Nitrogen) 55 mg/dL (8.4-25.7); Calc. Creatinine Clearance 34 mL/min (70-130); Calcium 9.3 mg/dL (7.8-10.44); Carbon Dioxide 24 mmol/L (23-31); Chloride 107 mmol/L (98-107); Estimated GFR 49; Glucose 108 mg/dL (83-110); Potassium 5.1 mmol/L (3.5-5.1); Sodium 137 mmol/L (136-145)
[2022-06-27] MEDS: Mometasone 200 MCG/Formoterol 5 MCG 120 PUFF INHALER INH SCH ×2 (08:24→18:48)
[2022-06-27] MEDS: guaiFENesin ER 600 MG TAB PO SCH ×2 (09:30→20:22)
[2022-06-27] MEDS: Aspirin 81 mg Enteric Coated Tablet PO SCH (10:11)
[2022-06-27] MEDS: Empagliflozin 10 MG TAB PO SCH (10:11)
[2022-06-27] MEDS: predniSONE 20 MG TAB PO SCH (10:11)
[2022-06-27] MEDS: Folic Acid 1 MG TAB PO SCH (10:11)
[2022-06-27] MEDS: Tamsulosin HCl 0.4 MG CAP PO SCH (10:11)
[2022-06-27] MEDS: Escitalopram Oxalate 10 mg Tablet PO SCH (10:11)
[2022-06-27] MEDS: Magnesium Oxide 400 MG TAB PO SCH ×2 (10:12→20:18)
[2022-06-27] MEDS: Zinc Sulfate 220 MG CAP PO SCH (10:12)
[2022-06-27] MEDS: Ascorbic Acid 500 mg Chewable Tablet PO SCH (10:12)
[2022-06-27] MEDS: Furosemide 20 MG TAB PO SCH (10:12)
[2022-06-27] MEDS: Amlodipine 10 MG TAB PO SCH (10:12)
[2022-06-27] MEDS: cefTRIAXone\\ROCEPHIN 2 GM in Sodium Chloride 0.9% 100 ML IVPB SCH (17:40)
[2022-06-27] MEDS: Nicotine 21 MG PATCH TD SCH (17:43)
[2022-06-27] MEDS: Rosuvastatin 20 MG TAB PO SCH (20:18)
[2022-06-27] MEDS: Mirtazapine 15 MG TAB PO SCH (20:18)
[2022-06-27] MEDS: clonazePAM 1 MG TAB PO PRN (20:21)
[2022-06-28 06:00] LABS: #Eosinphils 0.3 thou/uL (0.0-0.7); #Monocytes 1.1 thou/uL (0.11-0.59); #Neutrophils 8.3 thou/uL (1.40-6.50); %Basophils 0.2 % (0.0-1.0); %Eosinophils 2.4 % (0.0-10.0); %Lymphocytes 23.3 % (21.0-51.0); %Monocytes 8.3 % (0.0-10.0); %Neutrophils 65.7 % (42.0-75.0); Hemoglobin 11.3 g/dL (14.0-18.0); Mean Corpuscular HGB CONC 32.3 g/dL (32.0-36.0); Mean Corpuscular Hemoglobin 30.3 pg (27.0-31.0); Mean Corpuscular Volume 93.7 fl (78.0-98.0); Mean Platelet Volume 8.6 fL (7.4-10.4); Platelet Count 185 10x3/uL (130-400); RBC Distribution Width 15.3 % (11.5-14.5); Red Blood Cell (RBC) Count 3.74 mill/uL (4.70-6.10); White Blood Cell (WBC) Count 12.7 10x3/uL (4.8-10.8)
[2022-06-28 06:20] LABS: Anion Gap 8 mmol/L (10-20); BUN (Urea Nitrogen) 61 mg/dL (8.4-25.7); Calc. Creatinine Clearance 37 mL/min (70-130); Calcium 9.2 mg/dL (7.8-10.44); Carbon Dioxide 27 mmol/L (23-31); Chloride 106 mmol/L (98-107); Estimated GFR 54; Glucose 118 mg/dL (83-110); Magnesium 2.2 mg/dL (1.6-2.6); Potassium 5.3 mmol/L (3.5-5.1); Sodium 136 mmol/L (136-145)
[2022-06-28] MEDS: Folic Acid 1 MG TAB PO SCH (08:30)
[2022-06-28] MEDS: Tamsulosin HCl 0.4 MG CAP PO SCH (08:30)
[2022-06-28] MEDS: Zinc Sulfate 220 MG CAP PO SCH (08:30)
[2022-06-28] MEDS: Empagliflozin 10 MG TAB PO SCH (08:31)
[2022-06-28] MEDS: Amlodipine 10 MG TAB PO SCH (08:31)
[2022-06-28] MEDS: Ascorbic Acid 500 mg Chewable Tablet PO SCH (08:34)
[2022-06-28] MEDS: Magnesium Oxide 400 MG TAB PO SCH (08:34)
[2022-06-28] MEDS: predniSONE 20 MG TAB PO SCH (08:34)
[2022-06-28] MEDS: Escitalopram Oxalate 10 mg Tablet PO SCH (08:34)
[2022-06-28] MEDS: Furosemide 20 MG TAB PO SCH ×2 (08:34→09:05)
[2022-06-28] MEDS: Mometasone 200 MCG/Formoterol 5 MCG 120 PUFF INHALER INH SCH (08:49)
[2022-06-28] MEDS: guaiFENesin ER 600 MG TAB PO SCH (09:04)
[2022-06-28] MEDS: Aspirin 81 mg Enteric Coated Tablet PO SCH (09:05)
[2022-06-28 11:49] VITALS: BP 175/73; TEMP 98.3
[2022-06-28] MEDS: cefTRIAXone\\ROCEPHIN 2 GM in Sodium Chloride 0.9% 100 ML IVPB SCH (14:40)
== END 2022-06-28 17:41 | disposition home health service (06) | DRG 863 ==
LOC: ERS 01:47 → MSONC 08:35
PROVIDERS: ADMIT Family Medicine; ATTEND Family Medicine
PROC: 02HV33Z Insertion of Infusion Device into Superior Vena Cava, Percutaneous Approach (ICD-10-PCS; principal; 2022-06-28)
PROC: B5181ZA Fluoroscopy of Superior Vena Cava using Low Osmolar Contrast, Guidance (ICD-10-PCS; 2022-06-28)
PROC: B548ZZA Ultrasonography of Superior Vena Cava, Guidance (ICD-10-PCS; 2022-06-28)
DX: T81.49XA Infection following a procedure, other surgical site, initial encounter (principal); M86.8X8 Other osteomyelitis, other site; E87.1 Hypo-osmolality and hyponatremia; I50.32 Chronic diastolic (congestive) heart failure; E87.5 Hyperkalemia; N18.30 Chronic kidney disease, stage 3 unspecified; I25.10 Atherosclerotic heart disease of native coronary artery without angina pectoris; I12.9 Hypertensive chronic kidney disease with stage 1 through stage 4 chronic kidney disease, or unspecified chronic kidney disease; J44.9 Chronic obstructive pulmonary disease, unspecified; D63.1 Anemia in chronic kidney disease; F17.210 Nicotine dependence, cigarettes, uncomplicated; N40.0 Benign prostatic hyperplasia without lower urinary tract symptoms; B96.89 Other specified bacterial agents as the cause of diseases classified elsewhere; Z88.0 Allergy status to penicillin; Z79.899 Other long term (current) drug therapy; Z79.82 Long term (current) use of aspirin; Z79.52 Long term (current) use of systemic steroids; Z95.2 Presence of prosthetic heart valve; Z95.1 Presence of aortocoronary bypass graft; Z82.3 Family history of stroke; Z82.49 Family history of ischemic heart disease and other diseases of the circulatory system; Z86.14 Personal history of Methicillin resistant Staphylococcus aureus infection
CPT/HCPCS: 36415; 36416; 36569; 71045; 71250; 80048; 80053; 80076; 83036; 83605; 83735; 83880; 84443; 85025; 85652; 86140; 87040; 87070; 87077; 87081; 87186; 87205; 93005; 93010; 97139; J0360; J0692; J0696; J1815; J3370; J3490; J7050; J7512

== ENCOUNTER 2022-08-10 10:02 | Outpatient (CLI) | payer MEDICARE, OTHER | END 2022-08-10 10:03 | disposition home or self-care (01) | LOC: RAD 10:02 | PROVIDERS: ATTEND Internal Medicine Critical Care Medicine | DX: R06.00 Dyspnea, unspecified (principal) | CPT/HCPCS: 71046 ==

== ENCOUNTER 2022-09-26 10:46 | Emergency (ER) | payer MEDICARE, OTHER ==
[2022-09-26] MEDS ORDERED: Magnesium 2 GM/50 ML BAG (IN WATER) ONE (11:01)
[2022-09-26] MEDS ORDERED: Amiodarone 150 MG/3 ML VIAL ONE (11:07)
[2022-09-26 11:16] LABS: #Basophils 0.1 thou/uL (0.0-0.2); #Eosinphils 0.2 thou/uL (0.0-0.7); #Monocytes 1.1 thou/uL (0.11-0.59); #Neutrophils 12.9 thou/uL (1.40-6.50); %Basophils 0.3 % (0.0-1.0); %Lymphocytes 18.8 % (21.0-51.0); %Monocytes 6.2 % (0.0-10.0); %Neutrophils 72.7 % (42.0-75.0); Hemoglobin 11.5 g/dL (14.0-18.0); Mean Corpuscular HGB CONC 29.9 g/dL (32.0-36.0); Mean Corpuscular Hemoglobin 28.6 pg (27.0-31.0); Mean Corpuscular Volume 95.8 fl (78.0-98.0); Mean Platelet Volume 10.9 fL (7.4-10.4); Platelet Count 144 10x3/uL (130-400); RBC Distribution Width 17.9 % (11.5-14.5); Red Blood Cell (RBC) Count 4.02 mill/uL (4.70-6.10); White Blood Cell (WBC) Count 17.8 10x3/uL (4.8-10.8)
[2022-09-26 11:53] LABS: ALT (SGPT) 26 U/L (8-55); AST (SGOT) 29 U/L (5-34); Albumin 3.8 g/dL (3.4-4.8); Alkaline Phosphatase 97 U/L (40-110); Anion Gap 16 mmol/L (10-20); BUN (Urea Nitrogen) 31 mg/dL (8.4-25.7); Bilirubin, Total 0.5 mg/dL (0.2-1.2); CK (CPK) 54 U/L (30-200); Calc. Creatinine Clearance 0 mL/min (70-130); Calcium 9.7 mg/dL (7.8-10.44); Carbon Dioxide 27 mmol/L (23-31); Chloride 103 mmol/L (98-107); Estimated GFR 63; Globulin 3.3 g/dL (2.4-3.5); Glucose 121 mg/dL (83-110); Magnesium 2.3 mg/dL (1.6-2.6); Potassium 4.4 mmol/L (3.5-5.1); Protein, Total 7.1 g/dL (5.8-8.1); Sodium 142 mmol/L (136-145)
[2022-09-26 12:26] LABS: CKMB 2.8 ng/mL (0-6.6)
[2022-09-26] MEDS ORDERED: Nicotine 14 MG PATCH ONE (13:07)
== END 2022-09-26 14:48 | disposition left against medical advice (07) ==
LOC: ERS 10:46
DX: I47.20 Ventricular tachycardia, unspecified (principal); I48.91 Unspecified atrial fibrillation; I21.4 Non-ST elevation (NSTEMI) myocardial infarction; D72.829 Elevated white blood cell count, unspecified; I11.0 Hypertensive heart disease with heart failure; I50.9 Heart failure, unspecified; J44.9 Chronic obstructive pulmonary disease, unspecified; E11.9 Type 2 diabetes mellitus without complications; F17.210 Nicotine dependence, cigarettes, uncomplicated; Z79.82 Long term (current) use of aspirin; Z79.899 Other long term (current) drug therapy
CPT/HCPCS: 36415; 71045; 80053; 82550; 82553; 83735; 84443; 84484; 85025; 92960; 93005; 96365; 96366; 96375; 96376; J3475

== ENCOUNTER 2022-10-16 05:48 | Inpatient (IN) | payer MEDICARE, OTHER ==
[2022-10-16] MEDS ORDERED: cefTRIAXone (ROCEPHIN) 2 GM VIAL ONE (06:27)
[2022-10-16] MEDS ORDERED: Aspirin Chewable 81 MG TAB ONE (06:27)
[2022-10-16 07:46] LABS: #Basophils 0.1 thou/uL (0.0-0.2); #Eosinphils 0.1 thou/uL (0.0-0.7); #Neutrophils 17.5 thou/uL (1.40-6.50); %Basophils 0.3 % (0.0-1.0); %Eosinophils 0.7 % (0.0-10.0); %Lymphocytes 4.1 % (21.0-51.0); %Monocytes 4.8 % (0.0-10.0); %Neutrophils 88.7 % (42.0-75.0); Hemoglobin 10.6 g/dL (14.0-18.0); Mean Corpuscular HGB CONC 30.8 g/dL (32.0-36.0); Mean Corpuscular Hemoglobin 29.2 pg (27.0-31.0); Mean Corpuscular Volume 94.8 fl (78.0-98.0); Platelet Count 187 10x3/uL (130-400); RBC Distribution Width 16.5 % (11.5-14.5); Red Blood Cell (RBC) Count 3.63 mill/uL (4.70-6.10); White Blood Cell (WBC) Count 19.7 10x3/uL (4.8-10.8)
[2022-10-16 07:57] LABS: ALT (SGPT) 41 U/L (8-55); AST (SGOT) 34 U/L (5-34); Alkaline Phosphatase 103 U/L (40-110); Anion Gap 16 mmol/L (10-20); BUN (Urea Nitrogen) 45 mg/dL (8.4-25.7); Bilirubin, Total 0.5 mg/dL (0.2-1.2); Calc. Creatinine Clearance 0 mL/min (70-130); Calcium 9.4 mg/dL (7.8-10.44); Carbon Dioxide 35 mmol/L (23-31); Chloride 94 mmol/L (98-107); Estimated GFR 51; Globulin 3.5 g/dL (2.4-3.5); Glucose 141 mg/dL (83-110); Lipase 22 U/L (8-78); Potassium 5.9 mmol/L (3.5-5.1); Protein, Total 7.5 g/dL (5.8-8.1); Sodium 139 mmol/L (136-145)
[2022-10-16] MEDS ORDERED: VANCOMYCIN 1.25 GM/250 ML BAG 1.25 GM in Premix Bag 1 BAG IVPB SCH (08:15)
[2022-10-16 08:20] LABS: CKMB 1.3 ng/mL (0-6.6)
[2022-10-16 08:35] LABS: Bacteria/HPF None Seen HPF (None Seen); Bilirubin Negative (Negative); Blood, Urine Negative (Negative); CAUTI Indications for Culture Fever or rigors; Clarity Clear (Clear); Glucose, Urine (Dipstick) Normal (Negative); Ketone, Urine Negative (Negative); Leukocyte Negative Leu/uL (Negative); Nitrite Negative (Negative); Protein, Urine (Dipstick) 70 mg/dL (Neg-Trace); RBC/HPF 0-3 HPF (0-3); Specific Gravity, Urine 1.016 (1.002-1.036); Squamous Epithelial 0-3 HPF (0-3); Urobilinogen Normal mg/dL (Less than 2); WBC/HPF 0-3 HPF (0-3); pH, Urine 5.5 (5.0-9.0)
[2022-10-16 08:36] LABS: Urine Culture Reflex No No
[2022-10-16] MEDS ORDERED: Morphine 2 MG/ML VIAL ONE (08:44)
[2022-10-16 09:43] LABS: Anion Gap 14 mmol/L (10-20); BUN (Urea Nitrogen) 42 mg/dL (8.4-25.7); Calc. Creatinine Clearance 0 mL/min (70-130); Calcium 8.5 mg/dL (7.8-10.44); Carbon Dioxide 31 mmol/L (23-31); Chloride 98 mmol/L (98-107); Estimated GFR 55; Glucose 167 mg/dL (83-110); Potassium 5.7 mmol/L (3.5-5.1); Sodium 137 mmol/L (136-145)
[2022-10-16] MEDS ORDERED: Nicotine 14 MG PATCH ONE (10:01)
[2022-10-16] MEDS ORDERED: Senokot S 8.6-50 MG TAB PO PRN (10:15)
[2022-10-16] MEDS ORDERED: Nicotine 21 MG PATCH TOP SCH (10:15)
[2022-10-16] MEDS ORDERED: Guaifenesin DM 100-10/5 ML UDCUP PO PRN (10:15)
[2022-10-16] MEDS ORDERED: traMADol HCl 50 MG TAB PO PRN (10:15)
[2022-10-16] MEDS ORDERED: Bisacodyl 10 MG SUPP PR PRN (10:15)
[2022-10-16] MEDS ORDERED: Iopamidol-370 76% 500 ML MDV (1 ML CHARGE) ONE (10:52)
[2022-10-16] MEDS: HYDROcodone/Acetaminophen 5/325 mg Tablet PO PRN ×2 (11:54→19:49)
[2022-10-16] MEDS: hydrALAZINE 25 MG TAB PO SCH ×2 (14:14→19:47)
[2022-10-16] MEDS: Sodium Chloride 0.9% 1,000 ML IV SCH (14:15)
[2022-10-16] MEDS: Cefepime 1 GM in Sodium Chloride 0.9% 100 ML IVPB SCH ×2 (14:29→23:01)
[2022-10-16] MEDS ORDERED: Nicotine 21 MG PATCH TD SCH (18:00)
[2022-10-16] MEDS: Mometasone 200 MCG/Formoterol 5 MCG 120 PUFF INHALER INH SCH (19:07)
[2022-10-16] MEDS: Apixaban 5 MG TAB PO SCH (19:47)
[2022-10-16] MEDS: Magnesium Oxide 400 MG TAB PO SCH (19:48)
[2022-10-16] MEDS: clonazePAM 1 MG TAB PO PRN (19:55)
[2022-10-16] MEDS: Benzonatate 100 MG CAP PO PRN (20:00)
[2022-10-16] MEDS: Mirtazapine 15 MG TAB PO SCH (23:14)
[2022-10-17] MEDS ORDERED: Furosemide 40 MG/4 ML VIAL SLOW IVP SCH (00:30)
[2022-10-17 04:52] LABS: #Eosinphils 0.1 thou/uL (0.0-0.7); #Monocytes 1.1 thou/uL (0.11-0.59); #Neutrophils 9.8 thou/uL (1.40-6.50); %Basophils 0.3 % (0.0-1.0); %Eosinophils 1.1 % (0.0-10.0); %Monocytes 8.5 % (0.0-10.0); %Neutrophils 79.2 % (42.0-75.0); Hemoglobin 8.3 g/dL (14.0-18.0); Mean Corpuscular HGB CONC 28.4 g/dL (32.0-36.0); Mean Corpuscular Hemoglobin 28.7 pg (27.0-31.0); Mean Platelet Volume 11.8 fL (7.4-10.4); Platelet Count 147 10x3/uL (130-400); RBC Distribution Width 16.2 % (11.5-14.5); Red Blood Cell (RBC) Count 2.89 mill/uL (4.70-6.10); White Blood Cell (WBC) Count 12.4 10x3/uL (4.8-10.8)
[2022-10-17 05:14] LABS: Anion Gap 13 mmol/L (10-20); BUN (Urea Nitrogen) 42 mg/dL (8.4-25.7); Calc. Creatinine Clearance 47 mL/min (70-130); Calcium 8.3 mg/dL (7.8-10.44); Carbon Dioxide 33 mmol/L (23-31); Chloride 100 mmol/L (98-107); Estimated GFR 65; Glucose 105 mg/dL (83-110); Potassium 4.8 mmol/L (3.5-5.1); Sodium 141 mmol/L (136-145)
[2022-10-17] MEDS: Sodium Chloride 0.9% 1,000 ML IV SCH (05:34)
[2022-10-17] MEDS: Mometasone 200 MCG/Formoterol 5 MCG 120 PUFF INHALER INH SCH ×2 (07:39→19:15)
[2022-10-17] MEDS ORDERED: Vancomycin 1 GM in Premix Bag 1 BAG IVPB SCH (09:00)
[2022-10-17] MEDS: Escitalopram Oxalate 10 mg Tablet PO SCH (09:53)
[2022-10-17] MEDS: Apixaban 5 MG TAB PO SCH ×2 (09:53→21:11)
[2022-10-17] MEDS: predniSONE 5 MG TAB PO SCH (09:53)
[2022-10-17] MEDS: hydrALAZINE 25 MG TAB PO SCH ×3 (09:54→21:12)
[2022-10-17] MEDS: Ascorbic Acid 500 mg Chewable Tablet PO SCH (09:54)
[2022-10-17] MEDS: Finasteride 5 MG TAB PO SCH (09:54)
[2022-10-17] MEDS: Tamsulosin HCl 0.4 MG CAP PO SCH (09:54)
[2022-10-17] MEDS: Folic Acid 1 MG TAB PO SCH (09:54)
[2022-10-17] MEDS: Aspirin 81 mg Enteric Coated Tablet PO SCH (09:54)
[2022-10-17] MEDS: Furosemide 40 MG TAB PO SCH (09:54)
[2022-10-17] MEDS: Magnesium Oxide 400 MG TAB PO SCH ×2 (09:54→21:12)
[2022-10-17] MEDS: Amiodarone 200 MG TAB PO SCH (09:55)
[2022-10-17] MEDS: Nicotine 21 MG PATCH TD SCH (09:55)
[2022-10-17] MEDS: Acetaminophen 325 MG TAB PO PRN (10:18)
[2022-10-17] MEDS: Cefepime 1 GM in Sodium Chloride 0.9% 100 ML IVPB SCH (15:42)
[2022-10-17] MEDS: Ipratropium/Albuterol 3 ML NEB NEB PRN (17:39)
[2022-10-17] MEDS: clonazePAM 1 MG TAB PO PRN (21:12)
[2022-10-17] MEDS: Benzonatate 100 MG CAP PO PRN (21:12)
[2022-10-17] MEDS: Mirtazapine 15 MG TAB PO SCH (21:28)
[2022-10-18] MEDS: Cefepime 1 GM in Sodium Chloride 0.9% 100 ML IVPB SCH ×2 (01:07→15:22)
[2022-10-18 04:52] LABS: #Eosinphils 0.1 thou/uL (0.0-0.7); #Neutrophils 10.1 thou/uL (1.40-6.50); %Basophils 0.2 % (0.0-1.0); %Eosinophils 0.5 % (0.0-10.0); %Lymphocytes 10.6 % (21.0-51.0); %Monocytes 7.8 % (0.0-10.0); Mean Corpuscular HGB CONC 29.1 g/dL (32.0-36.0); Mean Corpuscular Hemoglobin 28.7 pg (27.0-31.0); Mean Corpuscular Volume 98.6 fl (78.0-98.0); Mean Platelet Volume 11.8 fL (7.4-10.4); Platelet Count 141 10x3/uL (130-400); RBC Distribution Width 15.9 % (11.5-14.5); Red Blood Cell (RBC) Count 2.79 mill/uL (4.70-6.10); White Blood Cell (WBC) Count 12.6 10x3/uL (4.8-10.8)
[2022-10-18 05:20] LABS: Anion Gap 11 mmol/L (10-20); BUN (Urea Nitrogen) 33 mg/dL (8.4-25.7); Calc. Creatinine Clearance 57 mL/min (70-130); Calcium 8.6 mg/dL (7.8-10.44); Carbon Dioxide 36 mmol/L (23-31); Chloride 97 mmol/L (98-107); Estimated GFR 77; Glucose 141 mg/dL (83-110); Potassium 4.7 mmol/L (3.5-5.1); Sodium 139 mmol/L (136-145)
[2022-10-18] MEDS: Mometasone 200 MCG/Formoterol 5 MCG 120 PUFF INHALER INH SCH ×2 (07:25→18:41)
[2022-10-18] MEDS: Ipratropium/Albuterol 3 ML NEB NEB PRN ×3 (07:25→21:32)
[2022-10-18 08:50] LABS: Vancomycin, Trough 13.3 ug/mL
[2022-10-18] MEDS ORDERED: VANCOMYCIN 1.25 GM/250 ML BAG 1.25 GM in Premix Bag 1 BAG IVPB SCH (09:00)
[2022-10-18] MEDS: hydrALAZINE 25 MG TAB PO SCH ×3 (09:29→21:09)
[2022-10-18] MEDS: Apixaban 5 MG TAB PO SCH ×2 (09:29→21:09)
[2022-10-18] MEDS: Nicotine 21 MG PATCH TD SCH (09:29)
[2022-10-18] MEDS: predniSONE 5 MG TAB PO SCH (09:29)
[2022-10-18] MEDS: Escitalopram Oxalate 10 mg Tablet PO SCH (09:30)
[2022-10-18] MEDS: Tamsulosin HCl 0.4 MG CAP PO SCH (09:30)
[2022-10-18] MEDS: Furosemide 40 MG TAB PO SCH (09:30)
[2022-10-18] MEDS: Magnesium Oxide 400 MG TAB PO SCH ×2 (09:30→21:12)
[2022-10-18] MEDS: Folic Acid 1 MG TAB PO SCH (09:30)
[2022-10-18] MEDS: Amiodarone 200 MG TAB PO SCH (09:30)
[2022-10-18] MEDS: Finasteride 5 MG TAB PO SCH (09:30)
[2022-10-18] MEDS: Aspirin 81 mg Enteric Coated Tablet PO SCH (09:30)
[2022-10-18] MEDS: Ascorbic Acid 500 mg Chewable Tablet PO SCH (09:30)
[2022-10-18] MEDS: Acetaminophen 325 MG TAB PO PRN ×2 (09:40→21:13)
[2022-10-18] MEDS: Benzonatate 100 MG CAP PO PRN ×2 (09:40→21:17)
[2022-10-18] MEDS: Mirtazapine 15 MG TAB PO SCH (21:11)
[2022-10-18] MEDS: clonazePAM 1 MG TAB PO PRN (21:12)
[2022-10-19] MEDS: Cefepime 1 GM in Sodium Chloride 0.9% 100 ML IVPB SCH ×2 (00:57→13:02)
[2022-10-19 05:24] LABS: #Eosinphils 0.1 thou/uL (0.0-0.7); #Monocytes 0.9 thou/uL (0.11-0.59); #Neutrophils 9.9 thou/uL (1.40-6.50); %Basophils 0.2 % (0.0-1.0); %Eosinophils 0.6 % (0.0-10.0); %Lymphocytes 10.9 % (21.0-51.0); %Monocytes 7.2 % (0.0-10.0); %Neutrophils 80.1 % (42.0-75.0); Mean Corpuscular HGB CONC 30.1 g/dL (32.0-36.0); Mean Corpuscular Hemoglobin 28.7 pg (27.0-31.0); Mean Platelet Volume 11.5 fL (7.4-10.4); Platelet Count 143 10x3/uL (130-400); RBC Distribution Width 15.9 % (11.5-14.5); Red Blood Cell (RBC) Count 2.79 mill/uL (4.70-6.10); White Blood Cell (WBC) Count 12.3 10x3/uL (4.8-10.8)
[2022-10-19 05:29] LABS: Mean Corpuscular Volume 95.3 fl (78.0-98.0)
[2022-10-19 05:48] LABS: Anion Gap 12 mmol/L (10-20); BUN (Urea Nitrogen) 33 mg/dL (8.4-25.7); Calc. Creatinine Clearance 44 mL/min (70-130); Calcium 8.8 mg/dL (7.8-10.44); Carbon Dioxide 33 mmol/L (23-31); Chloride 97 mmol/L (98-107); Estimated GFR 54; Glucose 169 mg/dL (83-110); Sodium 137 mmol/L (136-145)
[2022-10-19] MEDS: Ipratropium/Albuterol 3 ML NEB NEB PRN ×3 (07:13→20:49)
[2022-10-19] MEDS: Mometasone 200 MCG/Formoterol 5 MCG 120 PUFF INHALER INH SCH ×2 (07:16→19:00)
[2022-10-19] MEDS: Nicotine 21 MG PATCH TD SCH (09:17)
[2022-10-19] MEDS: hydrALAZINE 25 MG TAB PO SCH ×3 (09:17→21:16)
[2022-10-19] MEDS: predniSONE 5 MG TAB PO SCH (09:18)
[2022-10-19] MEDS: Ascorbic Acid 500 mg Chewable Tablet PO SCH (09:18)
[2022-10-19] MEDS: Apixaban 5 MG TAB PO SCH ×2 (09:18→21:16)
[2022-10-19] MEDS: Tamsulosin HCl 0.4 MG CAP PO SCH (09:18)
[2022-10-19] MEDS: Magnesium Oxide 400 MG TAB PO SCH ×2 (09:18→21:17)
[2022-10-19] MEDS: Aspirin 81 mg Enteric Coated Tablet PO SCH (09:19)
[2022-10-19] MEDS: Amiodarone 200 MG TAB PO SCH (09:19)
[2022-10-19] MEDS: Finasteride 5 MG TAB PO SCH (09:19)
[2022-10-19] MEDS: Folic Acid 1 MG TAB PO SCH (09:19)
[2022-10-19] MEDS: Escitalopram Oxalate 10 mg Tablet PO SCH (09:19)
[2022-10-19] MEDS: Furosemide 40 MG TAB PO SCH (09:19)
[2022-10-19] MEDS ORDERED: hydrALAZINE 25 MG TAB PO SCH ×2 (10:04→10:15)
[2022-10-19] MEDS: Mirtazapine 15 MG TAB PO SCH (21:17)
[2022-10-19] MEDS: clonazePAM 1 MG TAB PO PRN (21:17)
[2022-10-20] MEDS: Cefepime 1 GM in Sodium Chloride 0.9% 100 ML IVPB SCH (00:47)
[2022-10-20 04:53] LABS: Hemoglobin 7.8 g/dL (14.0-18.0); White Blood Cell (WBC) Count 9.7 10x3/uL (4.8-10.8)
[2022-10-20 04:54] LABS: #Eosinphils 0.1 thou/uL (0.0-0.7); #Monocytes 0.8 thou/uL (0.11-0.59); #Neutrophils 7.4 thou/uL (1.40-6.50); %Basophils 0.2 % (0.0-1.0); %Eosinophils 0.9 % (0.0-10.0); %Lymphocytes 13.2 % (21.0-51.0); %Monocytes 8.2 % (0.0-10.0); %Neutrophils 76.3 % (42.0-75.0); Mean Corpuscular HGB CONC 29.9 g/dL (32.0-36.0); Mean Corpuscular Hemoglobin 28.9 pg (27.0-31.0); Mean Corpuscular Volume 96.7 fl (78.0-98.0); Mean Platelet Volume 11.5 fL (7.4-10.4); Platelet Count 143 10x3/uL (130-400); RBC Distribution Width 15.8 % (11.5-14.5)
[2022-10-20 05:56] LABS: BUN (Urea Nitrogen) 33 mg/dL (8.4-25.7); Calc. Creatinine Clearance 56 mL/min (70-130)
[2022-10-20 05:57] LABS: Calcium 8.6 mg/dL (7.8-10.44); Estimated GFR 68; Glucose 135 mg/dL (83-110)
[2022-10-20 06:15] LABS: Anion Gap 14 mmol/L (10-20); Carbon Dioxide 34 mmol/L (23-31); Chloride 98 mmol/L (98-107); Potassium 4.9 mmol/L (3.5-5.1); Sodium 141 mmol/L (136-145)
[2022-10-20 07:37] VITALS: BP 176/82; TEMP 98.3
[2022-10-20] MEDS: Mometasone 200 MCG/Formoterol 5 MCG 120 PUFF INHALER INH SCH (07:46)
[2022-10-20] MEDS: Furosemide 40 MG TAB PO SCH (08:47)
[2022-10-20] MEDS: Finasteride 5 MG TAB PO SCH (08:47)
[2022-10-20] MEDS: Magnesium Oxide 400 MG TAB PO SCH (08:48)
[2022-10-20] MEDS: Aspirin 81 mg Enteric Coated Tablet PO SCH (08:48)
[2022-10-20] MEDS: Ascorbic Acid 500 mg Chewable Tablet PO SCH (08:48)
[2022-10-20] MEDS: Escitalopram Oxalate 10 mg Tablet PO SCH (08:48)
[2022-10-20] MEDS: hydrALAZINE 25 MG TAB PO SCH (08:48)
[2022-10-20] MEDS: Apixaban 5 MG TAB PO SCH (08:48)
[2022-10-20] MEDS: predniSONE 5 MG TAB PO SCH (08:48)
[2022-10-20] MEDS: Amiodarone 200 MG TAB PO SCH (08:48)
[2022-10-20] MEDS: Folic Acid 1 MG TAB PO SCH (08:48)
[2022-10-20] MEDS: Tamsulosin HCl 0.4 MG CAP PO SCH (08:49)
[2022-10-20] MEDS: Nicotine 21 MG PATCH TD SCH (08:49)
== END 2022-10-20 10:45 | disposition home health service (06) | DRG 314 ==
LOC: ERS 05:48 → 2NO 11:18
PROVIDERS: ADMIT Internal Medicine; ATTEND Hospitalist
DX: T82.7XXA Infection and inflammatory reaction due to other cardiac and vascular devices, implants and grafts, initial encounter (principal); A41.9 Sepsis, unspecified organism; I13.0 Hypertensive heart and chronic kidney disease with heart failure and stage 1 through stage 4 chronic kidney disease, or unspecified chronic kidney disease; L03.114 Cellulitis of left upper limb; N17.9 Acute kidney failure, unspecified; I50.22 Chronic systolic (congestive) heart failure; I25.810 Atherosclerosis of coronary artery bypass graft(s) without angina pectoris; I48.20 Chronic atrial fibrillation, unspecified; I42.9 Cardiomyopathy, unspecified; J44.9 Chronic obstructive pulmonary disease, unspecified; F17.210 Nicotine dependence, cigarettes, uncomplicated; Z66 Do not resuscitate; E87.5 Hyperkalemia; N18.30 Chronic kidney disease, stage 3 unspecified; E11.22 Type 2 diabetes mellitus with diabetic chronic kidney disease; D63.1 Anemia in chronic kidney disease; N40.0 Benign prostatic hyperplasia without lower urinary tract symptoms; R53.81 Other malaise; Z88.0 Allergy status to penicillin; Z79.82 Long term (current) use of aspirin; Z79.899 Other long term (current) drug therapy; Z79.52 Long term (current) use of systemic steroids; Z95.810 Presence of automatic (implantable) cardiac defibrillator; Z85.51 Personal history of malignant neoplasm of bladder; Z95.1 Presence of aortocoronary bypass graft; Z95.2 Presence of prosthetic heart valve
CPT/HCPCS: 36415; 71045; 71275; 80048; 80053; 80202; 81001; 82553; 83605; 83690; 83880; 84484; 85025; 87040; 87077; 87086; 87186; 93005; 94640; 96365; 96375; 97139; J0692; J0696; J1940; J2272; J3370; J3370-JW; J3490; J7050; J7512; J7620; Q9967